=== PATIENT | male | born 1950 | race Caucasian/White ===

== ENCOUNTER 2017-10-01 13:41 | Inpatient (IN) | payer MEDICARE ==
[~2017-10-01] VITALS: Ht 182.9 cm; Wt 71.5 kg
[2017-10-01 14:41] VITALS: BP 104/75; PULSE 129; RESP 16; TEMP 99; O2SAT 95
[2017-10-01] MEDS ORDERED: PIPERACIL-TAZO 3.375 GM PREMIX 50 ML IV ONE (15:30)
[2017-10-01] MEDS ORDERED: SODIUM CHLOR 0.9% 1000 ML INJ 1,000 ML IV ONE ×4 (15:30→16:45)
[2017-10-01] MEDS ORDERED: VANCOMYCIN INJ 1,000 MG in SODIUM CHLOR 0.9% 250 ML INJ 250 ML IV ONE (15:30)
--- NOTE | 2017-10-01 15:36 | PD ---
HPI Chief Complaint: Altered Mental Status Time Seen by Provider: 14:42 Travel History International Travel<30 days: No Contact w/Intl Traveler<30days: No Traveled to known affect area: No History of Present Illness HPI [facility]. Duration one day. Severity is severe. He had fever and tachycardia and low blood pressure. He has known severe sacral decubitus and the doctor was concerned about sacral osteomyelitis. The patient is a quadriplegic. He has a trach and a feeding tube. Temperature at the [facility] was 99.4 today. He arrives with tachycardia and borderline hypotension. No alleviating factors. No exacerbating factors. PFSH Past Medical History Diabetes: Yes Social History Alcohol Use: No Tobacco Use: No Substance Use: No Allergies-Medications (Allergen,Severity, Reaction): Coded Allergies: No Known Allergies (Unverified , 10/01/17) Reported Meds & Prescriptions Reported Meds & Active Scripts Active Reported Zolpidem (Zolpidem Tartrate) 5 Mg Tab 5 Mg PEG HS PRN Zinc Sulfate 220 Mg (50 Mg Zinc) Cap 220 Mg PEG DAILY Xanax (Alprazolam) 0.5 Mg Tab 0.5 Mg PO Q6H PRN Vitamin C (Ascorbic Acid) 250 Mg Chew 250 Mg PEG BID Tamsulosin (Tamsulosin HCl) 0.4 Mg Cap 0.8 Mg PEG HS Spironolactone 25 Mg Tab 25 Mg PEG DAILY Quetiapine (Quetiapine Fumarate) 25 Mg Tab 25 Mg PEG BID Lyrica (Pregabalin) 50 Mg Cap 50 Mg PEG TID Methocarbamol 500 Mg Tab 500 Mg PEG Q8HR Metformin (Metformin HCl) 500 Mg Tab 500 Mg PO BIDPC Lisinopril 10 Mg Tab 10 Mg PEG DAILY Lidocaine Patch 12 HR (Lidocaine) 5 % Patch 1 Patch TOPICAL DAILY Remove patch after 12 hours Levemir Flextouch Pen Inj (Insulin Detemir) 300 unit/3 ML Pen 10 Units SQ BID Klonopin (Clonazepam) 0.5 Mg Tab 0.5 Mg PEG Q8HR Hydrocodone-Acetaminophen 10-325 mg Tab 1 Tab PEG Q6H PRN [Cream For Coccyx] Pepcid (Famotidine) 20 Mg Tab 20 Mg PEG BID Enoxaparin Inj (Enoxaparin Sodium) 40 Mg/0.4 Ml Syr 40 Mg SQ HS Celexa (Citalopram Hydrobromide) 20 Mg Tab 20 Mg PEG DAILY Aspirin 81 Mg Chew 81 Mg PEG DAILY Amitriptyline (Amitriptyline HCl) 50 Mg Tab 50 Mg PEG HS Albuterol Neb (Albuterol Sulfate) 0.63 Mg/3 Ml Neb 0.63 Mg NEB Q6HR NEB PRN Tylenol (Acetaminophen) 325 Mg Tab 650 Mg PEG Q4HR PRN Review of Systems General / Constitutional: Positive: Fever Eyes: No: Visual changes HENT: No: Headaches Cardiovascular: Positive: Tachycardia, No: Chest Pain or Discomfort Respiratory: No: Shortness of Breath Gastrointestinal: No: Abdominal Pain Genitourinary: No: Dysuria Musculoskeletal: Positive: Weakness, No: Pain Skin: No Rash Neurologic: Positive: Weakness Psychiatric: No: Depression Endocrine: No: Polydipsia Hematologic/Lymphatic: No: Easy Bruising Physical Exam Narrative GENERAL: Cachectic well-developed patient who is tachycardic . SKIN: Focused skin assessment reveals stage I decubitus on malleoli of the ankles and greater trochanter areas. Skin is Warm and dry. HEAD: Atraumatic. Normocephalic. EYES: Pupils equal and round. No scleral icterus. No injection or drainage. ENT: No nasal bleeding or discharge. Mucous membranes pink and extremely dry and cracked . NECK: Trachea midline. No JVD. CARDIOVASCULAR: Regular rate and rhythm. No murmur appreciated. Tachycardic 130 RESPIRATORY: No accessory muscle use. Diminished breath sounds but otherwise clear to auscultation. Breath sounds equal bilaterally. GASTROINTESTINAL: Abdomen soft, non-tender, nondistended. Hepatic and splenic margins not palpable. MUSCULOSKELETAL: Has lots of muscular atrophy. No clubbing. No cyanosis. No edema. Examination of the back reveals a deep sacral decubitus. Bone is visible. It was packed and dressed. There is no discharge from the wound. No cellulitis or fluctuance around it. There is a bit of blackish discoloration around the opening of the decub. NEUROLOGICAL: Awake and alert. No obvious cranial nerve deficits. Motor exam shows paresis of the legs and very little movement of the extremities. Has a trach but does have some understandable speech. PSYCHIATRIC: Appropriate mood and affect; insight and judgment reasonable. Data Data Last Documented VS Vital Signs Date Time Temp Pulse Resp B/P (MAP) Pulse Ox O2 Delivery O2 Flow Rate FiO2 10/01/17 16:39 124 22 109/76 (87) 98 Nasal Cannula 5.00 10/01/17 14:41 99.0 Orders Orders Sepsis Workup Initiated (10/01/17 ) Complete Blood Count With Diff (10/01/17 15:18) Comprehensive Metabolic Panel (10/01/17 15:18) Prothrombin Time / Inr (Pt) (10/01/17 15:18) Act Partial Throm Time (Ptt) (10/01/17 15:18) Lactic Acid Sepsis Protocol (10/01/17 15:18) Urinalysis - C+S If Indicated (10/01/17 15:18) Blood Culture (10/01/17 15:18) Chest, Single Ap (10/01/17 15:18) Ecg Monitoring (10/01/17 15:18) Iv Access Insert/Monitor (10/01/17 15:18) Oximetry (10/01/17 15:18) Oxygen Administration (10/01/17 15:18) Sodium Chlor 0.9% 1000 Ml Inj (Ns 1000 M (10/01/17 15:30) Sodium Chlor 0.9% 1000 Ml Inj (Ns 1000 M (10/01/17 15:30) Piperacil-Tazo 3.375 Gm Premix (Zosyn 3. (10/01/17 15:30) Vancomycin Inj (Vancomycin Inj) (10/01/17 15:30) Urine Culture (10/01/17 15:35) Sodium Chlor 0.9% 1000 Ml Inj (Ns 1000 M (10/01/17 16:45) Sodium Chlor 0.9% 1000 Ml Inj (Ns 1000 M (10/01/17 16:45) Labs Laboratory Tests Test 10/01/17 15:35 White Blood Count 34.9 TH/MM3 Red Blood Count 3.86 MIL/MM3 Hemoglobin 10.6 GM/DL Hematocrit 33.1 % Mean Corpuscular Volume 85.7 FL Mean Corpuscular Hemoglobin 27.6 PG Mean Corpuscular Hemoglobin Concent 32.1 % Red Cell Distribution Width 16.9 % Platelet Count 398 TH/MM3 Mean Platelet Volume 7.8 FL Neutrophils (%) (Auto) 76.7 % Lymphocytes (%) (Auto) 12.0 % Monocytes (%) (Auto) 10.9 % Eosinophils (%) (Auto) 0.1 % Basophils (%) (Auto) 0.3 % Neutrophils # (Auto) 26.8 TH/MM3 Lymphocytes # (Auto) 4.2 TH/MM3 Monocytes # (Auto) 3.8 TH/MM3 Eosinophils # (Auto) 0.0 TH/MM3 Basophils # (Auto) 0.1 TH/MM3 CBC Comment AUTO DIFF Differential Total Cells Counted 100 Neutrophils % (Manual) 62 % Band Neutrophils % 8 % Lymphocytes % 11 % Monocytes % 18 % Eosinophils % 1 % Neutrophils # (Manual) 24.4 TH/MM3 Differential Comment FINAL DIFF MANUAL Toxic Vacuolation PRESENT Platelet Estimate NORMAL Platelet Morphology Comment NORMAL Prothrombin Time 10.7 SEC Prothromb Time International Ratio 1.1 RATIO Activated Partial Thromboplast Time 27.1 SEC Urine Color YELLOW Urine Turbidity CLEAR Urine pH 5.5 Urine Specific [place] 1.019 Urine Protein 30 mg/dL Urine Glucose (UA) NEG mg/dL Urine Ketones NEG mg/dL Urine Occult Blood MOD Urine Nitrite POS Urine Bilirubin NEG Urine Urobilinogen LESS THAN 2.0 MG/DL Urine Leukocyte Esterase MOD Urine RBC 7 /hpf Urine WBC 53 /hpf Urine Squamous Epithelial Cells <1 /hpf Microscopic Urinalysis Comment CATH-CULTURE IND Blood Urea Nitrogen 83 MG/DL Creatinine 0.90 MG/DL Random Glucose 175 MG/DL Total Protein 7.7 GM/DL Albumin 2.0 GM/DL Calcium Level 8.7 MG/DL Alkaline Phosphatase 142 U/L Aspartate Amino Transf (AST/SGOT) 50 U/L Alanine Aminotransferase (ALT/SGPT) 52 U/L Total Bilirubin 0.3 MG/DL Sodium Level 140 MEQ/L Potassium Level 5.3 MEQ/L Chloride Level 104 MEQ/L Carbon Dioxide Level 27.9 MEQ/L Anion Gap 8 MEQ/L Estimat Glomerular Filtration Rate 85 ML/MIN Lactic Acid Level 2.3 mmol/L [facility] Medical Decision Making Medical Screen Exam Complete: Yes Emergency Medical Condition: Yes Medical Record Reviewed: Yes Differential Diagnosis Sepsis, dehydration, renal failure Narrative Course I have reviewed the patient's electronic medical record. I reviewed the [facility] paperwork including medication lists and physician evaluation from today This patient arrives critically ill. I placed bilateral external jugular IV sites I gave him 2 L normal saline IV bolus He looks very dehydrated Blood cultures obtained as well as lab studies I gave him IV vancomycin and IV Zosyn I reviewed his chest x-ray which is negative Urinalysis shows 53 white cells and will be cultured Labs are reviewed. White count is elevated at 34,000 Lactate is elevated at 2.3 Metabolic studies revealed severe dehydration with azotemia Have given him 2 more liters of saline for a total of 4 L IV bolus here Heart rate is come down from 130 to 110 Blood pressure is at 110 at this time. I placed a call to the hospitalist to admit. I do not think he requires intensive care at this point given the intense resuscitation he has had Critical Care Narrative Aggregate critical care time was 80 minutes. Time to perform other separately billable procedures was not included in the critical care time. My time did not include minutes spent treating any other patients simultaneously or on activities that did not directly contribute to the patient's treatment. The services I provided to this patient were to treat and/or prevent clinically significant deterioration that could result in: Cardiopulmonary arrest, septic shock, hypovolemic shock I provided critical care services requiring my management, as noted below: Chart data review, documentation time, medication orders and management, vital sign assessments/reviewing monitor data, ordering and reviewing lab tests, ordering and interpreting/reviewing x-rays and diagnostic studies, care of the patient and discussion of the patient with the admitting physicians. Sepsis Criteria SIRS Criteria (2 or more): Heart rate over 90, WBC > 46595, < 4000 or > 10% bands Sepsis Criteria (SIRS+source): Infect source susp/known Severe Sepsis (+one): Hypotension, Lactate >2, Acute Oliguria/Renal Failure Criteria Outcome: Meets severe sepsis criteria Diagnosis Primary Impression: Severe sepsis Additional Impressions: Sacral osteomyelitis Severe dehydration Admitting Information Admitting Physician Requests: Sebastián Gaona MD Oct 01, 2017 15:36
[2017-10-01] MEDS ORDERED: TYLE325T PEG (15:41)
[2017-10-01] MEDS ORDERED: ZOLP5TAB3 PEG (15:41)
[2017-10-01] MEDS ORDERED: ALBU0.63 NEB (15:41)
[2017-10-01] MEDS ORDERED: LISI10TA3 PEG (15:41)
[2017-10-01] MEDS ORDERED: TAMS0.4C4 PEG (15:41)
[2017-10-01] MEDS ORDERED: CELE20TA PEG (15:41)
[2017-10-01] MEDS ORDERED: AMIT50TA3 PEG (15:41)
[2017-10-01] MEDS ORDERED: LIDO1PAD52 TOPICAL (15:41)
[2017-10-01] MEDS ORDERED: ZINC220C3 PEG (15:41)
[2017-10-01] MEDS ORDERED: METF500T PO (15:41)
[2017-10-01] MEDS ORDERED: INSU1INJ5 SQ (15:41)
[2017-10-01] MEDS ORDERED: LYRI50CA PEG (15:41)
[2017-10-01] MEDS ORDERED: ENOX40IN SQ (15:41)
[2017-10-01] MEDS ORDERED: HYDR-3583 PEG (15:41)
[2017-10-01] MEDS ORDERED: SPIR25TA PEG (15:41)
[2017-10-01] MEDS ORDERED: CLON.5 PEG (15:41)
[2017-10-01] MEDS ORDERED: ASPI-516 PEG (15:41)
[2017-10-01] MEDS ORDERED: ALPR.5 PO (15:41)
[2017-10-01] MEDS ORDERED: QUET1TAB7 PEG (15:41)
[2017-10-01] MEDS ORDERED: VITA250C3 PEG (15:41)
[2017-10-01] MEDS ORDERED: [UNRECOGNIZED DRUG - REMARK] (15:41)
[2017-10-01] MEDS ORDERED: METH500T3 PEG (15:41)
[2017-10-01] MEDS ORDERED: FAMO1TAB37 PEG (15:41)
--- NOTE | 2017-10-01 15:45 | RADRPT ---
EXAM DATE/TIME: 10/01/2017 15:30 [facility] COMPARISON: No previous studies available for comparison. INDICATIONS : Fever. MEDICAL HISTORY : None. SURGICAL HISTORY : Fusion, cervical. Tracheal tube. ENCOUNTER: Initial ACUITY: 1 day PAIN SCORE: Non-responsive. LOCATION: Bilateral chest FINDINGS: Minimal elevation left hemidiaphragm. Lungs are clear.. Tracheostomy tube in good position. The ca rdiomediastinal contours are unremarkable. Osseous structures are intact. CONCLUSION: Elevation left hemidiaphragm. Lungs are clear Remberto Aguilera MD FACR on October 01, 2017 at 15:42 Board Certified Radiologist. This report was verified electronically.
[2017-10-01 16:09] LABS: AUTOMATED NEUTROPHIL # 26.8 TH/MM3 (1.8-7.7); BASOPHIL # 0.1 TH/MM3 (0-0.2); BASOPHIL % 0.3 % (0.0-2.0); EOSINOPHIL % 0.1 % (0.0-4.0); HEMATOCRIT 33.1 % (39.0-51.0); HEMOGLOBIN 10.6 GM/DL (13.0-17.0); LYMPHOCYTE # 4.2 TH/MM3 (1.0-4.8); MEAN CELL VOLUME 85.7 FL (80.0-100.0); MEAN CORPUSCULAR HEMOGLOBIN 27.6 PG (27.0-34.0); MEAN CORPUSCULAR HGB CONC 32.1 % (32.0-36.0); MEAN PLATELET VOLUME 7.8 FL (7.0-11.0); MONO % 10.9 % (0.0-8.0); MONOCYTE # 3.8 TH/MM3 (0-0.9); NEUT % 76.7 % (16.0-70.0); PLATELET COUNT 398 TH/MM3 (150-450); RED BLOOD COUNT 3.86 MIL/MM3 (4.50-5.90); RED CELL DISTRIBUTION WIDTH 16.9 % (11.6-17.2); WHITE BLOOD COUNT 34.9 TH/MM3 (4.0-11.0)
[2017-10-01 16:18] LABS: INTERNATIONAL NORMALIZED RATIO 1.1 RATIO; PROTHROMBIN TIME - PATIENT 10.7 SEC (9.8-11.6)
[2017-10-01 16:20] LABS: BILIRUBIN, URINE NEG (NEG); BLOOD, URINE MOD (NEG); GLUCOSE,URINE NEG (NEG); KETONE, URINE NEG (NEG); NITRITE,URINE POS (NEG); PH, URINE 5.5 (5.0-8.5); SQUAMOUS EPITHELIAL CELL URINE <1 /hpf (0-5); URINE COLOR YELLOW (YELLW/STRAW); URINE LEUKOCYTE ESTERASE MOD (NEG)
[2017-10-01 16:28] LABS: LACTIC ACID SEPSIS PROTOCOL 2.3 mmol/L (0.4-2.0)
[2017-10-01 16:39] VITALS: BP 109/76; PULSE 124; RESP 22; O2SAT 98
[2017-10-01 16:42] LABS: ALT (GPT) 52 U/L (12-78); AST (GOT) 50 U/L (15-37); BICARBONATE 27.9 MEQ/L (21.0-32.0); BLOOD UREA NITROGEN 83 MG/DL (7-18); CALCIUM 8.7 MG/DL (8.5-10.1); CHLORIDE 104 MEQ/L (98-107); GLOMERULAR FILTRATION RATE 85 ML/MIN (>89); GLUCOSE,RANDOM 175 MG/DL (74-106); SODIUM (NA) 140 MEQ/L (136-145)
[2017-10-01 16:44] LABS: ALKALINE PHOSPHATASE 142 U/L (45-117); TOTAL BILIRUBIN ADULT 0.3 MG/DL (0.2-1.0); TOTAL PROTEIN 7.7 GM/DL (6.4-8.2)
[2017-10-01 16:57] LABS: BANDS 8 % (0-6); LYMPHOCYTES 11 % (9-44); MONOCYTES 18 % (0-8); NEUTROPHIL # MANUAL DIFF 24.4 TH/MM3 (1.8-7.7); POLYS (SEG NEUTROPHILS) 62 % (16-70)
[2017-10-01 16:58] LABS: TOXIC VACUOLATION PRESENT (NONE SEEN)
[2017-10-01 17:39] VITALS: BP 110/70; PULSE 110; RESP 22; O2SAT 98
[2017-10-01] MEDS ORDERED: LACTULOSE SYRUP 20 GM/30 ML CUP PO PRN (18:30)
[2017-10-01] MEDS ORDERED: Vancomycin Consult Pharmacy 1 EA OTHER SCH (18:30)
[2017-10-01] MEDS ORDERED: NALOXONE HCL 0.4 MG/ML AMP IV PUSH PRN (18:30)
[2017-10-01] MEDS ORDERED: MAGNESIUM HYDROXIDE SUSP 30 ML CUP PO PRN (18:30)
[2017-10-01] MEDS ORDERED: SENNOSIDES 8.6 MG TAB PO PRN (18:30)
[2017-10-01] MEDS ORDERED: BISACODYL 10 MG SUPP RECTAL PRN (18:30)
[2017-10-01 20:00] VITALS: BP 132/78; PULSE 112; RESP 20; TEMP 99.9; O2SAT 99
[2017-10-01] MEDS ORDERED: HEPARIN SODIUM - SQ 10,000 UNITS/ML VIAL SQ SCH (20:00)
[2017-10-01] MEDS: SODIUM CHLOR 0.9% 1000 ML INJ 1,000 ML IV SCH (21:12)
[2017-10-01] MEDS: PIPERACIL-TAZO 4.5 GM PREMIX 100 ML IV SCH (21:13)
--- NOTE | 2017-10-01 21:22 | HHI.HP ---
[facility] Jeremias Rodriguez MD Admission Diagnosis severe sepsis,dehydration,sacral osteomyelitis Diagnoses: Travel History International Travel<30 Days: No Contact w/Intl Traveler <30 Da: No Traveled to Known Affected Are: No History of Present Illness History from patient, ER physician notes, patient's daughter and at the bedside, interview of medical records. Patient has been a resident of [facility] for the past 2 weeks. Prior to that, patient was at [facility] for about 6 weeks. He was hospitalized in [place] at [facility] prior to that for about 4 weeks. He was admitted on August 03, 2017. According to the family, patient had abscess drainage from his cervical spine at that time and staph aureus was found and cultures. He also had abscesses in his left lower abdomen and flank area and was growing MRSA. He was treated with antibiotics there and family believes that he completed by the time he was discharged to [facility]. Today at [facility], patient was having low blood pressure with high heart and low- grade fever for which she was sent to the hospital. Family reported that the were also suctioning him frequently in the past 2-3 days. Patient was coughing a lot as well. At one point, patient had a choking episode with ice chips. However family's complaint being that this never happened when he was at [facility]. He was eating regular type of food at that time in his trach was capped. As [facility], he was always on oxygen and triglyceride capped. Family believes that patient is getting more and more drowsy at [facility] because of medications. Patient also have indwelling Marquez catheter. They are not sure when it was last changed. He also complained of bed sores which developed a few days after arriving [facility] in July. They stated that he has had debridements done there. He also reported diarrhea but they were told that it was because of his feeding formula. Diarrhea has been going on for a while. Family is mostly concerned about his medications changes. They do not want him to get too much pain medications in the form of narcotics. Reports the patient was on lorcets at the [facility] At baseline, patient is only able to move his fingers and hands and arms slightly anteflexed and slightly. He is bedbound. He is not able to lift his legs against gravity. He is only able to move sideways a bit and pressed down lightly. All this is that his baseline after this cervical spine abscess surgery. Patient has history of IV drug abuse which he has quit for many years and restarted back within the past 1 year or so. Review of Systems Except as stated in HPI: all other systems reviewed are Neg Past Family Social History Past Medical History htn dm endocarditis in the hyperlipidemia heart murmur melanoma on back of his neck - that was removed- about 10-15yrs ago BPH chronic pain syndrome- with freq hospitalizations for overdose, over medications , pain syndrome - about every 6 months in past 3 yrs Past Surgical History cervical spine sx- DJD- fusion about 12 yrs ago lower lumbar spine- about 8 yrs ago cervical spine abscess drainage- 08/02 admission knee surgery - >30yrs ago - left knee- 1960s trach, peg - 08/02 admission Allergies: Coded Allergies: No Known Allergies (Unverified , 10/01/17) Family History father- of PA in his 40s Social History used to smoke cigarrttes, quit about 35 yrs ago no etoh abuser used to use iv drugs in the - from cocaine- quit since about 30yrs ago , but restarted in about 1 yr or so with pain pills and injection Physical Exam Vital Signs Vital Signs Date Time Temp Pulse Resp B/P (MAP) Pulse Ox O2 Delivery O2 Flow Rate FiO2 10/01/17 17:39 110 22 110/70 (83) 98 Nasal Cannula 5.00 10/01/17 16:39 124 22 109/76 (87) 98 Nasal Cannula 5.00 10/01/17 14:41 99.0 129 16 104/75 (85) 95 Physical Exam GENERAL: This is a well-nourished, well-developed patient, in no apparent distress. SKIN: sacral decubiti stage IV HEAD: Atraumatic. Normocephalic. No temporal or scalp tenderness. EYES: No scleral icterus. No injection or drainage. ENT: Nose without bleeding, purulent drainage or septal hematoma. . Airway patent. NECK: Trachea midline. No JVD CARDIOVASCULAR: Regular rate and rhythm without murmurs, gallops, or rubs. RESPIRATORY: Clear to auscultation. Breath sounds equal bilaterally. No wheezes , rales, or rhonchi. GASTROINTESTINAL: Abdomen soft, non-tender, nondistended.No guarding. MUSCULOSKELETAL: Extremities without clubbing, cyanosis, or edema. No calf tenderness. NEUROLOGICAL: Awake. At times is confused but for the most part is alert. Slurred speech. Bilateral upper extremities 1 out of 5. Bilateral lower extremities1/5 Laboratory Laboratory Tests Test 10/01/17 15:35 10/01/17 20:30 White Blood Count 34.9 Red Blood Count 3.86 Hemoglobin 10.6 Hematocrit 33.1 Mean Corpuscular Volume 85.7 Mean Corpuscular Hemoglobin 27.6 Mean Corpuscular Hemoglobin Concent 32.1 Red Cell Distribution Width 16.9 Platelet Count 398 Mean Platelet Volume 7.8 Neutrophils (%) (Auto) 76.7 Lymphocytes (%) (Auto) 12.0 Monocytes (%) (Auto) 10.9 Eosinophils (%) (Auto) 0.1 Basophils (%) (Auto) 0.3 Neutrophils # (Auto) 26.8 Lymphocytes # (Auto) 4.2 Monocytes # (Auto) 3.8 Eosinophils # (Auto) 0.0 Basophils # (Auto) 0.1 CBC Comment AUTO DIFF Differential Total Cells Counted 100 Neutrophils % (Manual) 62 Band Neutrophils % 8 Lymphocytes % 11 Monocytes % 18 Eosinophils % 1 Neutrophils # (Manual) 24.4 Differential Comment FINAL DIFF MANUAL Toxic Vacuolation PRESENT Platelet Estimate NORMAL Platelet Morphology Comment NORMAL Prothrombin Time 10.7 Prothromb Time International Ratio 1.1 Activated Partial Thromboplast Time 27.1 Urine Color YELLOW Urine Turbidity CLEAR Urine pH 5.5 Urine Specific [place] 1.019 Urine Protein 30 Urine Glucose (UA) NEG Urine Ketones NEG Urine Occult Blood MOD Urine Nitrite POS Urine Bilirubin NEG Urine Urobilinogen LESS THAN 2.0 Urine Leukocyte Esterase MOD Urine RBC 7 Urine WBC 53 Urine Squamous Epithelial Cells <1 Microscopic Urinalysis Comment CATH-CULTURE IND Blood Urea Nitrogen 83 Creatinine 0.90 Random Glucose 175 Total Protein 7.7 Albumin 2.0 Calcium Level 8.7 Alkaline Phosphatase 142 Aspartate Amino Transf (AST/SGOT) 50 Alanine Aminotransferase (ALT/SGPT) 52 Total Bilirubin 0.3 Sodium Level 140 Potassium Level 5.3 Chloride Level 104 Carbon Dioxide Level 27.9 Anion Gap 8 Estimat Glomerular Filtration Rate 85 Lactic Acid Level 2.3 1.1 B-Type Natriuretic Peptide 8 Date/Time Source Procedure Growth Status 10/01/17 15:40 Blood Peripheral Aerobic Blood Culture Pending Received 10/01/17 15:40 Blood Peripheral Anaerobic Blood Culture Pending Received 10/01/17 15:35 Urine Catheterized Urine Urine Culture Pending Received Result Diagram: 10/01/17 1535 10/01/17 1535 Imaging Last [address] 10/02/17 0039 Signed Impressions: Service Date/Time: Monday, October 02, 2017 01:45 - CONCLUSION: 1. No gross intracranial abnormality on this scan which is degraded by patient motion. Jose Sin MD Chest X-Ray 10/01/17 1518 Signed Impressions: Service Date/Time: Sunday, October 01, 2017 15:30 - CONCLUSION: Elevation left hemidiaphragm. Lungs are clear Remberto Aguilera MD FACR Caprini VTE Risk Assessment Caprini VTE Risk Assessment: Mod/High Risk (score >= 2) Caprini Risk Assessment Model Point Value = 1 Point Value = 2 Point Value = 3 Point Value = 5 Age 41-60 Minor surgery BMI > 25 kg/m2 Swollen legs Varicose veins or History of unexplained or recurrent spontaneous Oral contraceptives or hormone replacement Sepsis (< 1 month) Serious lung disease, including pneumonia (< 1 month) Abnormal pulmonary function Acute myocardial infarction Congestive heart failure (< 1 month) History of inflammatory bowel disease Medical patient at bed rest Age 61-74 Arthroscopic surgery Major open surgery (> 45 min) Laparoscopic surgery (> 45 min) Malignancy Confined to bed (> 72 hours) Immobilizing plaster cast Central venous access Age >= 75 History of VTE Family history of VTE Factor V Leiden Prothrombin [id number] Lupus anticoagulant Anticardiolipin antibodies Elevated serum homocysteine Heparin-induced thrombocytopenia Other congenital or acquired thrombophilia Stroke (< 1 month) Elective arthroplasty Hip, pelvis, or leg fracture Acute spinal cord injury (< 1 month) Prophylaxis Regimen Total Risk Factor Score Risk Level Prophylaxis Regimen 0-1 Low Early ambulation 2 Moderate Order ONE of the following: *Sequential Compression Device (SCD) *Heparin 5000 units SQ BID 3-4 Higher Order ONE of the following medications: *Heparin 5000 units SQ TID *Enoxaparin/Lovenox 40 mg SQ daily (WT < 150 kg, CrCl > 30 mL/min) *Enoxaparin/Lovenox 30 mg SQ daily (WT < 150 kg, CrCl > 10-29 mL/min) *Enoxaparin/Lovenox 30 mg SQ BID (WT < 150 kg, CrCl > 30 mL/min) AND/OR *Sequential Compression Device (SCD) 5 or more Highest Order ONE of the following medications: *Heparin 5000 units SQ TID (Preferred with Epidurals) *Enoxaparin/Lovenox 40 mg SQ daily (WT < 150 kg, CrCl > 30 mL/min) *Enoxaparin/Lovenox 30 mg SQ daily (WT < 150 kg, CrCl > 10-29 mL/min) *Enoxaparin/Lovenox 30 mg SQ BID (WT < 150 kg, CrCl > 30 mL/min) AND *Sequential Compression Device (SCD) Assessment and Plan Assessment and Plan Impression: sepsis leukocytosis with left shift recent MRSA infection of c spine abscess in 07/2017 possible c diff colitis UTI with indwelling marquez sacral decubiti questionable hypoxia- pt is on 5L here on trach; was not requiring oxygen 2 weeks ago at [facility] slurred speech/ AMS - likely from overmedication- will r/o intrarnial etiologies Plan: ct vanco zosyn for now contact isolation for mrsa check cdiff iv fluids bnp was back ordered- 8 will see pt's sats without oxygen supplementation if pt desats, would obtain ct pulmonary angiogram pt is on lovenox for prophylaxis at ID change marquez send urine from [place] marquez family is explained danger of abruptly stopping benzos will taper off lortab 5 q6hrs prn for pain ct lyrica ct lidocaine patch wound care consult id consut Discussed Condition With patient, nursing staff Physician Certification 2 Midnight Certification Type: Admission for Inpatient Services Order for Inpatient Services The services are ordered in accordance with Medicare regulations or non- Medicare payer requirements, as applicable. In the case of services not specified as inpatient-only, they are appropriately provided as inpatient services in accordance with the 2-midnight benchmark. Estimated LOS (days): 4 days is the estimated time the patient will need to remain in the hospital, assuming treatment plan goals are met and no additional complications. Post-Hospital Plan: Not yet determined Tamela Peralta MD Oct 01, 2017 21:22
[2017-10-01] MEDS: ACETAMINOPHEN/HYDROcodone 325 MG/5 MG TAB PO PRN (22:43)
[2017-10-01 23:07] LABS: BACTERIA, URINE RARE /hpf; BILIRUBIN, URINE NEG (NEG); BLOOD, URINE MOD (NEG); GLUCOSE,URINE NEG (NEG); KETONE, URINE NEG (NEG); NITRITE,URINE POS (NEG); URINE COLOR YELLOW (YELLW/STRAW); URINE LEUKOCYTE ESTERASE MOD (NEG)
[2017-10-02] VITALS (12 sets, daily range): BP systolic 112–138; BP diastolic 69–87; PULSE 117–126; RESP 12–27; TEMP 98–98.9; O2SAT 93–96
[2017-10-02] MEDS ORDERED: DEXTROSE 50% IN WATER 50 ML VIAL(D50) IV PUSH PRN (01:00)
[2017-10-02] MEDS ORDERED: GLUCAGON 1 MG/ML VIAL OTHER PRN (01:00)
[2017-10-02] MEDS ORDERED: SODIUM CHLORID 0.9% 500 ML INJ 500 ML IV ONE (01:15)
[2017-10-02] MEDS ORDERED: LORazepam 2 MG/ML VIAL IV PUSH ONE (01:45)
--- NOTE | 2017-10-02 01:55 | RADRPT ---
EXAM DATE/TIME: 10/02/2017 01:45 [facility] COMPARISON: No previous studies available for comparison. INDICATIONS : Altered mental status. RADIATION DOSE: 35.54 CTDIvol (mGy) MEDICAL HISTORY : Hypertension. Parapalegic; trach SURGICAL HISTORY : neck ENCOUNTER: Initial ACUITY: 1 day PAIN SCALE: 0/10 LOCATION: cranial TECHNIQUE: Multiple contiguous axial images were obtained of the head. Using automated exposure control and adj ustment of the mA and/or kV according to patient size, radiation dose was kept as low as reasonably a chievable to obtain optimal diagnostic quality images. DICOM format image data is available electro nically for review and comparison. FINDINGS: The patient was scanned twice because of significant motion degradation. There is motion degradation on both scans and there are portions of the low and mid convexity which are incompletely evaluated. CEREBRUM: The ventricles are normal for age. No evidence of midline shift, mass lesion, hemorrhage or acute in farction. No extra-axial fluid collections are seen. POSTERIOR FOSSA: The cerebellum and brainstem are intact. The 4th ventricle is midline. The cerebellopontine angle i s unremarkable. EXTRACRANIAL: The visualized portion of the orbits is intact. SKULL: The calvaria is intact. No evidence of skull fracture. CONCLUSION: 1. No gross intracranial abnormality on this scan which is degraded by patient motion. Jose Sin MD on October 02, 2017 at 1:52 Board Certified Radiologist. This report was verified electronically.
[2017-10-02] MEDS: PIPERACIL-TAZO 4.5 GM PREMIX 100 ML IV SCH ×4 (02:06→22:17)
[2017-10-02] MEDS: metroNIDAZOLE 500 MG INJ 100 ML IV SCH ×3 (02:06→14:05)
[2017-10-02] MEDS ORDERED: VANCOMYCIN 1,000 MG/NS 250 ML IV SCH ×2 (05:00)
[2017-10-02] MEDS: clonazePAM 0.5 MG TAB PEG SCH ×3 (05:02→22:16)
[2017-10-02] MEDS: SODIUM CHLOR 0.9% 1000 ML INJ 1,000 ML IV SCH (07:59)
[2017-10-02] MEDS: INSULIN ASPART SUPPLEMENTAL SCALE SQ SCH ×5 (08:00→21:00)
[2017-10-02] MEDS: ASPIRIN 81 MG CHEW TAB PEG SCH (08:07)
[2017-10-02] MEDS: PREGABALIN 25 MG CAP PEG SCH ×3 (08:07→22:54)
[2017-10-02] MEDS: FAMOTIDINE 20 MG TAB PEG SCH ×2 (08:07→22:16)
[2017-10-02] MEDS: ASCORBIC ACID 500 MG TAB PEG SCH ×2 (08:07→22:16)
[2017-10-02] MEDS: CITALOPRAM HYDROBROMIDE 20 MG TAB PEG SCH (08:07)
[2017-10-02] MEDS: LIDOCAINE HCL 5% PATCH T-DERMAL SCH (08:08)
[2017-10-02] MEDS: QUEtiapine FUMARATE 25 MG TAB PEG SCH ×2 (08:08→22:16)
[2017-10-02] MEDS ORDERED: INSULIN DETEMIR 100 UNITS/ML VIAL SQ SCH (09:00)
[2017-10-02] MEDS ORDERED: ZINC SULFATE 220 MG CAP PEG SCH (09:00)
[2017-10-02] MEDS: ACETAMINOPHEN/HYDROcodone 325 MG/5 MG TAB PO PRN (11:30)
[2017-10-02] MEDS: ZINC SULFATE 220 MG PEG SCH (11:30)
[2017-10-02 12:39] LABS: AUTOMATED NEUTROPHIL # 26.3 TH/MM3 (1.8-7.7); BASOPHIL # 0.1 TH/MM3 (0-0.2); BASOPHIL % 0.3 % (0.0-2.0); EOSINOPHIL % 0.1 % (0.0-4.0); HEMOGLOBIN 10.2 GM/DL (13.0-17.0); LYMPH % 10.9 % (9.0-44.0); LYMPHOCYTE # 3.6 TH/MM3 (1.0-4.8); MEAN CELL VOLUME 85.8 FL (80.0-100.0); MEAN CORPUSCULAR HEMOGLOBIN 27.4 PG (27.0-34.0); MEAN CORPUSCULAR HGB CONC 31.9 % (32.0-36.0); MEAN PLATELET VOLUME 7.6 FL (7.0-11.0); MONO % 9.5 % (0.0-8.0); MONOCYTE # 3.2 TH/MM3 (0-0.9); NEUT % 79.2 % (16.0-70.0); PLATELET COUNT 346 TH/MM3 (150-450); RED BLOOD COUNT 3.72 MIL/MM3 (4.50-5.90); RED CELL DISTRIBUTION WIDTH 16.5 % (11.6-17.2); WHITE BLOOD COUNT 33.2 TH/MM3 (4.0-11.0)
[2017-10-02 13:06] LABS: BICARBONATE 21.5 MEQ/L (21.0-32.0); CALCIUM 8.5 MG/DL (8.5-10.1); CREATININE 0.49 MG/DL (0.60-1.30)
[2017-10-02 13:17] LABS: BANDS 13 % (0-6); LYMPHOCYTES 7 % (9-44); METAMYELOCYTES 3 % (0-1); MONOCYTES 9 % (0-8); NEUTROPHIL # MANUAL DIFF 27.9 TH/MM3 (1.8-7.7); POLYS (SEG NEUTROPHILS) 68 % (16-70)
[2017-10-02 13:18] LABS: DOHLE BODIES PRESENT (NONE SEEN); TOXIC VACUOLATION PRESENT (NONE SEEN)
--- NOTE | 2017-10-02 15:22 | PD.CONS ---
History of Present Illness Service Infectious disease Consult Requested By Dr Peralta Reason for Consult Evaluate a with severe sepsis Primary Care Physician Jeremias Rodriguez MD Diagnoses: History of Present Illness Patient seen and examined. Records reviewed. Patient is not a good historian and history obtained from his current records. Patient is a 67-year-old male, brought into the hospital for evaluation for possible sepsis. Patient was hospitalized initially in [facility] and he was apparently there for about 4 weeks. He had drainage of a spur cervical spine abscess that had MRSA and there was also mention that he had other abscesses in his body. During his previous hospitalization he had tracheostomy placement as well as PEG tube placement. He went to [facility] after that and he was apparently there for at least 6 weeks and went to [facility]. [facility] there was mention of different problems including some diarrhea. Also he has had problem with some cough and some choking episodes which according to the family is new. His trach use and he usually can eat without any problem. Low-grade fevers. Patient also has an indwelling Marquez catheter and the family does not know how long ago it was change. In the rehabilitation facility he was noted to be tachycardic, and had low blood pressure and some low-grade fever. Sepsis is a concerns of the patient was brought into the hospital for further evaluation and treatment. On admission his white count was elevated. His chest x-rays normal. Stool for C. difficile is now back with C. difficile positive toxin. His Marquez catheter was changed in the emergency room. Urinalysis showed pyuria, urine culture has gram-negative zenobia. Blood cultures are negative so far. Infectious disease consultation has been requested to evaluate for severe sepsis. Review of Systems ROS Limitations: Clinical Condition, Poor Historian Past Family Social History Allergies: Coded Allergies: No Known Allergies (Unverified , 10/01/17) Past Medical History Hypertension Diabetes endocarditis in the 1980s Hyperlipidemia melanoma on back of his neck - that was removed- about 10-15yrs ago BPH chronic pain syndrome- with freq hospitalizations for overdose, over medications , pain syndrome - about every 6 months in past 3 yrs Previous MRSA pneumonia Cervical spine abscess that was treated Past Surgical History cervical spine sx- DJD- fusion about 12 yrs ago lower lumbar spine- about 8 yrs ago cervical spine abscess drainage- 08/02 admission knee surgery - >30yrs ago - left knee- 1960s trach, peg - 08/02 admission Active Ordered Medications Current Medications Medications (Trade) Dose Ordered Sig/Damian Route Start Time Stop Time Status Last Admin Sodium Chloride 1,000 ml @ 70 mls/hr [id number] IV 10/01/17 18:18 10/02/17 07:59 (Narcan Inj) 0.4 mg UNSCH PRN IV PUSH 10/01/17 18:30 (Milk Of Magnesia Liq) 30 ml Q12H PRN PO 10/01/17 18:30 (Senokot) 17.2 mg Q12H PRN PO 10/01/17 18:30 (Dulcolax Supp) 10 mg DAILY PRN RECTAL 10/01/17 18:30 (Lactulose Liq) 30 ml DAILY PRN PO 10/01/17 18:30 Pharmacy Profile Note 0 ml @ 0 mls/hr UNSCH OTHER 10/01/17 18:30 Piperacillin Sod/ Tazobactam Sod 100 ml @ 200 mls/hr Q6H IV 10/01/17 21:00 10/02/17 15:00 Vancomycin HCl 1000 mg/Sodium Chloride 250 ml @ 250 mls/hr Q12H IV 10/02/17 05:00 10/02/17 05:02 Miscellaneous Information SPECIFIC LAB TO BE DRAWN:VANCO TROUGH DATE TO... ONCE ONCE .XX 10/03/17 04:45 10/03/17 04:46 (Lidoderm 5% Patch.12 Hr) 1 patch DAILY T-DERMAL 10/02/17 09:00 10/02/17 08:08 (Lyrica) 50 mg TID PEG 10/02/17 09:00 10/02/17 14:05 (Clinton 5-325 Mg) 1 tab Q6H PRN PO 10/01/17 22:15 10/02/17 11:30 (Albuterol Neb) 0.63 mg Q6HR NEB PRN NEB 10/02/17 01:00 (Elavil) 50 mg HS PEG 10/02/17 21:00 (Aspirin Chew) 81 mg DAILY PEG 10/02/17 09:00 10/02/17 08:07 (CeleXA) 20 mg DAILY PEG 10/02/17 09:00 10/02/17 08:07 (KlonoPIN) 0.5 mg Q8HR PEG 10/02/17 06:00 10/02/17 14:05 (Lovenox Inj) 40 mg HS SQ 10/02/17 21:00 (Pepcid) 20 mg BID PEG 10/02/17 09:00 10/02/17 08:07 (SEROquel) 25 mg BID PEG 10/02/17 09:00 10/02/17 08:08 (Flomax) 0.8 mg HS PO 10/02/17 21:00 (Vitamin C) 250 mg BID PEG 10/02/17 09:00 10/02/17 08:07 (Levemir Inj) 10 units BID SQ 10/02/17 09:00 (D50w (Vial) Inj) 50 ml UNSCH PRN IV PUSH 10/02/17 01:00 (Glucagon Inj) 1 mg UNSCH PRN OTHER 10/02/17 01:00 (NovoLOG SUPPLEMENTAL SCALE) 1 ACHS SLIDING SCALE SQ 10/02/17 08:00 10/02/17 12:00 Metronidazole 100 ml @ 100 mls/hr Q6H IV 10/02/17 02:00 10/02/17 14:05 Non-Formulary Medication ZINC SULFATE 22... Q24H PEG 10/02/17 11:00 10/02/17 11:30 Family History Father of [place] Social History Has been [facility] the [facility] Ex-smoker, quit 35 years ago No alcohol abuse Used to use iv drugs in the 1980s - from cocaine- quit since about 30yrs ago , but restarted in about 1 yr or so with pain pills and injection Physical Exam Vital Signs Vital Signs Date Time Temp Pulse Resp B/P (MAP) Pulse Ox O2 Delivery O2 Flow Rate FiO2 10/02/17 12:00 120 23 118/79 (92) 95 10/02/17 11:34 98.5 119 27 112/79 (90) 93 Room Air 10/02/17 09:45 120 24 113/69 (84) 94 10/02/17 08:05 Room Air 10/02/17 08:04 98.9 123 12 129/76 (93) 95 Room Air 10/02/17 05:43 98.9 120 18 125/78 (94) 95 Room Air 10/02/17 04:00 123 20 129/72 (91) 94 Room Air 10/02/17 00:01 124 20 112/75 (87) 96 Room Air 10/01/17 20:00 99.9 112 20 132/78 (96) 99 Trach Collar 2.00 10/01/17 17:39 110 22 110/70 (83) 98 Nasal Cannula 5.00 10/01/17 16:39 124 22 109/76 (87) 98 Nasal Cannula 5.00 Physical Exam GENERAL: Patient is a thin, well-developed male, awake and alert, not in respiratory distress. He occasional answers my questions SKIN: Warm and dry. No generalized rash, no ecchymoses and no evidence of embolic lesions. HEAD: Atraumatic. Normocephalic. No temporal wasting, or tenderness. EYES: [place] conjunctiva. No petechia or hemorrhage. Pupils equal, round and reactive to light. Extraocular movements full and intact. No scleral icterus. No injection or drainage. EARS, NOSE AND THROAT: Nose without bleeding or purulent nasal discharge. No sinus tenderness. Dry oral mucosa NECK: Trachea midline. Trach site has small amount of purulence around site, currently capped CARDIOVASCULAR: Regular rate and rhythm. No murmurs, rubs or gallops heard RESPIRATORY: has scattered rhonchi ABDOMEN: Soft, non-tender, nondistended. Bowel sounds present and normoactive. No guarding. No rebound. No organomegaly. PEG site ok EXTREMITIES: No clubbing, cyanosis, or edema. No joint effusion, has good ROM. No calf tenderness. Well perfused and warm. : Marquez in place urine looks clear NEUROLOGICAL: Awake and alert. No facial asymmetry. Moves extremities PSYCHIATRIC: restless LINE: No evidence of infection Laboratory Laboratory Tests Test 10/01/17 15:35 10/01/17 20:30 10/01/17 22:30 10/01/17 22:40 White Blood Count 34.9 Red Blood Count 3.86 Hemoglobin 10.6 Hematocrit 33.1 Mean Corpuscular Volume 85.7 Mean Corpuscular Hemoglobin 27.6 Mean Corpuscular Hemoglobin Concent 32.1 Red Cell Distribution Width 16.9 Platelet Count 398 Mean Platelet Volume 7.8 Neutrophils (%) (Auto) 76.7 Lymphocytes (%) (Auto) 12.0 Monocytes (%) (Auto) 10.9 Eosinophils (%) (Auto) 0.1 Basophils (%) (Auto) 0.3 Neutrophils # (Auto) 26.8 Lymphocytes # (Auto) 4.2 Monocytes # (Auto) 3.8 Eosinophils # (Auto) 0.0 Basophils # (Auto) 0.1 CBC Comment AUTO DIFF Differential Total Cells Counted 100 Neutrophils % (Manual) 62 Band Neutrophils % 8 Lymphocytes % 11 Monocytes % 18 Eosinophils % 1 Neutrophils # (Manual) 24.4 Differential Comment FINAL DIFF MANUAL Toxic Vacuolation PRESENT Platelet Estimate NORMAL Platelet Morphology Comment NORMAL Prothrombin Time 10.7 Prothromb Time International Ratio 1.1 Activated Partial Thromboplast Time 27.1 Urine Color YELLOW YELLOW Urine Turbidity CLEAR CLEAR Urine pH 5.5 6.0 Urine Specific Gonzales 1.019 1.018 Urine Protein 30 30 Urine Glucose (UA) NEG NEG Urine Ketones NEG NEG Urine Occult Blood MOD MOD Urine Nitrite POS POS Urine Bilirubin NEG NEG Urine Urobilinogen LESS THAN 2.0 LESS THAN 2.0 Urine Leukocyte Esterase MOD MOD Urine RBC 7 13 Urine WBC 53 36 Urine Squamous Epithelial Cells <1 Microscopic Urinalysis Comment CATH-CULTURE IND CATH-CULTURE IND Blood Urea Nitrogen 83 Creatinine 0.90 Random Glucose 175 Total Protein 7.7 Albumin 2.0 Calcium Level 8.7 Alkaline Phosphatase 142 Aspartate Amino Transf (AST/SGOT) 50 Alanine Aminotransferase (ALT/SGPT) 52 Total Bilirubin 0.3 Sodium Level 140 Potassium Level 5.3 Chloride Level 104 Carbon Dioxide Level 27.9 Anion Gap 8 Estimat Glomerular Filtration Rate 85 Lactic Acid Level 2.3 1.1 B-Type Natriuretic Peptide 8 Urine Bacteria RARE Stool C. difficile Toxin (PCR) POSITIVE Stl C. difficile Toxin Epiderm 027 PRESUMPTIVE POSITIVE Test 10/02/17 11:43 White Blood Count 33.2 Red Blood Count 3.72 Hemoglobin 10.2 Hematocrit 32.0 Mean Corpuscular Volume 85.8 Mean Corpuscular Hemoglobin 27.4 Mean Corpuscular Hemoglobin Concent 31.9 Red Cell Distribution Width 16.5 Platelet Count 346 Mean Platelet Volume 7.6 Neutrophils (%) (Auto) 79.2 Lymphocytes (%) (Auto) 10.9 Monocytes (%) (Auto) 9.5 Eosinophils (%) (Auto) 0.1 Basophils (%) (Auto) 0.3 Neutrophils # (Auto) 26.3 Lymphocytes # (Auto) 3.6 Monocytes # (Auto) 3.2 Eosinophils # (Auto) 0.0 Basophils # (Auto) 0.1 CBC Comment AUTO DIFF Differential Total Cells Counted 100 Neutrophils % (Manual) 68 Band Neutrophils % 13 Lymphocytes % 7 Monocytes % 9 Neutrophils # (Manual) 27.9 Metamyelocytes 3 Differential Comment FINAL DIFF MANUAL Toxic Granulation Toxic Vacuolation PRESENT Dohle Bodies PRESENT Platelet Estimate NORMAL Platelet Morphology Comment NORMAL Blood Urea Nitrogen 45 Creatinine 0.49 Random Glucose 137 Calcium Level 8.5 Sodium Level 149 Potassium Level 3.5 Chloride Level 117 Carbon Dioxide Level 21.5 Anion Gap 11 Estimat Glomerular Filtration Rate 171 Date/Time Source Procedure Growth Status 10/01/17 15:40 Blood Peripheral Aerobic Blood Culture - Preliminary NO GROWTH IN 1 DAY Resulted 10/01/17 15:40 Blood Peripheral Anaerobic Blood Culture - Preliminary NO GROWTH IN 1 DAY Resulted 10/01/17 22:30 Urine Catheterized Urine Urine Culture - Preliminary RESULTS PENDING Resulted Result Diagram: 10/02/17 1143 10/02/17 1143 Imaging RADIOLOGY STUDIES/FILMS REVIEWED Last Impressions Head CT 10/02/17 0039 Signed Impressions: Service Date/Time: Monday, October 02, 2017 01:45 - CONCLUSION: 1. No gross intracranial abnormality on this scan which is degraded by patient motion. Jose Sin MD Chest X-Ray 10/01/17 1518 Signed Impressions: Service Date/Time: Sunday, October 01, 2017 15:30 - CONCLUSION: Elevation left hemidiaphragm. Lungs are clear Remberto Aguilera MD FACR Assessment and Plan Assessment and Plan IMPRESSION Sepsis on admission, likely due to C diff, also with marquez associated UTI C diff colitis CAUTI, C/S GNR Hx cervical spine absess, drained and treated with Abx Hx IVDU RECOMMENDATION Continue Zosyn Stop IV Vanco Will use oral Vanco for C. difficile colitis treatment Add Lactinex Stop Flagyl Follow cultures Follow CBC Monitor progress I will follow along with you Thank you for this consultation Discussed Condition With D/W RN Bonnie Borrego MD Oct 02, 2017 15:22
--- NOTE | 2017-10-02 15:58 | PD.WCN.NOT ---
Wound Consult Description: Wound consult ordered by for sacral wound Communicated with: Maria M BURROUGHS, Recommendation: 1. Reposition patient every 2 hours for comfort and offloading 2. Cleanse sacral wound with normal saline pat dry.Skin prep yadira wound 3. Santyl to moistened gauze and apply to wound base 4. Cover with dry boarder gauze change dressing daily or as needed for dislodgement/exudate 5. Apply 50/50 mix of floor stocked antifungal cream with Calazime cream to inner buttock and groin area BID or as needed for loose stools. 6. Consult plastics or general surgery for debridement.With possible Wound Vac placement. Additional Information: Patient was seen today in [facility] by business writer and Maria M BURROUGHS for assessment of Sacral wound.Patient alert and oriented x2 in bed .Patient requires full max assistance to reposition to left side.Dressing removed from sacral area to reveal a full thickness unstageable pressure injury over sacral area measuring 4.9cm x 4.4cm x~1.8cm with undermining noted from 4-6 O'clock with max depth @ 6 O'clock being ~0.7cm.Wound base is ~60% yellow slough ~20% black soft necrotic tissue ~10% [place]/white tissue ~10% bone.Erythema noted to periwound ~ 0.5cm circumferentially wound edges are uneven but well defined.Moderate serosanguineous drainage noted with faint odor noted.Patient has had multiple loose stools + for C-diff bilateral inner buttocks/groin has mixed etiology of fungal/moisture superficial erosion which is bright red non granular tissue noted.Sacral wound cleansed with normal saline pat dry Moist to dry dressing applied till Santyl available.Aloe vista cream applied to inner buttocks /groin area.Patient would benefit from sharps/surgical debridement with wound vac placement when stooling controlled.K-4 bed/surface ordered for assistance with comfort on mague prominences and offloading.Patient was repositioned to Left side with the assistance of Maria M BURROUGHS.Medication/Santyl order placed in chart.Nurse to apply when available. Meredith Polanco [facility] Oct 02, 2017 15:58
--- NOTE | 2017-10-02 17:14 | HHI.PR ---
Subjective Remarks awakened easily- stated his name "Mike", year "2017" thinks he is still in :"emergency room" states pain in his tailbone Objective Vitals Vital Signs Date Time Temp Pulse Resp B/P (MAP) Pulse Ox O2 Delivery O2 Flow Rate FiO2 10/02/17 16:15 98.0 117 20 138/85 (102) 94 10/02/17 15:57 10/02/17 15:00 122 25 123/75 (91) 95 10/02/17 14:00 98.9 124 25 130/87 (101) 95 Room Air 10/02/17 13:00 126 26 125/79 (94) 94 Room Air 10/02/17 12:00 120 23 118/79 (92) 95 10/02/17 11:34 98.5 119 27 112/79 (90) 93 Room Air 10/02/17 09:45 120 24 113/69 (84) 94 10/02/17 08:05 Room Air 10/02/17 08:04 98.9 123 12 129/76 (93) 95 Room Air 10/02/17 05:43 98.9 120 18 125/78 (94) 95 Room Air 10/02/17 04:00 123 20 129/72 (91) 94 Room Air 10/02/17 00:01 124 20 112/75 (87) 96 Room Air 10/01/17 20:00 99.9 112 20 132/78 (96) 99 Trach Collar 2.00 10/01/17 17:39 110 22 110/70 (83) 98 Nasal Cannula 5.00 I/O 10/01/17 10/01/17 10/01/17 10/02/17 10/02/17 10/02/17 07:00 15:00 23:00 07:00 15:00 23:00 Output Total 1400 ml Balance -1400 ml Output Urine Total 1400 ml # Voids 1 # Bowel Movements 1 1 Result Diagram: 10/02/17 1143 10/02/17 1143 Imaging Last Impressions Head CT 10/02/17 0039 Signed Impressions: Service Date/Time: Monday, October 02, 2017 01:45 - CONCLUSION: 1. No gross intracranial abnormality on this scan which is degraded by patient motion. Jose Sin MD Chest X-Ray 10/01/17 5658 Signed Impressions: Service Date/Time: Sunday, October 01, 2017 15:30 - CONCLUSION: Elevation left hemidiaphragm. Lungs are clear Remberto Aguilera MD FACR Objective Remarks awake anicteric trac- in place-capped decreased breath sounds, no rales regular rhythm abdomen- PEG in place + sacral decubitus ulcer stage 3-[address] extremities- atrophied Urinary Catheter: Yes Assessment to: Continue Marquez insert reason: Prolonged Immobilization Date of Insertion: Oct 02, 2017 A/P Assessment and Plan 67 years old male Sepsis on admission multifactorial C diff colitis Gram negative UTI- marquez associated Hx cervical spine abscess, drained and treated with Abx Hx IVDU Leukocytosis On Zosyn IV oral Vancomycin for c diff treatment Lactinex added ff cultures, ff CBC ID consulted, marquez changed 10/02 SADIA- pre renal in ratio HYpernatremia start TFeeding- dietitian consulted change IVF to 1/2 NS 75 cc/hr water flushes 50 cc q 4 ff lytes, BMP Sacral decubitus wound care team consulted- Questionable hypoxia- pt is on 5L here on trach; was not requiring oxygen 2 weeks ago at [facility] - now sats good at room air slurred speech/ AMS - - Brain exam- negative Chronic benzo- gradual taper Chronic pain lortab 5 q6hrs prn for pain ct lyrica ct lidocaine patch avoid sedation now good sats at room air Dietitian consult for TF recommendation start Glucerna till seen by Dietitian DM type 2 hold Levemer for now till TF started sliding scale for now Lovenox for DVTprophylaxis Shonna Esqueda MD Oct 02, 2017 17:14
[2017-10-02] MEDS ORDERED: LACTOBACILLUS ACIDOPHILUS TAB PO SCH (18:00)
[2017-10-02] MEDS ORDERED: VANCOMYCIN 25 MG/ML SOLN 100 ML BOTTLE PO SCH (18:00)
[2017-10-02] MEDS ORDERED: AMITRIPTYLINE HCL 50 MG TAB PEG SCH (21:00)
[2017-10-02] MEDS ORDERED: TAMSULOSIN HCL 0.4 MG CAP PO SCH (21:00)
[2017-10-02] MEDS: VANCOMYCIN 25 MG/ML SOLN 100 ML BOTTLE PEG SCH (22:15)
[2017-10-02] MEDS: ACETAMINOPHEN/HYDROcodone 325 MG/5 MG TAB PEG PRN (22:15)
[2017-10-02] MEDS: ENOXAPARIN SODIUM 40 MG/0.4 ML SYRINGE SQ SCH (22:15)
[2017-10-02] MEDS: TAMSULOSIN HCL 0.4 MG CAP PO SCH (22:16)
[2017-10-02] MEDS: LACTOBACILLUS ACIDOPHILUS TAB PEG SCH (22:29)
[2017-10-02] MEDS: SODIUM CHLOR 0.45% 1000 ML INJ 1,000 ML IV SCH (22:37)
[2017-10-03] VITALS (7 sets, daily range): BP systolic 117–138; BP diastolic 75–82; PULSE 116–130; RESP 18–24; TEMP 100–101.3; O2SAT 95–99
[2017-10-03] MEDS: PIPERACIL-TAZO 4.5 GM PREMIX 100 ML IV SCH ×2 (03:36→10:08)
[2017-10-03] MEDS ORDERED: PHARMACY ORDERED LAB ONE (04:45)
[2017-10-03 04:57] LABS: AUTOMATED NEUTROPHIL # 22.8 TH/MM3 (1.8-7.7); BASOPHIL % 0.1 % (0.0-2.0); EOSINOPHIL # 0.1 TH/MM3 (0-0.4); EOSINOPHIL % 0.3 % (0.0-4.0); HEMATOCRIT 33.5 % (39.0-51.0); HEMOGLOBIN 10.5 GM/DL (13.0-17.0); LYMPH % 14.2 % (9.0-44.0); LYMPHOCYTE # 4.4 TH/MM3 (1.0-4.8); MEAN CELL VOLUME 86.4 FL (80.0-100.0); MEAN CORPUSCULAR HEMOGLOBIN 27.1 PG (27.0-34.0); MEAN CORPUSCULAR HGB CONC 31.3 % (32.0-36.0); MEAN PLATELET VOLUME 7.5 FL (7.0-11.0); MONO % 10.8 % (0.0-8.0); MONOCYTE # 3.3 TH/MM3 (0-0.9); NEUT % 74.6 % (16.0-70.0); PLATELET COUNT 342 TH/MM3 (150-450); RED BLOOD COUNT 3.88 MIL/MM3 (4.50-5.90); RED CELL DISTRIBUTION WIDTH 16.8 % (11.6-17.2); WHITE BLOOD COUNT 30.6 TH/MM3 (4.0-11.0)
[2017-10-03 05:24] LABS: CALCIUM 8.5 MG/DL (8.5-10.1); CREATININE 0.43 MG/DL (0.60-1.30)
[2017-10-03] MEDS: ACETAMINOPHEN 325 MG TAB PO PRN ×2 (05:31→13:30)
[2017-10-03] MEDS: clonazePAM 0.5 MG TAB PEG SCH ×2 (05:32→13:22)
[2017-10-03] MEDS: INSULIN ASPART SUPPLEMENTAL SCALE SQ SCH ×4 (08:00→21:00)
[2017-10-03 08:12] LABS: BANDS 3 % (0-6); LYMPHOCYTES 12 % (9-44); METAMYELOCYTES 4 % (0-1); MONOCYTES 6 % (0-8); MYELOCYTES 1 % (0-0); NEUTROPHIL # MANUAL DIFF 25.1 TH/MM3 (1.8-7.7); POLYS (SEG NEUTROPHILS) 74 % (16-70)
[2017-10-03] MEDS: LIDOCAINE HCL 5% PATCH T-DERMAL SCH (09:52)
[2017-10-03] MEDS: ASPIRIN 81 MG CHEW TAB PEG SCH (09:53)
[2017-10-03] MEDS: FAMOTIDINE 20 MG TAB PEG SCH ×2 (09:53→23:56)
[2017-10-03] MEDS: PREGABALIN 25 MG CAP PEG SCH ×3 (09:54→18:33)
[2017-10-03] MEDS: ASCORBIC ACID 500 MG TAB PEG SCH ×2 (09:54→23:57)
[2017-10-03] MEDS: CITALOPRAM HYDROBROMIDE 20 MG TAB PEG SCH (09:55)
[2017-10-03] MEDS: LACTOBACILLUS ACIDOPHILUS TAB PEG SCH ×3 (09:55→18:32)
[2017-10-03] MEDS: QUEtiapine FUMARATE 25 MG TAB PEG SCH ×2 (09:55→23:56)
[2017-10-03] MEDS: SODIUM CHLOR 0.45% 1000 ML INJ 1,000 ML IV SCH (09:57)
[2017-10-03] MEDS: VANCOMYCIN 25 MG/ML SOLN 100 ML BOTTLE PEG SCH ×4 (10:00→21:00)
[2017-10-03] MEDS: ZINC SULFATE 220 MG PEG SCH (11:00)
--- NOTE | 2017-10-03 11:01 | HHI.PR ---
Subjective Remarks seen with family - and daugher at bedside patient is awake and alert - interactive, stated his name "your hands re cold" tmax 101.3 family feels that his speech is not at baseline-- they feel that he is overmedicated from the NH he came from Objective Vitals Vital Signs Date Time Temp Pulse Resp B/P (MAP) Pulse Ox O2 Delivery O2 Flow Rate FiO2 10/03/17 10:00 123 10/03/17 08:00 100.0 123 24 138/82 (100) 97 10/03/17 04:00 101.3 127 18 122/79 (93) 98 10/03/17 01:32 117 10/03/17 00:00 101.3 130 18 119/75 (90) 96 10/02/17 20:00 98.9 123 22 130/84 (99) 93 10/02/17 16:15 98.0 117 20 138/85 (102) 94 10/02/17 15:57 10/02/17 15:00 122 25 123/75 (91) 95 10/02/17 14:00 98.9 124 25 130/87 (101) 95 Room Air 10/02/17 13:00 126 26 125/79 (94) 94 Room Air 10/02/17 12:00 120 23 118/79 (92) 95 10/02/17 11:34 98.5 119 27 112/79 (90) 93 Room Air I/O 10/02/17 10/02/17 10/02/17 10/03/17 10/03/17 10/03/17 07:00 15:00 23:00 07:00 15:00 23:00 Intake Total 100 ml Output Total 1400 ml 500 ml Balance -1400 ml -400 ml Intake IV Total 100 ml Output Urine Total 1400 ml 500 ml # Voids 1 # Bowel Movements 1 Result Diagram: 10/03/170 10/03/17 0410 Imaging Last Impressions Head CT 10/02/17 0039 Signed Impressions: Service Date/Time: Monday, October 02, 2017 01:45 - CONCLUSION: 1. No gross intracranial abnormality on this scan which is degraded by patient motion. Jose Sin MD Chest X-Ray 10/01/17 1518 Signed Impressions: Service Date/Time: Sunday, October 01, 2017 15:30 - CONCLUSION: Elevation left hemidiaphragm. Lungs are clear Remberto Aguilera MD FACR Objective Remarks awake anicteric trac- in place-capped decreased breath sounds, no rales regular rhythm abdomen- PEG in place + sacral decubitus ulcer stage 3-[address] extremities- atrophied Date of Insertion: Oct 02, 2017 A/P Assessment and Plan 67 years old male Sepsis on admission multifactorial C diff colitis Pseudomonas UTI- marquez associated Hx cervical spine abscess, drained and treated with Abx Hx IVDU Leukocytosis now On Cefepime oral Vancomycin for c diff treatment Lactinex added. Started on Mesalamine by ID ff final urine cultures and sensitivity. Blood cultures so far negative ff CBC marquez changed 10/02 ID ff SADIA- pre renal in ratio- improving HYpernatremia- start TFeeding-- start Glucerna at 20 cc/hr - with goal rate of 60cc/hr. Add Favio change IVF to 07/19 NS 75 cc/hr water flushes 50 cc q 4 ff lytes, BMP get renal ultrasound Sacral decubitus Right hip ulcer wound care team recommendation appreciated- Santyl ointment to area - will consult Dr. Henderson tomorrow- regarding need for debridement Hypoxia- resolved slurred speech/ AMS - - Brain CT- negative Chronic benzo- gradual taper Chronic pain Family feels speech is not baseline- they state that he is not on Klonopin prior to [facility]- they feel that the [place] overmedicarted him lortab 5 q6hrs prn for pain ct lyrica. ct lidocaine patch avoid sedation now good sats at room air long discussiojn with family- states he has been on Elavil for long period the new ones started at [place] was Klonopin and Seroquel- d/w taper Klonopin to q 12 and decrease Seroquel to 12.5 mg bid - today . and gradually wean off if tolerates- Dietitian ff- on Glucerna DM type 2 sliding scale Lovenox for DVT prophylaxis on PPI PT consult Shonna Esqueda MD Oct 03, 2017 11:01
--- NOTE | 2017-10-03 12:26 | HHI.IDPN ---
Subjective Subjective Remarks Patient is a 67-year-old male, brought into the hospital for evaluation for possible sepsis. Patient was hospitalized initially in [facility] and he was apparently there for about 4 weeks. He had drainage of a spur cervical spine abscess that had MRSA and there was also mention that he had other abscesses in his body. During his previous hospitalization he had tracheostomy placement as well as PEG tube placement. He went to [facility] rehabilitation after that and he was apparently there for at least 6 weeks and went to [facility]. In the halfway there was mention of different problems including some diarrhea. Also he has had problem with some cough and some choking episodes which according to the family is new. His trach use and he usually can eat without any problem. Low-grade fevers. Patient also has an indwelling Marquez catheter and the family does not know how long ago it was change. In the rehabilitation facility he was noted to be tachycardic, and had low blood pressure and some low-grade fever. Sepsis is a concerns of the patient was brought into the hospital for further evaluation and treatment. On admission his white count was elevated. His chest x-rays normal. Stool for C. difficile is now back with C. difficile positive toxin. His Marquez catheter was changed in the emergency room. Urinalysis showed pyuria, urine culture has gram-negative zenobia. Blood cultures are negative so far. Infectious disease consultation has been requested to evaluate for severe sepsis. Notes reviewed Febrile this morning Less agitated Urine culture with Pseudomonas Blood cultures negative so far WBC slightly lower, 30,000 C. difficile positive Antibiotics Zosyn PO Vancomycin Current Medications Medications (Trade) Dose Ordered Sig/Damian Route Start Time Stop Time Status Last Admin (Narcan Inj) 0.4 mg UNSCH PRN IV PUSH 10/01/17 18:30 (Milk Of Magnesia Liq) 30 ml Q12H PRN PO 10/01/17 18:30 (Senokot) 17.2 mg Q12H PRN PO 10/01/17 18:30 (Dulcolax Supp) 10 mg DAILY PRN RECTAL 10/01/17 18:30 (Lactulose Liq) 30 ml DAILY PRN PO 10/01/17 18:30 Piperacillin Sod/ Tazobactam Sod 100 ml @ 200 mls/hr Q6H IV 10/01/17 21:00 10/03/17 10:08 (Lidoderm 5% Patch.12 Hr) 1 patch DAILY T-DERMAL 10/02/17 09:00 10/03/17 09:52 (Lyrica) 50 mg TID PEG 10/02/17 09:00 10/03/17 09:54 (Albuterol Neb) 0.63 mg Q6HR NEB PRN NEB 10/02/17 01:00 (Elavil) 50 mg HS PEG 10/02/17 21:00 10/02/17 22:16 (Aspirin Chew) 81 mg DAILY PEG 10/02/17 09:00 10/03/17 09:53 (CeleXA) 20 mg DAILY PEG 10/02/17 09:00 10/03/17 09:55 (KlonoPIN) 0.5 mg Q8HR PEG 10/02/17 06:00 10/03/17 05:32 (Lovenox Inj) 40 mg HS SQ 10/02/17 21:00 10/02/17 22:15 (Pepcid) 20 mg BID PEG 10/02/17 09:00 10/03/17 09:53 (SEROquel) 25 mg BID PEG 10/02/17 09:00 10/03/17 09:55 (Vitamin C) 250 mg BID PEG 10/02/17 09:00 10/03/17 09:54 (Levemir Inj) 10 units BID SQ 10/02/17 09:00 Future Hold (D50w (Vial) Inj) 50 ml UNSCH PRN IV PUSH 10/02/17 01:00 (Glucagon Inj) 1 mg UNSCH PRN OTHER 10/02/17 01:00 (NovoLOG SUPPLEMENTAL SCALE) 1 ACHS SLIDING SCALE SQ 10/02/17 08:00 10/02/17 12:00 Non-Formulary Medication ZINC SULFATE 22... Q24H PEG 10/02/17 11:00 10/02/17 11:30 (Meridian 5-325 Mg) 1 tab Q6H PRN PEG 10/02/17 22:15 10/02/17 22:15 (Lactinex) 1 tab TID PEG 10/02/17 18:00 10/03/17 09:55 (Flomax) 0.8 mg HS PO 10/02/17 21:00 10/02/17 22:16 (Vancomycin 25 Mg/ml Liq) 250 mg QID PEG 10/02/17 18:00 10/03/17 10:00 Sodium Chloride 1,000 ml @ 75 mls/hr [id number] IV 10/02/17 17:45 10/03/17 09:57 (Tylenol) 650 mg Q4H PRN PO 10/03/17 05:00 10/03/17 05:31 (Santyl Oint) 1 applic DAILY TOPICAL 10/03/17 11:30 Lines PIV with no evidence of infection Past Medical History Hypertension Diabetes 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 Vital Signs Date Time Temp Pulse Resp B/P (MAP) Pulse Ox O2 Delivery O2 Flow Rate FiO2 10/03/17 10:00 123 10/03/17 08:00 100.0 123 24 138/82 (100) 97 10/03/17 04:00 101.3 127 18 122/79 (93) 98 10/03/17 01:32 117 10/03/17 00:00 101.3 130 18 119/75 (90) 96 10/02/17 20:00 98.9 123 22 130/84 (99) 93 10/02/17 16:15 98.0 117 20 138/85 (102) 94 10/02/17 15:57 10/02/17 15:00 122 25 123/75 (91) 95 10/02/17 14:00 98.9 124 25 130/87 (101) 95 Room Air 10/02/17 13:00 126 26 125/79 (94) 94 Room Air . Laboratory Tests Test 10/01/17 15:35 10/02/17 11:43 10/03/17 04:10 White Blood Count 34.9 TH/MM3 33.2 TH/MM3 30.6 TH/MM3 Red Blood Count 3.86 MIL/MM3 3.72 MIL/MM3 3.88 MIL/MM3 Hemoglobin 10.6 GM/DL 10.2 GM/DL 10.5 GM/DL Hematocrit 33.1 % 32.0 % 33.5 % Mean Corpuscular Volume 85.7 FL 85.8 FL 86.4 FL Mean Corpuscular Hemoglobin 27.6 PG 27.4 PG 27.1 PG Mean Corpuscular Hemoglobin Concent 32.1 % 31.9 % 31.3 % Red Cell Distribution Width 16.9 % 16.5 % 16.8 % Platelet Count 398 TH/MM3 346 TH/MM3 342 TH/MM3 Mean Platelet Volume 7.8 FL 7.6 FL 7.5 FL Neutrophils (%) (Auto) 76.7 % 79.2 % 74.6 % Lymphocytes (%) (Auto) 12.0 % 10.9 % 14.2 % Monocytes (%) (Auto) 10.9 % 9.5 % 10.8 % Eosinophils (%) (Auto) 0.1 % 0.1 % 0.3 % Basophils (%) (Auto) 0.3 % 0.3 % 0.1 % Neutrophils # (Auto) 26.8 TH/MM3 26.3 TH/MM3 22.8 TH/MM3 Lymphocytes # (Auto) 4.2 TH/MM3 3.6 TH/MM3 4.4 TH/MM3 Monocytes # (Auto) 3.8 TH/MM3 3.2 TH/MM3 3.3 TH/MM3 Eosinophils # (Auto) 0.0 TH/MM3 0.0 TH/MM3 0.1 TH/MM3 Basophils # (Auto) 0.1 TH/MM3 0.1 TH/MM3 0.0 TH/MM3 CBC Comment AUTO DIFF AUTO DIFF AUTO DIFF Differential Total Cells Counted 100 100 100 Neutrophils % (Manual) 62 % 68 % 74 % Band Neutrophils % 8 % 13 % 3 % Lymphocytes % 11 % 7 % 12 % Monocytes % 18 % 9 % 6 % Eosinophils % 1 % Neutrophils # (Manual) 24.4 TH/MM3 27.9 TH/MM3 25.1 TH/MM3 Differential Comment FINAL DIFF MANUAL FINAL DIFF MANUAL FINAL DIFF MANUAL Toxic Vacuolation PRESENT PRESENT Platelet Estimate NORMAL NORMAL NORMAL Platelet Morphology Comment NORMAL NORMAL NORMAL Metamyelocytes 3 % 4 % Toxic Granulation Dohle Bodies PRESENT Myelocytes 1 % Laboratory Tests Test 10/01/17 15:35 10/01/17 20:30 10/02/17 11:43 10/03/17 04:10 Blood Urea Nitrogen 83 MG/DL 45 MG/DL 39 MG/DL Creatinine 0.90 MG/DL 0.49 MG/DL 0.43 MG/DL Random Glucose 175 MG/DL 137 MG/DL 132 MG/DL Total Protein 7.7 GM/DL Albumin 2.0 GM/DL Calcium Level 8.7 MG/DL 8.5 MG/DL 8.5 MG/DL Alkaline Phosphatase 142 U/L Aspartate Amino Transf (AST/SGOT) 50 U/L Alanine Aminotransferase (ALT/SGPT) 52 U/L Total Bilirubin 0.3 MG/DL Sodium Level 140 MEQ/L 149 MEQ/L 152 MEQ/L Potassium Level 5.3 MEQ/L 3.5 MEQ/L 3.2 MEQ/L Chloride Level 104 MEQ/L 117 MEQ/L 120 MEQ/L Carbon Dioxide Level 27.9 MEQ/L 21.5 MEQ/L 23.0 MEQ/L Anion Gap 8 MEQ/L 11 MEQ/L 9 MEQ/L Estimat Glomerular Filtration Rate 85 ML/MIN 171 ML/MIN 199 ML/MIN Lactic Acid Level 2.3 mmol/L 1.1 mmol/L B-Type Natriuretic Peptide 8 PG/ML Microbiology Date/Time Source Procedure Growth Status 10/03/17 04:25 Blood Peripheral Aerobic Blood Culture Pending Received 10/03/17 04:25 Blood Peripheral Anaerobic Blood Culture Pending Received 10/03/17 04:10 Blood Peripheral Aerobic Blood Culture Pending Received 10/03/17 04:10 Blood Peripheral Anaerobic Blood Culture Pending Received 10/01/17 15:40 Blood Peripheral Aerobic Blood Culture - Preliminary NO GROWTH IN 2 DAYS Resulted 10/01/17 15:40 Blood Peripheral Anaerobic Blood Culture - Preliminary NO GROWTH IN 2 DAYS Resulted 10/01/17 15:35 Blood Peripheral Aerobic Blood Culture - Preliminary NO GROWTH IN 2 DAYS Resulted 10/01/17 15:35 Blood Peripheral Anaerobic Blood Culture - Preliminary NO GROWTH IN 2 DAYS Resulted 10/01/17 22:30 Urine Catheterized Urine Urine Culture - Preliminary Pseudomonas Aeruginosa Resulted 10/01/17 15:35 Urine Catheterized Urine Urine Culture - Final Pseudomonas Aeruginosa Complete Imaging Last Impressions Head CT 10/02/17 0039 Signed Impressions: Service Date/Time: Monday, October 02, 2017 01:45 - CONCLUSION: 1. No gross intracranial abnormality on this scan which is degraded by patient motion. Jose Sin MD Chest X-Ray 10/01/17 1518 Signed Impressions: Service Date/Time: Sunday, October 01, 2017 15:30 - CONCLUSION: Elevation left hemidiaphragm. Lungs are clear Remberto Aguilera MD FACR Physical Exam GENERAL: awake and alert, not in respiratory distress. He occasional answers my questions SKIN: Warm and dry. No generalized rash, no ecchymoses and no evidence of embolic lesions. HEAD: Atraumatic. Normocephalic. No temporal wasting, or tenderness. EYES: [place] conjunctiva. No petechia or hemorrhage. Pupils equal, round and reactive to light. Extraocular movements full and intact. No scleral icterus. No injection or drainage. EARS, NOSE AND THROAT: Nose without bleeding or purulent nasal discharge. No sinus tenderness. Dry oral mucosa NECK: Trachea midline. Trach site has small amount of purulence around site, currently capped CARDIOVASCULAR: Regular rate and rhythm. No murmurs, rubs or gallops heard RESPIRATORY: has scattered rhonchi ABDOMEN: Soft, non-tender, nondistended. Bowel sounds present and normoactive. No guarding. No rebound. No organomegaly. PEG site ok EXTREMITIES: No clubbing, cyanosis, or edema. No joint effusion, has good ROM. No calf tenderness. Well perfused and warm. : Marquez in place urine with sediment NEUROLOGICAL: Awake and alert. No facial asymmetry. Moves extremities PSYCHIATRIC: restless LINE: No evidence of infection Assessment & Plan Remarks IMPRESSION Sepsis on admission, likely due to C diff, also with marquez associated UTI C diff colitis Fevers Leukocytosis, decreasing, but still high CAUTI, C/S GNR Hx cervical spine absess, drained and treated with Abx Hx IVDU RECOMMENDATION Change Zosyn to Cefepime Follow new C/S Continue oral Vanco for C. difficile colitis treatment Add Lactinex Renal US to check kidneys, may need CT Follow CBC Monitor progress I will be out of town October 04- Other ID M.D. covering in my absence Bonnie Borrego MD Oct 03, 2017 12:26
[2017-10-03] MEDS: COLLAGENASE OINT 30 GM TUBE TOPICAL SCH (12:59)
[2017-10-03] MEDS: CEFEPIME INJ 2,000 MG in SODIUM CHLORIDE 0.9% INJ 100 ML IV SCH ×2 (13:18→22:00)
[2017-10-03] MEDS: MESALAMINE HD 800 MG DELAYED RELEASE TAB PO SCH ×2 (14:00→23:57)
[2017-10-03] MEDS ORDERED: POTASSIUM CHLORIDE INJ 20 MEQ, SODIUM CHLORIDE 23.4% INJ 38.5 MEQ in WATER STERILE FOR ... IV SCH (17:00)
[2017-10-03] MEDS ORDERED: PILL SPLITTER OTHER PRN (18:00)
[2017-10-03] MEDS: TAMSULOSIN HCL 0.4 MG CAP PO SCH (23:56)
[2017-10-03] MEDS: clonazePAM 0.5 MG TAB PO SCH (23:56)
[2017-10-03] MEDS: AMITRIPTYLINE HCL 50 MG TAB PEG SCH (23:57)
[2017-10-03] MEDS: ACETAMINOPHEN/HYDROcodone 325 MG/5 MG TAB PEG PRN (23:57)
[2017-10-03] MEDS: ENOXAPARIN SODIUM 40 MG/0.4 ML SYRINGE SQ SCH (23:58)
[2017-10-04] VITALS (9 sets, daily range): BP systolic 116–139; BP diastolic 72–91; PULSE 103–115; RESP 14–24; TEMP 96.8–99.2; O2SAT 95–100
--- NOTE | 2017-10-04 00:05 | RADRPT ---
EXAM DATE/TIME: 10/03/2017 23:05 [place] COMPARISON: No previous studies available for comparison. INDICATIONS : Hydronephrosis. Urinary tract infection. MEDICAL HISTORY : Hypertension. Atrial fibrillation. Diabetes. Quadraplegia. C-Diff. SURGICAL HISTORY : Abdominal abscess drainage. Spinal surgery. PEG tube. ENCOUNTER: Initial ACUITY: 1 day PAIN SCORE: 0/10 LOCATION: Bilateral flank MEASUREMENTS: RIGHT KIDNEY: 10.6 x 6.6 x 4.6 cm LEFT KIDNEY: 11.5 x 5.3 x 5.8 cm FINDINGS: RIGHT KIDNEY: Renal cortex is normal in thickness and echotexture. No hydronephrosis, stone, or mass. LEFT KIDNEY: Renal cortex is normal in thickness and echotexture. No hydronephrosis, stone, or mass. BLADDER: Canas catheter in nondistended bladder. CONCLUSION: No evidence of mass or hydronephrosis. Jose Sin MD on October 04, 2017 at 0:02 Board Certified Radiologist. This report was verified electronically.
[2017-10-04] MEDS: ACETAMINOPHEN/HYDROcodone 325 MG/5 MG TAB PEG PRN ×3 (06:08→18:41)
[2017-10-04] MEDS: MESALAMINE HD 800 MG DELAYED RELEASE TAB PO SCH ×3 (06:08→22:51)
[2017-10-04] MEDS: CEFEPIME INJ 2,000 MG in SODIUM CHLORIDE 0.9% INJ 100 ML IV SCH ×3 (06:08→22:47)
[2017-10-04 07:57] LABS: AUTOMATED NEUTROPHIL # 20.5 TH/MM3 (1.8-7.7); BASOPHIL # 0.1 TH/MM3 (0-0.2); BASOPHIL % 0.3 % (0.0-2.0); EOSINOPHIL # 0.7 TH/MM3 (0-0.4); EOSINOPHIL % 2.8 % (0.0-4.0); HEMATOCRIT 32.3 % (39.0-51.0); HEMOGLOBIN 10.1 GM/DL (13.0-17.0); LYMPH % 10.7 % (9.0-44.0); LYMPHOCYTE # 2.9 TH/MM3 (1.0-4.8); MEAN CELL VOLUME 86.8 FL (80.0-100.0); MEAN CORPUSCULAR HEMOGLOBIN 27.3 PG (27.0-34.0); MEAN CORPUSCULAR HGB CONC 31.4 % (32.0-36.0); MEAN PLATELET VOLUME 8.1 FL (7.0-11.0); MONO % 9.6 % (0.0-8.0); MONOCYTE # 2.6 TH/MM3 (0-0.9); NEUT % 76.6 % (16.0-70.0); PLATELET COUNT 319 TH/MM3 (150-450); RED BLOOD COUNT 3.72 MIL/MM3 (4.50-5.90); RED CELL DISTRIBUTION WIDTH 16.7 % (11.6-17.2); WHITE BLOOD COUNT 26.8 TH/MM3 (4.0-11.0)
[2017-10-04] MEDS: INSULIN ASPART SUPPLEMENTAL SCALE SQ SCH ×4 (08:00→21:00)
[2017-10-04 08:40] LABS: CALCIUM 8.5 MG/DL (8.5-10.1); CREATININE 0.35 MG/DL (0.60-1.30)
[2017-10-04] MEDS: VANCOMYCIN 25 MG/ML SOLN 100 ML BOTTLE PEG SCH ×3 (09:00→22:55)
[2017-10-04] MEDS: LIDOCAINE HCL 5% PATCH T-DERMAL SCH (09:00)
[2017-10-04] MEDS: COLLAGENASE OINT 30 GM TUBE TOPICAL SCH (09:00)
[2017-10-04] MEDS: PREGABALIN 25 MG CAP PEG SCH ×3 (09:36→17:41)
[2017-10-04] MEDS: ASPIRIN 81 MG CHEW TAB PEG SCH (09:36)
[2017-10-04] MEDS: FAMOTIDINE 20 MG TAB PEG SCH ×2 (09:36→22:50)
[2017-10-04] MEDS: ASCORBIC ACID 500 MG TAB PEG SCH ×2 (09:36→22:51)
[2017-10-04] MEDS: clonazePAM 0.5 MG TAB PO SCH ×2 (09:36→22:51)
[2017-10-04] MEDS: LACTOBACILLUS ACIDOPHILUS TAB PEG SCH ×3 (09:36→17:41)
[2017-10-04] MEDS: QUEtiapine FUMARATE 25 MG TAB PEG SCH ×2 (09:37→22:50)
[2017-10-04 10:00] LABS: BANDS 11 % (0-6); BASOPHILS 1 % (0-2); LYMPHOCYTES 7 % (9-44); MONOCYTES 6 % (0-8); NEUTROPHIL # MANUAL DIFF 22.2 TH/MM3 (1.8-7.7); POLYS (SEG NEUTROPHILS) 72 % (16-70)
[2017-10-04 10:01] LABS: TOXIC GRANULATION 1+ (NORMAL)
[2017-10-04 10:02] LABS: SPHEROCYTES OCC (NORMAL)
--- NOTE | 2017-10-04 13:24 | HHI.PR ---
Subjective Remarks patient awake and alert, interactive stated name and year when asked where he is "hospital room" tolerating tube feedings Objective Vitals Vital Signs Date Time Temp Pulse Resp B/P (MAP) Pulse Ox O2 Delivery O2 Flow Rate FiO2 10/04/17 12:00 98.6 109 20 116/72 (87) 100 10/04/17 08:00 97.4 109 24 127/78 (94) 98 10/04/17 04:00 97.0 111 19 122/86 (98) 97 10/04/17 00:57 18 10/04/17 00:00 96.8 115 17 139/91 (107) 97 10/03/17 16:00 100.5 116 20 135/82 (99) 95 I/O 10/03/17 10/03/17 10/03/17 10/04/17 10/04/17 10/04/17 07:00 15:00 23:00 07:00 15:00 23:00 Intake Total 100 ml 100 ml 1483 ml Output Total 500 ml 1150 ml 550 ml Balance -400 ml 100 ml 333 ml -550 ml Intake Oral 0 ml IV Total 100 ml 100 ml 692 ml Tube Feeding 791 ml Output Urine Total 500 ml 1150 ml 550 ml Result Diagram: 10/04/17 0631 10/04/17 0631 Imaging Last Impressions Renal Ultrasound 10/03/17 0000 Signed Impressions: Service Date/Time: Tuesday, October 03, 2017 23:05 - CONCLUSION: No evidence of mass or hydronephrosis. Jose Sin MD Head CT 10/02/17 0039 Signed Impressions: Service Date/Time: Monday, October 02, 2017 01:45 - CONCLUSION: 1. No gross intracranial abnormality on this scan which is degraded by patient motion. Jose Sin MD Chest X-Ray 10/01/17 1518 Signed Impressions: Service Date/Time: Sunday, October 01, 2017 15:30 - CONCLUSION: Elevation left hemidiaphragm. Lungs are clear Remberto Aguilera MD FACR Objective Remarks awake anicteric trac- in place-capped decreased breath sounds, no rales regular rhythm abdomen- PEG in place + sacral decubitus ulcer stage 3-[address] extremities- atrophied Urinary Catheter: Yes Assessment to: Continue Date of Insertion: Oct 02, 2017 A/P Assessment and Plan 67 years old male Sepsis on admission multifactorial C diff colitis Pseudomonas UTI- marquez associated Hx cervical spine abscess, drained and treated with Abx Hx IVDU Leukocytosis On Cefepime oral Vancomycin for c diff treatment On Lactinex and Mesalamine by ID ff final urine cultures and sensitivity. Blood cultures so far negative ff CBC marquez changed 10/02 ID ff SADIA- pre renal in ratio- improving renal ultrasound - unremarkable HYpernatremia- still up toelrating TF at goal rate of 60cc/hr. Add Favio change IVF to D5W water flushes 50 cc q 4 ff lytes, BMP Sacral decubitus Right hip ulcer wound care team nurse recommendation appreciated- Santyl ointment to area consult Dr. Henderson tomorrow- regarding need for debridement Acute respiratory failure with transient hypoxemia- likely from sepsis Underlying chronic respiratory failure- on trac- capped RT consult- for pulmonary toilette/trac care Encephalopathy- improved - likely from medications slurred speech/ AMS- improved - - Brain CT- negative family feels he is getting overmedicated in the NH will continue to adjust meds Chronic benzo- gradual taper Chronic pain Family feels speech is not baseline- they state that he is not on Klonopin prior to SNF- they feel that the NH overmedicated him lortab 5 q6hrs prn for pain ct lyrica. ct lidocaine patch avoid sedation now good sats at room air long discussion with family- states he has been on Elavil for long period the new ones started at [place] was Klonopin and Seroquel- d/w taper Klonopin to q 12 and decrease Seroquel to 12.5 mg bid - today . and gradually wean off if tolerates- Dietitian ff- on Glucerna DM type 2- good readings sliding scale Lovenox for DVT prophylaxis on PPI PT consult Shonna Esqueda MD Oct 04, 2017 13:24
[2017-10-04] MEDS ORDERED: POTASSIUM BICARBONATE 25 MEQ EFFERVESCENT TAB PEG ONE (15:00)
[2017-10-04] MEDS: TAMSULOSIN HCL 0.4 MG CAP PO SCH (22:50)
[2017-10-04] MEDS: ENOXAPARIN SODIUM 40 MG/0.4 ML SYRINGE SQ SCH (22:50)
[2017-10-04] MEDS: AMITRIPTYLINE HCL 50 MG TAB PEG SCH (22:52)
[2017-10-05] VITALS (12 sets, daily range): BP systolic 119–143; BP diastolic 78–90; PULSE 88–108; RESP 17–20; TEMP 96.1–98.4; O2SAT 94–98
[2017-10-05] MEDS: POTASSIUM CHLORIDE INJ 40 MEQ in DEXTROSE 5% IN WATE 1000ML INJ 1,000 ML IV SCH ×2 (03:42)
[2017-10-05] MEDS: CEFEPIME INJ 2,000 MG in SODIUM CHLORIDE 0.9% INJ 100 ML IV SCH ×3 (05:12→21:44)
[2017-10-05] MEDS: MESALAMINE HD 800 MG DELAYED RELEASE TAB PO SCH ×3 (05:13→21:43)
[2017-10-05] MEDS: ACETAMINOPHEN/HYDROcodone 325 MG/5 MG TAB PEG PRN ×2 (05:13→22:55)
[2017-10-05 05:31] LABS: BICARBONATE 22.6 MEQ/L (21.0-32.0); CALCIUM 8.1 MG/DL (8.5-10.1); CREATININE 0.35 MG/DL (0.60-1.30)
--- NOTE | 2017-10-05 08:09 | HHI.PR ---
Subjective Remarks awake and alert interactive, no complains of abdominal pain stools loose x 2 overnight- some semiformed stools Objective Vitals Vital Signs Date Time Temp Pulse Resp B/P (MAP) Pulse Ox O2 Delivery O2 Flow Rate FiO2 10/05/17 04:15 102 10/05/17 04:00 98.4 94 18 119/80 (93) 97 10/05/17 00:05 106 10/04/17 22:43 98.9 104 14 130/85 (100) 97 10/04/17 20:24 96 21 10/04/17 20:01 103 10/04/17 17:19 95 10/04/17 16:00 99.2 108 20 122/79 (93) 99 10/04/17 12:00 98.6 109 20 116/72 (87) 100 I/O 10/04/17 10/04/17 10/04/17 10/05/17 10/05/17 10/05/17 07:00 15:00 23:00 07:00 15:00 23:00 Intake Total 0 ml 0 ml Output Total 550 ml 500 ml 700 ml Balance -550 ml 0 ml -500 ml -700 ml Intake Oral 0 ml 0 ml Output Urine Total 550 ml 500 ml 700 ml # Bowel Movements 1 Result Diagram: 10/04/17 0631 10/05/17 0435 Imaging Last Impressions Renal Ultrasound 10/03/17 0000 Signed Impressions: Service Date/Time: Tuesday, October 03, 2017 23:05 - CONCLUSION: No evidence of mass or hydronephrosis. Jose Sin MD Head CT 10/02/17 0039 Signed Impressions: Service Date/Time: Monday, October 02, 2017 01:45 - CONCLUSION: 1. No gross intracranial abnormality on this scan which is degraded by patient motion. Jose Sin MD Chest X-Ray 10/01/17 1518 Signed Impressions: Service Date/Time: Sunday, October 01, 2017 15:30 - CONCLUSION: Elevation left hemidiaphragm. Lungs are clear Remberto Aguilera MD FACR Objective Remarks awake, alert and interactive anicteric trac- in place-capped decreased breath sounds, no rales regular rhythm abdomen- PEG in place + sacral decubitus ulcer stage 3-[address] extremities- atrophied Urinary Catheter: Yes Assessment to: Continue Marquez insert reason: Prolonged Immobilization Date of Insertion: Oct 02, 2017 A/P Assessment and Plan 67 years old male Sepsis on admission multifactorial C diff colitis Pseudomonas UTI- marquez associated Hx cervical spine abscess, drained and treated with Abx Hx IVDU Leukocytosis On Cefepime oral Vancomycin for c diff treatment On Lactinex and Mesalamine by ID ff final urine cultures and sensitivity. Blood cultures so far negative ff CBC marquez changed 10/02 ID ff SADIA- pre renal in ratio- improving renal ultrasound - unremarkable HYpernatremia- still up but trending down gradually toelrating TF at goal rate of 60cc/hr. Add Favio IVF changed to to D5W- increase rate to 70 cc/hr Increaae water flushes 50 cc q 4 ff lytes, BMP Hypokalemia 40 meq KCL in IVF give KCL 40 meq/PEG x 2 today recheck in am. monitor closely- on admission with elevated K Sacral decubitus Right hip ulcer wound care team nurse recommendation appreciated- Santyl ointment to area consult place for wound care MD - Dr. Henderson- regarding need for debridement wound care team nurse ff Acute respiratory failure with transient hypoxemia- likely from sepsis Underlying chronic respiratory failure- on trac- capped RT consult- for pulmonary toilette/trac care Encephalopathy- improved - likely from medications slurred speech/ AMS- improved - - Brain CT- negative family feels he is getting overmedicated in the NH will continue to adjust meds Chronic benzo- gradual taper Chronic pain Family feels speech is not baseline- they state that he is not on Klonopin prior to SNF- they feel that the NH overmedicated him lortab 5 q6hrs prn for pain ct lyrica. ct lidocaine patch avoid sedation now good sats at room air long discussion with family- states he has been on Elavil for long period the new ones started at [place] was Klonopin and Seroquel- d/w taper Klonopin to q 12 and decrease Seroquel to 12.5 mg bid - today . and gradually wean off it as tolerates- Dietitian ff- on Glucerna DM type 2- good readings sliding scale Lovenox for DVT prophylaxis on PPI PT consult Shonna Esqueda MD Oct 05, 2017 08:09
[2017-10-05] MEDS: INSULIN ASPART SUPPLEMENTAL SCALE SQ SCH ×4 (09:24→21:00)
[2017-10-05] MEDS: LACTOBACILLUS ACIDOPHILUS TAB PEG SCH ×3 (09:25→18:32)
[2017-10-05] MEDS: LIDOCAINE HCL 5% PATCH T-DERMAL SCH (09:25)
[2017-10-05] MEDS: ASCORBIC ACID 500 MG TAB PEG SCH ×2 (09:27→21:43)
[2017-10-05] MEDS: ASPIRIN 81 MG CHEW TAB PEG SCH (09:27)
[2017-10-05] MEDS: PREGABALIN 25 MG CAP PEG SCH ×3 (09:27→18:00)
[2017-10-05] MEDS: clonazePAM 0.5 MG TAB PO SCH ×2 (09:27→21:43)
[2017-10-05] MEDS: FAMOTIDINE 20 MG TAB PEG SCH ×2 (09:27→21:43)
[2017-10-05] MEDS: QUEtiapine FUMARATE 25 MG TAB PEG SCH ×2 (09:27→21:44)
[2017-10-05] MEDS: VANCOMYCIN 25 MG/ML SOLN 100 ML BOTTLE PEG SCH ×4 (10:38→21:00)
[2017-10-05] MEDS: COLLAGENASE OINT 30 GM TUBE TOPICAL SCH (10:39)
[2017-10-05] MEDS: ZINC SULFATE 220 MG PEG SCH ×2 (12:07→12:14)
--- NOTE | 2017-10-05 12:56 | PD.WOU.CON ---
Patient Intake Chief Complaint Sacral Ulcer Consult Requested by Dr. Esqueda Reason for Consult Patient with sacral ulcer Primary Care Physician Jeremias Rodriguez MD History of Present Illness Received referral for wound care from Dr. Esqueda for patient admitted on 10/01 with sepsis and pre-existing sacral ulcer. There is also concern about sacral osteomyelitis. Patient is already on antibiotics and has also a trach and feeding tube. He is nonverbal in bed and unable to answer questions. Information gleaned from EMR. Coded Allergies: No Known Allergies (Unverified , 10/01/17) Preferred Language to Discuss: [place] Vital Signs Date Time Temp Pulse Resp B/P (MAP) Pulse Ox O2 Delivery O2 Flow Rate FiO2 10/05/17 10:20 95 21 10/05/17 08:00 98.4 98 20 126/78 (94) 98 10/05/17 04:15 102 10/05/17 04:00 98.4 94 18 119/80 (93) 97 10/05/17 00:05 106 10/04/17 22:43 98.9 104 14 130/85 (100) 97 10/04/17 20:24 96 21 10/04/17 20:01 103 10/04/17 17:19 95 10/04/17 16:00 99.2 108 20 122/79 (93) 99 Review of Systems Integumentary: COMPLAINS OF: Slow to heal after cuts Neurological: COMPLAINS OF: Spinal Cord Injury Wound Assessment In hospital bed Vascular Assessment R Dorsails Pedis: Palpable L Dorsails Pedis: Palpable R Posterior Tibial: Palpable L Posterior Tibial: Palpable Temperature of Left Extremity: Warm Color of Left Extremity: WNL Temperature of Right Extremity: Warm Color of Right Extremity: WNL Wound Information - Wound One 10/05/2017: Wound dimensions this week are 5.2 cm x 4.2 cm by approximately 1.1 cm with undermining from 2 to 10:00 deepest depth at 9:00 measuring 1.6 cm. Wound was sharply debrided to deep subcutaneous tissue until a good bleeding base was obtained. Necrotic tissue and slough removed. Cleaned with normal saline and dressed with Santyl applied to Maxorb and covered with border gauze. Calycine was applied to the moist related partial thickness skin loss of the periwound and skin barrier was applied to the intact skin before covering the wound with border gauze. Patient seemed to tolerate this fairly. Wound Type: Pressure Ulcer Pressure Stagin Wound Length: 5.2cm Wound Width: 4.2cm Wound Depth: 1.1cm Undermining @ O'clock: 2-10 oclock with deepest depthat 9 oclock 1.6cm Photo Taken: No Exudate: Low Exudate Type: Serosanguineous Debridement: Yes Fibrin Amount: Mild Granulation Tissue Color: Red Exposed: Bone Periwound Appearance: FINDINGS: Maceration Dressings: Dressing Maxorb II Physical Exam Remarks GENERAL: Ill appearing in bed. . SKIN: Warm and dry.See wound assessment notes HEAD: Normocephalic. EYES: No scleral icterus. No injection or drainage. NECK: Supple, trachea midline. No JVD or lymphadenopathy. Trach present CARDIOVASCULAR: Regular rate and rhythm without murmurs, gallops, or rubs. RESPIRATORY: Breath sounds equal bilaterally. No accessory muscle use. GASTROINTESTINAL: Abdomen soft, non-tender, nondistended. EXTREMITIES: No cyanosis, or edema. NEUROLOGICAL: Unable to assess at this time Lab and Radiology Results Radiology Last Impressions Renal Ultrasound 10/03/17 0000 Signed Impressions: Service Date/Time: Tuesday, October 03, 2017 23:05 - CONCLUSION: No evidence of mass or hydronephrosis. Jose Sin MD Head CT 10/02/17 0039 Signed Impressions: Service Date/Time: Monday, October 02, 2017 01:45 - CONCLUSION: 1. No gross intracranial abnormality on this scan which is degraded by patient motion. Jose Sin MD Chest X-Ray 10/01/17 1518 Signed Impressions: Service Date/Time: Sunday, October 01, 2017 15:30 - CONCLUSION: Elevation left hemidiaphragm. Lungs are clear Remberto Aguilera MD FACR Assessment/Plan Problem List: (1) Stage 4 skin ulcer of sacral region Status: Chronic Plan: Wound was sharply debrided to deep subcutaneous tissue until a good bleeding base was obtained. Necrotic tissue and slough removed. Cleaned with normal saline and dressed with Santyl applied to Maxorb and covered with border gauze. Calycine was applied to the moist related partial thickness skin loss of the periwound and skin barrier was applied to the intact skin before covering the wound with border gauze. Patient seemed to tolerate this fairly. (2) Sacral osteomyelitis Status: Acute Plan: Patient currently on antibiotics. (3) Paraplegia Status: Chronic Plan: Patient currently bedbound. Will need PT once he improves. (4) Sepsis Status: Acute Plan: Patient currently on antibiotics.. Ella Hernandez MD Oct 05, 2017 12:56
--- NOTE | 2017-10-05 13:45 | PD.WCN.NOT ---
Wound Consult Description: [facility] Doctor Hernandez [facility] physician [facility]. Communicated with: MANJEET Padilla RN ELECTRONIC PUBLISHING SPECIALIST, Meredith Lepe YUNIOR Recommendation: 1. Reposition patient every 2 hours for comfort and offloading 2. Cleanse sacral wound with normal saline pat dry. 3. Apply Santyl to 0.125% dakin's solution moistened gauze and pack wound loosely to wound base. 4. Apply Calazime barrier cream to periwound. 5. Apply skin barrier film to intact skin before applying bordered gauze 6. Cover with dry boarder gauze change dressing daily or as needed for dislodgement/exudate 7. Apply Calazime barrier cream to perianal area. Additional Information: Patient seen on for wound care physician consult of sacral wound. Patient seen with Meredith Lepe, Peri Padilla RN and board writer. Patient was turned to L side with maximum assistance. Removed dressing to reveal open wound to sacral area. Wound bed presents with ~20% facia, ~10% bone, ~20% pink tissue, ~30% slough that is adherent, and ~20% purple tissue.Periwound presents with circumferential partial thickness skin loss that is moisture related. Wound drainage is minimal and sero-sanguinous without odor. Doctor Hernandez debrided wound with curette and forceps at bedside. Wound still noted with necrotic facia and slough. Wound measures 5.2cm x 4.2cmx ~ 1.1cm. Undermining is present from 2 to 10o'clock deepest at 9o'clock measuring 1.6 cm. Cleansed wound with normal saline and applied Santyl to Maxorb II and loosely packed wound. Applied Calazime barrier cream to moisture related partial thickness skin loss to periwound. Skin barrier film (skin prep) was applied to intact skin before covering wound with bordered gauze. Patient tolerated procedure fairly. Jocelyn Ledbetter [facility] Oct 05, 2017 13:45
--- NOTE | 2017-10-05 18:27 | HHI.PR ---
Addendum to Inpatient Note Additional Information Pt seen earliuer today around 1400 Full note to follow Karey Rossi MD Oct 05, 2017 18:27
[2017-10-05] MEDS: AMITRIPTYLINE HCL 50 MG TAB PEG SCH (21:43)
[2017-10-05] MEDS: ENOXAPARIN SODIUM 40 MG/0.4 ML SYRINGE SQ SCH (21:43)
[2017-10-05] MEDS: TAMSULOSIN HCL 0.4 MG CAP PO SCH (21:43)
--- NOTE | 2017-10-05 23:48 | HHI.IDPN ---
Subjective Subjective Remarks ID X cover for Dr Borrego deleayed entry - pt was seen earlier today chart was reviewed Patient is a 67-year-old male, brought into the hospital for evaluation for possible sepsis. Patient was hospitalized initially in [facility] and he was apparently there for about 4 weeks. He had drainage of a spur cervical spine abscess that had MRSA and there was also mention that he had other abscesses in his body. During his previous hospitalization he had tracheostomy placement as well as PEG tube placement. He went to [facility] after that and he was apparently there for at least 6 weeks and went to [facility]. [facility] the [facility] there was mention of different problems including some diarrhea. Also he has had problem with some cough and some choking episodes which according to the family is new. His trach use and he usually can eat without any problem. Low-grade fevers. Patient also has an indwelling Marquez catheter and the family does not know how long ago it was change. In the rehabilitation facility he was noted to be tachycardic, and had low blood pressure and some low-grade fever. Sepsis is a concerns of the patient was brought into the hospital for further evaluation and treatment. On admission his white count was elevated. His chest x-rays normal. Stool for C. difficile is now back with C. difficile positive toxin. His Marquez catheter was changed in the emergency room. Urinalysis showed pyuria, urine culture has gram-negative zenobia. Blood cultures are negative so far. Infectious disease consultation has been requested to evaluate for severe sepsis. Notes reviewed Febrile this morning Less agitated Urine culture with Pseudomonas Blood cultures negative so far WBC inmproving in mid 20K C. difficile positive BMs x4 growing PSAE in repeat urine Antibiotics Zosyn PO Vancomycin Current Medications Medications (Trade) Dose Ordered Sig/Damian Route Start Time Stop Time Status Last Admin (Narcan Inj) 0.4 mg UNSCH PRN IV PUSH 10/01/17 18:30 (Milk Of Magnesia Liq) 30 ml Q12H PRN PO 10/01/17 18:30 (Senokot) 17.2 mg Q12H PRN PO 10/01/17 18:30 (Dulcolax Supp) 10 mg DAILY PRN RECTAL 10/01/17 18:30 (Lactulose Liq) 30 ml DAILY PRN PO 10/01/17 18:30 Piperacillin Sod/ Tazobactam Sod 100 ml @ 200 mls/hr Q6H IV 10/01/17 21:00 10/03/17 10:08 (Lidoderm 5% Patch.12 Hr) 1 patch DAILY T-DERMAL 10/02/17 09:00 10/03/17 09:52 (Lyrica) 50 mg TID PEG 10/02/17 09:00 10/03/17 09:54 (Albuterol Neb) 0.63 mg Q6HR NEB PRN NEB 10/02/17 01:00 (Elavil) 50 mg HS PEG 10/02/17 21:00 10/02/17 22:16 (Aspirin Chew) 81 mg DAILY PEG 10/02/17 09:00 10/03/17 09:53 (CeleXA) 20 mg DAILY PEG 10/02/17 09:00 10/03/17 09:55 (KlonoPIN) 0.5 mg Q8HR PEG 10/02/17 06:00 10/03/17 05:32 (Lovenox Inj) 40 mg HS SQ 10/02/17 21:00 10/02/17 22:15 (Pepcid) 20 mg BID PEG 10/02/17 09:00 10/03/17 09:53 (SEROquel) 25 mg BID PEG 10/02/17 09:00 10/03/17 09:55 (Vitamin C) 250 mg BID PEG 10/02/17 09:00 10/03/17 09:54 (Levemir Inj) 10 units BID SQ 10/02/17 09:00 Future Hold (D50w (Vial) Inj) 50 ml UNSCH PRN IV PUSH 10/02/17 01:00 (Glucagon Inj) 1 mg UNSCH PRN OTHER 10/02/17 01:00 (NovoLOG SUPPLEMENTAL SCALE) 1 ACHS SLIDING SCALE SQ 10/02/17 08:00 10/02/17 12:00 Non-Formulary Medication ZINC SULFATE 22... 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 Vital Signs Date Time Temp Pulse Resp B/P (MAP) Pulse Ox O2 Delivery O2 Flow Rate FiO2 10/05/17 23:35 96.1 91 17 143/90 (107) 96 10/05/17 22:20 97 10/05/17 20:00 97.1 93 19 128/85 (99) 94 10/05/17 16:02 88 10/05/17 16:00 98.1 102 18 135/78 (97) 98 10/05/17 13:00 98.0 99 19 119/78 (92) 98 10/05/17 12:10 95 10/05/17 10:20 95 21 10/05/17 08:00 108 10/05/17 08:00 98.4 98 20 126/78 (94) 98 10/05/17 04:15 102 10/05/17 04:00 98.4 94 18 119/80 (93) 97 10/05/17 00:05 106 10/05/17 10/05/17 10/06/17 15:00 23:00 07:00 Output Total 300 ml Balance -300 ml Output Urine Total 300 ml # Bowel Movements 4 . Laboratory Tests Test 10/04/17 06:31 White Blood Count 26.8 TH/MM3 Red Blood Count 3.72 MIL/MM3 Hemoglobin 10.1 GM/DL Hematocrit 32.3 % Mean Corpuscular Volume 86.8 FL Mean Corpuscular Hemoglobin 27.3 PG Mean Corpuscular Hemoglobin Concent 31.4 % Red Cell Distribution Width 16.7 % Platelet Count 319 TH/MM3 Mean Platelet Volume 8.1 FL Neutrophils (%) (Auto) 76.6 % Lymphocytes (%) (Auto) 10.7 % Monocytes (%) (Auto) 9.6 % Eosinophils (%) (Auto) 2.8 % Basophils (%) (Auto) 0.3 % Neutrophils # (Auto) 20.5 TH/MM3 Lymphocytes # (Auto) 2.9 TH/MM3 Monocytes # (Auto) 2.6 TH/MM3 Eosinophils # (Auto) 0.7 TH/MM3 Basophils # (Auto) 0.1 TH/MM3 CBC Comment AUTO DIFF Differential Total Cells Counted 100 Neutrophils % (Manual) 72 % Band Neutrophils % 11 % Lymphocytes % 7 % Monocytes % 6 % Eosinophils % 3 % Basophils % 1 % Neutrophils # (Manual) 22.2 TH/MM3 Differential Comment FINAL DIFF MANUAL Toxic Granulation 1+ Platelet Estimate NORMAL Platelet Morphology Comment NORMAL Spherocytes OCC Red Cell Morphology Comment Laboratory Tests Test 10/04/17 06:31 10/05/17 04:35 Blood Urea Nitrogen 26 MG/DL 24 MG/DL Creatinine 0.35 MG/DL 0.35 MG/DL Random Glucose 119 MG/DL 133 MG/DL Calcium Level 8.5 MG/DL 8.1 MG/DL Sodium Level 150 MEQ/L 149 MEQ/L Potassium Level 3.1 MEQ/L 3.1 MEQ/L Chloride Level 119 MEQ/L 118 MEQ/L Carbon Dioxide Level 23.0 MEQ/L 22.6 MEQ/L Anion Gap 8 MEQ/L 8 MEQ/L Estimat Glomerular Filtration Rate 252 ML/MIN 252 ML/MIN Microbiology Date/Time Source Procedure Growth Status 10/03/17 04:25 Blood Peripheral Aerobic Blood Culture - Preliminary NO GROWTH IN 2 DAYS Resulted 10/03/17 04:25 Blood Peripheral Anaerobic Blood Culture - Preliminary NO GROWTH IN 2 DAYS Resulted 10/03/17 04:10 Blood Peripheral Aerobic Blood Culture - Preliminary NO GROWTH IN 2 DAYS Resulted 10/03/17 04:10 Blood Peripheral Anaerobic Blood Culture - Preliminary NO GROWTH IN 2 DAYS Resulted Imaging Last Impressions Renal Ultrasound 10/03/17 0000 Signed Impressions: Service Date/Time: Tuesday, October 03, 2017 23:05 - CONCLUSION: No evidence of mass or hydronephrosis. Jose Sin MD Head CT 10/02/17 0039 Signed Impressions: Service Date/Time: Monday, October 02, 2017 01:45 - CONCLUSION: 1. No gross intracranial abnormality on this scan which is degraded by patient motion. Jose Sin MD Chest X-Ray 10/01/17 1518 Signed Impressions: Service Date/Time: Sunday, October 01, 2017 15:30 - CONCLUSION: Elevation left hemidiaphragm. Lungs are clear Remberto Aguilera MD FACR Physical Exam GENERAL: awake and alert, not in respiratory distress. He occasional answers my questions SKIN: Warm and dry. No generalized rash, no ecchymoses and no evidence of embolic lesions. HEAD: Atraumatic. Normocephalic. No temporal wasting, or tenderness. EYES: [place] conjunctiva. No petechia or hemorrhage. Pupils equal, round and reactive to light. Extraocular movements full and intact. No scleral icterus. No injection or drainage. EARS, NOSE AND THROAT: Nose without bleeding or purulent nasal discharge. No sinus tenderness. Dry oral mucosa CARDIOVASCULAR: Regular rate breathing unlaboured has scattered ABDOMEN: Soft, non-tender, nondistended. Bowel sounds present and normoactive. No guarding. No rebound. No organomegaly. PEG in place, site ok EXTREMITIES: No clubbing, cyanosis, or edema. No joint effusion, has good ROM. No calf tenderness. Well perfused and warm. : Marquez in place urine with sediment NEUROLOGICAL: Awake and alert. No facial asymmetry. Moves extremities PSYCHIATRIC: calm LINE: No evidence of infection Assessment & Plan Remarks IMPRESSION Sepsis on admission, likely due to C diff, also with marquez associated UTI C diff colitis hypervirulent strain Fevers Leukocytosis, decreasing, but still high CAUTI, C/S PSAE Hx cervical spine absess, drained and treated with Abx Hx IVDU RECOMMENDATION Cont Cefepime Follow new C/S Continue oral Vanco for C. difficile colitis treatment cont Lactinex Renal US to check kidneys, may need CT Follow CBC Monitor progress Karey Rossi MD Oct 05, 2017 23:48
[2017-10-06] VITALS (7 sets, daily range): BP systolic 112–145; BP diastolic 71–86; PULSE 95–102; RESP 17–18; TEMP 96.2–98.2; O2SAT 94–98
[2017-10-06] MEDS: MESALAMINE HD 800 MG DELAYED RELEASE TAB PO SCH ×3 (05:34→21:24)
[2017-10-06] MEDS: ACETAMINOPHEN/HYDROcodone 325 MG/5 MG TAB PEG PRN ×2 (05:34→21:24)
[2017-10-06] MEDS: CEFEPIME INJ 2,000 MG in SODIUM CHLORIDE 0.9% INJ 100 ML IV SCH ×3 (05:35→21:23)
[2017-10-06] MEDS: POTASSIUM CHLORIDE INJ 40 MEQ in DEXTROSE 5% IN WATE 1000ML INJ 1,000 ML IV SCH ×2 (05:35)
[2017-10-06] MEDS: INSULIN ASPART SUPPLEMENTAL SCALE SQ SCH ×4 (08:00→21:00)
[2017-10-06] MEDS: LIDOCAINE HCL 5% PATCH T-DERMAL SCH (10:03)
[2017-10-06] MEDS: ASCORBIC ACID 500 MG TAB PEG SCH ×2 (10:04→21:24)
[2017-10-06] MEDS: PREGABALIN 25 MG CAP PEG SCH ×3 (10:04→18:48)
[2017-10-06] MEDS: clonazePAM 0.5 MG TAB PO SCH ×3 (10:04→23:59)
[2017-10-06] MEDS: ASPIRIN 81 MG CHEW TAB PEG SCH (10:04)
[2017-10-06] MEDS: LACTOBACILLUS ACIDOPHILUS TAB PEG SCH ×3 (10:04→18:47)
[2017-10-06] MEDS: FAMOTIDINE 20 MG TAB PEG SCH ×2 (10:05→21:24)
[2017-10-06] MEDS: SODIUM HYPOCHLORITE 0.125% 500 ML BTL TOPICAL SCH (10:05)
[2017-10-06] MEDS: QUEtiapine FUMARATE 25 MG TAB PEG SCH ×3 (10:05→23:59)
[2017-10-06] MEDS: VANCOMYCIN 25 MG/ML SOLN 100 ML BOTTLE PEG SCH ×4 (10:05→21:00)
[2017-10-06] MEDS: COLLAGENASE OINT 30 GM TUBE TOPICAL SCH (10:06)
[2017-10-06] MEDS: ZINC SULFATE 220 MG PEG SCH (11:00)
[2017-10-06 14:39] LABS: AUTOMATED NEUTROPHIL # 13.9 TH/MM3 (1.8-7.7); BASOPHIL # 0.1 TH/MM3 (0-0.2); BASOPHIL % 0.5 % (0.0-2.0); EOSINOPHIL # 0.6 TH/MM3 (0-0.4); EOSINOPHIL % 3.5 % (0.0-4.0); HEMOGLOBIN 10.2 GM/DL (13.0-17.0); LYMPH % 9.4 % (9.0-44.0); LYMPHOCYTE # 1.6 TH/MM3 (1.0-4.8); MEAN CELL VOLUME 86.5 FL (80.0-100.0); MEAN CORPUSCULAR HEMOGLOBIN 28.4 PG (27.0-34.0); MEAN CORPUSCULAR HGB CONC 32.9 % (32.0-36.0); MEAN PLATELET VOLUME 8.3 FL (7.0-11.0); MONO % 6.8 % (0.0-8.0); MONOCYTE # 1.2 TH/MM3 (0-0.9); NEUT % 79.8 % (16.0-70.0); PLATELET COUNT 244 TH/MM3 (150-450); RED BLOOD COUNT 3.59 MIL/MM3 (4.50-5.90); RED CELL DISTRIBUTION WIDTH 16.7 % (11.6-17.2); WHITE BLOOD COUNT 17.4 TH/MM3 (4.0-11.0)
[2017-10-06 15:02] LABS: BICARBONATE 23.7 MEQ/L (21.0-32.0); CALCIUM 7.9 MG/DL (8.5-10.1); CREATININE 0.25 MG/DL (0.60-1.30)
[2017-10-06 15:14] LABS: BANDS 3 % (0-6); CORRECTED NUCLEATED RBC 2 /100 WBC (0-0); LYMPHOCYTES 13 % (9-44); MONOCYTES 4 % (0-8); NEUTROPHIL # MANUAL DIFF 14.3 TH/MM3 (1.8-7.7); NUCLEATED RED BLOOD CELL 2 (0-0); POLYS (SEG NEUTROPHILS) 79 % (16-70)
--- NOTE | 2017-10-06 15:44 | HHI.PR ---
Subjective Remarks Patient feels weak, no chest pain or short of breath Trach is capped, right IJ line, Marquez catheter in Discussed with the nurse no fever Objective Vitals Vital Signs Date Time Temp Pulse Resp B/P (MAP) Pulse Ox O2 Delivery O2 Flow Rate FiO2 10/06/17 12:00 96.2 101 18 130/82 (98) 95 10/06/17 11:04 18 10/06/17 08:00 97.4 101 18 112/71 (85) 94 10/06/17 03:23 97.9 95 17 132/84 (100) 94 10/05/17 23:35 96.1 91 17 143/90 (107) 96 10/05/17 22:20 97 10/05/17 20:00 97.1 93 19 128/85 (99) 94 10/05/17 16:02 88 10/05/17 16:00 98.1 102 18 135/78 (97) 98 I/O 10/05/17 10/05/17 10/05/17 10/06/17 10/06/17 10/06/17 07:00 15:00 23:00 07:00 15:00 23:00 Intake Total 300 ml Output Total 700 ml 300 ml 1450 ml Balance -700 ml -300 ml -1150 ml Intake Oral 300 ml Output Urine Total 700 ml 300 ml 1450 ml # Bowel Movements 1 4 2 Result Diagram: 10/06/17 1322 10/06/17 1322 Objective Remarks GENERAL: Frail 67 years old patient resting in bed in no acute distress SKIN: No rashes, warm and dry HEAD: Atraumatic. Normocephalic. EYES: PERRLA . No scleral icterus. ENT: No bleeding, or drainage, Airway patent. NECK: Trach capped CARDIOVASCULAR: RRR, no gallops, or rubs. RESPIRATORY: Diminished breath sounds bilaterally GASTROINTESTINAL: Abdomen soft, non-tender, nondistended. Positive bowel sounds MUSCULOSKELETAL: Atrophy muscle extremities NEUROLOGICAL: Awake and alert. Minimal right upper extremity movement, Date of Insertion: Oct 02, 2017 A/P Assessment and Plan 67 years old male 10/06: Continue current care as below, WBC dropped to 26.8, repeat CBC in a.m., sodium improved to 149, repeat BMP in a.m. A/P: Sepsis on admission multifactorial C diff colitis Pseudomonas UTI- marquez associated Hx cervical spine abscess, drained and treated with Abx Hx IVDU Leukocytosis On Cefepime oral Vancomycin for c diff treatment On Lactinex and Mesalamine by ID ff culture and CBC marquez changed 10/02 ID ff SADIA- pre renal in ratio- improving renal ultrasound - unremarkable HYpernatremia- still up toelrating TF at goal rate of 60cc/hr. Add Favio IVF changed to to D5W- increase rate to 70 cc/hr Increaae water flushes 50 cc q 4 ff lytes, BMP Hypokalemia 40 meq KCL in IVF give KCL 40 meq/PEG x 2 today recheck in am. monitor closely- came in with elevated K Sacral decubitus Right hip ulcer wound care team nurse recommendation appreciated- Santyl ointment to area consult place for wound care MD - Dr. Henderson- regarding need for debridement wound care team nurse ff Acute respiratory failure with transient hypoxemia- likely from sepsis Underlying chronic respiratory failure- on trac- capped RT consult- for pulmonary toilette/trac care Encephalopathy- improved - likely from medications slurred speech/ AMS- improved - - Brain CT- negative family feels he is getting overmedicated in the NH will continue to adjust meds Chronic benzo- gradual taper Chronic pain Family feels speech is not baseline- they state that he is not on Klonopin prior to SNF- they feel that the NH overmedicated him lortab 5 q6hrs prn for pain ct lyrica. ct lidocaine patch avoid sedation For family-patient has been on Elavil for long period the new ones started at [facility] was Klonopin and Seroquel- d/w taper Klonopin to q 12 and decrease Seroquel to 12.5 mg bid - today . and gradually wean off if tolerates- Dietitian ff- on Glucerna DM type 2- good readings sliding scale Lovenox for DVT prophylaxis on PPI PT consult Barrett Rushing MD Oct 06, 2017 15:44
[2017-10-06] MEDS: ENOXAPARIN SODIUM 40 MG/0.4 ML SYRINGE SQ SCH (21:22)
[2017-10-06] MEDS: AMITRIPTYLINE HCL 50 MG TAB PEG SCH (21:23)
[2017-10-06] MEDS: TAMSULOSIN HCL 0.4 MG CAP PO SCH (21:24)
[2017-10-07] VITALS (7 sets, daily range): BP systolic 133–142; BP diastolic 84–99; PULSE 97–106; RESP 17–22; TEMP 96.2–97.3; O2SAT 96–100
[2017-10-07] MEDS: POTASSIUM CHLORIDE INJ 40 MEQ in DEXTROSE 5% IN WATE 1000ML INJ 1,000 ML IV SCH ×2
[2017-10-07] MEDS: MESALAMINE HD 800 MG DELAYED RELEASE TAB PO SCH ×3 (05:39→22:10)
[2017-10-07] MEDS: CEFEPIME INJ 2,000 MG in SODIUM CHLORIDE 0.9% INJ 100 ML IV SCH ×3 (05:39→21:44)
[2017-10-07] MEDS: ACETAMINOPHEN/HYDROcodone 325 MG/5 MG TAB PEG PRN ×2 (05:39→22:11)
[2017-10-07] MEDS: INSULIN ASPART SUPPLEMENTAL SCALE SQ SCH ×5 (08:00→21:42)
[2017-10-07 08:13] LABS: AUTOMATED NEUTROPHIL # 16.2 TH/MM3 (1.8-7.7); BASOPHIL # 0.1 TH/MM3 (0-0.2); BASOPHIL % 0.7 % (0.0-2.0); EOSINOPHIL # 0.4 TH/MM3 (0-0.4); EOSINOPHIL % 2.1 % (0.0-4.0); HEMATOCRIT 28.4 % (39.0-51.0); HEMOGLOBIN 9.4 GM/DL (13.0-17.0); LYMPH % 9.7 % (9.0-44.0); LYMPHOCYTE # 1.9 TH/MM3 (1.0-4.8); MEAN CELL VOLUME 84.7 FL (80.0-100.0); MEAN CORPUSCULAR HEMOGLOBIN 27.9 PG (27.0-34.0); MEAN CORPUSCULAR HGB CONC 32.9 % (32.0-36.0); MEAN PLATELET VOLUME 8.2 FL (7.0-11.0); MONO % 6.7 % (0.0-8.0); MONOCYTE # 1.3 TH/MM3 (0-0.9); NEUT % 80.8 % (16.0-70.0); PLATELET COUNT 269 TH/MM3 (150-450); RED BLOOD COUNT 3.36 MIL/MM3 (4.50-5.90)
[2017-10-07 08:31] LABS: BICARBONATE 23.2 MEQ/L (21.0-32.0); CALCIUM 8.2 MG/DL (8.5-10.1); CREATININE 0.27 MG/DL (0.60-1.30)
[2017-10-07] MEDS: COLLAGENASE OINT 30 GM TUBE TOPICAL SCH (09:00)
[2017-10-07] MEDS: LIDOCAINE HCL 5% PATCH T-DERMAL SCH (10:08)
[2017-10-07] MEDS: LACTOBACILLUS ACIDOPHILUS TAB PEG SCH ×3 (10:08→17:41)
[2017-10-07] MEDS: FAMOTIDINE 20 MG TAB PEG SCH ×2 (10:09→21:45)
[2017-10-07] MEDS: ASPIRIN 81 MG CHEW TAB PEG SCH (10:09)
[2017-10-07] MEDS: ASCORBIC ACID 500 MG TAB PEG SCH ×2 (10:09→21:45)
[2017-10-07] MEDS: QUEtiapine FUMARATE 25 MG TAB PEG SCH ×2 (10:09→21:45)
[2017-10-07] MEDS: VANCOMYCIN 25 MG/ML SOLN 100 ML BOTTLE PEG SCH ×4 (10:10→21:45)
[2017-10-07] MEDS: PREGABALIN 25 MG CAP PEG SCH ×3 (10:10→17:41)
[2017-10-07] MEDS: SODIUM HYPOCHLORITE 0.125% 500 ML BTL TOPICAL SCH (10:10)
[2017-10-07] MEDS: clonazePAM 0.5 MG TAB PO SCH ×2 (10:10→21:45)
[2017-10-07] MEDS: ZINC SULFATE 220 MG PEG SCH (10:12)
--- NOTE | 2017-10-07 13:01 | HHI.PR ---
Subjective Remarks Resting in bed Somnolent, woke up to voice, looks comfortable, denied complaint Objective Vitals Vital Signs Date Time Temp Pulse Resp B/P (MAP) Pulse Ox O2 Delivery O2 Flow Rate FiO2 10/07/17 09:38 98 21 10/07/17 08:00 96.2 97 22 141/99 (113) 98 10/07/17 04:00 97.3 104 18 136/89 (105) 96 10/07/17 00:00 96.4 105 17 133/91 (105) 97 10/06/17 21:55 97 21 10/06/17 20:00 96.2 100 18 136/86 (103) 96 10/06/17 16:00 98.2 102 18 145/86 (105) 97 10/06/17 14:46 18 10/06/17 14:00 98 21 10/06/17 14:00 21 I/O 10/06/17 10/06/17 10/06/17 10/07/17 10/07/17 10/07/17 07:00 15:00 23:00 07:00 15:00 23:00 Intake Total 300 ml 420 ml 480 ml Output Total 1450 ml 1300 ml 2025 ml Balance -1150 ml -880 ml -1545 ml Intake Oral 300 ml 420 ml 480 ml Output Urine Total 1450 ml 1300 ml 2025 ml # Bowel Movements 2 3 3 Result Diagram: 10/07/17 0749 10/07/17 0749 Objective Remarks GENERAL: Frail 67 years old patient resting in bed in no acute distress SKIN: No rashes, warm and dry HEAD: Atraumatic. Normocephalic. EYES: PERRLA . No scleral icterus. ENT: No bleeding, or drainage, Airway patent. NECK: Trach capped CARDIOVASCULAR: RRR, no gallops, or rubs. RESPIRATORY: Diminished breath sounds bilaterally GASTROINTESTINAL: Abdomen soft, non-tender, nondistended. Positive bowel sounds MUSCULOSKELETAL: Atrophy muscle extremities NEUROLOGICAL: Somnolent. Minimal right upper extremity movement, Date of Insertion: Oct 02, 2017 A/P Assessment and Plan 67 years old male 10/06: Continue current care as below, WBC dropped to 26.8, repeat CBC in a.m., sodium improved to 149, repeat BMP in a.m. 10/07: Sodium improved 141 today, WBC back to 20 K, renal ultrasound negative, continue monitoring CBC in a.m. A/P: Sepsis on admission multifactorial C diff colitis Pseudomonas UTI- marquez associated Hx cervical spine abscess, drained and treated with Abx Hx IVDU Leukocytosis On Cefepime oral Vancomycin for c diff treatment On Lactinex and Mesalamine by ID ff culture and CBC marquez changed 10/02 ID ff SADIA- pre renal in ratio- improving renal ultrasound - unremarkable HYpernatremia- still up toelrating TF at goal rate of 60cc/hr. Add Favio IVF changed to to D5W- increase rate to 70 cc/hr Increaae water flushes 50 cc q 4 ff lytes, BMP Hypokalemia 40 meq KCL in IVF give KCL 40 meq/PEG x 2 today recheck in am. monitor closely- came in with elevated K Sacral decubitus Right hip ulcer wound care team nurse recommendation appreciated- Santyl ointment to area consult place for wound care MD - Dr. Henderson- regarding need for debridement wound care team nurse ff Acute respiratory failure with transient hypoxemia- likely from sepsis Underlying chronic respiratory failure- on trac- capped RT consult- for pulmonary toilette/trac care Encephalopathy- improved - likely from medications slurred speech/ AMS- improved - - Brain CT- negative family feels he is getting overmedicated in the NH will continue to adjust meds Chronic benzo- gradual taper Chronic pain Family feels speech is not baseline- they state that he is not on Klonopin prior to SNF- they feel that the NH overmedicated him lortab 5 q6hrs prn for pain ct lyrica. ct lidocaine patch avoid sedation For family-patient has been on Elavil for long period the new ones started at [facility] was Klonopin and Seroquel- d/w taper Klonopin to q 12 and decrease Seroquel to 12.5 mg bid - today . and gradually wean off if tolerates- Dietitian ff- on Glucerna DM type 2- good readings sliding scale Lovenox for DVT prophylaxis on PPI PT consult Barrett Rushing MD Oct 07, 2017 13:01
[2017-10-07] MEDS: AMITRIPTYLINE HCL 50 MG TAB PEG SCH (21:45)
[2017-10-07] MEDS: ENOXAPARIN SODIUM 40 MG/0.4 ML SYRINGE SQ SCH (21:45)
[2017-10-07] MEDS: TAMSULOSIN HCL 0.4 MG CAP PO SCH (21:45)
[2017-10-07] MEDS: DEXTROSE 5% IV SCH ×2 (23:35)
[2017-10-07] MEDS: POTASSIUM CHLORIDE IV SCH ×2 (23:35)
[2017-10-07] MEDS: WATE IV SCH ×2 (23:35)
[2017-10-08] VITALS: BP 121/89; PULSE 102; RESP 17; TEMP 96.9; O2SAT 95
[2017-10-08 04:00] VITALS: BP 113/79; PULSE 106; RESP 17; TEMP 96.8; O2SAT 96
[2017-10-08] MEDS: MESALAMINE HD 800 MG DELAYED RELEASE TAB PO SCH ×3 (04:55→21:56)
[2017-10-08] MEDS: ACETAMINOPHEN/HYDROcodone 325 MG/5 MG TAB PEG PRN ×3 (04:56→17:34)
[2017-10-08] MEDS: CEFEPIME INJ 2,000 MG in SODIUM CHLORIDE 0.9% INJ 100 ML IV SCH ×3 (04:56→21:56)
[2017-10-08 08:00] VITALS: BP 143/88; PULSE 103; RESP 19; TEMP 97.3; O2SAT 97
[2017-10-08] MEDS: INSULIN ASPART SUPPLEMENTAL SCALE SQ SCH ×4 (08:00→22:13)
[2017-10-08] MEDS: LIDOCAINE HCL 5% PATCH T-DERMAL SCH (10:10)
[2017-10-08] MEDS: clonazePAM 0.5 MG TAB PO SCH ×2 (10:11→21:55)
[2017-10-08] MEDS: ASPIRIN 81 MG CHEW TAB PEG SCH (10:11)
[2017-10-08] MEDS: ASCORBIC ACID 500 MG TAB PEG SCH ×2 (10:11→21:55)
[2017-10-08] MEDS: LACTOBACILLUS ACIDOPHILUS TAB PEG SCH ×3 (10:11→17:34)
[2017-10-08] MEDS: FAMOTIDINE 20 MG TAB PEG SCH ×2 (10:11→21:56)
[2017-10-08] MEDS: COLLAGENASE OINT 30 GM TUBE TOPICAL SCH (10:12)
[2017-10-08] MEDS: QUEtiapine FUMARATE 25 MG TAB PEG SCH ×2 (10:12→22:14)
[2017-10-08] MEDS: VANCOMYCIN 25 MG/ML SOLN 100 ML BOTTLE PEG SCH ×4 (10:12→22:14)
[2017-10-08] MEDS: PREGABALIN 25 MG CAP PEG SCH ×3 (10:12→17:34)
[2017-10-08] MEDS: SODIUM HYPOCHLORITE 0.125% 500 ML BTL TOPICAL SCH (10:13)
[2017-10-08] MEDS: ZINC SULFATE 220 MG PEG SCH (11:00)
[2017-10-08 12:00] VITALS: BP 117/80; PULSE 107; RESP 19; TEMP 97.2; O2SAT 97
[2017-10-08] MEDS: POTASSIUM CHLORIDE IV SCH ×4 (13:04→19:24)
[2017-10-08] MEDS: DEXTROSE 5% IV SCH ×4 (13:04→19:24)
[2017-10-08] MEDS: WATE IV SCH ×4 (13:04→19:24)
[2017-10-08 16:00] VITALS: BP 123/82; PULSE 115; RESP 19; TEMP 96.1; O2SAT 96
[2017-10-08 21:18] VITALS: BP 160/111; PULSE 118; RESP 18; TEMP 97.4; O2SAT 96
[2017-10-08] MEDS: AMITRIPTYLINE HCL 50 MG TAB PEG SCH (21:55)
[2017-10-08] MEDS: ENOXAPARIN SODIUM 40 MG/0.4 ML SYRINGE SQ SCH (21:56)
[2017-10-08] MEDS: TAMSULOSIN HCL 0.4 MG CAP PO SCH (22:14)
--- NOTE | 2017-10-08 22:27 | HHI.PR ---
Subjective Remarks Patient resting in bed comfortably He complained of dysuria Objective Vitals Vital Signs Date Time Temp Pulse Resp B/P (MAP) Pulse Ox O2 Delivery O2 Flow Rate FiO2 10/08/17 21:18 97.4 118 18 160/111 (127) 96 10/08/17 16:00 96.1 115 19 123/82 (96) 96 10/08/17 12:00 97.2 107 19 117/80 (92) 97 10/08/17 11:37 19 10/08/17 11:37 19 10/08/17 08:00 97.3 103 19 143/88 (106) 97 10/08/17 04:00 96.8 106 17 113/79 (90) 96 10/08/17 00:00 96.9 102 17 121/89 (100) 95 I/O 10/07/17 10/07/17 10/07/17 10/08/17 10/08/17 10/08/17 07:00 15:00 23:00 07:00 15:00 23:00 Intake Total 480 ml 800 ml 2085 ml 682 ml Output Total 2025 ml 1350 ml 1400 ml 1500 ml Balance -1545 ml -1350 ml 800 ml 685 ml -818 ml Intake Oral 480 ml 720 ml 240 ml IV Total 100 ml 1365 ml 442 ml Tube Feeding 700 ml Output Urine Total 2025 ml 1350 ml 1400 ml 1500 ml # Bowel Movements 3 1 2 4 Result Diagram: 10/07/17 0749 10/07/17 0749 Objective Remarks GENERAL: Frail 67 years old patient resting in bed in no acute distress SKIN: No rashes, warm and dry HEAD: Atraumatic. Normocephalic. EYES: PERRLA . No scleral icterus. ENT: No bleeding, or drainage, Airway patent. NECK: Trach capped CARDIOVASCULAR: RRR, no gallops, or rubs. RESPIRATORY: Diminished breath sounds bilaterally GASTROINTESTINAL: Abdomen soft, non-tender, nondistended. Positive bowel sounds MUSCULOSKELETAL: Atrophy muscle extremities NEUROLOGICAL: Somnolent. Minimal right upper extremity movement, Date of Insertion: Oct 02, 2017 A/P Assessment and Plan 67 years old male 10/06: Continue current care as below, WBC dropped to 26.8, repeat CBC in a.m., sodium improved to 149, repeat BMP in a.m. 10/07: Sodium improved 141 today, WBC back to 20 K, renal ultrasound negative, continue monitoring CBC in a.m. 10/08: Complaint of dysuria, Marquez has been changed at admission, follow CBC, follow ID recommended A/P: Sepsis on admission multifactorial C diff colitis Pseudomonas UTI- marquez associated Hx cervical spine abscess, drained and treated with Abx Hx IVDU Leukocytosis On Cefepime oral Vancomycin for c diff treatment On Lactinex and Mesalamine by ID ff culture and CBC marquez changed 10/02 ID ff SADIA- pre renal in ratio- improving renal ultrasound - unremarkable HYpernatremia- still up toelrating TF at goal rate of 60cc/hr. Add Favio IVF changed to to D5W- increase rate to 70 cc/hr Increaae water flushes 50 cc q 4 ff lytes, BMP Hypokalemia 40 meq KCL in IVF give KCL 40 meq/PEG x 2 today recheck in am. monitor closely- came in with elevated K Sacral decubitus Right hip ulcer wound care team nurse recommendation appreciated- Santyl ointment to area consult place for wound care MD - Dr. Henderson- regarding need for debridement wound care team nurse ff Acute respiratory failure with transient hypoxemia- likely from sepsis Underlying chronic respiratory failure- on trac- capped RT consult- for pulmonary toilette/trac care Encephalopathy- improved - likely from medications slurred speech/ AMS- improved - - Brain CT- negative family feels he is getting overmedicated in the NH will continue to adjust meds Chronic benzo- gradual taper Chronic pain Family feels speech is not baseline- they state that he is not on Klonopin prior to SNF- they feel that the NH overmedicated him lortab 5 q6hrs prn for pain ct lyrica. ct lidocaine patch avoid sedation For family-patient has been on Elavil for long period the new ones started at [facility] was Klonopin and Seroquel- d/w taper Klonopin to q 12 and decrease Seroquel to 12.5 mg bid - today . and gradually wean off if tolerates- Dietitian ff- on Glucerna DM type 2- good readings sliding scale Lovenox for DVT prophylaxis on PPI PT consult Barrett Rushing MD Oct 08, 2017 22:27
[2017-10-09] VITALS (9 sets, daily range): BP systolic 116–153; BP diastolic 78–103; PULSE 101–116; RESP 18–24; TEMP 96.5–97.8; O2SAT 97–100
[2017-10-09] MEDS: ACETAMINOPHEN/HYDROcodone 325 MG/5 MG TAB PEG PRN ×3 (00:25→12:53)
[2017-10-09] MEDS: MESALAMINE HD 800 MG DELAYED RELEASE TAB PO SCH ×3 (06:33→22:25)
[2017-10-09] MEDS: CEFEPIME INJ 2,000 MG in SODIUM CHLORIDE 0.9% INJ 100 ML IV SCH ×3 (06:33→22:27)
[2017-10-09] MEDS: COLLAGENASE OINT 30 GM TUBE TOPICAL SCH (09:00)
[2017-10-09] MEDS: QUEtiapine FUMARATE 25 MG TAB PEG SCH ×2 (10:07→22:26)
[2017-10-09] MEDS: LACTOBACILLUS ACIDOPHILUS TAB PEG SCH ×3 (10:07→18:12)
[2017-10-09] MEDS: ASCORBIC ACID 500 MG TAB PEG SCH ×2 (10:07→22:26)
[2017-10-09] MEDS: FAMOTIDINE 20 MG TAB PEG SCH ×2 (10:07→22:26)
[2017-10-09] MEDS: INSULIN ASPART SUPPLEMENTAL SCALE SQ SCH ×4 (10:07→21:00)
[2017-10-09] MEDS: clonazePAM 0.5 MG TAB PO SCH ×2 (10:08→22:26)
[2017-10-09] MEDS: ASPIRIN 81 MG CHEW TAB PEG SCH (10:08)
[2017-10-09] MEDS: LIDOCAINE HCL 5% PATCH T-DERMAL SCH (10:08)
[2017-10-09] MEDS: PREGABALIN 25 MG CAP PEG SCH ×3 (10:08→18:12)
[2017-10-09] MEDS: SODIUM HYPOCHLORITE 0.125% 500 ML BTL TOPICAL SCH (10:09)
[2017-10-09] MEDS: VANCOMYCIN 25 MG/ML SOLN 100 ML BOTTLE PEG SCH ×4 (10:09→22:28)
[2017-10-09] MEDS: ZINC SULFATE 220 MG PEG SCH (10:14)
[2017-10-09] MEDS: POTASSIUM CHLORIDE IV SCH ×4 (10:15→15:48)
[2017-10-09] MEDS: WATE IV SCH ×4 (10:15→15:48)
[2017-10-09] MEDS: DEXTROSE 5% IV SCH ×4 (10:15→15:48)
[2017-10-09 10:30] LABS: AUTOMATED NEUTROPHIL # 21.1 TH/MM3 (1.8-7.7); BASOPHIL # 0.2 TH/MM3 (0-0.2); BASOPHIL % 0.7 % (0.0-2.0); EOSINOPHIL # 0.2 TH/MM3 (0-0.4); EOSINOPHIL % 0.7 % (0.0-4.0); HEMATOCRIT 38.2 % (39.0-51.0); HEMOGLOBIN 12.4 GM/DL (13.0-17.0); LYMPH % 14.8 % (9.0-44.0); LYMPHOCYTE # 4.1 TH/MM3 (1.0-4.8); MEAN CELL VOLUME 85.3 FL (80.0-100.0); MEAN CORPUSCULAR HEMOGLOBIN 27.6 PG (27.0-34.0); MEAN CORPUSCULAR HGB CONC 32.3 % (32.0-36.0); MEAN PLATELET VOLUME 7.7 FL (7.0-11.0); MONO % 7.6 % (0.0-8.0); MONOCYTE # 2.1 TH/MM3 (0-0.9); NEUT % 76.2 % (16.0-70.0); PLATELET COUNT 451 TH/MM3 (150-450); RED BLOOD COUNT 4.48 MIL/MM3 (4.50-5.90); RED CELL DISTRIBUTION WIDTH 16.7 % (11.6-17.2); WHITE BLOOD COUNT 27.7 TH/MM3 (4.0-11.0)
[2017-10-09 12:18] LABS: BACTERIA, URINE OCC /hpf; BILIRUBIN, URINE NEG (NEG); BLOOD, URINE SMALL (NEG); GLUCOSE,URINE NEG (NEG); KETONE, URINE NEG (NEG); NITRITE,URINE NEG (NEG); PH, URINE 6.5 (5.0-8.5); URINE COLOR YELLOW (YELLW/STRAW); URINE LEUKOCYTE ESTERASE MOD (NEG)
--- NOTE | 2017-10-09 13:44 | HHI.IDPN ---
Subjective Subjective Remarks Patient is a 67-year-old male, brought into the hospital for evaluation for possible sepsis. Patient was hospitalized initially in [facility] and he was apparently there for about 4 weeks. He had drainage of a spur cervical spine abscess that had MRSA and there was also mention that he had other abscesses in his body. During his previous hospitalization he had tracheostomy placement as well as PEG tube placement. He went to [facility] after that and he was apparently there for at least 6 weeks and went to [facility]. In the care home there was mention of different problems including some diarrhea. Also he has had problem with some cough and some choking episodes which according to the family is new. His trach use and he usually can eat without any problem. Low-grade fevers. Patient also has an indwelling Marquez catheter and the family does not know how long ago it was change. In the rehabilitation facility he was noted to be tachycardic, and had low blood pressure and some low-grade fever. Sepsis is a concerns of the patient was brought into the hospital for further evaluation and treatment. On admission his white count was elevated. His chest x-rays normal. Stool for C. difficile is now back with C. difficile positive toxin. His Marquez catheter was changed in the emergency room. Urinalysis showed pyuria, urine culture has gram-negative zenobia. Blood cultures are negative so far. Infectious disease consultation has been requested to evaluate for severe sepsis. Notes reviewed Temps ok Less agitated C/O dysuria, has maqruez Frequent BM WBC higher today Urine culture with Pseudomonas Blood cultures negative so far C. difficile positive Antibiotics cefepime PO Vancomycin Asacol Current Medications Medications (Trade) Dose Ordered Sig/Damian Route Start Time Stop Time Status Last Admin (Narcan Inj) 0.4 mg UNSCH PRN IV PUSH 10/01/17 18:30 (Milk Of Magnesia Liq) 30 ml Q12H PRN PO 10/01/17 18:30 (Senokot) 17.2 mg Q12H PRN PO 10/01/17 18:30 (Dulcolax Supp) 10 mg DAILY PRN RECTAL 10/01/17 18:30 (Lactulose Liq) 30 ml DAILY PRN PO 10/01/17 18:30 (Lidoderm 5% Patch.12 Hr) 1 patch DAILY T-DERMAL 10/02/17 09:00 10/09/17 10:08 (Lyrica) 50 mg TID PEG 10/02/17 09:00 10/09/17 12:52 (Albuterol Neb) 0.63 mg Q6HR NEB PRN NEB 10/02/17 01:00 (Aspirin Chew) 81 mg DAILY PEG 10/02/17 09:00 10/09/17 10:08 (Lovenox Inj) 40 mg HS SQ 10/02/17 21:00 10/08/17 21:56 (Pepcid) 20 mg BID PEG 10/02/17 09:00 10/09/17 10:07 (Vitamin C) 250 mg BID PEG 10/02/17 09:00 10/09/17 10:07 (Levemir Inj) 10 units BID SQ 10/02/17 09:00 Future Hold (D50w (Vial) Inj) 50 ml UNSCH PRN IV PUSH 10/02/17 01:00 (Glucagon Inj) 1 mg UNSCH PRN OTHER 10/02/17 01:00 (NovoLOG SUPPLEMENTAL SCALE) 1 ACHS SLIDING SCALE SQ 10/02/17 08:00 10/09/17 12:51 Non-Formulary Medication ZINC SULFATE 22... Q24H PEG 10/02/17 11:00 10/09/17 10:14 ([place] 5-325 Mg) 1 tab Q6H PRN PEG 10/02/17 22:15 10/09/17 12:53 (Lactinex) 1 tab TID PEG 10/02/17 18:00 10/09/17 12:52 (Flomax) 0.8 mg HS PO 10/02/17 21:00 10/08/17 22:14 (Vancomycin 25 Mg/ml Liq) 250 mg QID PEG 10/02/17 18:00 10/09/17 12:52 (Tylenol) 650 mg Q4H PRN PO 10/03/17 05:00 10/03/17 13:30 (Santyl Oint) 1 applic DAILY TOPICAL 10/03/17 11:30 10/08/17 10:12 Cefepime HCl 2000 mg/Sodium Chloride 100 ml @ 200 mls/hr Q8H IV 10/03/17 14:00 10/09/17 13:07 (Asacol [place]) 1,600 mg Q8HR PO 10/03/17 14:00 3/27/18 06:33 (KlonoPIN) 0.5 mg Q12HR PO 10/03/17 21:00 10/09/17 10:08 (SEROquel) 12.5 mg BID PEG 10/03/17 21:00 10/09/17 10:07 (Elavil) 50 mg HS PEG 10/03/17 21:00 10/08/17 21:55 (Pill Splitter) 1 ea UNSCH PRN OTHER 10/03/17 18:00 (Dakin'S 0.125% Soln) 500 ml DAILY TOPICAL 10/06/17 09:00 10/09/17 10:09 Potassium Chloride 20 meq/ Dextrose 510 ml @ 50 mls/hr [id number] IV 10/07/17 23:00 10/09/17 10:15 Lines PIV with no evidence of infection Past Medical History Hypertension Diabetes 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 Vital Signs Date Time Temp Pulse Resp B/P (MAP) Pulse Ox O2 Delivery O2 Flow Rate FiO2 10/09/17 12:00 96.5 116 24 150/101 (117) 99 10/09/17 11:10 18 10/09/17 08:15 113 10/09/17 08:00 96.8 112 24 153/103 (120) 98 10/09/17 07:41 97 21 10/09/17 07:40 21 10/09/17 07:32 20 10/09/17 05:26 97.6 101 18 153/100 (117) 98 10/09/17 00:19 97.8 111 18 153/98 (116) 97 10/08/17 21:53 21 10/08/17 21:18 97.4 118 18 160/111 (127) 96 3/26/18 16:00 96.1 115 19 123/82 (96) 96 10/09/17 10/09/17 10/10/17 15:00 23:00 07:00 Intake Total 994 ml Balance 994 ml Tube Feeding 994 ml . Laboratory Tests Test 10/09/17 10:16 White Blood Count 27.7 TH/MM3 Red Blood Count 4.48 MIL/MM3 Hemoglobin 12.4 GM/DL Hematocrit 38.2 % Mean Corpuscular Volume 85.3 FL Mean Corpuscular Hemoglobin 27.6 PG Mean Corpuscular Hemoglobin Concent 32.3 % Red Cell Distribution Width 16.7 % Platelet Count 451 TH/MM3 Mean Platelet Volume 7.7 FL Neutrophils (%) (Auto) 76.2 % Lymphocytes (%) (Auto) 14.8 % Monocytes (%) (Auto) 7.6 % Eosinophils (%) (Auto) 0.7 % Basophils (%) (Auto) 0.7 % Neutrophils # (Auto) 21.1 TH/MM3 Lymphocytes # (Auto) 4.1 TH/MM3 Monocytes # (Auto) 2.1 TH/MM3 Eosinophils # (Auto) 0.2 TH/MM3 Basophils # (Auto) 0.2 TH/MM3 CBC Comment DIFF FINAL Differential Comment Microbiology Date/Time Source Procedure Growth Status 10/09/17 11:42 Urine Catheterized Urine Urine Culture Pending Received Imaging Last Impressions Renal Ultrasound 10/03/17 0000 Signed Impressions: Service Date/Time: Tuesday, October 03, 2017 23:05 - CONCLUSION: No evidence of mass or hydronephrosis. Jose Sin MD Head CT 10/02/17 0039 Signed Impressions: Service Date/Time: Monday, October 02, 2017 01:45 - CONCLUSION: 1. No gross intracranial abnormality on this scan which is degraded by patient motion. Jose Sin MD Chest X-Ray 10/01/17 1518 Signed Impressions: Service Date/Time: Sunday, October 01, 2017 15:30 - CONCLUSION: Elevation left hemidiaphragm. Lungs are clear Remberto Aguilera MD FACR Physical Exam GENERAL: awake and alert, not in respiratory distress. He occasional answers my questions SKIN: Warm and dry. No generalized rash, no ecchymoses and no evidence of embolic lesions. HEAD: Atraumatic. Normocephalic. No temporal wasting, or tenderness. EYES: [place] conjunctiva. No petechia or hemorrhage. No scleral icterus. No injection or drainage. EARS, NOSE AND THROAT: Nose without bleeding or purulent nasal discharge. No sinus tenderness. Dry oral mucosa CARDIOVASCULAR: Regular rate CHEST: breathing unlaboured has scattered rhonchi ABDOMEN: Soft, non-tender, nondistended. Bowel sounds present and normoactive. No guarding. No rebound. No organomegaly. PEG in place, site ok EXTREMITIES: No clubbing, cyanosis, or edema. No joint effusion, has good ROM. No calf tenderness. Well perfused and warm. : Marquez in place urine with sediment NEUROLOGICAL: Awake and alert. No facial asymmetry. Moves extremities PSYCHIATRIC: calm LINE: No evidence of infection Assessment & Plan Remarks IMPRESSION Sepsis on admission, likely due to C diff, also with marquez associated UTI C diff colitis hypervirulent strain Fevers Leukocytosis, up again CAUTI, C/S PSAE Hx cervical spine absess, drained and treated with Abx Hx IVDU RECOMMENDATION Cont Cefepime Continue oral Vanco for C. difficile colitis treatment cont Lactinex Repeat UA and C/S Follow CBC Monitor progress Bonnie Borrego MD Oct 09, 2017 13:44
--- NOTE | 2017-10-09 18:13 | HHI.PR ---
Subjective Remarks Patient getting cleaned he had a bowel movement Still having dysuria will change Marquez catheter Afebrile overnight Objective Vitals Vital Signs Date Time Temp Pulse Resp B/P (MAP) Pulse Ox O2 Delivery O2 Flow Rate FiO2 10/09/17 16:00 97.5 110 24 116/81 (93) 98 10/09/17 14:03 20 10/09/17 14:03 20 10/09/17 12:00 96.5 116 24 150/101 (117) 99 10/09/17 12:00 111 10/09/17 08:15 113 10/09/17 08:00 96.8 112 24 153/103 (120) 98 10/09/17 07:41 97 21 10/09/17 07:40 21 10/09/17 05:26 97.6 101 18 153/100 (117) 98 10/09/17 00:19 97.8 111 18 153/98 (116) 97 10/08/17 21:53 21 10/08/17 21:18 97.4 118 18 160/111 (127) 96 I/O 10/08/17 10/08/17 10/08/17 10/09/17 10/09/17 10/09/17 07:00 15:00 23:00 07:00 15:00 23:00 Intake Total 2085 ml 682 ml 120 ml 994 ml Output Total 1400 ml 1500 ml 550 ml Balance 685 ml -818 ml -430 ml 994 ml Intake Oral 720 ml 240 ml 120 ml IV Total 1365 ml 442 ml Tube Feeding 994 ml Output Urine Total 1400 ml 1500 ml 550 ml # Bowel Movements 2 4 3 Result Diagram: 10/09/17 1016 10/07/17 0749 Objective Remarks GENERAL: Frail 67 years old patient resting in bed in no acute distress SKIN: No rashes, warm and dry HEAD: Atraumatic. Normocephalic. EYES: PERRLA . No scleral icterus. ENT: No bleeding, or drainage, Airway patent. NECK: Trach capped CARDIOVASCULAR: RRR, no gallops, or rubs. RESPIRATORY: Diminished breath sounds bilaterally GASTROINTESTINAL: Abdomen soft, non-tender, nondistended. Positive bowel sounds MUSCULOSKELETAL: Atrophy muscle extremities NEUROLOGICAL: Somnolent. Minimal right upper extremity movement, Date of Insertion: Oct 02, 2017 A/P Assessment and Plan 67 years old male 10/06: Continue current care as below, WBC dropped to 26.8, repeat CBC in a.m., sodium improved to 149, repeat BMP in a.m. 10/07: Sodium improved 141 today, WBC back to 20 K, renal ultrasound negative, continue monitoring CBC in a.m. 10/08: Complaint of dysuria, Marquez has been changed at admission, follow CBC, follow ID recommended 10/09: Change Marquez catheter, appreciate ID recommendation, continue IV antibiotic A/P: Sepsis on admission multifactorial C diff colitis Pseudomonas UTI- marquez associated Hx cervical spine abscess, drained and treated with Abx Hx IVDU Leukocytosis On Cefepime oral Vancomycin for c diff treatment On Lactinex and Mesalamine by ID ff culture and CBC marquez changed 10/02 ID ff SADIA- pre renal in ratio- improving renal ultrasound - unremarkable HYpernatremia- still up toelrating TF at goal rate of 60cc/hr. Add Favio IVF changed to to D5W- increase rate to 70 cc/hr Increaae water flushes 50 cc q 4 ff lytes, BMP Hypokalemia 40 meq KCL in IVF give KCL 40 meq/PEG x 2 today recheck in am. monitor closely- came in with elevated K Sacral decubitus Right hip ulcer wound care team nurse recommendation appreciated- Santyl ointment to area consult place for wound care MD - Dr. Henderson- regarding need for debridement wound care team nurse ff Acute respiratory failure with transient hypoxemia- likely from sepsis Underlying chronic respiratory failure- on trac- capped RT consult- for pulmonary toilette/trac care Encephalopathy- improved - likely from medications slurred speech/ AMS- improved - - Brain CT- negative family feels he is getting overmedicated in the [facility] will continue to adjust meds Chronic benzo- gradual taper Chronic pain Family feels speech is not baseline- they state that he is not on Klonopin prior to SN[facility]- they feel that the [facility] overmedicated him lortab 5 q6hrs prn for pain ct lyrica. ct lidocaine patch avoid sedation For family-patient has been on Elavil for long period the new ones started at [facility] was Klonopin and Seroquel- d/w taper Klonopin to q 12 and decrease Seroquel to 12.5 mg bid - today 3/ 21. and gradually wean off if tolerates- Dietitian ff- on Glucerna DM type 2- good readings sliding scale Lovenox for DVT prophylaxis on PPI PT consult Barrett Rushing MD Oct 09, 2017 18:13
[2017-10-09] MEDS: TAMSULOSIN HCL 0.4 MG CAP PO SCH ×2 (21:00→22:25)
[2017-10-09] MEDS: AMITRIPTYLINE HCL 50 MG TAB PEG SCH (22:26)
[2017-10-09] MEDS: ENOXAPARIN SODIUM 40 MG/0.4 ML SYRINGE SQ SCH (22:27)
[2017-10-10] VITALS (7 sets, daily range): BP systolic 121–134; BP diastolic 85–97; PULSE 94–112; RESP 17–20; TEMP 96.2–98.2; O2SAT 95–97
[2017-10-10] MEDS: ACETAMINOPHEN/HYDROcodone 325 MG/5 MG TAB PEG PRN ×4 (00:39→18:45)
[2017-10-10] MEDS: DEXTROSE 5% IV SCH ×6 (01:02→22:24)
[2017-10-10] MEDS: POTASSIUM CHLORIDE IV SCH ×6 (01:02→22:24)
[2017-10-10] MEDS: WATE IV SCH ×6 (01:02→22:24)
[2017-10-10] MEDS: CEFEPIME INJ 2,000 MG in SODIUM CHLORIDE 0.9% INJ 100 ML IV SCH ×3 (05:33→22:53)
[2017-10-10] MEDS: MESALAMINE HD 800 MG DELAYED RELEASE TAB PO SCH ×3 (05:45→22:53)
[2017-10-10] MEDS: INSULIN ASPART SUPPLEMENTAL SCALE SQ SCH ×4 (08:00→21:00)
[2017-10-10] MEDS: PREGABALIN 25 MG CAP PEG SCH ×3 (09:30→18:45)
[2017-10-10] MEDS: ASPIRIN 81 MG CHEW TAB PEG SCH (09:30)
[2017-10-10] MEDS: LACTOBACILLUS ACIDOPHILUS TAB PEG SCH ×3 (09:30→18:45)
[2017-10-10] MEDS: LIDOCAINE HCL 5% PATCH T-DERMAL SCH (09:30)
[2017-10-10] MEDS: FAMOTIDINE 20 MG TAB PEG SCH ×2 (09:31→22:52)
[2017-10-10] MEDS: ASCORBIC ACID 500 MG TAB PEG SCH ×2 (09:31→22:52)
[2017-10-10] MEDS: clonazePAM 0.5 MG TAB PO SCH ×2 (09:31→22:52)
[2017-10-10] MEDS: QUEtiapine FUMARATE 25 MG TAB PEG SCH ×2 (09:31→22:52)
[2017-10-10] MEDS: COLLAGENASE OINT 30 GM TUBE TOPICAL SCH (09:32)
[2017-10-10] MEDS: SODIUM HYPOCHLORITE 0.125% 500 ML BTL TOPICAL SCH (09:32)
[2017-10-10] MEDS: VANCOMYCIN 25 MG/ML SOLN 100 ML BOTTLE PEG SCH ×4 (09:33→22:53)
[2017-10-10 10:25] LABS: AUTOMATED NEUTROPHIL # 12.2 TH/MM3 (1.8-7.7); BASOPHIL # 0.1 TH/MM3 (0-0.2); BASOPHIL % 0.7 % (0.0-2.0); EOSINOPHIL # 0.7 TH/MM3 (0-0.4); EOSINOPHIL % 3.8 % (0.0-4.0); HEMATOCRIT 32.8 % (39.0-51.0); HEMOGLOBIN 10.6 GM/DL (13.0-17.0); LYMPH % 19.2 % (9.0-44.0); LYMPHOCYTE # 3.5 TH/MM3 (1.0-4.8); MEAN CELL VOLUME 85.8 FL (80.0-100.0); MEAN CORPUSCULAR HEMOGLOBIN 27.7 PG (27.0-34.0); MEAN CORPUSCULAR HGB CONC 32.4 % (32.0-36.0); MEAN PLATELET VOLUME 7.9 FL (7.0-11.0); MONO % 8.6 % (0.0-8.0); MONOCYTE # 1.5 TH/MM3 (0-0.9); NEUT % 67.7 % (16.0-70.0); PLATELET COUNT 384 TH/MM3 (150-450); RED BLOOD COUNT 3.83 MIL/MM3 (4.50-5.90); RED CELL DISTRIBUTION WIDTH 16.9 % (11.6-17.2)
[2017-10-10] MEDS: ZINC SULFATE 220 MG PEG SCH (13:16)
--- NOTE | 2017-10-10 15:10 | HHI.IDPN ---
Subjective Subjective Remarks Patient is a 67-year-old male, brought into the hospital for evaluation for possible sepsis. Patient was hospitalized initially in [facility] and he was apparently there for about 4 weeks. He had drainage of a spur cervical spine abscess that had MRSA and there was also mention that he had other abscesses in his body. During his previous hospitalization he had tracheostomy placement as well as PEG tube placement. He went to [facility] rehabilitation after that and he was apparently there for at least 6 weeks and went to [facility]. In the care home there was mention of different problems including some diarrhea. Also he has had problem with some cough and some choking episodes which according to the family is new. His trach use and he usually can eat without any problem. Low-grade fevers. Patient also has an indwelling Marquez catheter and the family does not know how long ago it was change. In the rehabilitation facility he was noted to be tachycardic, and had low blood pressure and some low-grade fever. Sepsis is a concerns of the patient was brought into the hospital for further evaluation and treatment. On admission his white count was elevated. His chest x-rays normal. Stool for C. difficile is now back with C. difficile positive toxin. His Marquez catheter was changed in the emergency room. Urinalysis showed pyuria, urine culture has gram-negative zenobia. Blood cultures are negative so far. Infectious disease consultation has been requested to evaluate for severe sepsis. Notes reviewed Temps ok Dysuria resolved, since marquez changed yesterday - got >1L on insertion, likely blocked with sediment and not draining No BM today so far No abdominal pain WBC lower today Repeat UA with many yeast Urine culture with Pseudomonas Blood cultures negative so far C. difficile positive Antibiotics cefepime PO Vancomycin Asacol Current Medications Medications (Trade) Dose Ordered Sig/Damian Route Start Time Stop Time Status Last Admin (Narcan Inj) 0.4 mg UNSCH PRN IV PUSH 10/01/17 18:30 (Milk Of Magnesia Liq) 30 ml Q12H PRN PO 10/01/17 18:30 (Senokot) 17.2 mg Q12H PRN PO 10/01/17 18:30 (Dulcolax Supp) 10 mg DAILY PRN RECTAL 10/01/17 18:30 (Lactulose Liq) 30 ml DAILY PRN PO 10/01/17 18:30 (Lidoderm 5% Patch.12 Hr) 1 patch DAILY T-DERMAL 10/02/17 09:00 10/10/17 09:30 (Lyrica) 50 mg TID PEG 10/02/17 09:00 10/10/17 13:17 (Albuterol Neb) 0.63 mg Q6HR NEB PRN NEB 10/02/17 01:00 (Aspirin Chew) 81 mg DAILY PEG 10/02/17 09:00 10/10/17 09:30 (Lovenox Inj) 40 mg HS SQ 10/02/17 21:00 10/09/17 22:27 (Pepcid) 20 mg BID PEG 10/02/17 09:00 10/10/17 09:31 (Vitamin C) 250 mg BID PEG 10/02/17 09:00 10/10/17 09:31 (Levemir Inj) 10 units BID SQ 10/02/17 09:00 Future Hold (D50w (Vial) Inj) 50 ml UNSCH PRN IV PUSH 10/02/17 01:00 (Glucagon Inj) 1 mg UNSCH PRN OTHER 10/02/17 01:00 (NovoLOG SUPPLEMENTAL SCALE) 1 ACHS SLIDING SCALE SQ 10/02/17 08:00 10/09/17 18:12 Non-Formulary Medication ZINC SULFATE 22... Q24H PEG 10/02/17 11:00 10/10/17 13:16 ([place] 5-325 Mg) 1 tab Q6H PRN PEG 10/02/17 22:15 10/10/17 06:46 (Lactinex) 1 tab TID PEG 10/02/17 18:00 10/10/17 13:17 (Flomax) 0.8 mg HS PO 10/02/17 21:00 10/08/17 22:14 (Vancomycin 25 Mg/ml Liq) 250 mg QID PEG 10/02/17 18:00 10/10/17 13:17 (Tylenol) 650 mg Q4H PRN PO 10/03/17 05:00 10/03/17 13:30 (Santyl Oint) 1 applic DAILY TOPICAL 10/03/17 11:30 10/10/17 09:32 Cefepime HCl 2000 mg/Sodium Chloride 100 ml @ 200 mls/hr Q8H IV 10/03/17 14:00 10/10/17 14:01 (Asacol Hd ) 1,600 mg Q8HR PO 10/03/17 14:00 10/10/17 14:02 (KlonoPIN) 0.5 mg Q12HR PO 10/03/17 21:00 10/10/17 09:31 (SEROquel) 12.5 mg BID PEG 10/03/17 21:00 10/10/17 09:31 (Elavil) 50 mg HS PEG 10/03/17 21:00 10/09/17 22:26 (Pill Splitter) 1 ea UNSCH PRN OTHER 10/03/17 18:00 (Dakin'S 0.125% Soln) 500 ml DAILY TOPICAL 10/06/17 09:00 10/10/17 09:32 Potassium Chloride 20 meq/ Dextrose 510 ml @ 50 mls/hr [id number] IV 10/07/17 23:00 10/10/17 14:01 Lines PIV with no evidence of infection Past Medical History Hypertension Diabetes 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 Vital Signs Date Time Temp Pulse Resp B/P (MAP) Pulse Ox O2 Delivery O2 Flow Rate FiO2 10/10/17 14:17 18 10/10/17 12:00 96.2 94 17 123/86 (98) 97 10/10/17 08:59 21 10/10/17 08:58 21 10/10/17 08:00 96.9 98 18 129/97 (108) 97 10/10/17 07:46 18 10/10/17 04:00 98.2 112 20 95 10/10/17 04:00 121/86 (98) 10/10/17 00:00 97.6 109 20 126/85 (99) 97 10/09/17 20:00 97.4 106 20 124/78 (93) 100 10/09/17 19:32 98 10/09/17 16:00 97.5 110 24 116/81 (93) 98 . Laboratory Tests Test 10/09/17 10:16 10/10/17 08:40 White Blood Count 27.7 TH/MM3 18.0 TH/MM3 Red Blood Count 4.48 MIL/MM3 3.83 MIL/MM3 Hemoglobin 12.4 GM/DL 10.6 GM/DL Hematocrit 38.2 % 32.8 % Mean Corpuscular Volume 85.3 FL 85.8 FL Mean Corpuscular Hemoglobin 27.6 PG 27.7 PG Mean Corpuscular Hemoglobin Concent 32.3 % 32.4 % Red Cell Distribution Width 16.7 % 16.9 % Platelet Count 451 TH/MM3 384 TH/MM3 Mean Platelet Volume 7.7 FL 7.9 FL Neutrophils (%) (Auto) 76.2 % 67.7 % Lymphocytes (%) (Auto) 14.8 % 19.2 % Monocytes (%) (Auto) 7.6 % 8.6 % Eosinophils (%) (Auto) 0.7 % 3.8 % Basophils (%) (Auto) 0.7 % 0.7 % Neutrophils # (Auto) 21.1 TH/MM3 12.2 TH/MM3 Lymphocytes # (Auto) 4.1 TH/MM3 3.5 TH/MM3 Monocytes # (Auto) 2.1 TH/MM3 1.5 TH/MM3 Eosinophils # (Auto) 0.2 TH/MM3 0.7 TH/MM3 Basophils # (Auto) 0.2 TH/MM3 0.1 TH/MM3 CBC Comment DIFF FINAL DIFF FINAL Differential Comment Microbiology Date/Time Source Procedure Growth Status 10/09/17 11:42 Urine Catheterized Urine Urine Culture - Preliminary Awa Albicans Resulted Imaging Last Impressions Renal Ultrasound 10/03/17 0000 Signed Impressions: Service Date/Time: Tuesday, October 03, 2017 23:05 - CONCLUSION: No evidence of mass or hydronephrosis. Jose Sin MD Head CT 10/02/17 0039 Signed Impressions: Service Date/Time: Monday, October 02, 2017 01:45 - CONCLUSION: 1. No gross intracranial abnormality on this scan which is degraded by patient motion. Jose Sin MD Chest X-Ray 10/01/17 1518 Signed Impressions: Service Date/Time: Sunday, October 01, 2017 15:30 - CONCLUSION: Elevation left hemidiaphragm. Lungs are clear Remberto Aguilera MD FACR Physical Exam GENERAL: awake and alert, not in respiratory distress. Calm and answering my questions SKIN: Warm and dry. No generalized rash, no ecchymoses and no evidence of embolic lesions. HEAD: Atraumatic. Normocephalic. No temporal wasting, or tenderness. EYES: [place] conjunctiva. No petechia or hemorrhage. No scleral icterus. No injection or drainage. EARS, NOSE AND THROAT: Nose without bleeding or purulent nasal discharge. No sinus tenderness. Moist oral mucosa CARDIOVASCULAR: Regular rate CHEST: breathing unlaboured has scattered rhonchi ABDOMEN: Soft, non-tender, nondistended. Bowel sounds present and normoactive. No guarding. No rebound. No organomegaly. PEG in place, site ok EXTREMITIES: No clubbing, cyanosis, or edema. No joint effusion, has good ROM. No calf tenderness. Well perfused and warm. : Marquez in place urine with sediment NEUROLOGICAL: Awake and alert. No facial asymmetry. Moves extremities PSYCHIATRIC: calm LINE: No evidence of infection Assessment & Plan Remarks IMPRESSION Sepsis on admission, likely due to C diff, also with marquez associated UTI C diff colitis hypervirulent strain Fevers, better Leukocytosis, up again likely due to marquez being blocked - better since marquez replaced CAUTI, C/S PSAE Hx cervical spine absess, drained and treated with Abx Hx IVDU RECOMMENDATION Cont Cefepime Continue oral Vanco for C. difficile colitis treatment cont Lactinex Add Diflucan Follow new C/S Follow CBC Monitor progress Bonnie Borrego MD Oct 10, 2017 15:10
[2017-10-10] MEDS: FLUCONAZOLE 100 MG TAB PO SCH (15:26)
--- NOTE | 2017-10-10 17:47 | HHI.PR ---
Subjective Remarks Resting in bed, his and the respiratory therapist at the bedside educating patient about trach care He is telling me doing well, respiratory stated no excessive secretions He is afebrile, stated to feed working well Discussed with the post discharge planning Objective Vitals Vital Signs Date Time Temp Pulse Resp B/P (MAP) Pulse Ox O2 Delivery O2 Flow Rate FiO2 10/10/17 16:00 96.6 109 18 134/89 (104) 95 10/10/17 14:17 18 10/10/17 12:00 96.2 94 17 123/86 (98) 97 10/10/17 08:59 21 10/10/17 08:58 21 10/10/17 08:00 96.9 98 18 129/97 (108) 97 10/10/17 07:46 18 10/10/17 04:00 98.2 112 20 95 10/10/17 04:00 121/86 (98) 10/10/17 00:00 97.6 109 20 126/85 (99) 97 10/09/17 20:00 97.4 106 20 124/78 (93) 100 10/09/17 19:32 98 I/O 10/09/17 10/09/17 10/09/17 10/10/17 10/10/17 10/10/17 07:00 15:00 23:00 07:00 15:00 23:00 Intake Total 120 ml 994 ml 440 ml 950 ml Output Total 550 ml 1900 ml 450 ml Balance -430 ml 994 ml -1460 ml 500 ml Intake Oral 120 ml 440 ml 250 ml IV Total 700 ml Tube Feeding 994 ml Output Urine Total 550 ml 1900 ml 450 ml # Bowel Movements 3 1 0 Result Diagram: 10/10/17 0840 10/07/17 0749 Objective Remarks GENERAL: Frail 67 years old patient resting in bed in no acute distress SKIN: No rashes, warm and dry HEAD: Atraumatic. Normocephalic. EYES: PERRLA . No scleral icterus. ENT: No bleeding, or drainage, Airway patent. NECK: Trach capped CARDIOVASCULAR: RRR, no gallops, or rubs. RESPIRATORY: Diminished breath sounds bilaterally GASTROINTESTINAL: Abdomen soft, non-tender, nondistended. Positive bowel sounds MUSCULOSKELETAL: Atrophy muscle extremities NEUROLOGICAL: Somnolent. Minimal right upper extremity movement, Date of Insertion: Oct 02, 2017 A/P Assessment and Plan 67 years old male A/P: Sepsis on admission multifactorial C diff colitis Pseudomonas UTI- marquez associated Hx cervical spine abscess, drained and treated with Abx Hx IVDU Leukocytosis On Cefepime oral Vancomycin for c diff treatment On Lactinex and Mesalamine by ID ff culture and CBC marquez changed 10/09 ID ff 10/10: ID notes reviewed no change in antibiotic vancomycin p.o. and cefepime IV , monitor CBC SADIA- pre renal in ratio- improving renal ultrasound - unremarkable HYpernatremia- still up toelrating TF at goal rate of 60cc/hr. Add Favio IVF changed to to D5W- increase rate to 70 cc/hr Increaae water flushes 50 cc q 4 ff lytes, BMP Hypokalemia 40 meq KCL in IVF give KCL 40 meq/PEG x 2 today recheck in am. monitor closely- came in with elevated K Sacral decubitus Right hip ulcer wound care team nurse recommendation appreciated- Santyl ointment to area consult place for wound care MD - Dr. Henderson- regarding need for debridement wound care team nurse ff Acute respiratory failure with transient hypoxemia- likely from sepsis Underlying chronic respiratory failure- on trac- capped RT consult- for pulmonary toilette/trac care Encephalopathy- improved - likely from medications slurred speech/ AMS- improved - - Brain CT- negative family feels he is getting overmedicated in the NH will continue to adjust meds Chronic benzo- gradual taper Chronic pain Family feels speech is not baseline- they state that he is not on Klonopin prior to SNF- they feel that the NH overmedicated him lortab 5 q6hrs prn for pain ct lyrica. ct lidocaine patch avoid sedation For family-patient has been on Elavil for long period the new ones started at [place] was Klonopin and Seroquel- d/w taper Klonopin to q 12 and decrease Seroquel to 12.5 mg bid - 10/03. and gradually wean off if tolerates- Dietitian ff- on Glucerna DM type 2- good readings sliding scale Lovenox for DVT prophylaxis on PPI PT consult Discharge Planning When cleared by ID, case finisher working on discharge planning Per discussion with the patient has not been in home in 2 months she is telling me she does not have the ability to care for him at home, might be difficulty placing him in rehab Barrett Rushing MD Oct 10, 2017 17:47
[2017-10-10] MEDS: ENOXAPARIN SODIUM 40 MG/0.4 ML SYRINGE SQ SCH (22:53)
[2017-10-10] MEDS: TAMSULOSIN HCL 0.4 MG CAP PO SCH (22:53)
[2017-10-10] MEDS: AMITRIPTYLINE HCL 50 MG TAB PEG SCH (22:54)
[2017-10-11] VITALS (8 sets, daily range): BP systolic 112–128; BP diastolic 73–87; PULSE 101–117; RESP 19–20; TEMP 97.2–98.8; O2SAT 95–97
[2017-10-11] MEDS: MESALAMINE HD 800 MG DELAYED RELEASE TAB PO SCH ×2 (04:52→13:14)
[2017-10-11] MEDS: CEFEPIME INJ 2,000 MG in SODIUM CHLORIDE 0.9% INJ 100 ML IV SCH ×2 (04:52→13:14)
[2017-10-11] MEDS: ACETAMINOPHEN/HYDROcodone 325 MG/5 MG TAB PEG PRN ×3 (04:53→17:45)
[2017-10-11] MEDS: WATE IV SCH ×2 (09:26)
[2017-10-11] MEDS: DEXTROSE 5% IV SCH ×2 (09:26)
[2017-10-11] MEDS: POTASSIUM CHLORIDE IV SCH ×2 (09:26)
[2017-10-11] MEDS: INSULIN ASPART SUPPLEMENTAL SCALE SQ SCH ×3 (09:26→17:43)
[2017-10-11] MEDS: ASCORBIC ACID 500 MG TAB PEG SCH (09:27)
[2017-10-11] MEDS: LACTOBACILLUS ACIDOPHILUS TAB PEG SCH ×3 (09:27→17:44)
[2017-10-11] MEDS: ASPIRIN 81 MG CHEW TAB PEG SCH (09:27)
[2017-10-11] MEDS: PREGABALIN 25 MG CAP PEG SCH ×3 (09:27→17:44)
[2017-10-11] MEDS: QUEtiapine FUMARATE 25 MG TAB PEG SCH (09:27)
[2017-10-11] MEDS: FAMOTIDINE 20 MG TAB PEG SCH (09:27)
[2017-10-11] MEDS: clonazePAM 0.5 MG TAB PO SCH (09:27)
[2017-10-11] MEDS: LIDOCAINE HCL 5% PATCH T-DERMAL SCH (09:28)
[2017-10-11] MEDS: COLLAGENASE OINT 30 GM TUBE TOPICAL SCH (09:28)
[2017-10-11] MEDS: SODIUM HYPOCHLORITE 0.125% 500 ML BTL TOPICAL SCH (09:28)
[2017-10-11] MEDS: VANCOMYCIN 25 MG/ML SOLN 100 ML BOTTLE PEG SCH ×3 (09:29→17:44)
--- NOTE | 2017-10-11 10:34 | HHI.PR ---
Subjective Remarks Nursing denies any gildardo medical deteriorations overnight. Patient denies having any abdominal pain nausea or vomiting. Objective Vital Signs Date Time Temp Pulse Resp B/P (MAP) Pulse Ox O2 Delivery O2 Flow Rate FiO2 10/11/17 08:00 97.9 109 19 125/82 (96) 97 10/11/17 04:00 97.4 116 20 118/79 (92) 96 10/10/17 21:22 96 10/10/17 20:00 96.4 106 18 129/86 (100) 96 10/10/17 17:07 18 10/10/17 16:00 96.6 109 18 134/89 (104) 95 10/10/17 14:17 18 10/10/17 12:00 96.2 94 17 123/86 (98) 97 I/O 10/10/17 10/10/17 10/10/17 10/11/17 10/11/17 10/11/17 07:00 15:00 23:00 07:00 15:00 23:00 Intake Total 950 ml 960 ml Output Total 450 ml 900 ml 900 ml Balance 500 ml 60 ml -900 ml Intake Oral 250 ml 960 ml IV Total 700 ml Output Urine Total 450 ml 900 ml 900 ml # Bowel Movements 0 1 Result Diagram: 10/10/17 0840 10/07/17 0749 Objective Remarks Slightly hyperactive bowel sounds, otherwise abdomen soft, nontender, nondistended Lungs are coarse breath sounds bilaterally, tracheostomy in place and is capped A/P Assessment and Plan 67 years old male sepsis on admission multifactorial C diff colitis - oral vanc per ID Pseudomonas UTI- marquez associated - cefepime per ID - marquez changed 10/09 Hx cervical spine abscess, drained and treated with Abx Hx IVDU HYpernatremia- resolved tolerating TF at goal rate of 60cc/hr.Favio D5W, wean off as tolerated. water flushes 50 cc q 4 ff lytes, BMP Hypokalemia - resolved, continue per peg replenishment Discontinued potassium IV, will now strictly receive potassium per PEG tube Sacral decubitus Right hip ulcer wound care team nurse recommendation appreciated- Santyl ointment to area consult place for wound care MD Savanah Henderson- regarding need for debridement wound care team nurse ff Acute respiratory failure with transient hypoxemia- likely from sepsis Underlying chronic respiratory failure- on trac- capped RT consult- for pulmonary toilette/trac care Encephalopathy-resolved, minimize [employer] depressing meds Chronic benzo- gradual taper Chronic pain Family feels speech is not baseline- they state that he is not on Klonopin prior to SNF- they feel that the [place] overmedicated him lortab 5 q6hrs prn for pain ct lyrica. ct lidocaine patch avoid sedation For family-patient has been on Elavil for long period the new ones started at [facility] was Klonopin and Seroquel- Klonopin q 12 and Seroquel 12.5 mg bid - 10/03. and gradually wean off if tolerates- Dietitian ff- on Glucerna DM type 2- good readings sliding scale Lovenox for DVT prophylaxis on PPI PT consult Duke Nelson MD Oct 11, 2017 10:34
[2017-10-11] MEDS: ZINC SULFATE 220 MG PEG SCH (12:04)
[2017-10-11] MEDS: POTASSIUM CHLORIDE 25 MEQ EFFERVESCENT TAB PEG SCH (12:04)
--- NOTE | 2017-10-11 14:43 | HHI.IDPN ---
Subjective Subjective Remarks Patient is a 67-year-old male, brought into the hospital for evaluation for possible sepsis. Patient was hospitalized initially in [facility] and he was apparently there for about 4 weeks. He had drainage of a spur cervical spine abscess that had MRSA and there was also mention that he had other abscesses in his body. During his previous hospitalization he had tracheostomy placement as well as PEG tube placement. He went to [facility] rehabilitation after that and he was apparently there for at least 6 weeks and went to [facility]. In the group home there was mention of different problems including some diarrhea. Also he has had problem with some cough and some choking episodes which according to the family is new. His trach use and he usually can eat without any problem. Low-grade fevers. Patient also has an indwelling Marquez catheter and the family does not know how long ago it was change. In the rehabilitation facility he was noted to be tachycardic, and had low blood pressure and some low-grade fever. Sepsis is a concerns of the patient was brought into the hospital for further evaluation and treatment. On admission his white count was elevated. His chest x-rays normal. Stool for C. difficile is now back with C. difficile positive toxin. His Marquez catheter was changed in the emergency room. Urinalysis showed pyuria, urine culture has gram-negative zenobia. Blood cultures are negative so far. Infectious disease consultation has been requested to evaluate for severe sepsis. Notes reviewed Temps ok One BM yesterday No abdominal pain WBC lower today Repeat UA with many yeast Initial Urine culture with Pseudomonas Blood cultures negative so far C. difficile positive Antibiotics cefepime PO Vancomycin Asacol Current Medications Medications (Trade) Dose Ordered Sig/Damian Route Start Time Stop Time Status Last Admin (Narcan Inj) 0.4 mg UNSCH PRN IV PUSH 10/01/17 18:30 (Milk Of Magnesia Liq) 30 ml Q12H PRN PO 10/01/17 18:30 (Senokot) 17.2 mg Q12H PRN PO 10/01/17 18:30 (Dulcolax Supp) 10 mg DAILY PRN RECTAL 10/01/17 18:30 (Lactulose Liq) 30 ml DAILY PRN PO 10/01/17 18:30 (Lidoderm 5% Patch.12 Hr) 1 patch DAILY T-DERMAL 10/02/17 09:00 10/10/17 09:30 (Lyrica) 50 mg TID PEG 10/02/17 09:00 10/10/17 13:17 (Albuterol Neb) 0.63 mg Q6HR NEB PRN NEB 10/02/17 01:00 (Aspirin Chew) 81 mg DAILY PEG 10/02/17 09:00 10/10/17 09:30 (Lovenox Inj) 40 mg HS SQ 10/02/17 21:00 10/09/17 22:27 (Pepcid) 20 mg BID PEG 10/02/17 09:00 10/10/17 09:31 (Vitamin C) 250 mg BID PEG 10/02/17 09:00 10/10/17 09:31 (Levemir Inj) 10 units BID SQ 10/02/17 09:00 Future Hold (D50w (Vial) Inj) 50 ml UNSCH PRN IV PUSH 10/02/17 01:00 (Glucagon Inj) 1 mg UNSCH PRN OTHER 10/02/17 01:00 (NovoLOG SUPPLEMENTAL SCALE) 1 ACHS SLIDING SCALE SQ 10/02/17 08:00 10/09/17 18:12 Non-Formulary Medication ZINC SULFATE 22... Q24H PEG 10/02/17 11:00 10/10/17 13:16 ([place] 5-325 Mg) 1 tab Q6H PRN PEG 10/02/17 22:15 10/10/17 06:46 (Lactinex) 1 tab TID PEG 10/02/17 18:00 10/10/17 13:17 (Flomax) 0.8 mg HS PO 10/02/17 21:00 10/08/17 22:14 (Vancomycin 25 Mg/ml Liq) 250 mg QID PEG 10/02/17 18:00 10/10/17 13:17 (Tylenol) 650 mg Q4H PRN PO 10/03/17 05:00 10/03/17 13:30 (Santyl Oint) 1 applic DAILY TOPICAL 10/03/17 11:30 10/10/17 09:32 Cefepime HCl 2000 mg/Sodium Chloride 100 ml @ 200 mls/hr Q8H IV 10/03/17 14:00 10/10/17 14:01 (Asacol Hua Carrion) 1,600 mg Q8HR PO 10/03/17 14:00 10/10/17 14:02 (KlonoPIN) 0.5 mg Q12HR PO 10/03/17 21:00 10/10/17 09:31 (SEROquel) 12.5 mg BID PEG 10/03/17 21:00 10/10/17 09:31 (Elavil) 50 mg HS PEG 10/03/17 21:00 10/09/17 22:26 (Pill Splitter) 1 ea UNSCH PRN OTHER 10/03/17 18:00 (Dakin'S 0.125% Soln) 500 ml DAILY TOPICAL 10/06/17 09:00 10/10/17 09:32 Potassium Chloride 20 meq/ Dextrose 510 ml @ 50 mls/hr [id number] IV 10/07/17 23:00 10/10/17 14:01 Lines PIV with no evidence of infection Past Medical History Hypertension Diabetes 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 Vital Signs Date Time Temp Pulse Resp B/P (MAP) Pulse Ox O2 Delivery O2 Flow Rate FiO2 10/11/17 12:00 95 21 10/11/17 12:00 112 10/11/17 08:00 97.9 109 19 125/82 (96) 97 10/11/17 08:00 101 10/11/17 04:00 97.4 116 20 118/79 (92) 96 10/10/17 21:22 96 10/10/17 20:00 96.4 106 18 129/86 (100) 96 10/10/17 17:07 18 10/10/17 16:00 96.6 109 18 134/89 (104) 95 10/11/17 10/11/17 10/12/17 15:00 23:00 07:00 Intake Total 600 ml Output Total 1175 ml Balance -575 ml IV Total 600 ml Output Urine Total 1175 ml . Laboratory Tests Test 10/10/17 08:40 White Blood Count 18.0 TH/MM3 Red Blood Count 3.83 MIL/MM3 Hemoglobin 10.6 GM/DL Hematocrit 32.8 % Mean Corpuscular Volume 85.8 FL Mean Corpuscular Hemoglobin 27.7 PG Mean Corpuscular Hemoglobin Concent 32.4 % Red Cell Distribution Width 16.9 % Platelet Count 384 TH/MM3 Mean Platelet Volume 7.9 FL Neutrophils (%) (Auto) 67.7 % Lymphocytes (%) (Auto) 19.2 % Monocytes (%) (Auto) 8.6 % Eosinophils (%) (Auto) 3.8 % Basophils (%) (Auto) 0.7 % Neutrophils # (Auto) 12.2 TH/MM3 Lymphocytes # (Auto) 3.5 TH/MM3 Monocytes # (Auto) 1.5 TH/MM3 Eosinophils # (Auto) 0.7 TH/MM3 Basophils # (Auto) 0.1 TH/MM3 CBC Comment DIFF FINAL Differential Comment Microbiology Date/Time Source Procedure Growth Status 10/09/17 11:42 Urine Catheterized Urine Urine Culture - Final Awa Albicans Complete Imaging Last Impressions Renal Ultrasound 10/03/17 0000 Signed Impressions: Service Date/Time: Tuesday, October 03, 2017 23:05 - CONCLUSION: No evidence of mass or hydronephrosis. Jose Sin MD Head CT 10/02/17 0039 Signed Impressions: Service Date/Time: Monday, October 02, 2017 01:45 - CONCLUSION: 1. No gross intracranial abnormality on this scan which is degraded by patient motion. Jose Sin MD Chest X-Ray 10/01/17 1518 Signed Impressions: Service Date/Time: Sunday, October 01, 2017 15:30 - CONCLUSION: Elevation left hemidiaphragm. Lungs are clear Remberto Aguilera MD FACR Physical Exam GENERAL: awake and alert, not in respiratory distress. Calm and answering my questions SKIN: Warm and dry. No generalized rash, no ecchymoses and no evidence of embolic lesions. HEAD: Atraumatic. Normocephalic. No temporal wasting, or tenderness. EYES: [place] conjunctiva. No petechia or hemorrhage. No scleral icterus. No injection or drainage. EARS, NOSE AND THROAT: Nose without bleeding or purulent nasal discharge. No sinus tenderness. Moist oral mucosa CARDIOVASCULAR: Regular rate CHEST: breathing unlaboured has scattered rhonchi ABDOMEN: Soft, non-tender, nondistended. Bowel sounds present and normoactive. No guarding. No rebound. No organomegaly. PEG in place, site ok EXTREMITIES: No clubbing, cyanosis, or edema. No joint effusion, has good ROM. No calf tenderness. Well perfused and warm. : Marquez in place urine with sediment NEUROLOGICAL: Awake and alert. No facial asymmetry. Moves extremities PSYCHIATRIC: calm LINE: No evidence of infection Assessment & Plan Remarks IMPRESSION Sepsis on admission, likely due to C diff, also with marquez associated UTI C diff colitis - hypervirulent strain Fevers, better Leukocytosis, up again likely due to marquez being blocked - better since marquez replaced CAUTI, C/S PSAE Hx cervical spine absess, drained and treated with Abx Hx IVDU RECOMMENDATION Stop Cefepime Use Cipro to complete Rx Continue oral Vanco for C. difficile colitis treatment cont Lactinex Continue Diflucan Stop Asacol since diarrhea better Follow new C/S Follow CBC Monitor progress Bonnie Borrego MD Oct 11, 2017 14:43
[2017-10-11] MEDS: CIPROFLOXACIN 500 MG TAB PO SCH (16:04)
[2017-10-11] MEDS: FLUCONAZOLE 100 MG TAB PO SCH (16:04)
[2017-10-11] MEDS: DEXTROSE 5% IN WATE 500 ML INJ 500 ML IV SCH (16:04)
[2017-10-12] VITALS (7 sets, daily range): BP systolic 113–123; BP diastolic 62–83; PULSE 104–118; RESP 18–20; TEMP 96–97.3; O2SAT 95–99
[2017-10-12] MEDS: QUEtiapine FUMARATE 25 MG TAB PEG SCH ×3 (00:01→21:00)
[2017-10-12] MEDS: CIPROFLOXACIN 500 MG TAB PO SCH ×3 (00:01→21:00)
[2017-10-12] MEDS: AMITRIPTYLINE HCL 50 MG TAB PEG SCH ×2 (00:01→21:00)
[2017-10-12] MEDS: TAMSULOSIN HCL 0.4 MG CAP PO SCH ×2 (00:01→21:00)
[2017-10-12] MEDS: ASCORBIC ACID 500 MG TAB PEG SCH ×3 (00:01→21:00)
[2017-10-12] MEDS: VANCOMYCIN 25 MG/ML SOLN 100 ML BOTTLE PEG SCH ×5 (00:02→21:00)
[2017-10-12] MEDS: clonazePAM 0.5 MG TAB PO SCH ×3 (00:03→21:00)
[2017-10-12] MEDS: INSULIN ASPART SUPPLEMENTAL SCALE SQ SCH ×5 (00:03→21:00)
[2017-10-12] MEDS: ACETAMINOPHEN/HYDROcodone 325 MG/5 MG TAB PEG PRN ×2 (00:05→07:34)
[2017-10-12] MEDS: ENOXAPARIN SODIUM 40 MG/0.4 ML SYRINGE SQ SCH ×2 (00:05→21:00)
[2017-10-12] MEDS: POTASSIUM CHLORIDE 25 MEQ EFFERVESCENT TAB PEG SCH ×3 (00:15→21:00)
[2017-10-12] MEDS: DEXTROSE 5% IN WATE 500 ML INJ 500 ML IV SCH ×2 (07:00→07:34)
--- NOTE | 2017-10-12 09:51 | HHI.IDPN ---
Subjective Subjective Remarks Patient is a 67-year-old male, brought into the hospital for evaluation for possible sepsis. Patient was hospitalized initially in [facility] and he was apparently there for about 4 weeks. He had drainage of a spur cervical spine abscess that had MRSA and there was also mention that he had other abscesses in his body. During his previous hospitalization he had tracheostomy placement as well as PEG tube placement. He went to [facility] rehabilitation after that and he was apparently there for at least 6 weeks and went to [facility]. In the care home there was mention of different problems including some diarrhea. Also he has had problem with some cough and some choking episodes which according to the family is new. His trach use and he usually can eat without any problem. Low-grade fevers. Patient also has an indwelling Marquez catheter and the family does not know how long ago it was change. In the rehabilitation facility he was noted to be tachycardic, and had low blood pressure and some low-grade fever. Sepsis is a concerns of the patient was brought into the hospital for further evaluation and treatment. On admission his white count was elevated. His chest x-rays normal. Stool for C. difficile is now back with C. difficile positive toxin. His Marquez catheter was changed in the emergency room. Urinalysis showed pyuria, urine culture has gram-negative zenobia. Blood cultures are negative so far. Infectious disease consultation has been requested to evaluate for severe sepsis. Notes reviewed Temps ok Stool better No abdominal pain WBC improving Repeat UA with many yeast Initial Urine culture with Pseudomonas Blood cultures negative so far C. difficile positive Antibiotics Cipro PO Vancomycin Diflucan Current Medications Medications (Trade) Dose Ordered Sig/Damian Route Start Time Stop Time Status Last Admin (Narcan Inj) 0.4 mg UNSCH PRN IV PUSH 10/01/17 18:30 (Milk Of Magnesia Liq) 30 ml Q12H PRN PO 10/01/17 18:30 (Senokot) 17.2 mg Q12H PRN PO 10/01/17 18:30 (Dulcolax Supp) 10 mg DAILY PRN RECTAL 10/01/17 18:30 (Lactulose Liq) 30 ml DAILY PRN PO 10/01/17 18:30 (Lidoderm 5% Patch.12 Hr) 1 patch DAILY T-DERMAL 10/02/17 09:00 3/29/18 09:28 (Lyrica) 50 mg TID PEG 10/02/17 09:00 10/11/17 17:44 (Albuterol Neb) 0.63 mg Q6HR NEB PRN NEB 10/02/17 01:00 (Aspirin Chew) 81 mg DAILY PEG 10/02/17 09:00 10/11/17 09:27 (Lovenox Inj) 40 mg HS SQ 10/02/17 21:00 10/12/17 00:05 (Pepcid) 20 mg BID PEG 10/02/17 09:00 10/12/17 00:00 (Vitamin C) 250 mg BID PEG 10/02/17 09:00 10/12/17 00:01 (Levemir Inj) 10 units BID SQ 10/02/17 09:00 Future Hold (D50w (Vial) Inj) 50 ml UNSCH PRN IV PUSH 10/02/17 01:00 (Glucagon Inj) 1 mg UNSCH PRN OTHER 10/02/17 01:00 (NovoLOG SUPPLEMENTAL SCALE) 1 ACHS SLIDING SCALE SQ 10/02/17 08:00 10/12/17 00:03 Non-Formulary Medication ZINC SULFATE 22... Q24H PEG 10/02/17 11:00 10/11/17 12:04 (Merrill 5-325 Mg) 1 tab Q6H PRN PEG 10/02/17 22:15 10/12/17 07:34 (Lactinex) 1 tab TID PEG 10/02/17 18:00 10/11/17 17:44 (Flomax) 0.8 mg HS PO 10/02/17 21:00 10/12/17 00:01 (Vancomycin 25 Mg/ml Liq) 250 mg QID PEG 10/02/17 18:00 10/24/17 12:00 10/12/17 00:02 (Tylenol) 650 mg Q4H PRN PO 10/03/17 05:00 10/03/17 13:30 (Santyl Oint) 1 applic DAILY TOPICAL 10/03/17 11:30 10/11/17 09:28 (KlonoPIN) 0.5 mg Q12HR PO 10/03/17 21:00 10/12/17 00:03 (SEROquel) 12.5 mg BID PEG 10/03/17 21:00 10/12/17 00:01 (Elavil) 50 mg HS PEG 10/03/17 21:00 10/12/17 00:01 (Pill Splitter) 1 ea UNSCH PRN OTHER 10/03/17 18:00 (Dakin'S 0.125% Soln) 500 ml DAILY TOPICAL 10/06/17 09:00 10/11/17 09:28 (Diflucan) 100 mg Q24H PO 10/10/17 16:00 10/11/17 16:04 (K-Lyte Cl Eff) 25 meq Q12HR PEG 10/11/17 11:00 10/12/17 00:15 Dextrose 500 ml @ 50 mls/hr Q10H IV 10/11/17 11:00 10/12/17 07:34 (Cipro) 500 mg Q12HR PO 10/11/17 15:00 10/18/17 14:59 10/12/17 00:01 Lines PIV with no evidence of infection Past Medical History Hypertension Diabetes 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 Vital Signs Date Time Temp Pulse Resp B/P (MAP) Pulse Ox O2 Delivery O2 Flow Rate FiO2 10/12/17 00:12 96.0 108 20 113/62 (79) 95 10/11/17 23:59 110 10/11/17 20:42 117 10/11/17 20:26 95 21 10/11/17 20:03 98.8 116 20 125/87 (100) 97 10/11/17 16:00 97.2 106 19 128/79 (95) 96 10/11/17 12:00 95 21 10/11/17 12:00 97.4 104 19 112/73 (86) 95 10/11/17 12:00 112 . Microbiology Date/Time Source Procedure Growth Status 10/09/17 11:42 Urine Catheterized Urine Urine Culture - Final Awa Albicans Complete Imaging Last Impressions Renal Ultrasound 10/03/17 0000 Signed Impressions: Service Date/Time: Tuesday, October 03, 2017 23:05 - CONCLUSION: No evidence of mass or hydronephrosis. Jose Sin MD Head CT 10/02/17 0039 Signed Impressions: Service Date/Time: Monday, October 02, 2017 01:45 - CONCLUSION: 1. No gross intracranial abnormality on this scan which is degraded by patient motion. Jose Sin MD Chest X-Ray 10/01/17 1518 Signed Impressions: Service Date/Time: Sunday, October 01, 2017 15:30 - CONCLUSION: Elevation left hemidiaphragm. Lungs are clear Remberto Aguilera MD FACR Physical Exam GENERAL: awake and alert, not in respiratory distress. SKIN: Warm and dry. No generalized rash, no ecchymoses and no evidence of embolic lesions. HEAD: Atraumatic. Normocephalic. No temporal wasting, or tenderness. EYES: [place] conjunctiva. No petechia or hemorrhage. No scleral icterus. No injection or drainage. EARS, NOSE AND THROAT: Nose without bleeding or purulent nasal discharge. No sinus tenderness. Moist oral mucosa CARDIOVASCULAR: Regular rate CHEST: Coarse BS bilaterally ABDOMEN: Soft, non-tender, nondistended. Bowel sounds present and normoactive. No guarding. No rebound. No organomegaly. PEG in place, site ok EXTREMITIES: No clubbing, cyanosis, or edema. No joint effusion, has good ROM. No calf tenderness. Well perfused and warm. : Marquez in place urine with sediment NEUROLOGICAL: Awake and alert. No facial asymmetry. Moves extremities PSYCHIATRIC: calm LINE: No evidence of infection Assessment & Plan Remarks IMPRESSION Sepsis on admission, likely due to C diff, also with marquez associated UTI C diff colitis - hypervirulent strain Fevers, better Leukocytosis, up again likely due to marquez being blocked - better since marquez replaced CAUTI, C/S PSAE Hx cervical spine absess, drained and treated with Abx Hx IVDU RECOMMENDATION Use Cipro to complete Rx - end date ordered Continue oral Vanco for C. difficile colitis treatment - will extend Rx one week from end date of Cipro - end date ordered Continue Lactinex Continue Diflucan, pl;an 7 days, end date ordered Clinically doing well from ID standpoint I will be available prn Please reconsult if with any new ID issue or question Bonnie Borrego MD Oct 12, 2017 09:51
--- NOTE | 2017-10-12 10:44 | HHI.PR ---
Subjective Remarks Nursing denies any gildardo medical deteriorations overnight. Patient denies having any abdominal pain nausea or vomiting. He is reporting some persistent back pain and neck pain and wants his medications modified. Objective Vital Signs Date Time Temp Pulse Resp B/P (MAP) Pulse Ox O2 Delivery O2 Flow Rate FiO2 10/12/17 00:12 96.0 108 20 113/62 (79) 95 10/11/17 23:59 110 10/11/17 20:42 117 10/11/17 20:26 95 21 10/11/17 20:03 98.8 116 20 125/87 (100) 97 10/11/17 16:00 97.2 106 19 128/79 (95) 96 10/11/17 12:00 95 21 10/11/17 12:00 97.4 104 19 112/73 (86) 95 10/11/17 12:00 112 I/O 10/11/17 10/11/17 10/11/17 10/12/17 10/12/17 10/12/17 06:59 14:59 22:59 06:59 14:59 22:59 Intake Total 600 ml 560 ml Output Total 900 ml 1175 ml 1550 ml Balance -900 ml -575 ml -990 ml Intake Oral 560 ml IV Total 600 ml Output Urine Total 900 ml 1175 ml 1550 ml Result Diagram: 10/10/17 0840 Objective Remarks otherwise abdomen soft, nontender, nondistended Lungs are coarse breath sounds bilaterally, tracheostomy in place and is capped , lying in bed, no acute distress A/P Assessment and Plan 67 years old male sepsis on admission multifactorial C diff colitis - oral vanc per ID Pseudomonas UTI- marquez associated - cefepime per ID - marquez changed 10/09 Hx cervical spine abscess, drained and treated with Abx Hx IVDU HYpernatremia- resolved tolerating TF at goal rate of 60cc/hr.Favio D5W, wean off as tolerated. water flushes 50 cc q 4 ff lytes, BMP Hypokalemia - resolved, continue per peg replenishment Discontinued potassium IV, will now strictly receive potassium per PEG tube Sacral decubitus Right hip ulcer wound care team nurse recommendation appreciated- Santyl ointment to area consult place for wound care MD - Dr. 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 ct lidocaine patch avoid sedation For family-patient has been on Elavil for long period the new ones started at [facility] was Klonopin and Seroquel- Klonopin q 12 and Seroquel 12.5 mg bid - 10/03. and gradually wean off if tolerates- Dietitian ff- on Glucerna DM type 2- good readings sliding scale Lovenox for DVT prophylaxis on PPI PT consult Discharge Planning I will not increase his pain medication at this time because there is a strong suspicion he was overmedicated and became somnolent at the skilled nursing. Duke Nelson MD Oct 12, 2017 10:44
[2017-10-12] MEDS: LACTOBACILLUS ACIDOPHILUS TAB PEG SCH ×3 (13:00→18:00)
[2017-10-12] MEDS: PREGABALIN 25 MG CAP PEG SCH ×3 (13:00→18:00)
[2017-10-12] MEDS: FAMOTIDINE 20 MG TAB PEG SCH ×3 (17:54→21:00)
[2017-10-12] MEDS: ASPIRIN 81 MG CHEW TAB PEG SCH (17:56)
[2017-10-12] MEDS: LIDOCAINE HCL 5% PATCH T-DERMAL SCH (18:00)
[2017-10-12] MEDS: SODIUM HYPOCHLORITE 0.125% 500 ML BTL TOPICAL SCH (18:01)
[2017-10-12] MEDS: COLLAGENASE OINT 30 GM TUBE TOPICAL SCH (18:01)
[2017-10-12] MEDS: ZINC SULFATE 220 MG PEG SCH (18:01)
[2017-10-12] MEDS: FLUCONAZOLE 100 MG TAB PO SCH (18:02)
[2017-10-13] VITALS (7 sets, daily range): BP systolic 118–132; BP diastolic 75–90; PULSE 87–112; RESP 17–22; TEMP 96.7–98.1; O2SAT 90–100
[2017-10-13] MEDS: ACETAMINOPHEN/HYDROcodone 325 MG/5 MG TAB PEG PRN ×3 (04:45→18:00)
--- NOTE | 2017-10-13 08:39 | HHI.PR ---
Subjective Remarks Follow-up for C. difficile colitis No overnight events, had episodes of diarrhea yesterday, stools are good today. No fever overnight. No complaints other than uncontrolled pain and inability to sleep last night. Objective Vitals Vital Signs Date Time Temp Pulse Resp B/P (MAP) Pulse Ox O2 Delivery O2 Flow Rate FiO2 10/13/17 04:00 97.2 112 18 132/81 (98) 97 10/13/17 00:00 97.0 109 17 126/82 (97) 98 10/12/17 20:03 99 21 10/12/17 20:00 97.1 116 18 123/83 (96) 99 10/12/17 16:00 96.7 118 20 115/75 (88) 99 10/12/17 12:00 97.3 111 20 117/80 (92) 97 10/12/17 10:30 96 21 I/O 10/12/17 10/12/17 10/12/17 10/13/17 10/13/17 10/13/17 07:00 15:00 23:00 07:00 15:00 23:00 Intake Total 120 ml 650 ml Output Total 900 ml 575 ml Balance -780 ml 75 ml Intake Oral 120 ml 650 ml Output Urine Total 900 ml 575 ml # Bowel Movements 2 1 Result Diagram: 10/10/17 0840 Objective Remarks Not in distress Pale conjunctivae, anicteric Tracheostomy in place Mildly tachycardic, regular rhythm Clear breath sounds Abdomen soft, nontender No edema Awake, alert, oriented 3. Date of Insertion: Oct 02, 2017 A/P Assessment and Plan 67 years old male C diff colitis -Continue oral vanc per ID, extend 1 week after ciprofloxacin, recheck CBC tomorrow. Discharge once diarrhea is better. Still having episodes of watery stools. Pseudomonas/Awa UTI- marquez associated, Marquez catheter changed, continue antibiotics, cefepime and switched to ciprofloxacin. Also with Awa in the urine, continue Diflucan. Hx cervical spine abscess, history of IV drug use-drained and treated with Abx HYpernatremia- resolved tolerating TF at goal rate of 60cc/hr.Favio water flushes 50 cc q 4 Hypokalemia - resolved, continue per peg replenishment Sacral decubitus Right hip ulcer wound care team nurse recommendation appreciated- Santyl ointment to area, wound care following. Acute respiratory failure with transient hypoxemia- likely from sepsis, on tracheostomy. Continue pulmonary toilet. 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 ct lidocaine patch avoid sedation For family-patient has been on Elavil for long period the new ones started at [facility] was Klonopin and Seroquel- Klonopin q 12 and Seroquel 12.5 mg bid - 10/03. Gradually wean, patient complaining of pain but appears comfortable. Patient came in with altered mental status, no further changes planned with medications. Dietitian ff- on Glucerna DM type 2-sliding scale insulin Insomnia-start Ambninoska Lovenox for DVT prophylaxis on PPI PT consult Discharge Planning Discharge back to the correction when medically ready. Viktor Hernandez MD Oct 13, 2017 08:39
[2017-10-13] MEDS: QUEtiapine FUMARATE 25 MG TAB PEG SCH ×2 (09:00→20:59)
[2017-10-13] MEDS: PREGABALIN 25 MG CAP PEG SCH ×3 (09:00→18:00)
[2017-10-13] MEDS: clonazePAM 0.5 MG TAB PO SCH ×2 (09:00→20:59)
[2017-10-13] MEDS: FAMOTIDINE 20 MG TAB PEG SCH ×2 (09:00→20:59)
[2017-10-13] MEDS: ASPIRIN 81 MG CHEW TAB PEG SCH (09:00)
[2017-10-13] MEDS: ASCORBIC ACID 500 MG TAB PEG SCH ×2 (09:00→20:59)
[2017-10-13] MEDS: POTASSIUM CHLORIDE 25 MEQ EFFERVESCENT TAB PEG SCH ×2 (09:00→21:00)
[2017-10-13] MEDS: LACTOBACILLUS ACIDOPHILUS TAB PEG SCH ×3 (09:00→18:00)
[2017-10-13] MEDS: LIDOCAINE HCL 5% PATCH T-DERMAL SCH (09:00)
[2017-10-13] MEDS: VANCOMYCIN 25 MG/ML SOLN 100 ML BOTTLE PEG SCH ×4 (09:00→21:00)
[2017-10-13] MEDS: SODIUM HYPOCHLORITE 0.125% 500 ML BTL TOPICAL SCH (09:00)
[2017-10-13] MEDS: CIPROFLOXACIN 500 MG TAB PO SCH ×2 (09:00→20:59)
[2017-10-13] MEDS: COLLAGENASE OINT 30 GM TUBE TOPICAL SCH (09:00)
[2017-10-13] MEDS: INSULIN ASPART SUPPLEMENTAL SCALE SQ SCH ×4 (09:25→21:00)
[2017-10-13] MEDS: ZINC SULFATE 220 MG PEG SCH (11:00)
[2017-10-13] MEDS: FLUCONAZOLE 100 MG TAB PO SCH (16:00)
[2017-10-13] MEDS: TAMSULOSIN HCL 0.4 MG CAP PO SCH (20:59)
[2017-10-13] MEDS: AMITRIPTYLINE HCL 50 MG TAB PEG SCH (20:59)
[2017-10-13] MEDS: ENOXAPARIN SODIUM 40 MG/0.4 ML SYRINGE SQ SCH (21:00)
[2017-10-14] VITALS (9 sets, daily range): BP systolic 107–124; BP diastolic 61–83; PULSE 100–123; RESP 18–22; TEMP 97.3–99.1; O2SAT 95–98
[2017-10-14] MEDS: ACETAMINOPHEN/HYDROcodone 325 MG/5 MG TAB PEG PRN ×5 (00:21→18:48)
[2017-10-14] MEDS: DEXTROSE 5% IN WATE 1000ML INJ 1,000 ML IV SCH ×2 (00:25→18:48)
[2017-10-14 05:13] LABS: AUTOMATED NEUTROPHIL # 10.3 TH/MM3 (1.8-7.7); BASOPHIL # 0.1 TH/MM3 (0-0.2); BASOPHIL % 0.5 % (0.0-2.0); EOSINOPHIL # 0.3 TH/MM3 (0-0.4); EOSINOPHIL % 2.2 % (0.0-4.0); HEMATOCRIT 32.9 % (39.0-51.0); HEMOGLOBIN 10.9 GM/DL (13.0-17.0); LYMPH % 23.1 % (9.0-44.0); LYMPHOCYTE # 3.6 TH/MM3 (1.0-4.8); MEAN CELL VOLUME 87.1 FL (80.0-100.0); MEAN CORPUSCULAR HEMOGLOBIN 28.7 PG (27.0-34.0); MEAN PLATELET VOLUME 7.6 FL (7.0-11.0); MONOCYTE # 1.4 TH/MM3 (0-0.9); NEUT % 65.2 % (16.0-70.0); PLATELET COUNT 409 TH/MM3 (150-450); RED BLOOD COUNT 3.78 MIL/MM3 (4.50-5.90); RED CELL DISTRIBUTION WIDTH 18.9 % (11.6-17.2); WHITE BLOOD COUNT 15.7 TH/MM3 (4.0-11.0)
[2017-10-14 05:39] LABS: BICARBONATE 26.7 MEQ/L (21.0-32.0); CALCIUM 8.8 MG/DL (8.5-10.1); CREATININE 0.27 MG/DL (0.60-1.30)
[2017-10-14] MEDS: PREGABALIN 25 MG CAP PEG SCH ×3 (09:00→18:48)
[2017-10-14] MEDS: VANCOMYCIN 25 MG/ML SOLN 100 ML BOTTLE PEG SCH ×4 (09:00→21:02)
[2017-10-14] MEDS: SODIUM HYPOCHLORITE 0.125% 500 ML BTL TOPICAL SCH (09:00)
--- NOTE | 2017-10-14 09:10 | HHI.PR ---
Subjective Remarks in no acute distress. afebrile. complaining of pain to the neck and back. diarrhea has improved. Objective Vitals Vital Signs Date Time Temp Pulse Resp B/P (MAP) Pulse Ox O2 Delivery O2 Flow Rate FiO2 10/14/17 04:15 99.1 100 18 121/61 (81) 96 10/14/17 01:00 98 T-piece 5.00 28 10/14/17 00:19 97.4 111 18 107/73 (84) 96 10/13/17 20:40 98.1 109 18 120/84 (96) 94 10/13/17 17:13 98 Trach Collar 6.00 28 10/13/17 12:00 98.0 87 22 118/75 (89) 90 10/13/17 09:26 98 I/O 10/13/17 10/13/17 10/13/17 10/14/17 10/14/17 10/14/17 07:00 15:00 23:00 07:00 15:00 23:00 Intake Total 650 ml 580 ml Output Total 575 ml 1400 ml Balance 75 ml -820 ml Intake Oral 650 ml 580 ml Output Urine Total 575 ml 1400 ml # Bowel Movements 1 0 Result Diagram: 10/14/17 0445 10/14/17 0445 Imaging Last Impressions Renal Ultrasound 10/03/17 0000 Signed Impressions: Service Date/Time: Tuesday, October 03, 2017 23:05 - CONCLUSION: No evidence of mass or hydronephrosis. Jose Sin MD Head CT 10/02/17 0039 Signed Impressions: Service Date/Time: Monday, October 02, 2017 01:45 - CONCLUSION: 1. No gross intracranial abnormality on this scan which is degraded by patient motion. Jose Sin MD Chest X-Ray 10/01/17 1518 Signed Impressions: Service Date/Time: Sunday, October 01, 2017 15:30 - CONCLUSION: Elevation left hemidiaphragm. Lungs are clear Remberto Aguilera MD FACR Objective Remarks GENERAL: This is a well-nourished, well-developed patient, in no apparent distress. Neck; trach in place CARDIOVASCULAR: Regular rate and regular rhythm without murmurs, gallops, or rubs. RESPIRATORY: Clear to auscultation. Breath sounds equal bilaterally. No wheezes , rales, or rhonchi. GASTROINTESTINAL: Abdomen soft, non-tender, nondistended. Normal, active bowel sounds- PEG in place. MUSCULOSKELETAL: Extremities without clubbing, cyanosis, or edema. NEURO: Alert & Oriented x4 to person, place, time, situation. Moves all ext x4 Medications and IVs Inpatient Medications Acetaminophen (Tylenol) 650 mg Q4H PRN PO fever >101 Last administered on at 13:30; Start 10/03/17 at 05:00 Acetaminophen/ Hydrocodone Bitart (Inola 5-325 Mg) 1 tab Q6H PRN PEG pain>5 Last administered on 10/14/17 06:43; Start 10/02/17 at 22:15 Albuterol Sulfate (Albuterol Neb) 0.63 mg Q6HR NEB PRN NEB SHORTNESS OF BREATH ; Start 10/02/17 at 01:00 Amitriptyline HCl (Elavil) 50 mg HS PEG Last administered on 10/13/17at 20:59; Start 10/03/17 at 21:00 Ascorbic Acid (Vitamin C) 250 mg BID PEG Last administered on 10/13/17 20:59; Start 10/02/17 at 09:00 Aspirin (Aspirin Chew) 81 mg DAILY PEG Last administered on 10/13/17at 09:00; Start 10/02/17 at 09:00 Bisacodyl (Dulcolax Supp) 10 mg DAILY PRN RECTAL SEVERE CONSITIPATION; Start at 18:30 Cefepime HCl 2000 mg/Sodium Chloride 100 ml @ 200 mls/hr Q8H IV Last administered on 10/11/17at 13:14; Start 10/03/17 at 14:00; Stop 10/11/17 at 13:17 ; Status DC Ciprofloxacin (Cipro) 500 mg Q12HR PO Last administered on 10/13/17 20:59; Start 10/11/17 at 15:00; Stop 10/18/17 at 14:59 Citalopram Hydrobromide (CeleXA) 20 mg DAILY PEG Last administered on at 09:55; Start 10/02/17 at 09:00; Stop 10/03/17 at 17:16; Status DC Clonazepam (KlonoPIN) 0.5 mg Q12HR PO Last administered on 10/13/17 20:59; Start 10/03/17 at 21:00 Collagenase (Santyl Oint) 1 applic DAILY TOPICAL Last administered on 09:00; Start 10/03/17 at 11:30 Dextrose 1,000 ml @ 50 mls/hr Q20H IV Last administered on 10/14/17 00:25; Start 10/13/17 at 21:30 Dextrose (D50w (Vial) Inj) 50 ml UNSCH PRN IV PUSH HYPOGLYCEMIA-SEE COMMENTS; Start 10/02/17 at 01:00 Enoxaparin Sodium (Lovenox Inj) 40 mg HS SQ Last administered on 10/13/17 21: 00; Start 10/02/17 at 21:00 Famotidine (Pepcid) 20 mg BID PEG Last administered on 10/13/17 20:59; Start 10/02/17 at 09:00 Fluconazole (Diflucan) 100 mg Q24H PO Last administered on 10/13/17at 16:00; Start 10/10/17 at 16:00; Stop 10/16/17 at 23:00 Glucagon (Glucagon Inj) 1 mg UNSCH PRN OTHER HYPOGLYCEMIA-SEE COMMENTS; Start 10/02/17 at 01:00 Heparin Sodium (Porcine) (Heparin Inj) 5,000 units Q8H SQ Last administered on 10/01/17at 21:13; Start 10/01/17 at 20:00; Stop 10/02/17 at 01:12; Status DC Insulin Aspart (NovoLOG SUPPLEMENTAL SCALE) 1 ACHS SLIDING SCALE SQ Last administered on 10/13/17at 17:00; Start 10/02/17 at 08:00 Insulin Detemir (Levemir Inj) 10 units BID SQ ; Start 10/02/17 at 09:00; Status Future Hold Lactobacillus Acidophilus (Lactinex) 1 tab TID PEG Last administered on 18:00; Start 10/02/17 at 18:00 Lactulose (Lactulose Liq) 30 ml DAILY PRN PO SEVERE CONSITIPATION; Start at 18:30 Lidocaine HCl (Lidoderm 5% Patch.12 Hr) 1 patch DAILY T-DERMAL Last administered on 10/13/17at 09:00; Start 10/02/17 at 09:00 Lorazepam (Ativan Inj) 1 mg ONCE ONCE IV PUSH Last administered on 10/02/17at 01:56; Start 10/02/17 at 01:45; Stop 10/02/17 at 01:46; Status DC Magnesium Hydroxide (Milk Of Magnesia Liq) 30 ml Q12H PRN PO Mild constipation ; Start 10/01/17 at 18:30 Mesalamine (Asacol Hd Dr) 1,600 mg Q8HR PO Last administered on 10/11/17at 13:14 ; Start 10/03/17 at 14:00; Stop 10/11/17 at 13:17; Status DC Metronidazole 100 ml @ 100 mls/hr Q6H IV Last administered on 10/02/17at 14:05 ; Start 10/02/17 at 02:00; Stop 10/02/17 at 15:11; Status DC Miscellaneous (Pill Splitter) 1 ea UNSCH PRN OTHER SEE LABEL COMMENTS; Start at 18:00 Naloxone HCl (Narcan Inj) 0.4 mg UNSCH PRN IV PUSH SEE LABEL COMMENTS; Start at 18:30 Non-Formulary Medication ZINC SULFATE 22... Q24H PEG Last administered on at 11:00; Start 10/02/17 at 11:00 Pharmacy Profile Note 0 ml @ 0 mls/hr UNSCH OTHER ; Start 10/01/17 at 18:30; Stop 10/02/17 at 15:11; Status DC Piperacillin Sod/ Tazobactam Sod 100 ml @ 200 mls/hr Q6H IV Last administered on 10/03/17at 10:08; Start 10/01/17 at 21:00; Stop 10/03/17 at 12:16; Status DC Potassium Bicarbonate (Effer-K Eff) 50 meq ONCE ONCE PEG ; Start 10/04/17 at 15 :00; Stop 10/04/17 at 15:01; Status DC Potassium Chloride 20 meq/ Dextrose 510 ml @ 50 mls/hr [id number] IV Last administered on 10/10/17at 22:24; Start 10/07/17 at 23:00; Stop 10/11/17 at 10:33 ; Status DC Potassium Chloride 20 meq/ Sodium Chloride 38.5 meq/Sterile Water 1,019.625 ml @ 70 mls/hr [id number] IV Last administered on 10/03/17at 18:34; Start 10/03/17 at 17:00; Stop 10/04/17 at 13:00; Status DC Potassium Chloride 40 meq/ Dextrose 1,020 ml @ 50 mls/hr [id number] IV Last administered on 10/07/17at 00:00; Start 10/04/17 at 15:00; Stop 10/07/17 at 22:35 ; Status DC Potassium Bicarb/ Potassium Chloride (K-Lyte Cl Eff) 25 meq Q12HR PEG Last administered on 10/13/17 21:00; Start 10/11/17 at 11:00 Pregabalin (Lyrica) 50 mg TID PEG Last administered on 10/13/17 18:00; Start 10/02/17 at 09:00 Quetiapine Fumarate (SEROquel) 12.5 mg BID PEG Last administered on 10/13/17 20:59; Start 10/03/17 at 21:00 Sennosides (Senokot) 17.2 mg Q12H PRN PO Moderate constipation; Start 10/01/17 at 18:30 Sodium Hypochlorite (Dakin'S 0.125% Soln) 500 ml DAILY TOPICAL Last administered on 10/13/17 09:00; Start 10/06/17 at 09:00 Sodium Chloride 1,000 ml @ 75 mls/hr [id number] IV Last administered on at 09:57; Start 10/02/17 at 17:45; Stop 10/03/17 at 17:26; Status DC Tamsulosin HCl (Flomax) 0.8 mg HS PO Last administered on 10/13/17 20:59; Start 10/02/17 at 21:00 Vancomycin HCl (Vancomycin 25 Mg/ml Liq) 250 mg QID PEG Last administered on 21:00; Start 10/02/17 at 18:00; Stop 10/24/17 at 12:00 Vancomycin HCl 1000 mg/Sodium Chloride 250 ml @ 250 mls/hr Q12H IV Last administered on 10/02/17at 05:02; Start 10/02/17 at 05:00; Stop 10/02/17 at 15:11 ; Status DC Date of Insertion: Oct 02, 2017 A/P Assessment and Plan A/P C diff colitis - improving. -Continue oral vanc per ID, extend 1 week after ciprofloxacin, recheck CBC tomorrow. Pseudomonas/Awa UTI- marquez associated, Marquez catheter changed, continue antibiotics, switched to ciprofloxacin. Also with Awa in the urine, continue Diflucan. Hx cervical spine abscess, history of IV drug use-drained and treated with Abx Hypernatremia- resolved tolerating TF at goal rate of 60cc/hr.Favio water flushes 50 cc q 4 mild hyperkalemia; stop potassium replacement and repeat the potassium level tomorrow. Sacral decubitus Right hip ulcer wound care team nurse recommendation appreciated- Santyl ointment to area, wound care following. Acute respiratory failure with transient hypoxemia- likely from sepsis, on tracheostomy. Continue pulmonary toilet. 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 ct lidocaine patch avoid sedation For family-patient has been on Elavil for long period the new ones started at [facility] was Klonopin and Seroquel- Klonopin q 12 and Seroquel 12.5 mg bid - 10/03. Gradually wean, patient complaining of pain but appears comfortable. Patient came in with altered mental status, no further changes planned with medications. Dietitian ff- on Glucerna DM type 2-sliding scale insulin Insomnia-start Ambien Lovenox for DVT prophylaxis on PPI PT consulted Discharge Planning dc to SNF within the next 24-48 hrs if stable. Neftaly Escobar MD Oct 14, 2017 09:10
[2017-10-14] MEDS: INSULIN ASPART SUPPLEMENTAL SCALE SQ SCH ×4 (09:15→21:00)
[2017-10-14] MEDS: LIDOCAINE HCL 5% PATCH T-DERMAL SCH (09:18)
[2017-10-14] MEDS: ASCORBIC ACID 500 MG TAB PEG SCH ×2 (09:19→21:03)
[2017-10-14] MEDS: FAMOTIDINE 20 MG TAB PEG SCH ×2 (09:19→21:00)
[2017-10-14] MEDS: clonazePAM 0.5 MG TAB PO SCH ×2 (09:19→21:04)
[2017-10-14] MEDS: CIPROFLOXACIN 500 MG TAB PO SCH ×2 (09:20→21:04)
[2017-10-14] MEDS: ASPIRIN 81 MG CHEW TAB PEG SCH (09:20)
[2017-10-14] MEDS: QUEtiapine FUMARATE 25 MG TAB PEG SCH ×2 (09:20→21:04)
[2017-10-14] MEDS: LACTOBACILLUS ACIDOPHILUS TAB PEG SCH ×3 (09:21→18:48)
[2017-10-14] MEDS: COLLAGENASE OINT 30 GM TUBE TOPICAL SCH (09:43)
[2017-10-14] MEDS: ZINC SULFATE 220 MG PEG SCH (11:00)
[2017-10-14] MEDS: ALPRAZolam 0.25 MG TAB PO PRN ×2 (12:37→21:04)
[2017-10-14] MEDS: FLUCONAZOLE 100 MG TAB PO SCH (14:51)
[2017-10-14] MEDS: ENOXAPARIN SODIUM 40 MG/0.4 ML SYRINGE SQ SCH (21:03)
[2017-10-14] MEDS: TAMSULOSIN HCL 0.4 MG CAP PO SCH (21:03)
[2017-10-14] MEDS: AMITRIPTYLINE HCL 50 MG TAB PEG SCH (21:03)
[2017-10-15] VITALS (10 sets, daily range): BP systolic 116–129; BP diastolic 72–87; PULSE 108–117; RESP 18–21; TEMP 97.1–98.7; O2SAT 93–98
[2017-10-15] MEDS: ACETAMINOPHEN/HYDROcodone 325 MG/5 MG TAB PEG PRN ×4 (04:25→22:56)
[2017-10-15] MEDS: clonazePAM 0.5 MG TAB PO SCH ×2 (08:57→21:53)
[2017-10-15] MEDS: LACTOBACILLUS ACIDOPHILUS TAB PEG SCH ×3 (08:57→17:34)
[2017-10-15] MEDS: PREGABALIN 25 MG CAP PEG SCH ×3 (08:58→17:34)
[2017-10-15] MEDS: ASCORBIC ACID 500 MG TAB PEG SCH ×2 (08:59→21:53)
[2017-10-15] MEDS: QUEtiapine FUMARATE 25 MG TAB PEG SCH ×2 (08:59→21:54)
[2017-10-15] MEDS: FAMOTIDINE 20 MG TAB PEG SCH ×2 (09:00→21:53)
[2017-10-15] MEDS: ASPIRIN 81 MG CHEW TAB PEG SCH (09:00)
[2017-10-15] MEDS: INSULIN ASPART SUPPLEMENTAL SCALE SQ SCH ×4 (09:01→21:56)
[2017-10-15] MEDS: CIPROFLOXACIN 500 MG TAB PO SCH ×2 (09:02→21:53)
[2017-10-15] MEDS: SODIUM HYPOCHLORITE 0.125% 500 ML BTL TOPICAL SCH (09:02)
[2017-10-15] MEDS: COLLAGENASE OINT 30 GM TUBE TOPICAL SCH (09:04)
[2017-10-15] MEDS: VANCOMYCIN 25 MG/ML SOLN 100 ML BOTTLE PEG SCH ×4 (09:04→22:02)
[2017-10-15] MEDS: LIDOCAINE HCL 5% PATCH T-DERMAL SCH (09:07)
[2017-10-15] MEDS ORDERED: SODIUM POLYSTYRENE SULFONATE SUSP 15 GM/60 ML CUP PO ONE (10:45)
[2017-10-15] MEDS: ZINC SULFATE 220 MG PEG SCH (11:00)
--- NOTE | 2017-10-15 12:48 | HHI.PR ---
Subjective Remarks in no acute distress. looks more comfortable today. no fever. Objective Vitals Vital Signs Date Time Temp Pulse Resp B/P (MAP) Pulse Ox O2 Delivery O2 Flow Rate FiO2 10/15/17 12:00 97.1 109 19 129/78 (95) 97 10/15/17 10:57 28 10/15/17 09:05 93 Trach Collar 28 10/15/17 08:00 98.4 108 20 116/81 (93) 96 10/15/17 06:05 98 Trach Collar 6.00 28 10/15/17 04:09 97.4 113 18 126/80 (95) 97 10/15/17 00:36 97.3 112 21 118/72 (87) 97 10/15/17 00:00 110 10/14/17 20:38 97.3 110 20 124/80 (95) 97 10/14/17 20:00 108 10/14/17 18:04 96 Trach Collar 6.00 28 10/14/17 16:00 98.0 114 18 115/79 (91) 97 I/O 10/14/17 10/14/17 10/14/17 10/15/17 10/15/17 10/15/17 07:00 15:00 23:00 07:00 15:00 23:00 Intake Total 580 ml 3533 ml 480 ml 120 ml Output Total 1400 ml 550 ml 1800 ml 202.0 ml Balance -820 ml 2983 ml -1320 ml -82.0 ml Intake Oral 580 ml 960 ml 480 ml 120 ml IV Total 1851 ml Tube Feeding 582 ml Tube Irrigant 140 ml Output Urine Total 1400 ml 550 ml 1800 ml 200 ml Tube Feeding Residual Discard 2.0 ml # Voids 3 # Bowel Movements 0 2 0 1 Result Diagram: 10/14/17 0445 10/15/17 0739 Imaging Last Impressions Renal Ultrasound 10/03/17 0000 Signed Impressions: Service Date/Time: Tuesday, October 03, 2017 23:05 - CONCLUSION: No evidence of mass or hydronephrosis. Jose Sin MD Head CT 10/02/17 0039 Signed Impressions: Service Date/Time: Monday, October 02, 2017 01:45 - CONCLUSION: 1. No gross intracranial abnormality on this scan which is degraded by patient motion. Jose Sin MD Chest X-Ray 10/01/17 1518 Signed Impressions: Service Date/Time: Sunday, October 01, 2017 15:30 - CONCLUSION: Elevation left hemidiaphragm. Lungs are clear Remberto Aguilera MD FACR Objective Remarks GENERAL: This is a well-nourished, well-developed patient, in no apparent distress. Neck; trach in place CARDIOVASCULAR: Regular rate and regular rhythm without murmurs, gallops, or rubs. RESPIRATORY: Clear to auscultation. Breath sounds equal bilaterally. No wheezes , rales, or rhonchi. GASTROINTESTINAL: Abdomen soft, non-tender, nondistended. Normal, active bowel sounds- PEG in place. MUSCULOSKELETAL: Extremities without clubbing, cyanosis, or edema. NEURO: Alert & Oriented x4 to person, place, time, situation. Moves all ext x4 Medications and IVs Inpatient Medications Acetaminophen (Tylenol) 650 mg Q4H PRN PO fever >101 Last administered on at 13:30; Start 10/03/17 at 05:00 Acetaminophen/ Hydrocodone Bitart ([place] 5-325 Mg) 1 tab Q4HR PRN PEG pain>5 Last administered on 10/15/17at 10:05; Start 10/14/17 at 09:15 Albuterol Sulfate (Albuterol Neb) 0.63 mg Q6HR NEB PRN NEB SHORTNESS OF BREATH ; Start 10/02/17 at 01:00 Alprazolam (Xanax) 0.125 mg Q8HR PRN PO ANXIETY Last administered on 10/14/17at 21:04; Start 10/14/17 at 11:30 Amitriptyline HCl (Elavil) 50 mg HS PEG Last administered on 10/14/17at 21:03; Start 10/03/17 at 21:00 Ascorbic Acid (Vitamin C) 250 mg BID PEG Last administered on 10/15/17at 08:59; Start 10/02/17 at 09:00 Aspirin (Aspirin Chew) 81 mg DAILY PEG Last administered on 10/15/17at 09:00; Start 10/02/17 at 09:00 Bisacodyl (Dulcolax Supp) 10 mg DAILY PRN RECTAL SEVERE CONSITIPATION; Start at 18:30 Cefepime HCl 2000 mg/Sodium Chloride 100 ml @ 200 mls/hr Q8H IV Last administered on 10/11/17 13:14; Start 10/03/17 at 14:00; Stop 10/11/17 at 13:17 ; Status DC Ciprofloxacin (Cipro) 500 mg Q12HR PO Last administered on 10/15/17 09:02; Start 10/11/17 at 15:00; Stop 10/18/17 at 14:59 Citalopram Hydrobromide (CeleXA) 20 mg DAILY PEG Last administered on at 09:55; Start 10/02/17 at 09:00; Stop 10/03/17 at 17:16; Status DC Clonazepam (KlonoPIN) 0.5 mg Q12HR PO Last administered on 10/15/17 08:57; Start 10/03/17 at 21:00 Collagenase (Santyl Oint) 1 applic DAILY TOPICAL Last administered on 10/15/17 09:04; Start 10/03/17 at 11:30 Dextrose 1,000 ml @ 50 mls/hr Q20H IV Last administered on 10/14/17at 18:48; Start 10/13/17 at 21:30; Stop 10/15/17 at 10:46; Status DC Dextrose (D50w (Vial) Inj) 50 ml UNSCH PRN IV PUSH HYPOGLYCEMIA-SEE COMMENTS; Start 10/02/17 at 01:00 Enoxaparin Sodium (Lovenox Inj) 40 mg HS SQ Last administered on 10/14/17at 21:03 ; Start 10/02/17 at 21:00 Famotidine (Pepcid) 20 mg BID PEG Last administered on 10/15/17at 09:00; Start at 09:00 Fluconazole (Diflucan) 100 mg Q24H PO Last administered on 10/14/17at 14:51; Start 10/10/17 at 16:00; Stop 10/16/17 at 23:00 Glucagon (Glucagon Inj) 1 mg UNSCH PRN OTHER HYPOGLYCEMIA-SEE COMMENTS; Start 10/02/17 at 01:00 Heparin Sodium (Porcine) (Heparin Inj) 5,000 units Q8H SQ Last administered on 10/01/17at 21:13; Start 10/01/17 at 20:00; Stop 10/02/17 at 01:12; Status DC Insulin Aspart (NovoLOG SUPPLEMENTAL SCALE) 1 ACHS SLIDING SCALE SQ Last administered on 10/15/17at 09:01; Start 10/02/17 at 08:00 Insulin Detemir (Levemir Inj) 10 units BID SQ ; Start 10/02/17 at 09:00; Status Future Hold Lactobacillus Acidophilus (Lactinex) 1 tab TID PEG Last administered on at 08:57; Start 10/02/17 at 18:00 Lactulose (Lactulose Liq) 30 ml DAILY PRN PO SEVERE CONSITIPATION; Start at 18:30 Lidocaine HCl (Lidoderm 5% Patch.12 Hr) 1 patch DAILY T-DERMAL Last administered on 10/15/17at 09:07; Start 10/02/17 at 09:00 Lorazepam (Ativan Inj) 1 mg ONCE ONCE IV PUSH Last administered on 10/02/17at 01:56; Start 10/02/17 at 01:45; Stop 10/02/17 at 01:46; Status DC Magnesium Hydroxide (Milk Of Magnesia Liq) 30 ml Q12H PRN PO Mild constipation ; Start 10/01/17 at 18:30 Mesalamine (Asacol Hd Dr) 1,600 mg Q8HR PO Last administered on 10/11/17at 13:14 ; Start 10/03/17 at 14:00; Stop 10/11/17 at 13:17; Status DC Metronidazole 100 ml @ 100 mls/hr Q6H IV Last administered on 10/02/17at 14:05 ; Start 10/02/17 at 02:00; Stop 10/02/17 at 15:11; Status DC Miscellaneous (Pill Splitter) 1 ea UNSCH PRN OTHER SEE LABEL COMMENTS; Start at 18:00 Naloxone HCl (Narcan Inj) 0.4 mg UNSCH PRN IV PUSH SEE LABEL COMMENTS; Start at 18:30 Non-Formulary Medication ZINC SULFATE 22... Q24H PEG Last administered on at 11:00; Start 10/02/17 at 11:00 Pharmacy Profile Note 0 ml @ 0 mls/hr UNSCH OTHER ; Start 10/01/17 at 18:30; Stop 10/02/17 at 15:11; Status DC Piperacillin Sod/ Tazobactam Sod 100 ml @ 200 mls/hr Q6H IV Last administered on 10/03/17at 10:08; Start 10/01/17 at 21:00; Stop 10/03/17 at 12:16; Status DC Potassium Bicarbonate (Effer-K Eff) 50 meq ONCE ONCE PEG ; Start 10/04/17 at 15 :00; Stop 10/04/17 at 15:01; Status DC Potassium Chloride 20 meq/ Dextrose 510 ml @ 50 mls/hr [id number] IV Last administered on 10/10/17at 22:24; Start 10/07/17 at 23:00; Stop 10/11/17 at 10:33 ; Status DC Potassium Chloride 20 meq/ Sodium Chloride 38.5 meq/Sterile Water 1,019.625 ml @ 70 mls/hr [id number] IV Last administered on 10/03/17at 18:34; Start 10/03/17 at 17:00; Stop 10/04/17 at 13:00; Status DC Potassium Chloride 40 meq/ Dextrose 1,020 ml @ 50 mls/hr [id number] IV Last administered on 10/07/17at 00:00; Start 10/04/17 at 15:00; Stop 10/07/17 at 22:35 ; Status DC Potassium Bicarb/ Potassium Chloride (K-Lyte Cl Eff) 25 meq Q12HR PEG Last administered on 10/13/17at 21:00; Start 10/11/17 at 11:00; Stop 10/14/17 at 09:11 ; Status DC Pregabalin (Lyrica) 50 mg TID PEG Last administered on 10/15/17at 08:58; Start at 09:00 Quetiapine Fumarate (SEROquel) 12.5 mg BID PEG Last administered on 10/15/17at 08 :59; Start 10/03/17 at 21:00 Sennosides (Senokot) 17.2 mg Q12H PRN PO Moderate constipation; Start 10/01/17 at 18:30 Sodium Hypochlorite (Dakin'S 0.125% Soln) 500 ml DAILY TOPICAL Last administered on 10/15/17at 09:02; Start 10/06/17 at 09:00 Sodium Polystyrene Sulfonate (Kayexalate Liq) 15 gm ONCE ONCE PO ; Start at 10:45; Stop 10/15/17 at 10:52; Status DC Sodium Chloride 1,000 ml @ 75 mls/hr [id number] IV Last administered on at 09:57; Start 10/02/17 at 17:45; Stop 10/03/17 at 17:26; Status DC Tamsulosin HCl (Flomax) 0.8 mg HS PO Last administered on 10/14/17at 21:03; Start 10/02/17 at 21:00 Vancomycin HCl (Vancomycin 25 Mg/ml Liq) 250 mg QID PEG Last administered on 10/15/17at 09:04; Start 10/02/17 at 18:00; Stop 10/24/17 at 12:00 Vancomycin HCl 1000 mg/Sodium Chloride 250 ml @ 250 mls/hr Q12H IV Last administered on 10/02/17at 05:02; Start 10/02/17 at 05:00; Stop 10/02/17 at 15:11 ; Status DC Date of Insertion: Oct 02, 2017 A/P Assessment and Plan A/P C diff colitis - improving. -Continue oral vanc per ID, extend 1 week after ciprofloxacin. Pseudomonas/Awa UTI- marquez associated, Marquez catheter changed, continue antibiotics, switched to ciprofloxacin. Also with Awa in the urine, continue Diflucan. Hx cervical spine abscess, history of IV drug use-drained and treated with Abx Hypernatremia- resolved tolerating TF at goal rate of 60cc/hr.Favio water flushes 50 cc q 4 hyperkalemia; stopped potassium replacement - one dose of Kayaxalate and repeat potassium level this afternoon. Sacral decubitus Right hip ulcer wound care team nurse recommendation appreciated- Santyl ointment to area, wound care following. Acute respiratory failure with transient hypoxemia- likely from sepsis, on tracheostomy. Continue pulmonary toilet. 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 ct lidocaine patch avoid sedation For family-patient has been on Elavil for long period the new ones started at [facility] was Klonopin and Seroquel- Klonopin q 12 and Seroquel 12.5 mg bid - 10/03. Gradually wean, patient complaining of pain but appears comfortable. Patient came in with altered mental status, no further changes planned with medications. 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 Neftaly Escobar MD Oct 15, 2017 12:48
[2017-10-15] MEDS: FLUCONAZOLE 100 MG TAB PO SCH (15:40)
[2017-10-15] MEDS: AMITRIPTYLINE HCL 50 MG TAB PEG SCH (21:53)
[2017-10-15] MEDS: TAMSULOSIN HCL 0.4 MG CAP PO SCH (21:54)
[2017-10-15] MEDS: ENOXAPARIN SODIUM 40 MG/0.4 ML SYRINGE SQ SCH (21:55)
[2017-10-15] MEDS: ALPRAZolam 0.25 MG TAB PO PRN (22:56)
[2017-10-16] VITALS (8 sets, daily range): BP systolic 104–122; BP diastolic 70–84; PULSE 110–124; RESP 16–20; TEMP 97.2–98; O2SAT 93–99
[2017-10-16] MEDS: ACETAMINOPHEN/HYDROcodone 325 MG/5 MG TAB PEG PRN ×3 (03:42→17:16)
[2017-10-16] MEDS: FAMOTIDINE 20 MG TAB PEG SCH ×2 (09:18→20:31)
[2017-10-16] MEDS: LACTOBACILLUS ACIDOPHILUS TAB PEG SCH ×3 (09:18→17:15)
[2017-10-16] MEDS: PREGABALIN 25 MG CAP PEG SCH ×3 (09:19→17:16)
[2017-10-16] MEDS: clonazePAM 0.5 MG TAB PO SCH ×2 (09:19→20:31)
[2017-10-16] MEDS: ASPIRIN 81 MG CHEW TAB PEG SCH (09:20)
[2017-10-16] MEDS: CIPROFLOXACIN 500 MG TAB PO SCH ×2 (09:20→20:31)
[2017-10-16] MEDS: ASCORBIC ACID 500 MG TAB PEG SCH ×2 (09:20→20:31)
[2017-10-16] MEDS: QUEtiapine FUMARATE 25 MG TAB PEG SCH ×2 (09:20→20:32)
[2017-10-16] MEDS: SODIUM HYPOCHLORITE 0.125% 500 ML BTL TOPICAL SCH (09:22)
[2017-10-16] MEDS: VANCOMYCIN 25 MG/ML SOLN 100 ML BOTTLE PEG SCH ×4 (09:22→20:32)
[2017-10-16] MEDS: INSULIN ASPART SUPPLEMENTAL SCALE SQ SCH ×3 (09:22→17:17)
[2017-10-16] MEDS: LIDOCAINE HCL 5% PATCH T-DERMAL SCH (09:23)
[2017-10-16] MEDS: COLLAGENASE OINT 30 GM TUBE TOPICAL SCH (09:24)
--- NOTE | 2017-10-16 10:39 | HHI.PR ---
Subjective Remarks in no acute distress. afebrile. has some back pain. d/w the RN. Objective Vitals Vital Signs Date Time Temp Pulse Resp B/P (MAP) Pulse Ox O2 Delivery O2 Flow Rate FiO2 10/16/17 01:41 97 Trach Collar 6.00 28 10/16/17 00:00 97.4 115 20 104/70 (81) 96 10/15/17 22:03 97 Trach Collar 28 10/15/17 20:00 98.7 117 20 121/86 (98) 97 10/15/17 18:00 97.6 111 20 122/87 (99) 98 10/15/17 12:00 97.1 109 19 129/78 (95) 97 10/15/17 10:57 28 I/O 10/15/17 10/15/17 10/15/17 10/16/17 10/16/17 10/16/17 07:00 15:00 23:00 07:00 15:00 23:00 Intake Total 480 ml 120 ml 240 ml Output Total 1800 ml 202.0 ml 1200 ml 1650 ml Balance -1320 ml -82.0 ml -960 ml -1650 ml Intake Oral 480 ml 120 ml 240 ml Output Urine Total 1800 ml 200 ml 1200 ml 1650 ml Tube Feeding Residual Discard 2.0 ml # Bowel Movements 0 1 8 Result Diagram: 10/14/17 0445 10/15/17 1605 Imaging Last Impressions Renal Ultrasound 10/03/17 0000 Signed Impressions: Service Date/Time: Tuesday, October 03, 2017 23:05 - CONCLUSION: No evidence of mass or hydronephrosis. Jose Sin MD Head CT 10/02/17 0039 Signed Impressions: Service Date/Time: Monday, October 02, 2017 01:45 - CONCLUSION: 1. No gross intracranial abnormality on this scan which is degraded by patient motion. Jose Sin MD Chest X-Ray 10/01/17 1518 Signed Impressions: Service Date/Time: Sunday, October 01, 2017 15:30 - CONCLUSION: Elevation left hemidiaphragm. Lungs are clear Remberto Aguilera MD FACR Objective Remarks GENERAL: This is a well-nourished, well-developed patient, in no apparent distress. Neck; trach in place CARDIOVASCULAR: Regular rate and regular rhythm without murmurs, gallops, or rubs. RESPIRATORY: Clear to auscultation. Breath sounds equal bilaterally. No wheezes , rales, or rhonchi. GASTROINTESTINAL: Abdomen soft, non-tender, nondistended. Normal, active bowel sounds- PEG in place. MUSCULOSKELETAL: Extremities without clubbing, cyanosis, or edema. NEURO: Alert & Oriented x4 to person, place, time, situation. Moves all ext x4 Medications and IVs Inpatient Medications Acetaminophen (Tylenol) 650 mg Q4H PRN PO fever >101 Last administered on 13:30; Start 10/03/17 at 05:00 Acetaminophen/ Hydrocodone Bitart ([place] 5-325 Mg) 1 tab Q4HR PRN PEG pain>5 Last administered on 10/16/17 03:42; Start 10/14/17 at 09:15 Albuterol Sulfate (Albuterol Neb) 0.63 mg Q6HR NEB PRN NEB SHORTNESS OF BREATH ; Start 10/02/17 at 01:00 Alprazolam (Xanax) 0.125 mg Q8HR PRN PO ANXIETY Last administered on 10/15/17 22:56; Start 10/14/17 at 11:30 Amitriptyline HCl (Elavil) 50 mg HS PEG Last administered on 10/15/17 21:53; Start 10/03/17 at 21:00 Ascorbic Acid (Vitamin C) 250 mg BID PEG Last administered on 10/16/17 09:20; Start 10/02/17 at 09:00 Aspirin (Aspirin Chew) 81 mg DAILY PEG Last administered on 10/16/17 09:20; Start 10/02/17 at 09:00 Bisacodyl (Dulcolax Supp) 10 mg DAILY PRN RECTAL SEVERE CONSITIPATION; Start at 18:30 Cefepime HCl 2000 mg/Sodium Chloride 100 ml @ 200 mls/hr Q8H IV Last administered on 10/11/17 13:14; Start 10/03/17 at 14:00; Stop 10/11/17 at 13:17 ; Status DC Ciprofloxacin (Cipro) 500 mg Q12HR PO Last administered on 10/16/17 09:20; Start 10/11/17 at 15:00; Stop 10/18/17 at 14:59 Citalopram Hydrobromide (CeleXA) 20 mg DAILY PEG Last administered on at 09:55; Start 10/02/17 at 09:00; Stop 10/03/17 at 17:16; Status DC Clonazepam (KlonoPIN) 0.5 mg Q12HR PO Last administered on 10/16/17 09:19; Start 10/03/17 at 21:00 Collagenase (Santyl Oint) 1 applic DAILY TOPICAL Last administered on 10/16/17 09:24; Start 10/03/17 at 11:30 Dextrose 1,000 ml @ 50 mls/hr Q20H IV Last administered on 10/14/17 18:48; Start 10/13/17 at 21:30; Stop 10/15/17 at 10:46; Status DC Dextrose (D50w (Vial) Inj) 50 ml UNSCH PRN IV PUSH HYPOGLYCEMIA-SEE COMMENTS; Start 10/02/17 at 01:00 Enoxaparin Sodium (Lovenox Inj) 40 mg HS SQ Last administered on 10/15/17at 21:55 ; Start 10/02/17 at 21:00 Famotidine (Pepcid) 20 mg BID PEG Last administered on 10/16/17 09:18; Start at 09:00 Fluconazole (Diflucan) 100 mg Q24H PO Last administered on 10/15/17at 15:40; Start 10/10/17 at 16:00; Stop 10/16/17 at 23:00 Glucagon (Glucagon Inj) 1 mg UNSCH PRN OTHER HYPOGLYCEMIA-SEE COMMENTS; Start 10/02/17 at 01:00 Heparin Sodium (Porcine) (Heparin Inj) 5,000 units Q8H SQ Last administered on 10/01/17at 21:13; Start 10/01/17 at 20:00; Stop 10/02/17 at 01:12; Status DC Insulin Aspart (NovoLOG SUPPLEMENTAL SCALE) 1 ACHS SLIDING SCALE SQ Last administered on 10/16/17 09:22; Start 10/02/17 at 08:00 Insulin Detemir (Levemir Inj) 10 units BID SQ ; Start 10/02/17 at 09:00; Status Future Hold Lactobacillus Acidophilus (Lactinex) 1 tab TID PEG Last administered on 09:18; Start 10/02/17 at 18:00 Lactulose (Lactulose Liq) 30 ml DAILY PRN PO SEVERE CONSITIPATION; Start at 18:30 Lidocaine HCl (Lidoderm 5% Patch.12 Hr) 1 patch DAILY T-DERMAL Last administered on 10/16/17 09:23; Start 10/02/17 at 09:00 Lorazepam (Ativan Inj) 1 mg ONCE ONCE IV PUSH Last administered on 10/02/17at 01:56; Start 10/02/17 at 01:45; Stop 10/02/17 at 01:46; Status DC Magnesium Hydroxide (Milk Of Magnesia Liq) 30 ml Q12H PRN PO Mild constipation ; Start 10/01/17 at 18:30 Mesalamine (Asacol Hd Dr) 1,600 mg Q8HR PO Last administered on 10/11/17at 13:14 ; Start 10/03/17 at 14:00; Stop 10/11/17 at 13:17; Status DC Metronidazole 100 ml @ 100 mls/hr Q6H IV Last administered on 10/02/17at 14:05 ; Start 10/02/17 at 02:00; Stop 10/02/17 at 15:11; Status DC Miscellaneous (Pill Splitter) 1 ea UNSCH PRN OTHER SEE LABEL COMMENTS; Start at 18:00 Naloxone HCl (Narcan Inj) 0.4 mg UNSCH PRN IV PUSH SEE LABEL COMMENTS; Start at 18:30 Non-Formulary Medication ZINC SULFATE 22... Q24H PEG Last administered on at 11:00; Start 10/02/17 at 11:00 Pharmacy Profile Note 0 ml @ 0 mls/hr UNSCH OTHER ; Start 10/01/17 at 18:30; Stop 10/02/17 at 15:11; Status DC Piperacillin Sod/ Tazobactam Sod 100 ml @ 200 mls/hr Q6H IV Last administered on 10/03/17at 10:08; Start 10/01/17 at 21:00; Stop 10/03/17 at 12:16; Status DC Potassium Bicarbonate (Effer-K Eff) 50 meq ONCE ONCE PEG ; Start 10/04/17 at 15 :00; Stop 10/04/17 at 15:01; Status DC Potassium Chloride 20 meq/ Dextrose 510 ml @ 50 mls/hr [id number] IV Last administered on 10/10/17at 22:24; Start 10/07/17 at 23:00; Stop 10/11/17 at 10:33 ; Status DC Potassium Chloride 20 meq/ Sodium Chloride 38.5 meq/Sterile Water 1,019.625 ml @ 70 mls/hr [id number] IV Last administered on 10/03/17at 18:34; Start 10/03/17 at 17:00; Stop 10/04/17 at 13:00; Status DC Potassium Chloride 40 meq/ Dextrose 1,020 ml @ 50 mls/hr [id number] IV Last administered on 10/07/17at 00:00; Start 10/04/17 at 15:00; Stop 10/07/17 at 22:35 ; Status DC Potassium Bicarb/ Potassium Chloride (K-Lyte Cl Eff) 25 meq Q12HR PEG Last administered on 10/13/17at 21:00; Start 10/11/17 at 11:00; Stop 10/14/17 at 09:11 ; Status DC Pregabalin (Lyrica) 50 mg TID PEG Last administered on 10/16/17 09:19; Start at 09:00 Quetiapine Fumarate (SEROquel) 12.5 mg BID PEG Last administered on 10/16/17 09 :20; Start 10/03/17 at 21:00 Sennosides (Senokot) 17.2 mg Q12H PRN PO Moderate constipation; Start 10/01/17 at 18:30 Sodium Hypochlorite (Dakin'S 0.125% Soln) 500 ml DAILY TOPICAL Last administered on 10/16/17 09:22; Start 10/06/17 at 09:00 Sodium Polystyrene Sulfonate (Kayexalate Liq) 15 gm ONCE ONCE PO Last administered on 10/15/17at 14:02; Start 10/15/17 at 10:45; Stop 10/15/17 at 10:52; Status DC Sodium Chloride 1,000 ml @ 75 mls/hr [id number] IV Last administered on at 09:57; Start 10/02/17 at 17:45; Stop 10/03/17 at 17:26; Status DC Tamsulosin HCl (Flomax) 0.8 mg HS PO Last administered on 10/15/17at 21:54; Start 10/02/17 at 21:00 Vancomycin HCl (Vancomycin 25 Mg/ml Liq) 250 mg QID PEG Last administered on 10/16/17at 09:22; Start 10/02/17 at 18:00; Stop 10/24/17 at 12:00 Vancomycin HCl 1000 mg/Sodium Chloride 250 ml @ 250 mls/hr Q12H IV Last administered on 10/02/17at 05:02; Start 10/02/17 at 05:00; Stop 10/02/17 at 15:11 ; Status DC Date of Insertion: Oct 02, 2017 A/P Assessment and Plan A/P C diff colitis - improving. -Continue oral vanc per ID, extend 1 week after ciprofloxacin. Pseudomonas/Awa UTI- marquez associated, Marquez catheter changed, continue antibiotics, switched to ciprofloxacin. Also with Awa in the urine,will finish Diflucan today. Hx cervical spine abscess, history of IV drug use-drained and treated with Abx Hypernatremia- resolved continue with tube ffeding. hyperkalemia; resolved- stopped potassium replacement - Sacral decubitus Right hip ulcer wound care team nurse recommendation appreciated- Santyl ointment to area, wound care following. Acute respiratory failure with transient hypoxemia- likely from sepsis, on tracheostomy. Continue pulmonary toilet. 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 ct lidocaine patch avoid sedation For family-patient has been on Elavil for long period the new ones started at [facility] was Klonopin and Seroquel- Klonopin q 12 and Seroquel 12.5 mg bid - 10/03. Gradually wean, patient complaining of pain but appears comfortable. Patient came in with altered mental status, no further changes planned with medications. Dietitian ff- on Glucerna DM type 2-sliding scale insulin Insomnia-start Ally Morenox for DVT prophylaxis on PPI PT consulted Discharge Planning dc planning to SNF; patient does not want to go back to [facility]. d/w the case management. Neftaly Escobar MD Oct 16, 2017 10:39
[2017-10-16] MEDS: ZINC SULFATE 220 MG PEG SCH (12:32)
[2017-10-16] MEDS: RESP: ALBUTEROL 0.63 MG/3 ML NEB (PRN) NEB ×2 (12:42→18:14)
[2017-10-16] MEDS: FLUCONAZOLE 100 MG TAB PO SCH (17:16)
[2017-10-16] MEDS: ENOXAPARIN SODIUM 40 MG/0.4 ML SYRINGE SQ SCH (20:30)
[2017-10-16] MEDS: AMITRIPTYLINE HCL 50 MG TAB PEG SCH (20:30)
[2017-10-16] MEDS: TAMSULOSIN HCL 0.4 MG CAP PO SCH (20:31)
[2017-10-17] VITALS (8 sets, daily range): BP systolic 105–135; BP diastolic 71–89; PULSE 103–121; RESP 17–20; TEMP 97.2–98.9; O2SAT 94–98
[2017-10-17] MEDS: ALPRAZolam 0.25 MG TAB PO PRN ×2 (00:49→16:10)
[2017-10-17] MEDS: ACETAMINOPHEN/HYDROcodone 325 MG/5 MG TAB PEG PRN ×5 (00:50→21:41)
[2017-10-17] MEDS: INSULIN ASPART SUPPLEMENTAL SCALE SQ SCH ×5 (00:51→22:48)
[2017-10-17] MEDS: FAMOTIDINE 20 MG TAB PEG SCH ×2 (08:39→21:42)
[2017-10-17] MEDS: QUEtiapine FUMARATE 25 MG TAB PEG SCH ×2 (08:40→21:42)
[2017-10-17] MEDS: LACTOBACILLUS ACIDOPHILUS TAB PEG SCH ×3 (08:41→17:39)
[2017-10-17] MEDS: PREGABALIN 25 MG CAP PEG SCH ×3 (08:41→17:39)
[2017-10-17] MEDS: ASCORBIC ACID 500 MG TAB PEG SCH ×2 (08:42→21:41)
[2017-10-17] MEDS: ASPIRIN 81 MG CHEW TAB PEG SCH (08:42)
[2017-10-17] MEDS: CIPROFLOXACIN 500 MG TAB PO SCH ×2 (08:42→21:41)
[2017-10-17] MEDS: VANCOMYCIN 25 MG/ML SOLN 100 ML BOTTLE PEG SCH ×4 (08:43→21:42)
[2017-10-17] MEDS: clonazePAM 0.5 MG TAB PO SCH ×2 (08:44→21:41)
[2017-10-17] MEDS: LIDOCAINE HCL 5% PATCH T-DERMAL SCH (08:45)
[2017-10-17] MEDS: SODIUM HYPOCHLORITE 0.125% 500 ML BTL TOPICAL SCH (08:46)
[2017-10-17] MEDS: COLLAGENASE OINT 30 GM TUBE TOPICAL SCH (08:46)
[2017-10-17] MEDS: ZINC SULFATE 220 MG PEG SCH (11:44)
--- NOTE | 2017-10-17 11:50 | HHI.PR ---
Subjective Remarks in no acute distress. complaining of occasional cough. no fever. d/w the RN and no acute issues over night. Objective Vitals Vital Signs Date Time Temp Pulse Resp B/P (MAP) Pulse Ox O2 Delivery O2 Flow Rate FiO2 10/17/17 08:00 98.9 105 18 133/86 (102) 98 10/17/17 05:40 Trach Collar 28 10/17/17 04:00 97.5 103 18 132/84 (100) 97 10/17/17 00:00 97.9 121 18 135/89 (104) 95 10/16/17 20:00 98.0 124 18 120/75 (90) 93 10/16/17 18:14 99 Trach Collar 6.00 28 10/16/17 16:00 97.2 113 17 119/84 (96) 97 10/16/17 12:45 99 Trach Collar 28 10/16/17 12:00 97.8 112 17 107/76 (86) 96 I/O 10/16/17 10/16/17 10/16/17 10/17/17 10/17/17 10/17/17 07:00 15:00 23:00 07:00 15:00 23:00 Intake Total 1318 ml Output Total 1650 ml 1350 ml 10.0 ml Balance -1650 ml -32 ml -10.0 ml Intake Oral 600 ml Tube Feeding 718 ml Output Urine Total 1650 ml 1350 ml Tube Feeding Residual Discard 10.0 ml # Voids 5 Result Diagram: 10/14/17 0445 10/15/17 1605 Imaging Last Impressions Renal Ultrasound 10/03/17 0000 Signed Impressions: Service Date/Time: Tuesday, October 03, 2017 23:05 - CONCLUSION: No evidence of mass or hydronephrosis. Jose Sin MD Head CT 10/02/17 0039 Signed Impressions: Service Date/Time: Monday, October 02, 2017 01:45 - CONCLUSION: 1. No gross intracranial abnormality on this scan which is degraded by patient motion. Jose Sin MD Chest X-Ray 10/01/17 1518 Signed Impressions: Service Date/Time: Sunday, October 01, 2017 15:30 - CONCLUSION: Elevation left hemidiaphragm. Lungs are clear Remberto Aguilera MD FACR Objective Remarks GENERAL: This is a well-nourished, well-developed patient, in no apparent distress. Neck; trach in place CARDIOVASCULAR: Regular rate and regular rhythm without murmurs, gallops, or rubs. RESPIRATORY: Clear to auscultation. Breath sounds equal bilaterally. No wheezes , rales, or rhonchi. GASTROINTESTINAL: Abdomen soft, non-tender, nondistended. Normal, active bowel sounds- PEG in place. MUSCULOSKELETAL: Extremities without clubbing, cyanosis, or edema. NEURO: Alert & Oriented x4 to person, place, time, situation. Moves all ext x4 Medications and IVs Inpatient Medications Acetaminophen (Tylenol) 650 mg Q4H PRN PO fever >101 Last administered on 13:30; Start 10/03/17 at 05:00 Acetaminophen/ Hydrocodone Bitart ([place] 5-325 Mg) 1 tab Q4HR PRN PEG pain>5 Last administered on 10/17/17 08:44; Start 10/14/17 at 09:15 Albuterol Sulfate (Albuterol Neb) 0.63 mg Q6HR NEB PRN NEB SHORTNESS OF BREATH Last administered on 10/16/17 18:14; Start 10/02/17 at 01:00 Alprazolam (Xanax) 0.125 mg Q8HR PRN PO ANXIETY Last administered on 10/17/17 00:49; Start 10/14/17 at 11:30 Amitriptyline HCl (Elavil) 50 mg HS PEG Last administered on 10/16/17 20:30; Start 10/03/17 at 21:00 Ascorbic Acid (Vitamin C) 250 mg BID PEG Last administered on 10/17/17 08:42; Start 10/02/17 at 09:00 Aspirin (Aspirin Chew) 81 mg DAILY PEG Last administered on 10/17/17 08:42; Start 10/02/17 at 09:00 Bisacodyl (Dulcolax Supp) 10 mg DAILY PRN RECTAL SEVERE CONSITIPATION; Start at 18:30 Cefepime HCl 2000 mg/Sodium Chloride 100 ml @ 200 mls/hr Q8H IV Last administered on 10/11/17 13:14; Start 10/03/17 at 14:00; Stop 10/11/17 at 13:17 ; Status DC Ciprofloxacin (Cipro) 500 mg Q12HR PO Last administered on 10/17/17 08:42; Start 10/11/17 at 15:00; Stop 10/18/17 at 14:59 Citalopram Hydrobromide (CeleXA) 20 mg DAILY PEG Last administered on 09:55; Start 10/02/17 at 09:00; Stop 10/03/17 at 17:16; Status DC Clonazepam (KlonoPIN) 0.5 mg Q12HR PO Last administered on 10/17/17 08:44; Start 10/03/17 at 21:00 Collagenase (Santyl Oint) 1 applic DAILY TOPICAL Last administered on 10/17/17 08:46; Start 10/03/17 at 11:30 Dextrose 1,000 ml @ 50 mls/hr Q20H IV Last administered on 10/14/17 18:48; Start 10/13/17 at 21:30; Stop 10/15/17 at 10:46; Status DC Dextrose (D50w (Vial) Inj) 50 ml UNSCH PRN IV PUSH HYPOGLYCEMIA-SEE COMMENTS; Start 10/02/17 at 01:00 Enoxaparin Sodium (Lovenox Inj) 40 mg HS SQ Last administered on 10/16/17 20:30 ; Start 10/02/17 at 21:00 Famotidine (Pepcid) 20 mg BID PEG Last administered on 10/17/17 08:39; Start at 09:00 Fluconazole (Diflucan) 100 mg Q24H PO Last administered on 10/16/17 17:16; Start 10/10/17 at 16:00; Stop 10/16/17 at 23:00; Status DC Glucagon (Glucagon Inj) 1 mg UNSCH PRN OTHER HYPOGLYCEMIA-SEE COMMENTS; Start 10/02/17 at 01:00 Heparin Sodium (Porcine) (Heparin Inj) 5,000 units Q8H SQ Last administered on 10/01/17at 21:13; Start 10/01/17 at 20:00; Stop 10/02/17 at 01:12; Status DC Insulin Aspart (NovoLOG SUPPLEMENTAL SCALE) 1 ACHS SLIDING SCALE SQ Last administered on 10/17/17at 00:51; Start 10/02/17 at 08:00 Insulin Detemir (Levemir Inj) 10 units BID SQ ; Start 10/02/17 at 09:00; Status Future Hold Lactobacillus Acidophilus (Lactinex) 1 tab TID PEG Last administered on 08:41; Start 10/02/17 at 18:00 Lactulose (Lactulose Liq) 30 ml DAILY PRN PO SEVERE CONSITIPATION; Start at 18:30 Lidocaine HCl (Lidoderm 5% Patch.12 Hr) 1 patch DAILY T-DERMAL Last administered on 10/17/17at 08:45; Start 10/02/17 at 09:00 Lorazepam (Ativan Inj) 1 mg ONCE ONCE IV PUSH Last administered on 10/02/17 01:56; Start 10/02/17 at 01:45; Stop 10/02/17 at 01:46; Status DC Magnesium Hydroxide (Milk Of Magnesia Liq) 30 ml Q12H PRN PO Mild constipation ; Start 10/01/17 at 18:30 Mesalamine (Asacol Hd Dr) 1,600 mg Q8HR PO Last administered on 10/11/17at 13:14 ; Start 10/03/17 at 14:00; Stop 10/11/17 at 13:17; Status DC Metronidazole 100 ml @ 100 mls/hr Q6H IV Last administered on 10/02/17at 14:05 ; Start 10/02/17 at 02:00; Stop 10/02/17 at 15:11; Status DC Miscellaneous (Pill Splitter) 1 ea UNSCH PRN OTHER SEE LABEL COMMENTS; Start at 18:00 Naloxone HCl (Narcan Inj) 0.4 mg UNSCH PRN IV PUSH SEE LABEL COMMENTS; Start at 18:30 Non-Formulary Medication ZINC SULFATE 22... Q24H PEG Last administered on 12:32; Start 10/02/17 at 11:00 Pharmacy Profile Note 0 ml @ 0 mls/hr UNSCH OTHER ; Start 10/01/17 at 18:30; Stop 10/02/17 at 15:11; Status DC Piperacillin Sod/ Tazobactam Sod 100 ml @ 200 mls/hr Q6H IV Last administered on 10/03/17at 10:08; Start 10/01/17 at 21:00; Stop 10/03/17 at 12:16; Status DC Potassium Bicarbonate (Effer-K Eff) 50 meq ONCE ONCE PEG ; Start 10/04/17 at 15 :00; Stop 10/04/17 at 15:01; Status DC Potassium Chloride 20 meq/ Dextrose 510 ml @ 50 mls/hr [id number] IV Last administered on 10/10/17at 22:24; Start 10/07/17 at 23:00; Stop 10/11/17 at 10:33 ; Status DC Potassium Chloride 20 meq/ Sodium Chloride 38.5 meq/Sterile Water 1,019.625 ml @ 70 mls/hr [id number] IV Last administered on 10/03/17at 18:34; Start 10/03/17 at 17:00; Stop 10/04/17 at 13:00; Status DC Potassium Chloride 40 meq/ Dextrose 1,020 ml @ 50 mls/hr [id number] IV Last administered on 10/07/17at 00:00; Start 10/04/17 at 15:00; Stop 10/07/17 at 22:35 ; Status DC Potassium Bicarb/ Potassium Chloride (K-Lyte Cl Eff) 25 meq Q12HR PEG Last administered on 10/13/17at 21:00; Start 10/11/17 at 11:00; Stop 10/14/17 at 09:11 ; Status DC Pregabalin (Lyrica) 50 mg TID PEG Last administered on 10/17/17at 08:41; Start at 09:00 Quetiapine Fumarate (SEROquel) 12.5 mg BID PEG Last administered on 10/17/17at 08 :40; Start 10/03/17 at 21:00 Sennosides (Senokot) 17.2 mg Q12H PRN PO Moderate constipation; Start 10/01/17 at 18:30 Sodium Hypochlorite (Dakin'S 0.125% Soln) 500 ml DAILY TOPICAL Last administered on 10/17/17at 08:46; Start 10/06/17 at 09:00 Sodium Polystyrene Sulfonate (Kayexalate Liq) 15 gm ONCE ONCE PO Last administered on 10/15/17at 14:02; Start 10/15/17 at 10:45; Stop 10/15/17 at 10:52; Status DC Sodium Chloride 1,000 ml @ 75 mls/hr [id number] IV Last administered on at 09:57; Start 10/02/17 at 17:45; Stop 10/03/17 at 17:26; Status DC Tamsulosin HCl (Flomax) 0.8 mg HS PO Last administered on 10/16/17at 20:31; Start 10/02/17 at 21:00 Vancomycin HCl (Vancomycin 25 Mg/ml Liq) 250 mg QID PEG Last administered on 10/17/17at 08:43; Start 10/02/17 at 18:00; Stop 10/24/17 at 12:00 Vancomycin HCl 1000 mg/Sodium Chloride 250 ml @ 250 mls/hr Q12H IV Last administered on 10/02/17at 05:02; Start 10/02/17 at 05:00; Stop 10/02/17 at 15:11 ; Status DC Date of Insertion: Oct 02, 2017 A/P Assessment and Plan A/P C diff colitis - improving. -Continue oral vanc per ID, extend 1 week after ciprofloxacin. Pseudomonas/Awa UTI- marquez associated, Marquez catheter changed, continue antibiotics, switched to ciprofloxacin. finished the course of diflucan. Hx cervical spine abscess, history of IV drug use-drained and treated with Abx Hypernatremia- resolved continue with tube ffeding. hyperkalemia; resolved- stopped potassium replacement - Sacral decubitus Right hip ulcer wound care team nurse recommendation appreciated- Santyl ointment to area, wound care following. Acute respiratory failure with transient hypoxemia- likely from sepsis, on tracheostomy. Continue pulmonary toilet. Encephalopathy-resolved, minimize WELLNESS AMBASS[employer]OR depressing meds Chronic benzo- gradual taper Chronic pain Family feels speech is not baseline- they state that he is not on Klonopin prior to SNF- they feel that the [facility] overmedicated him lortab 5 ; increase to q 4hrs prn for pain ct lyrica. ct lidocaine patch avoid sedation For family-patient has been on Elavil for long period the new ones started at [place] was Klonopin and Seroquel- Klonopin q 12 and Seroquel 12.5 mg bid - 10/03. Gradually wean, patient complaining of pain but appears comfortable. Patient came in with altered mental status, no further changes planned with medications. Dietitian ff- on Glucerna DM type 2-sliding scale insulin Insomnia-start Ambien Lovenox for DVT prophylaxis on PPI PT consulted Discharge Planning dc planning to SNF; patient does not want to go back to [facility]. d/w the case management. Neftaly Escobar MD Oct 17, 2017 11:50
[2017-10-17] MEDS ORDERED: ALPR.5 PO (11:51)
[2017-10-17] MEDS ORDERED: CLON.5 PEG (11:51)
[2017-10-17] MEDS ORDERED: HYDR-3583 PEG (11:51)
[2017-10-17] MEDS: guaiFENesin SOLUTION 200 MG/10 ML CUP PO PRN (21:40)
[2017-10-17] MEDS: TAMSULOSIN HCL 0.4 MG CAP PO SCH (21:40)
[2017-10-17] MEDS: AMITRIPTYLINE HCL 50 MG TAB PEG SCH (21:41)
[2017-10-17] MEDS: ENOXAPARIN SODIUM 40 MG/0.4 ML SYRINGE SQ SCH (21:42)
[2017-10-18] VITALS (7 sets, daily range): BP systolic 96–115; BP diastolic 56–80; PULSE 108–119; RESP 17–20; TEMP 97–98.6; O2SAT 90–100
[2017-10-18] MEDS: ALPRAZolam 0.25 MG TAB PO PRN ×3 (03:39→18:24)
[2017-10-18] MEDS: guaiFENesin SOLUTION 200 MG/10 ML CUP PO PRN ×4 (03:39→21:26)
[2017-10-18] MEDS: ACETAMINOPHEN/HYDROcodone 325 MG/5 MG TAB PEG PRN ×5 (03:39→21:26)
[2017-10-18] MEDS: INSULIN ASPART SUPPLEMENTAL SCALE SQ SCH ×4 (08:24→21:00)
[2017-10-18] MEDS: VANCOMYCIN 25 MG/ML SOLN 100 ML BOTTLE PEG SCH ×4 (08:24→21:25)
[2017-10-18] MEDS: SODIUM HYPOCHLORITE 0.125% 500 ML BTL TOPICAL SCH (08:25)
[2017-10-18] MEDS: COLLAGENASE OINT 30 GM TUBE TOPICAL SCH (08:26)
[2017-10-18] MEDS: LIDOCAINE HCL 5% PATCH T-DERMAL SCH (08:27)
[2017-10-18] MEDS: PREGABALIN 25 MG CAP PEG SCH ×3 (08:27→18:22)
[2017-10-18] MEDS: clonazePAM 0.5 MG TAB PO SCH ×2 (08:28→21:26)
[2017-10-18] MEDS: FAMOTIDINE 20 MG TAB PEG SCH ×2 (08:28→21:27)
[2017-10-18] MEDS: LACTOBACILLUS ACIDOPHILUS TAB PEG SCH ×3 (08:29→18:22)
[2017-10-18] MEDS: ASPIRIN 81 MG CHEW TAB PEG SCH (08:29)
[2017-10-18] MEDS: CIPROFLOXACIN 500 MG TAB PO SCH (08:31)
[2017-10-18] MEDS: QUEtiapine FUMARATE 25 MG TAB PEG SCH ×2 (08:31→21:26)
[2017-10-18] MEDS: ASCORBIC ACID 500 MG TAB PEG SCH ×2 (08:32→21:26)
--- NOTE | 2017-10-18 08:46 | PD.WOU.PN ---
Patient Intake Chief Complaint Stage 4 sacral ulcer Consult Requested by Wound care nurse Reason for Consult Sacral ulcer managent Primary Care Physician Jeremias Rodriguez MD History of Present Illness Patient seen during wound care rounds today. Alert and oriented x3 at this time and requests sheet be taken off his body as he is claustrophobic. Present in the room is myself and Jocelyn Ledbetter RN [facility] and his assigned room nurse. He voices that he feels well otherwise. Coded Allergies: No Known Allergies (Unverified , 10/01/17) Preferred Language to Discuss: French Barriers to Learning: None Teaching Method: Discussion Vital Signs Date Time Temp Pulse Resp B/P (MAP) Pulse Ox O2 Delivery O2 Flow Rate FiO2 10/18/17 04:00 97.0 115 20 115/79 (91) 93 10/18/17 00:00 97.7 119 20 106/65 (79) 93 10/17/17 20:00 97.7 110 20 125/85 (98) 98 10/17/17 18:22 94 Trach Collar 6.00 28 10/17/17 16:00 97.2 107 17 115/75 (88) 94 10/17/17 13:12 97 Trach Collar 10/17/17 12:00 98.0 110 17 105/71 (82) 94 Past, Family & Social History Past Medical History Psychiatric: REPORTS HX OF: Other psychiatric history (claustrophobia) Disabilities: REPORTS HX OF: Paraplegia Review of Systems Integumentary: COMPLAINS OF: Slow to heal after cuts Neurological: COMPLAINS OF: Spinal Cord Injury Wound Assessment Bed bound Wound Information - Wound One 10/18/2017: This wound has metamorphosized now to a stage IV wound from unstageable. Wound dimensions this week are 4.6cmx4.4cm x2.5cm with undermining at 2and 3 oclock with deepest depth at 3 oclock of 0.5cm. There was slough as well as necrotic tissue fascia. This was debrided to subcutaneous tissue with removal with sterile scissor and forceps until a good clean bleeding base was achieved. Wound was then cleaned with dakins solution and normal saline and dakin moistened gauze left in wound bed for 5 minutes. Wound was then dressed with nickel sized santyl placed on the gauze with dakins moistened gauze and covered with bordered gauze. Calazime applied to the periwound and skin prep Wound Location: Sacrum Wound Type: Pressure Ulcer Pressure Stagin Wound Length: 4.6cm Wound Width: 4.4cm Wound Depth: 2.5cm Undermining @ O'clock: 2 and 3 oclock-depest depth at 3 oclock of 0.5cm Physical Exam Remarks GENERAL: Well-nourished, well-developed patient. SKIN: Warm and dry.See wound assessment notes HEAD: Normocephalic. EYES: No scleral icterus. No injection or drainage. NECK: Supple, trachea midline. No JVD or lymphadenopathy. trach CARDIOVASCULAR: Regular rate and rhythm without murmurs, gallops, or rubs. RESPIRATORY: Breath sounds equal bilaterally. No accessory muscle use. GASTROINTESTINAL: Abdomen soft, non-tender, nondistended. Feeding tube present EXTREMITIES: No cyanosis, or edema. NEUROLOGICAL: Awake, alert, and oriented x 3. Non-focal. General appearance: comfortable Nutritional status: normal Orientation: alert and oriented x3 Skin: FINDINGS: normal color, lesions (See wound asessment notes) Hair: general thinning Mental status: grossly normal Affect: normal Judgment: normal Lab and Radiology Results Radiology Last Impressions Renal Ultrasound 10/03/17 0000 Signed Impressions: Service Date/Time: Tuesday, October 03, 2017 23:05 - CONCLUSION: No evidence of mass or hydronephrosis. Jose Sin MD Head CT 10/02/17 0039 Signed Impressions: Service Date/Time: Monday, October 02, 2017 01:45 - CONCLUSION: 1. No gross intracranial abnormality on this scan which is degraded by patient motion. Jose Sin MD Chest X-Ray 10/01/17 1518 Signed Impressions: Service Date/Time: Sunday, October 01, 2017 15:30 - CONCLUSION: Elevation left hemidiaphragm. Lungs are clear Remberto Aguilera MD FACR Assessment/Plan Problem List: (1) Sacral decubitus ulcer, stage IV Status: Chronic Plan: There was slough as well as necrotic tissue fascia. This was debrided to subcutaneous tissue with removal with sterile scissor and forceps until a good clean bleeding base was achieved. Wound was then cleaned with dakins solution and normal saline and dakin moistened gauze left in wound bed for 5 minutes. Wound was then dressed with nickel sized santyl placed on the gauze with dakins moistened gauze and covered with bordered gauze. Calazime applied to the periwound and skin prep (2) Sepsis Status: Acute Plan: Currently on antibiotics. (3) Osteomyelitis Status: Chronic Plan: Currently on antibiotics (4) Paraplegia Status: Chronic Plan: Chronic and wheelchair bound. (5) Claustrophobia Status: Chronic Plan: Chronic state. Patient to avoid triggers. Ella Hernandez MD Oct 18, 2017 08:46
[2017-10-18] MEDS: ZINC SULFATE 220 MG PEG SCH (10:03)
--- NOTE | 2017-10-18 10:45 | HHI.PR ---
Subjective Remarks in no acute distress. looks somewhat anxious. otherwise no new complaints. d/w the RN. Objective Vitals Vital Signs Date Time Temp Pulse Resp B/P (MAP) Pulse Ox O2 Delivery O2 Flow Rate FiO2 10/18/17 08:00 98.6 109 17 96/56 (69) 92 10/18/17 04:00 97.0 115 20 115/79 (91) 93 10/18/17 00:00 97.7 119 20 106/65 (79) 93 10/17/17 20:00 97.7 110 20 125/85 (98) 98 10/17/17 18:22 94 Trach Collar 6.00 28 10/17/17 16:00 97.2 107 17 115/75 (88) 94 10/17/17 13:12 97 Trach Collar 10/17/17 12:00 98.0 110 17 105/71 (82) 94 I/O 10/17/17 10/17/17 10/17/17 10/18/17 10/18/17 10/18/17 07:00 15:00 23:00 07:00 15:00 23:00 Intake Total 875 ml 240 ml Output Total 15.0 ml 700 ml 5.0 ml Balance -15.0 ml 175 ml 240 ml -5.0 ml Intake Oral 875 ml 240 ml Output Urine Total 700 ml Tube Feeding Residual Discard 15.0 ml 5.0 ml # Voids 5 3 4 Result Diagram: 10/14/17 0445 10/15/17 1605 Imaging Last Impressions Renal Ultrasound 10/03/17 0000 Signed Impressions: Service Date/Time: Tuesday, October 03, 2017 23:05 - CONCLUSION: No evidence of mass or hydronephrosis. Jose Sin MD Head CT 10/02/17 0039 Signed Impressions: Service Date/Time: Monday, October 02, 2017 01:45 - CONCLUSION: 1. No gross intracranial abnormality on this scan which is degraded by patient motion. Jose Sin MD Chest X-Ray 10/01/17 1518 Signed Impressions: Service Date/Time: Sunday, October 01, 2017 15:30 - CONCLUSION: Elevation left hemidiaphragm. Lungs are clear Remberto Aguilera MD FACR Objective Remarks GENERAL: This is a well-nourished, well-developed patient, in no apparent distress. Neck; trach in place CARDIOVASCULAR: Regular rate and regular rhythm without murmurs, gallops, or rubs. RESPIRATORY: Clear to auscultation. Breath sounds equal bilaterally. No wheezes , rales, or rhonchi. GASTROINTESTINAL: Abdomen soft, non-tender, nondistended. Normal, active bowel sounds- PEG in place. MUSCULOSKELETAL: Extremities without clubbing, cyanosis, or edema. NEURO: Alert & Oriented x4 to person, place, time, situation. Moves all ext x4 Medications and IVs Inpatient Medications Acetaminophen (Tylenol) 650 mg Q4H PRN PO fever >101 Last administered on 13:30; Start 10/03/17 at 05:00 Acetaminophen/ Hydrocodone Bitart ([place] 5-325 Mg) 1 tab Q4HR PRN PEG pain>5 Last administered on 10/18/17 08:32; Start 10/14/17 at 09:15 Albuterol Sulfate (Albuterol Neb) 0.63 mg Q6HR NEB PRN NEB SHORTNESS OF BREATH Last administered on 10/16/17 18:14; Start 10/02/17 at 01:00 Alprazolam (Xanax) 0.125 mg Q8HR PRN PO ANXIETY Last administered on 10/18/17 03:39; Start 10/14/17 at 11:30 Amitriptyline HCl (Elavil) 50 mg HS PEG Last administered on 10/17/17 21:41; Start 10/03/17 at 21:00 Ascorbic Acid (Vitamin C) 250 mg BID PEG Last administered on 10/18/17 08:32; Start 10/02/17 at 09:00 Aspirin (Aspirin Chew) 81 mg DAILY PEG Last administered on 10/18/17 08:29; Start 10/02/17 at 09:00 Bisacodyl (Dulcolax Supp) 10 mg DAILY PRN RECTAL SEVERE CONSITIPATION; Start at 18:30 Cefepime HCl 2000 mg/Sodium Chloride 100 ml @ 200 mls/hr Q8H IV Last administered on 10/11/17 13:14; Start 10/03/17 at 14:00; Stop 10/11/17 at 13:17 ; Status DC Ciprofloxacin (Cipro) 500 mg Q12HR PO Last administered on 10/18/17 08:31; Start 10/11/17 at 15:00; Stop 10/18/17 at 14:59 Citalopram Hydrobromide (CeleXA) 20 mg DAILY PEG Last administered on at 09:55; Start 10/02/17 at 09:00; Stop 10/03/17 at 17:16; Status DC Clonazepam (KlonoPIN) 0.5 mg Q12HR PO Last administered on 10/18/17 08:28; Start 10/03/17 at 21:00 Collagenase (Santyl Oint) 1 applic DAILY TOPICAL Last administered on 10/18/17 08:26; Start 10/03/17 at 11:30 Dextrose 1,000 ml @ 50 mls/hr Q20H IV Last administered on 10/14/17 18:48; Start 10/13/17 at 21:30; Stop 10/15/17 at 10:46; Status DC Dextrose (D50w (Vial) Inj) 50 ml UNSCH PRN IV PUSH HYPOGLYCEMIA-SEE COMMENTS; Start 10/02/17 at 01:00 Enoxaparin Sodium (Lovenox Inj) 40 mg HS SQ Last administered on 10/17/17 21:42 ; Start 10/02/17 at 21:00 Famotidine (Pepcid) 20 mg BID PEG Last administered on 10/18/17 08:28; Start at 09:00 Fluconazole (Diflucan) 100 mg Q24H PO Last administered on 10/16/17 17:16; Start 10/10/17 at 16:00; Stop 10/16/17 at 23:00; Status DC Glucagon (Glucagon Inj) 1 mg UNSCH PRN OTHER HYPOGLYCEMIA-SEE COMMENTS; Start 10/02/17 at 01:00 Guaifenesin (Robitussin Liq) 200 mg Q4H PRN PO COUGH Last administered on 08:27; Start 10/17/17 at 12:00 Heparin Sodium (Porcine) (Heparin Inj) 5,000 units Q8H SQ Last administered on 10/01/17at 21:13; Start 10/01/17 at 20:00; Stop 10/02/17 at 01:12; Status DC Insulin Aspart (NovoLOG SUPPLEMENTAL SCALE) 1 ACHS SLIDING SCALE SQ Last administered on 10/18/17 08:24; Start 10/02/17 at 08:00 Insulin Detemir (Levemir Inj) 10 units BID SQ ; Start 10/02/17 at 09:00; Status Future Hold Lactobacillus Acidophilus (Lactinex) 1 tab TID PEG Last administered on 08:29; Start 10/02/17 at 18:00 Lactulose (Lactulose Liq) 30 ml DAILY PRN PO SEVERE CONSITIPATION; Start at 18:30 Lidocaine HCl (Lidoderm 5% Patch.12 Hr) 1 patch DAILY T-DERMAL Last administered on 10/18/17 08:27; Start 10/02/17 at 09:00 Lorazepam (Ativan Inj) 1 mg ONCE ONCE IV PUSH Last administered on 10/02/17at 01:56; Start 10/02/17 at 01:45; Stop 10/02/17 at 01:46; Status DC Magnesium Hydroxide (Milk Of Magnesia Liq) 30 ml Q12H PRN PO Mild constipation ; Start 10/01/17 at 18:30 Mesalamine (Asacol Hd Dr) 1,600 mg Q8HR PO Last administered on 10/11/17at 13:14 ; Start 10/03/17 at 14:00; Stop 10/11/17 at 13:17; Status DC Metronidazole 100 ml @ 100 mls/hr Q6H IV Last administered on 10/02/17at 14:05 ; Start 10/02/17 at 02:00; Stop 10/02/17 at 15:11; Status DC Miscellaneous (Pill Splitter) 1 ea UNSCH PRN OTHER SEE LABEL COMMENTS; Start at 18:00 Naloxone HCl (Narcan Inj) 0.4 mg UNSCH PRN IV PUSH SEE LABEL COMMENTS; Start at 18:30 Non-Formulary Medication ZINC SULFATE 22... Q24H PEG Last administered on at 10:03; Start 10/02/17 at 11:00 Pharmacy Profile Note 0 ml @ 0 mls/hr UNSCH OTHER ; Start 10/01/17 at 18:30; Stop 10/02/17 at 15:11; Status DC Piperacillin Sod/ Tazobactam Sod 100 ml @ 200 mls/hr Q6H IV Last administered on 10/03/17at 10:08; Start 10/01/17 at 21:00; Stop 10/03/17 at 12:16; Status DC Potassium Bicarbonate (Effer-K Eff) 50 meq ONCE ONCE PEG ; Start 10/04/17 at 15 :00; Stop 10/04/17 at 15:01; Status DC Potassium Chloride 20 meq/ Dextrose 510 ml @ 50 mls/hr [id number] IV Last administered on 10/10/17at 22:24; Start 10/07/17 at 23:00; Stop 10/11/17 at 10:33 ; Status DC Potassium Chloride 20 meq/ Sodium Chloride 38.5 meq/Sterile Water 1,019.625 ml @ 70 mls/hr [id number] IV Last administered on 10/03/17at 18:34; Start 10/03/17 at 17:00; Stop 10/04/17 at 13:00; Status DC Potassium Chloride 40 meq/ Dextrose 1,020 ml @ 50 mls/hr [id number] IV Last administered on 10/07/17at 00:00; Start 10/04/17 at 15:00; Stop 10/07/17 at 22:35 ; Status DC Potassium Bicarb/ Potassium Chloride (K-Lyte Cl Eff) 25 meq Q12HR PEG Last administered on 10/13/17at 21:00; Start 10/11/17 at 11:00; Stop 10/14/17 at 09:11 ; Status DC Pregabalin (Lyrica) 50 mg TID PEG Last administered on 10/18/17 08:27; Start at 09:00 Quetiapine Fumarate (SEROquel) 12.5 mg BID PEG Last administered on 10/18/17 08 :31; Start 10/03/17 at 21:00 Sennosides (Senokot) 17.2 mg Q12H PRN PO Moderate constipation; Start 10/01/17 at 18:30 Sodium Hypochlorite (Dakin'S 0.125% Soln) 500 ml DAILY TOPICAL Last administered on 10/18/17 08:25; Start 10/06/17 at 09:00 Sodium Polystyrene Sulfonate (Kayexalate Liq) 15 gm ONCE ONCE PO Last administered on 4/2/18at 14:02; Start 10/15/17 at 10:45; Stop 10/15/17 at 10:52; Status DC Sodium Chloride 1,000 ml @ 75 mls/hr [id number] IV Last administered on at 09:57; Start 10/02/17 at 17:45; Stop 10/03/17 at 17:26; Status DC Tamsulosin HCl (Flomax) 0.8 mg HS PO Last administered on 10/17/17at 21:40; Start 10/02/17 at 21:00 Vancomycin HCl (Vancomycin 25 Mg/ml Liq) 250 mg QID PEG Last administered on 10/18/17at 08:24; Start 10/02/17 at 18:00; Stop 10/24/17 at 12:00 Vancomycin HCl 1000 mg/Sodium Chloride 250 ml @ 250 mls/hr Q12H IV Last administered on 10/02/17at 05:02; Start 10/02/17 at 05:00; Stop 10/02/17 at 15:11 ; Status DC Date of Insertion: Oct 02, 2017 A/P Assessment and Plan A/P C diff colitis - improving. -Continue oral vanc per ID, extend 1 week after ciprofloxacin. Pseudomonas/Awa UTI- marquez associated, Marquez catheter changed, continue antibiotics, switched to ciprofloxacin. finished the course of diflucan. Hx cervical spine abscess, history of IV drug use-drained and treated with Abx Hypernatremia- resolved continue with tube ffeding. hyperkalemia; resolved- stopped potassium replacement - Sacral decubitus Right hip ulcer wound care team nurse recommendation appreciated- Santyl ointment to area, wound care following. Acute respiratory failure with transient hypoxemia- likely from sepsis, on tracheostomy. Continue pulmonary toilet. 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 d/w the case management. Neftaly Escobar MD Oct 18, 2017 10:44
--- NOTE | 2017-10-18 10:56 | PD.WCN.NOT ---
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 Reposition patient every 2 hours for comfort and offloading 2. Cleanse sacral wound with normal saline pat dry. 3. Apply Santyl to 0.125% dakin's solution moistened gauze and pack wound loosely to wound base. 4. Apply Calazime barrier cream to periwound. 5. Apply skin barrier film to intact skin before applying bordered gauze 6. Cover with dry boarder gauze change dressing daily or as needed for dislodgement/exudate 7. Apply Calazime barrier cream to perianal area. Additional Information: Patient seen on for follow up of wound care physician consult of sacral wound. Patient seen with Charisse Lepe RN and sports writer. Patient was turned to L side with maximum assistance. Removed dressing to reveal open wound to sacral area. Wound bed presents with ~20% facia, ~10% bone , ~40% red granulation tissue,and ~30% slough that is adherent.Periwound presents with circumferential partial thickness skin loss that is moisture related. Wound drainage is minimal and sero-sanguinous without odor. Doctor Hernandez debrided wound with scissors and forceps at bedside. Wound still noted with necrotic facia and slough. Wound measures 4.6cm x 4.4cmx 2.5cm. Undermining is present from 2 to 3o'clock deepest at 3 o'clock measuring 0.5cm.Wound was cleansed with 0.125% Dakin's solution and gauze pad after debridement.Applied Santyl to 0.125% Dakin's solution moistened gauze pad loosely packed to wound bed Applied Calazime barrier cream to moisture related partial thickness skin loss to periwound. Skin barrier film (skin prep) was applied to intact skin before covering wound with bordered gauze. Patient tolerated procedure well. Jocelyn Ledbetter [facility] Oct 18, 2017 10:56
[2017-10-18] MEDS: TAMSULOSIN HCL 0.4 MG CAP PO SCH (21:26)
[2017-10-18] MEDS: AMITRIPTYLINE HCL 50 MG TAB PEG SCH (21:27)
[2017-10-18] MEDS: ENOXAPARIN SODIUM 40 MG/0.4 ML SYRINGE SQ SCH (21:27)
[2017-10-19] VITALS (7 sets, daily range): BP systolic 102–129; BP diastolic 61–85; PULSE 104–121; RESP 17–22; TEMP 97.3–98.3; O2SAT 87–97
[2017-10-19] MEDS: ACETAMINOPHEN/HYDROcodone 325 MG/5 MG TAB PEG PRN ×3 (05:42→21:47)
[2017-10-19] MEDS: guaiFENesin SOLUTION 200 MG/10 ML CUP PO PRN ×2 (05:42→16:49)
[2017-10-19] MEDS: SODIUM HYPOCHLORITE 0.125% 500 ML BTL TOPICAL SCH (09:00)
[2017-10-19] MEDS: COLLAGENASE OINT 30 GM TUBE TOPICAL SCH (09:00)
[2017-10-19] MEDS: LIDOCAINE HCL 5% PATCH T-DERMAL SCH (09:28)
[2017-10-19] MEDS: PREGABALIN 25 MG CAP PEG SCH ×3 (09:31→17:48)
[2017-10-19] MEDS: ASPIRIN 81 MG CHEW TAB PEG SCH (09:31)
[2017-10-19] MEDS: QUEtiapine FUMARATE 25 MG TAB PEG SCH ×2 (09:31→21:47)
[2017-10-19] MEDS: LACTOBACILLUS ACIDOPHILUS TAB PEG SCH ×3 (09:31→17:48)
[2017-10-19] MEDS: clonazePAM 0.5 MG TAB PO SCH ×2 (09:32→21:48)
[2017-10-19] MEDS: FAMOTIDINE 20 MG TAB PEG SCH ×2 (09:32→21:47)
[2017-10-19] MEDS: VANCOMYCIN 25 MG/ML SOLN 100 ML BOTTLE PEG SCH ×4 (09:33→21:00)
[2017-10-19] MEDS: ASCORBIC ACID 500 MG TAB PEG SCH ×2 (09:33→21:47)
[2017-10-19] MEDS: INSULIN ASPART SUPPLEMENTAL SCALE SQ SCH ×4 (09:44→21:00)
--- NOTE | 2017-10-19 09:58 | HHI.PR ---
Subjective Remarks in no acute distress. doesn't report any new complaints. d/w the RN and no acute issues over night. Objective Vitals Vital Signs Date Time Temp Pulse Resp B/P (MAP) Pulse Ox O2 Delivery O2 Flow Rate FiO2 10/19/17 08:00 97.4 109 18 120/75 (90) 97 10/19/17 07:40 20 10/19/17 04:00 118 18 102/72 (82) 87 10/19/17 00:00 98.1 121 18 104/61 (75) 94 10/18/17 23:42 93 Trach Collar 28 10/18/17 20:00 97.3 118 18 114/80 (91) 90 10/18/17 19:34 20 10/18/17 16:00 98.5 108 18 112/69 (83) 100 10/18/17 12:00 97.3 109 17 111/66 (81) 92 I/O 10/18/17 10/18/17 10/18/17 10/19/17 10/19/17 10/19/17 07:00 15:00 23:00 07:00 15:00 23:00 Intake Total 240 ml 720 ml Output Total 5.0 ml 7 ml 600 ml Balance 240 ml -5.0 ml 713 ml -600 ml Intake Oral 240 ml 720 ml Output Urine Total 7 ml Stool Total 600 ml Tube Feeding Residual Discard 5.0 ml # Voids 4 3 Result Diagram: 10/15/17 1605 Imaging Last Impressions Renal Ultrasound 10/03/17 0000 Signed Impressions: Service Date/Time: Tuesday, October 03, 2017 23:05 - CONCLUSION: No evidence of mass or hydronephrosis. Jose Sin MD Head CT 10/02/17 0039 Signed Impressions: Service Date/Time: Monday, October 02, 2017 01:45 - CONCLUSION: 1. No gross intracranial abnormality on this scan which is degraded by patient motion. Jose Sin MD Chest X-Ray 10/01/17 1518 Signed Impressions: Service Date/Time: Sunday, October 01, 2017 15:30 - CONCLUSION: Elevation left hemidiaphragm. Lungs are clear Remberto Aguilera MD FACR Objective Remarks GENERAL: This is a well-nourished, well-developed patient, in no apparent distress. Neck; trach in place CARDIOVASCULAR: Regular rate and regular rhythm without murmurs, gallops, or rubs. RESPIRATORY: Clear to auscultation. Breath sounds equal bilaterally. No wheezes , rales, or rhonchi. GASTROINTESTINAL: Abdomen soft, non-tender, nondistended. Normal, active bowel sounds- PEG in place. MUSCULOSKELETAL: Extremities without clubbing, cyanosis, or edema. NEURO: Alert & Oriented x4 to person, place, time, situation. Moves all ext x4 Medications and IVs Inpatient Medications Acetaminophen (Tylenol) 650 mg Q4H PRN PO fever >101 Last administered on 13:30; Start 10/03/17 at 05:00 Acetaminophen/ Hydrocodone Bitart ([place] 5-325 Mg) 1 tab Q4HR PRN PEG pain>5 Last administered on 10/19/17 05:42; Start 10/14/17 at 09:15 Albuterol Sulfate (Albuterol Neb) 0.63 mg Q6HR NEB PRN NEB SHORTNESS OF BREATH Last administered on 10/16/17 18:14; Start 10/02/17 at 01:00 Alprazolam (Xanax) 0.25 mg Q6HR PRN PO ANXIETY Last administered on 10/18/17 18 :24; Start 10/18/17 at 11:45 Amitriptyline HCl (Elavil) 50 mg HS PEG Last administered on 10/18/17 21:27; Start 10/03/17 at 21:00 Ascorbic Acid (Vitamin C) 250 mg BID PEG Last administered on 10/19/17 09:33; Start 10/02/17 at 09:00 Aspirin (Aspirin Chew) 81 mg DAILY PEG Last administered on 10/19/17 09:31; Start 10/02/17 at 09:00 Bisacodyl (Dulcolax Supp) 10 mg DAILY PRN RECTAL SEVERE CONSITIPATION; Start at 18:30 Cefepime HCl 2000 mg/Sodium Chloride 100 ml @ 200 mls/hr Q8H IV Last administered on 10/11/17 13:14; Start 10/03/17 at 14:00; Stop 10/11/17 at 13:17 ; Status DC Ciprofloxacin (Cipro) 500 mg Q12HR PO Last administered on 10/18/17 08:31; Start 10/11/17 at 15:00; Stop 10/18/17 at 14:59; Status DC Citalopram Hydrobromide (CeleXA) 20 mg DAILY PEG Last administered on at 09:55; Start 10/02/17 at 09:00; Stop 10/03/17 at 17:16; Status DC Clonazepam (KlonoPIN) 0.5 mg Q12HR PO Last administered on 10/19/17 09:32; Start 10/03/17 at 21:00 Collagenase (Santyl Oint) 1 applic DAILY TOPICAL Last administered on 10/19/17 09:00; Start 10/03/17 at 11:30 Dextrose 1,000 ml @ 50 mls/hr Q20H IV Last administered on 10/14/17at 18:48; Start 10/13/17 at 21:30; Stop 10/15/17 at 10:46; Status DC Dextrose (D50w (Vial) Inj) 50 ml UNSCH PRN IV PUSH HYPOGLYCEMIA-SEE COMMENTS; Start 10/02/17 at 01:00 Enoxaparin Sodium (Lovenox Inj) 40 mg HS SQ Last administered on 10/18/17at 21:27 ; Start 10/02/17 at 21:00 Famotidine (Pepcid) 20 mg BID PEG Last administered on 10/19/17 09:32; Start at 09:00 Fluconazole (Diflucan) 100 mg Q24H PO Last administered on 10/16/17 17:16; Start 10/10/17 at 16:00; Stop 10/16/17 at 23:00; Status DC Glucagon (Glucagon Inj) 1 mg UNSCH PRN OTHER HYPOGLYCEMIA-SEE COMMENTS; Start 10/02/17 at 01:00 Guaifenesin (Robitussin Liq) 200 mg Q4H PRN PO COUGH Last administered on at 05:42; Start 10/17/17 at 12:00 Heparin Sodium (Porcine) (Heparin Inj) 5,000 units Q8H SQ Last administered on 10/01/17at 21:13; Start 10/01/17 at 20:00; Stop 10/02/17 at 01:12; Status DC Insulin Aspart (NovoLOG SUPPLEMENTAL SCALE) 1 ACHS SLIDING SCALE SQ Last administered on 10/19/17at 09:44; Start 10/02/17 at 08:00 Insulin Detemir (Levemir Inj) 10 units BID SQ ; Start 10/02/17 at 09:00; Status Future Hold Lactobacillus Acidophilus (Lactinex) 1 tab TID PEG Last administered on at 09:31; Start 10/02/17 at 18:00 Lactulose (Lactulose Liq) 30 ml DAILY PRN PO SEVERE CONSITIPATION; Start at 18:30 Lidocaine HCl (Lidoderm 5% Patch.12 Hr) 1 patch DAILY T-DERMAL Last administered on 10/19/17at 09:28; Start 10/02/17 at 09:00 Lorazepam (Ativan Inj) 1 mg ONCE ONCE IV PUSH Last administered on 10/02/17at 01:56; Start 10/02/17 at 01:45; Stop 10/02/17 at 01:46; Status DC Magnesium Hydroxide (Milk Of Magnesia Liq) 30 ml Q12H PRN PO Mild constipation ; Start 10/01/17 at 18:30 Mesalamine (Asacol Hd Dr) 1,600 mg Q8HR PO Last administered on 10/11/17at 13:14 ; Start 10/03/17 at 14:00; Stop 10/11/17 at 13:17; Status DC Metronidazole 100 ml @ 100 mls/hr Q6H IV Last administered on 10/02/17at 14:05 ; Start 10/02/17 at 02:00; Stop 10/02/17 at 15:11; Status DC Miscellaneous (Pill Splitter) 1 ea UNSCH PRN OTHER SEE LABEL COMMENTS; Start at 18:00 Naloxone HCl (Narcan Inj) 0.4 mg UNSCH PRN IV PUSH SEE LABEL COMMENTS; Start at 18:30 Non-Formulary Medication ZINC SULFATE 22... Q24H PEG Last administered on at 10:03; Start 10/02/17 at 11:00 Pharmacy Profile Note 0 ml @ 0 mls/hr UNSCH OTHER ; Start 10/01/17 at 18:30; Stop 10/02/17 at 15:11; Status DC Piperacillin Sod/ Tazobactam Sod 100 ml @ 200 mls/hr Q6H IV Last administered on 10/03/17at 10:08; Start 10/01/17 at 21:00; Stop 10/03/17 at 12:16; Status DC Potassium Bicarbonate (Effer-K Eff) 50 meq ONCE ONCE PEG ; Start 10/04/17 at 15 :00; Stop 10/04/17 at 15:01; Status DC Potassium Chloride 20 meq/ Dextrose 510 ml @ 50 mls/hr [id number] IV Last administered on 10/10/17at 22:24; Start 10/07/17 at 23:00; Stop 10/11/17 at 10:33 ; Status DC Potassium Chloride 20 meq/ Sodium Chloride 38.5 meq/Sterile Water 1,019.625 ml @ 70 mls/hr [id number] IV Last administered on 10/03/17at 18:34; Start 10/03/17 at 17:00; Stop 10/04/17 at 13:00; Status DC Potassium Chloride 40 meq/ Dextrose 1,020 ml @ 50 mls/hr [id number] IV Last administered on 10/07/17at 00:00; Start 10/04/17 at 15:00; Stop 10/07/17 at 22:35 ; Status DC Potassium Bicarb/ Potassium Chloride (K-Lyte Cl Eff) 25 meq Q12HR PEG Last administered on 10/13/17 21:00; Start 10/11/17 at 11:00; Stop 10/14/17 at 09:11 ; Status DC Pregabalin (Lyrica) 50 mg TID PEG Last administered on 10/19/17 09:31; Start at 09:00 Quetiapine Fumarate (SEROquel) 12.5 mg BID PEG Last administered on 10/19/17 09 :31; Start 10/03/17 at 21:00 Sennosides (Senokot) 17.2 mg Q12H PRN PO Moderate constipation; Start 10/01/17 at 18:30 Sodium Hypochlorite (Dakin'S 0.125% Soln) 500 ml DAILY TOPICAL Last administered on 10/19/17 09:00; Start 10/06/17 at 09:00 Sodium Polystyrene Sulfonate (Kayexalate Liq) 15 gm ONCE ONCE PO Last administered on 10/15/17at 14:02; Start 10/15/17 at 10:45; Stop 10/15/17 at 10:52; Status DC Sodium Chloride 1,000 ml @ 75 mls/hr [id number] IV Last administered on at 09:57; Start 10/02/17 at 17:45; Stop 10/03/17 at 17:26; Status DC Tamsulosin HCl (Flomax) 0.8 mg HS PO Last administered on 10/18/17at 21:26; Start 10/02/17 at 21:00 Vancomycin HCl (Vancomycin 25 Mg/ml Liq) 250 mg QID PEG Last administered on 10/19/17at 09:33; Start 10/02/17 at 18:00; Stop 10/24/17 at 12:00 Vancomycin HCl 1000 mg/Sodium Chloride 250 ml @ 250 mls/hr Q12H IV Last administered on 10/02/17at 05:02; Start 10/02/17 at 05:00; Stop 10/02/17 at 15:11 ; Status DC Date of Insertion: Oct 02, 2017 A/P Assessment and Plan A/P C diff colitis - improving. -Continue oral vanc per ID, extend 1 week after ciprofloxacin. Pseudomonas/Awa UTI- marquez associated, Marquez catheter changed- finished the course of antibiotics. Hx cervical spine abscess, history of IV drug use-drained and treated with Abx Hypernatremia- resolved continue with tube ffeding. hyperkalemia; resolved- stopped potassium replacement - Sacral decubitus Right hip ulcer wound care team nurse recommendation appreciated- Santyl ointment to area, wound care following. Acute respiratory failure with transient hypoxemia- likely from sepsis, on tracheostomy. Continue pulmonary toilet. 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 dc planning to SNF in progress. Neftaly Escobar MD Oct 19, 2017 09:58
[2017-10-19] MEDS: ZINC SULFATE 220 MG PEG SCH (12:08)
[2017-10-19] MEDS: ENOXAPARIN SODIUM 40 MG/0.4 ML SYRINGE SQ SCH (21:47)
[2017-10-19] MEDS: TAMSULOSIN HCL 0.4 MG CAP PO SCH (21:47)
[2017-10-19] MEDS: AMITRIPTYLINE HCL 50 MG TAB PEG SCH (21:47)
[2017-10-20] VITALS (7 sets, daily range): BP systolic 107–117; BP diastolic 72–110; PULSE 100–112; RESP 15–22; TEMP 97.3–98.2; O2SAT 90–98
[2017-10-20] MEDS: ACETAMINOPHEN/HYDROcodone 325 MG/5 MG TAB PEG PRN ×3 (04:00→17:10)
[2017-10-20] MEDS: COLLAGENASE OINT 30 GM TUBE TOPICAL SCH (09:00)
[2017-10-20] MEDS: ASPIRIN 81 MG CHEW TAB PEG SCH (09:33)
[2017-10-20] MEDS: FAMOTIDINE 20 MG TAB PEG SCH ×2 (09:33→22:07)
[2017-10-20] MEDS: LACTOBACILLUS ACIDOPHILUS TAB PEG SCH ×3 (09:33→17:10)
[2017-10-20] MEDS: ALPRAZolam 0.25 MG TAB PO PRN ×2 (09:33→22:07)
[2017-10-20] MEDS: clonazePAM 0.5 MG TAB PO SCH ×2 (09:33→22:07)
[2017-10-20] MEDS: PREGABALIN 25 MG CAP PEG SCH ×3 (09:33→17:10)
[2017-10-20] MEDS: QUEtiapine FUMARATE 25 MG TAB PEG SCH ×2 (09:34→22:07)
[2017-10-20] MEDS: ASCORBIC ACID 500 MG TAB PEG SCH ×2 (09:34→22:08)
[2017-10-20] MEDS: INSULIN ASPART SUPPLEMENTAL SCALE SQ SCH ×4 (09:35→21:00)
[2017-10-20] MEDS: LIDOCAINE HCL 5% PATCH T-DERMAL SCH (09:36)
[2017-10-20] MEDS: SODIUM HYPOCHLORITE 0.125% 500 ML BTL TOPICAL SCH (09:38)
[2017-10-20] MEDS: VANCOMYCIN 25 MG/ML SOLN 100 ML BOTTLE PEG SCH ×4 (09:39→22:08)
--- NOTE | 2017-10-20 09:47 | HHI.PR ---
Subjective Remarks in no acute distress. afebrile. Objective Vitals Vital Signs Date Time Temp Pulse Resp B/P (MAP) Pulse Ox O2 Delivery O2 Flow Rate FiO2 10/20/17 08:00 97.4 100 15 /110 96 10/20/17 04:00 97.6 106 22 117/74 (88) 98 10/20/17 02:24 20 10/20/17 00:00 98.0 110 19 112/74 (87) 95 10/19/17 20:00 118 10/19/17 20:00 97.7 117 22 125/77 (93) 97 10/19/17 18:48 18 10/19/17 17:44 96 Trach Collar 6.00 28 10/19/17 16:00 97.3 106 17 129/78 (95) 96 10/19/17 12:00 98.3 109 17 129/85 (100) 97 10/19/17 12:00 104 I/O 10/19/17 10/19/17 10/19/17 10/20/17 10/20/17 10/20/17 07:00 15:00 23:00 07:00 15:00 23:00 Intake Total 720 ml 0 ml Output Total 600 ml 0 ml 600 ml Balance -600 ml 0 ml 720 ml -600 ml Intake Oral 720 ml 0 ml Output Urine Total 600 ml Stool Total 600 ml Tube Feeding Residual Discard 0 ml # Voids 3 3 1 Imaging Last Impressions Renal Ultrasound 10/03/17 0000 Signed Impressions: Service Date/Time: Tuesday, October 03, 2017 23:05 - CONCLUSION: No evidence of mass or hydronephrosis. Jose Sin MD Head CT 10/02/17 0039 Signed Impressions: Service Date/Time: Monday, October 02, 2017 01:45 - CONCLUSION: 1. No gross intracranial abnormality on this scan which is degraded by patient motion. Jose Sin MD Chest X-Ray 10/01/17 1518 Signed Impressions: Service Date/Time: Sunday, October 01, 2017 15:30 - CONCLUSION: Elevation left hemidiaphragm. Lungs are clear Remberto Aguilera MD FACR Objective Remarks GENERAL: This is a well-nourished, well-developed patient, in no apparent distress. Neck; trach in place CARDIOVASCULAR: Regular rate and regular rhythm without murmurs, gallops, or rubs. RESPIRATORY: Clear to auscultation. Breath sounds equal bilaterally. No wheezes , rales, or rhonchi. GASTROINTESTINAL: Abdomen soft, non-tender, nondistended. Normal, active bowel sounds- PEG in place. MUSCULOSKELETAL: Extremities without clubbing, cyanosis, or edema. NEURO: Alert & Oriented x4 to person, place, time, situation. Moves all ext x4 Medications and IVs Inpatient Medications Acetaminophen (Tylenol) 650 mg Q4H PRN PO fever >101 Last administered on 13:30; Start 10/03/17 at 05:00 Acetaminophen/ Hydrocodone Bitart ([place] 5-325 Mg) 1 tab Q4HR PRN PEG pain>5 Last administered on 10/20/17 04:00; Start 10/14/17 at 09:15 Albuterol Sulfate (Albuterol Neb) 0.63 mg Q6HR NEB PRN NEB SHORTNESS OF BREATH Last administered on 10/16/17 18:14; Start 10/02/17 at 01:00 Alprazolam (Xanax) 0.25 mg Q6HR PRN PO ANXIETY Last administered on 10/20/17 09 :33; Start 10/18/17 at 11:45 Amitriptyline HCl (Elavil) 50 mg HS PEG Last administered on 10/19/17 21:47; Start 10/03/17 at 21:00 Ascorbic Acid (Vitamin C) 250 mg BID PEG Last administered on 10/20/17 09:34; Start 10/02/17 at 09:00 Aspirin (Aspirin Chew) 81 mg DAILY PEG Last administered on 10/20/17 09:33; Start 10/02/17 at 09:00 Bisacodyl (Dulcolax Supp) 10 mg DAILY PRN RECTAL SEVERE CONSITIPATION; Start at 18:30 Cefepime HCl 2000 mg/Sodium Chloride 100 ml @ 200 mls/hr Q8H IV Last administered on 10/11/17 13:14; Start 10/03/17 at 14:00; Stop 10/11/17 at 13:17 ; Status DC Ciprofloxacin (Cipro) 500 mg Q12HR PO Last administered on 10/18/17 08:31; Start 10/11/17 at 15:00; Stop 10/18/17 at 14:59; Status DC Citalopram Hydrobromide (CeleXA) 20 mg DAILY PEG Last administered on at 09:55; Start 10/02/17 at 09:00; Stop 10/03/17 at 17:16; Status DC Clonazepam (KlonoPIN) 0.5 mg Q12HR PO Last administered on 10/20/17 09:33; Start 10/03/17 at 21:00 Collagenase (Santyl Oint) 1 applic DAILY TOPICAL Last administered on 10/20/17 09:00; Start 10/03/17 at 11:30 Dextrose 1,000 ml @ 50 mls/hr Q20H IV Last administered on 10/14/17 18:48; Start 10/13/17 at 21:30; Stop 10/15/17 at 10:46; Status DC Dextrose (D50w (Vial) Inj) 50 ml UNSCH PRN IV PUSH HYPOGLYCEMIA-SEE COMMENTS; Start 10/02/17 at 01:00 Enoxaparin Sodium (Lovenox Inj) 40 mg HS SQ Last administered on 10/19/17at 21:47 ; Start 10/02/17 at 21:00 Famotidine (Pepcid) 20 mg BID PEG Last administered on 10/20/17 09:33; Start at 09:00 Fluconazole (Diflucan) 100 mg Q24H PO Last administered on 10/16/17 17:16; Start 10/10/17 at 16:00; Stop 10/16/17 at 23:00; Status DC Glucagon (Glucagon Inj) 1 mg UNSCH PRN OTHER HYPOGLYCEMIA-SEE COMMENTS; Start 10/02/17 at 01:00 Guaifenesin (Robitussin Liq) 200 mg Q4H PRN PO COUGH Last administered on 16:49; Start 10/17/17 at 12:00 Heparin Sodium (Porcine) (Heparin Inj) 5,000 units Q8H SQ Last administered on 10/01/17 21:13; Start 10/01/17 at 20:00; Stop 10/02/17 at 01:12; Status DC Insulin Aspart (NovoLOG SUPPLEMENTAL SCALE) 1 ACHS SLIDING SCALE SQ Last administered on 10/20/17 09:35; Start 10/02/17 at 08:00 Insulin Detemir (Levemir Inj) 10 units BID SQ ; Start 10/02/17 at 09:00; Status Future Hold Lactobacillus Acidophilus (Lactinex) 1 tab TID PEG Last administered on at 09:33; Start 10/02/17 at 18:00 Lactulose (Lactulose Liq) 30 ml DAILY PRN PO SEVERE CONSITIPATION; Start at 18:30 Lidocaine HCl (Lidoderm 5% Patch.12 Hr) 1 patch DAILY T-DERMAL Last administered on 10/20/17 09:36; Start 10/02/17 at 09:00 Lorazepam (Ativan Inj) 1 mg ONCE ONCE IV PUSH Last administered on 10/02/17 01:56; Start 10/02/17 at 01:45; Stop 10/02/17 at 01:46; Status DC Magnesium Hydroxide (Milk Of Magnesia Liq) 30 ml Q12H PRN PO Mild constipation ; Start 10/01/17 at 18:30 Mesalamine (Asacol Hd Dr) 1,600 mg Q8HR PO Last administered on 10/11/17at 13:14 ; Start 10/03/17 at 14:00; Stop 10/11/17 at 13:17; Status DC Metronidazole 100 ml @ 100 mls/hr Q6H IV Last administered on 10/02/17at 14:05 ; Start 10/02/17 at 02:00; Stop 10/02/17 at 15:11; Status DC Miscellaneous (Pill Splitter) 1 ea UNSCH PRN OTHER SEE LABEL COMMENTS; Start at 18:00 Naloxone HCl (Narcan Inj) 0.4 mg UNSCH PRN IV PUSH SEE LABEL COMMENTS; Start at 18:30 Non-Formulary Medication ZINC SULFATE 22... Q24H PEG Last administered on at 12:08; Start 10/02/17 at 11:00 Pharmacy Profile Note 0 ml @ 0 mls/hr UNSCH OTHER ; Start 10/01/17 at 18:30; Stop 10/02/17 at 15:11; Status DC Piperacillin Sod/ Tazobactam Sod 100 ml @ 200 mls/hr Q6H IV Last administered on 10/03/17at 10:08; Start 10/01/17 at 21:00; Stop 10/03/17 at 12:16; Status DC Potassium Bicarbonate (Effer-K Eff) 50 meq ONCE ONCE PEG ; Start 10/04/17 at 15 :00; Stop 10/04/17 at 15:01; Status DC Potassium Chloride 20 meq/ Dextrose 510 ml @ 50 mls/hr [id number] IV Last administered on 10/10/17at 22:24; Start 10/07/17 at 23:00; Stop 10/11/17 at 10:33 ; Status DC Potassium Chloride 20 meq/ Sodium Chloride 38.5 meq/Sterile Water 1,019.625 ml @ 70 mls/hr [id number] IV Last administered on 10/03/17at 18:34; Start 10/03/17 at 17:00; Stop 10/04/17 at 13:00; Status DC Potassium Chloride 40 meq/ Dextrose 1,020 ml @ 50 mls/hr [id number] IV Last administered on 10/07/17at 00:00; Start 10/04/17 at 15:00; Stop 10/07/17 at 22:35 ; Status DC Potassium Bicarb/ Potassium Chloride (K-Lyte Cl Eff) 25 meq Q12HR PEG Last administered on 10/13/17at 21:00; Start 10/11/17 at 11:00; Stop 10/14/17 at 09:11 ; Status DC Pregabalin (Lyrica) 50 mg TID PEG Last administered on 10/20/17at 09:33; Start at 09:00 Quetiapine Fumarate (SEROquel) 12.5 mg BID PEG Last administered on 10/20/17at 09 :34; Start 10/03/17 at 21:00 Sennosides (Senokot) 17.2 mg Q12H PRN PO Moderate constipation; Start 10/01/17 at 18:30 Sodium Hypochlorite (Dakin'S 0.125% Soln) 500 ml DAILY TOPICAL Last administered on 10/20/17at 09:38; Start 10/06/17 at 09:00 Sodium Polystyrene Sulfonate (Kayexalate Liq) 15 gm ONCE ONCE PO Last administered on 10/15/17at 14:02; Start 10/15/17 at 10:45; Stop 10/15/17 at 10:52; Status DC Sodium Chloride 1,000 ml @ 75 mls/hr [id number] IV Last administered on at 09:57; Start 10/02/17 at 17:45; Stop 10/03/17 at 17:26; Status DC Tamsulosin HCl (Flomax) 0.8 mg HS PO Last administered on 10/19/17at 21:47; Start 10/02/17 at 21:00 Vancomycin HCl (Vancomycin 25 Mg/ml Liq) 250 mg QID PEG Last administered on 10/20/17at 09:39; Start 10/02/17 at 18:00; Stop 10/24/17 at 12:00 Vancomycin HCl 1000 mg/Sodium Chloride 250 ml @ 250 mls/hr Q12H IV Last administered on 10/02/17at 05:02; Start 10/02/17 at 05:00; Stop 10/02/17 at 15:11 ; Status DC Date of Insertion: Oct 02, 2017 A/P Assessment and Plan A/P C diff colitis - improving. -Continue oral vanc per ID, extend 1 week after ciprofloxacin. Pseudomonas/Awa UTI- marquez associated, Marquez catheter changed- finished the course of antibiotics. Hx cervical spine abscess, history of IV drug use-drained and treated with Abx Hypernatremia- resolved continue with tube feeding. hyperkalemia; resolved- stopped potassium replacement - Sacral decubitus Right hip ulcer wound care team nurse recommendation appreciated- Santyl ointment to area, wound care following. Acute respiratory failure with transient hypoxemia- likely from sepsis, on tracheostomy. Continue pulmonary toilet. Encephalopathy-resolved, minimize [employer] depressing meds Chronic benzo- Chronic pain avoid sedation continue Seroquel,Klonopin and Xanax continue with pain control Dietitian ff- on Glucerna DM type 2-sliding scale insulin Insomnia-start Ambien Lovenox for DVT prophylaxis on PPI PT consulted Discharge Planning dc planning to SNF in progress. Neftaly Escobar MD Oct 20, 2017 09:47
[2017-10-20] MEDS: ZINC SULFATE 220 MG PEG SCH (11:00)
[2017-10-20] MEDS: RESP: ALBUTEROL 0.63 MG/3 ML NEB (PRN) NEB (21:07)
[2017-10-20] MEDS: TAMSULOSIN HCL 0.4 MG CAP PO SCH (22:07)
[2017-10-20] MEDS: AMITRIPTYLINE HCL 50 MG TAB PEG SCH (22:08)
[2017-10-20] MEDS: ENOXAPARIN SODIUM 40 MG/0.4 ML SYRINGE SQ SCH (22:08)
[2017-10-21] VITALS (9 sets, daily range): BP systolic 104–122; BP diastolic 71–85; PULSE 98–124; RESP 16–18; TEMP 97.3–97.9; O2SAT 92–100
[2017-10-21] MEDS: INSULIN ASPART SUPPLEMENTAL SCALE SQ SCH ×4 (08:00→22:30)
[2017-10-21] MEDS: ACETAMINOPHEN/HYDROcodone 325 MG/5 MG TAB PEG PRN ×3 (08:51→22:02)
[2017-10-21] MEDS: ALPRAZolam 0.25 MG TAB PO PRN ×3 (08:51→22:02)
[2017-10-21] MEDS: FAMOTIDINE 20 MG TAB PEG SCH ×2 (08:51→21:49)
[2017-10-21] MEDS: LACTOBACILLUS ACIDOPHILUS TAB PEG SCH ×3 (08:51→16:56)
[2017-10-21] MEDS: PREGABALIN 25 MG CAP PEG SCH ×3 (08:51→16:57)
[2017-10-21] MEDS: LIDOCAINE HCL 5% PATCH T-DERMAL SCH ×2 (09:00→09:09)
[2017-10-21] MEDS: COLLAGENASE OINT 30 GM TUBE TOPICAL SCH (09:00)
[2017-10-21] MEDS: ASPIRIN 81 MG CHEW TAB PEG SCH (09:00)
[2017-10-21] MEDS: clonazePAM 0.5 MG TAB PO SCH ×2 (09:00→21:49)
[2017-10-21] MEDS: ASCORBIC ACID 500 MG TAB PEG SCH ×2 (09:01→21:50)
[2017-10-21] MEDS: QUEtiapine FUMARATE 25 MG TAB PEG SCH ×2 (09:01→21:50)
[2017-10-21] MEDS: VANCOMYCIN 25 MG/ML SOLN 100 ML BOTTLE PEG SCH ×4 (09:07→22:31)
[2017-10-21] MEDS: SODIUM HYPOCHLORITE 0.125% 500 ML BTL TOPICAL SCH (09:08)
--- NOTE | 2017-10-21 11:41 | HHI.PR ---
Subjective Remarks in no acute distress. no new complaints. no fever. d/w the RN. Objective Vitals Vital Signs Date Time Temp Pulse Resp B/P (MAP) Pulse Ox O2 Delivery O2 Flow Rate FiO2 10/21/17 08:00 97.6 114 17 104/75 (85) 96 10/21/17 04:00 97.9 118 18 122/83 (96) 96 10/21/17 00:00 97.8 124 18 112/72 (85) 93 10/20/17 21:15 98 T-piece 5.00 28 10/20/17 20:00 98.2 112 18 113/74 (87) 90 10/20/17 16:00 97.8 112 16 117/79 (92) 97 10/20/17 12:35 T-piece 28.00 10/20/17 12:00 97.3 106 16 107/72 (84) 96 I/O 10/20/17 10/20/17 10/20/17 10/21/17 10/21/17 10/21/17 07:00 15:00 23:00 07:00 15:00 23:00 Intake Total 0 ml 640 ml 240 ml Output Total 600 ml 1000 ml 750 ml Balance -600 ml -360 ml -510 ml Intake Oral 0 ml 240 ml 240 ml Tube Feeding 400 ml Output Urine Total 600 ml 1000 ml 750 ml # Voids 1 Imaging Last Impressions Renal Ultrasound 10/03/17 0000 Signed Impressions: Service Date/Time: Tuesday, October 03, 2017 23:05 - CONCLUSION: No evidence of mass or hydronephrosis. Jose Sin MD Head CT 10/02/17 0039 Signed Impressions: Service Date/Time: Monday, October 02, 2017 01:45 - CONCLUSION: 1. No gross intracranial abnormality on this scan which is degraded by patient motion. Jose Sin MD Chest X-Ray 10/01/17 1518 Signed Impressions: Service Date/Time: Sunday, October 01, 2017 15:30 - CONCLUSION: Elevation left hemidiaphragm. Lungs are clear Remberto Aguilera MD FACR Objective Remarks GENERAL: This is a well-nourished, well-developed patient, in no apparent distress. Neck; trach in place CARDIOVASCULAR: Regular rate and regular rhythm without murmurs, gallops, or rubs. RESPIRATORY: Clear to auscultation. Breath sounds equal bilaterally. No wheezes , rales, or rhonchi. GASTROINTESTINAL: Abdomen soft, non-tender, nondistended. Normal, active bowel sounds- PEG in place. MUSCULOSKELETAL: Extremities without clubbing, cyanosis, or edema. NEURO: Alert & Oriented x4 to person, place, time, situation. Moves all ext x4 Medications and IVs Inpatient Medications Acetaminophen (Tylenol) 650 mg Q4H PRN PO fever >101 Last administered on 13:30; Start 10/03/17 at 05:00 Acetaminophen/ Hydrocodone Bitart ([place] 5-325 Mg) 1 tab Q4HR PRN PEG pain>5 Last administered on 10/21/17 08:51; Start 10/14/17 at 09:15 Albuterol Sulfate (Albuterol Neb) 0.63 mg Q6HR NEB PRN NEB SHORTNESS OF BREATH Last administered on 10/20/17 21:07; Start 10/02/17 at 01:00 Alprazolam (Xanax) 0.25 mg Q6HR PRN PO ANXIETY Last administered on 10/21/17 08 :51; Start 10/18/17 at 11:45 Amitriptyline HCl (Elavil) 50 mg HS PEG Last administered on 10/20/17 22:08; Start 10/03/17 at 21:00 Ascorbic Acid (Vitamin C) 250 mg BID PEG Last administered on 10/21/17 09:01; Start 10/02/17 at 09:00 Aspirin (Aspirin Chew) 81 mg DAILY PEG Last administered on 10/21/17 09:00; Start 10/02/17 at 09:00 Bisacodyl (Dulcolax Supp) 10 mg DAILY PRN RECTAL SEVERE CONSITIPATION; Start at 18:30 Cefepime HCl 2000 mg/Sodium Chloride 100 ml @ 200 mls/hr Q8H IV Last administered on 10/11/17 13:14; Start 10/03/17 at 14:00; Stop 10/11/17 at 13:17 ; Status DC Ciprofloxacin (Cipro) 500 mg Q12HR PO Last administered on 10/18/17 08:31; Start 10/11/17 at 15:00; Stop 10/18/17 at 14:59; Status DC Citalopram Hydrobromide (CeleXA) 20 mg DAILY PEG Last administered on at 09:55; Start 10/02/17 at 09:00; Stop 10/03/17 at 17:16; Status DC Clonazepam (KlonoPIN) 0.5 mg Q12HR PO Last administered on 10/21/17 09:00; Start 10/03/17 at 21:00 Collagenase (Santyl Oint) 1 applic DAILY TOPICAL Last administered on 10/21/17 09:00; Start 10/03/17 at 11:30 Dextrose 1,000 ml @ 50 mls/hr Q20H IV Last administered on 10/14/17 18:48; Start 10/13/17 at 21:30; Stop 10/15/17 at 10:46; Status DC Dextrose (D50w (Vial) Inj) 50 ml UNSCH PRN IV PUSH HYPOGLYCEMIA-SEE COMMENTS; Start 10/02/17 at 01:00 Enoxaparin Sodium (Lovenox Inj) 40 mg HS SQ Last administered on 10/20/17at 22:08 ; Start 10/02/17 at 21:00 Famotidine (Pepcid) 20 mg BID PEG Last administered on 10/21/17at 08:51; Start at 09:00 Fluconazole (Diflucan) 100 mg Q24H PO Last administered on 10/16/17 17:16; Start 10/10/17 at 16:00; Stop 10/16/17 at 23:00; Status DC Glucagon (Glucagon Inj) 1 mg UNSCH PRN OTHER HYPOGLYCEMIA-SEE COMMENTS; Start 10/02/17 at 01:00 Guaifenesin (Robitussin Liq) 200 mg Q4H PRN PO COUGH Last administered on at 16:49; Start 10/17/17 at 12:00 Heparin Sodium (Porcine) (Heparin Inj) 5,000 units Q8H SQ Last administered on 10/01/17at 21:13; Start 10/01/17 at 20:00; Stop 10/02/17 at 01:12; Status DC Insulin Aspart (NovoLOG SUPPLEMENTAL SCALE) 1 ACHS SLIDING SCALE SQ Last administered on 10/21/17at 08:00; Start 10/02/17 at 08:00 Insulin Detemir (Levemir Inj) 10 units BID SQ ; Start 10/02/17 at 09:00; Status Future Hold Lactobacillus Acidophilus (Lactinex) 1 tab TID PEG Last administered on at 08:51; Start 10/02/17 at 18:00 Lactulose (Lactulose Liq) 30 ml DAILY PRN PO SEVERE CONSITIPATION; Start at 18:30 Lidocaine HCl (Lidoderm 5% Patch.12 Hr) 1 patch DAILY T-DERMAL Last administered on 10/21/17at 09:00; Start 10/02/17 at 09:00 Lorazepam (Ativan Inj) 1 mg ONCE ONCE IV PUSH Last administered on 10/02/17at 01:56; Start 10/02/17 at 01:45; Stop 10/02/17 at 01:46; Status DC Magnesium Hydroxide (Milk Of Magnesia Liq) 30 ml Q12H PRN PO Mild constipation ; Start 10/01/17 at 18:30 Mesalamine (Asacol Hd Dr) 1,600 mg Q8HR PO Last administered on 10/11/17at 13:14 ; Start 10/03/17 at 14:00; Stop 10/11/17 at 13:17; Status DC Metronidazole 100 ml @ 100 mls/hr Q6H IV Last administered on 10/02/17at 14:05 ; Start 10/02/17 at 02:00; Stop 10/02/17 at 15:11; Status DC Miscellaneous (Pill Splitter) 1 ea UNSCH PRN OTHER SEE LABEL COMMENTS; Start at 18:00 Naloxone HCl (Narcan Inj) 0.4 mg UNSCH PRN IV PUSH SEE LABEL COMMENTS; Start at 18:30 Non-Formulary Medication ZINC SULFATE 22... Q24H PEG Last administered on at 11:00; Start 10/02/17 at 11:00 Pharmacy Profile Note 0 ml @ 0 mls/hr UNSCH OTHER ; Start 10/01/17 at 18:30; Stop 10/02/17 at 15:11; Status DC Piperacillin Sod/ Tazobactam Sod 100 ml @ 200 mls/hr Q6H IV Last administered on 10/03/17at 10:08; Start 10/01/17 at 21:00; Stop 10/03/17 at 12:16; Status DC Potassium Bicarbonate (Effer-K Eff) 50 meq ONCE ONCE PEG ; Start 10/04/17 at 15 :00; Stop 10/04/17 at 15:01; Status DC Potassium Chloride 20 meq/ Dextrose 510 ml @ 50 mls/hr [id number] IV Last administered on 10/10/17at 22:24; Start 10/07/17 at 23:00; Stop 10/11/17 at 10:33 ; Status DC Potassium Chloride 20 meq/ Sodium Chloride 38.5 meq/Sterile Water 1,019.625 ml @ 70 mls/hr [id number] IV Last administered on 10/03/17at 18:34; Start 10/03/17 at 17:00; Stop 10/04/17 at 13:00; Status DC Potassium Chloride 40 meq/ Dextrose 1,020 ml @ 50 mls/hr [id number] IV Last administered on 10/07/17at 00:00; Start 10/04/17 at 15:00; Stop 10/07/17 at 22:35 ; Status DC Potassium Bicarb/ Potassium Chloride (K-Lyte Cl Eff) 25 meq Q12HR PEG Last administered on 10/13/17at 21:00; Start 10/11/17 at 11:00; Stop 10/14/17 at 09:11 ; Status DC Pregabalin (Lyrica) 50 mg TID PEG Last administered on 10/21/17at 08:51; Start at 09:00 Quetiapine Fumarate (SEROquel) 12.5 mg BID PEG Last administered on 10/21/17at 09 :01; Start 10/03/17 at 21:00 Sennosides (Senokot) 17.2 mg Q12H PRN PO Moderate constipation; Start 10/01/17 at 18:30 Sodium Hypochlorite (Dakin'S 0.125% Soln) 500 ml DAILY TOPICAL Last administered on 10/21/17at 09:08; Start 10/06/17 at 09:00 Sodium Polystyrene Sulfonate (Kayexalate Liq) 15 gm ONCE ONCE PO Last administered on 10/15/17at 14:02; Start 10/15/17 at 10:45; Stop 10/15/17 at 10:52; Status DC Sodium Chloride 1,000 ml @ 75 mls/hr [id number] IV Last administered on at 09:57; Start 10/02/17 at 17:45; Stop 10/03/17 at 17:26; Status DC Tamsulosin HCl (Flomax) 0.8 mg HS PO Last administered on 10/20/17at 22:07; Start 10/02/17 at 21:00 Vancomycin HCl (Vancomycin 25 Mg/ml Liq) 250 mg QID PEG Last administered on 10/21/17at 09:07; Start 10/02/17 at 18:00; Stop 10/24/17 at 12:00 Vancomycin HCl 1000 mg/Sodium Chloride 250 ml @ 250 mls/hr Q12H IV Last administered on 10/02/17at 05:02; Start 10/02/17 at 05:00; Stop 10/02/17 at 15:11 ; Status DC Date of Insertion: Oct 02, 2017 A/P Assessment and Plan A/P C diff colitis - improving. -Continue oral vanc per ID, extend 1 week after ciprofloxacin. Pseudomonas/Awa UTI- marquez associated, Marquez catheter changed- finished the course of antibiotics. Hx cervical spine abscess, history of IV drug use-drained and treated with Abx Hypernatremia- resolved continue with tube feeding. hyperkalemia; resolved- stopped potassium replacement - Sacral decubitus Right hip ulcer wound care team nurse recommendation appreciated- Santyl ointment to area, wound care following. Acute respiratory failure with transient hypoxemia- likely from sepsis, on tracheostomy. Continue pulmonary toilet. 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 Neftaly Escobar MD Oct 21, 2017 11:41
[2017-10-21] MEDS: ZINC SULFATE 220 MG PEG SCH (12:15)
[2017-10-21] MEDS: HYOSCYAMINE 0.125 MG TAB PO PRN ×2 (16:56→22:02)
[2017-10-21] MEDS: AMITRIPTYLINE HCL 50 MG TAB PEG SCH (21:49)
[2017-10-21] MEDS: TAMSULOSIN HCL 0.4 MG CAP PO SCH (21:50)
[2017-10-21] MEDS: ENOXAPARIN SODIUM 40 MG/0.4 ML SYRINGE SQ SCH (21:55)
[2017-10-22] VITALS (7 sets, daily range): BP systolic 98–119; BP diastolic 67–81; PULSE 94–114; RESP 17–24; TEMP 97.1–98.1; O2SAT 95–97
[2017-10-22] MEDS: ALPRAZolam 0.25 MG TAB PO PRN ×3 (03:17→17:43)
[2017-10-22] MEDS: ACETAMINOPHEN/HYDROcodone 325 MG/5 MG TAB PEG PRN ×5 (03:17→21:55)
[2017-10-22] MEDS: HYOSCYAMINE 0.125 MG TAB PO PRN ×3 (03:53→17:44)
[2017-10-22] MEDS: COLLAGENASE OINT 30 GM TUBE TOPICAL SCH (09:00)
[2017-10-22] MEDS: SODIUM HYPOCHLORITE 0.125% 500 ML BTL TOPICAL SCH (09:00)
[2017-10-22] MEDS: FAMOTIDINE 20 MG TAB PEG SCH ×2 (09:03→21:50)
[2017-10-22] MEDS: LACTOBACILLUS ACIDOPHILUS TAB PEG SCH ×3 (09:03→17:43)
[2017-10-22] MEDS: PREGABALIN 25 MG CAP PEG SCH ×3 (09:04→17:44)
[2017-10-22] MEDS: clonazePAM 0.5 MG TAB PO SCH (09:04)
[2017-10-22] MEDS: ASPIRIN 81 MG CHEW TAB PEG SCH (09:04)
[2017-10-22] MEDS: ASCORBIC ACID 500 MG TAB PEG SCH ×2 (09:04→21:49)
[2017-10-22] MEDS: QUEtiapine FUMARATE 25 MG TAB PEG SCH ×2 (09:04→21:51)
[2017-10-22] MEDS: VANCOMYCIN 500 MG VIAL (FOR ORAL USE ONLY) PEG SCH ×4 (09:05→21:51)
[2017-10-22] MEDS: ZINC SULFATE 220 MG PEG SCH (09:06)
[2017-10-22] MEDS: LIDOCAINE HCL 5% PATCH T-DERMAL SCH (09:06)
[2017-10-22] MEDS: INSULIN ASPART SUPPLEMENTAL SCALE SQ SCH ×4 (09:10→21:00)
--- NOTE | 2017-10-22 12:19 | HHI.PR ---
Subjective Remarks in no acute distress. doesn't report any new complaints. d/w the RN and no acute issues over night. Objective Vitals Vital Signs Date Time Temp Pulse Resp B/P (MAP) Pulse Ox O2 Delivery O2 Flow Rate FiO2 10/22/17 10:42 96 Trach Collar 35 10/22/17 09:22 Trach Collar 9.00 35 10/22/17 04:00 109 22 98/73 (81) 96 10/22/17 00:00 98.1 110 18 117/77 (90) 96 10/21/17 23:59 112 10/21/17 21:47 96 T-Piece 6.00 28 Humidified 10/21/17 20:04 106 10/21/17 20:00 97.3 105 18 119/85 (96) 96 10/21/17 16:00 97.9 98 16 112/71 (85) 99 I/O 10/21/17 10/21/17 10/21/17 10/22/17 10/22/17 10/22/17 06:59 14:59 22:59 06:59 14:59 22:59 Intake Total 240 ml 360 ml 240 ml 335 ml Output Total 750 ml 1400 ml 1400 ml Balance -510 ml -1040 ml -1160 ml 335 ml Intake Oral 240 ml 360 ml 240 ml Tube Feeding 335 ml Output Urine Total 750 ml 1400 ml 1400 ml Imaging Last Impressions Renal Ultrasound 10/03/17 0000 Signed Impressions: Service Date/Time: Tuesday, October 03, 2017 23:05 - CONCLUSION: No evidence of mass or hydronephrosis. Jose Sin MD Head CT 10/02/17 0039 Signed Impressions: Service Date/Time: Monday, October 02, 2017 01:45 - CONCLUSION: 1. No gross intracranial abnormality on this scan which is degraded by patient motion. Jose Sin MD Chest X-Ray 10/01/17 1518 Signed Impressions: Service Date/Time: Sunday, October 01, 2017 15:30 - CONCLUSION: Elevation left hemidiaphragm. Lungs are clear Remberto Aguilera MD FACR Objective Remarks GENERAL: This is a well-nourished, well-developed patient, in no apparent distress. Neck; trach in place CARDIOVASCULAR: Regular rate and regular rhythm without murmurs, gallops, or rubs. RESPIRATORY: Clear to auscultation. Breath sounds equal bilaterally. No wheezes , rales, or rhonchi. GASTROINTESTINAL: Abdomen soft, non-tender, nondistended. Normal, active bowel sounds- PEG in place. MUSCULOSKELETAL: Extremities without clubbing, cyanosis, or edema. NEURO: Alert & Oriented x4 to person, place, time, situation. Moves all ext x4 Medications and IVs Inpatient Medications Acetaminophen (Tylenol) 650 mg Q4H PRN PO fever >101 Last administered on 13:30; Start 10/03/17 at 05:00 Acetaminophen/ Hydrocodone Bitart ([place] 5-325 Mg) 1 tab Q4HR PRN PEG pain>5 Last administered on 10/22/17 07:45; Start 10/14/17 at 09:15 Albuterol Sulfate (Albuterol Neb) 0.63 mg Q6HR NEB PRN NEB SHORTNESS OF BREATH Last administered on 10/20/17 21:07; Start 10/02/17 at 01:00 Alprazolam (Xanax) 0.25 mg Q6HR PRN PO ANXIETY Last administered on 10/22/17 09 :04; Start 10/18/17 at 11:45 Amitriptyline HCl (Elavil) 50 mg HS PEG Last administered on 10/21/17 21:49; Start 10/03/17 at 21:00 Ascorbic Acid (Vitamin C) 250 mg BID PEG Last administered on 10/22/17 09:04; Start 10/02/17 at 09:00 Aspirin (Aspirin Chew) 81 mg DAILY PEG Last administered on 10/22/17 09:04; Start 10/02/17 at 09:00 Bisacodyl (Dulcolax Supp) 10 mg DAILY PRN RECTAL SEVERE CONSITIPATION; Start at 18:30 Cefepime HCl 2000 mg/Sodium Chloride 100 ml @ 200 mls/hr Q8H IV Last administered on 10/11/17 13:14; Start 10/03/17 at 14:00; Stop 10/11/17 at 13:17 ; Status DC Ciprofloxacin (Cipro) 500 mg Q12HR PO Last administered on 10/18/17 08:31; Start 10/11/17 at 15:00; Stop 10/18/17 at 14:59; Status DC Citalopram Hydrobromide (CeleXA) 20 mg DAILY PEG Last administered on at 09:55; Start 10/02/17 at 09:00; Stop 10/03/17 at 17:16; Status DC Clonazepam (KlonoPIN) 0.5 mg Q12HR PO Last administered on 10/22/17at 09:04; Start 10/03/17 at 21:00 Collagenase (Santyl Oint) 1 applic DAILY TOPICAL Last administered on 10/22/17at 09:00; Start 10/03/17 at 11:30 Dextrose 1,000 ml @ 50 mls/hr Q20H IV Last administered on 10/14/17 18:48; Start 10/13/17 at 21:30; Stop 10/15/17 at 10:46; Status DC Dextrose (D50w (Vial) Inj) 50 ml UNSCH PRN IV PUSH HYPOGLYCEMIA-SEE COMMENTS; Start 10/02/17 at 01:00 Enoxaparin Sodium (Lovenox Inj) 40 mg HS SQ Last administered on 10/21/17at 21:55 ; Start 10/02/17 at 21:00 Famotidine (Pepcid) 20 mg BID PEG Last administered on 10/22/17at 09:03; Start at 09:00 Fluconazole (Diflucan) 100 mg Q24H PO Last administered on 10/16/17at 17:16; Start 10/10/17 at 16:00; Stop 10/16/17 at 23:00; Status DC Glucagon (Glucagon Inj) 1 mg UNSCH PRN OTHER HYPOGLYCEMIA-SEE COMMENTS; Start 10/02/17 at 01:00 Guaifenesin (Robitussin Liq) 200 mg Q4H PRN PO COUGH Last administered on at 16:49; Start 10/17/17 at 12:00 Heparin Sodium (Porcine) (Heparin Inj) 5,000 units Q8H SQ Last administered on 10/01/17at 21:13; Start 10/01/17 at 20:00; Stop 10/02/17 at 01:12; Status DC Hyoscyamine Sulfate (Levsin) 0.125 mg Q4H PRN PO INCREASED SECRETIONS Last administered on 10/22/17at 09:04; Start 10/21/17 at 12:00 Insulin Aspart (NovoLOG SUPPLEMENTAL SCALE) 1 ACHS SLIDING SCALE SQ Last administered on 10/22/17at 09:10; Start 10/02/17 at 08:00 Insulin Detemir (Levemir Inj) 10 units BID SQ ; Start 10/02/17 at 09:00; Status Future Hold Lactobacillus Acidophilus (Lactinex) 1 tab TID PEG Last administered on 09:03; Start 10/02/17 at 18:00 Lactulose (Lactulose Liq) 30 ml DAILY PRN PO SEVERE CONSITIPATION; Start at 18:30 Lidocaine HCl (Lidoderm 5% Patch.12 Hr) 1 patch DAILY T-DERMAL Last administered on 10/22/17 09:06; Start 10/02/17 at 09:00 Lorazepam (Ativan Inj) 1 mg ONCE ONCE IV PUSH Last administered on 10/02/17at 01:56; Start 10/02/17 at 01:45; Stop 10/02/17 at 01:46; Status DC Magnesium Hydroxide (Milk Of Magnesia Liq) 30 ml Q12H PRN PO Mild constipation ; Start 10/01/17 at 18:30 Mesalamine (Asacol Hd Dr) 1,600 mg Q8HR PO Last administered on 10/11/17at 13:14 ; Start 10/03/17 at 14:00; Stop 10/11/17 at 13:17; Status DC Metronidazole 100 ml @ 100 mls/hr Q6H IV Last administered on 10/02/17at 14:05 ; Start 10/02/17 at 02:00; Stop 10/02/17 at 15:11; Status DC Miscellaneous (Pill Splitter) 1 ea UNSCH PRN OTHER SEE LABEL COMMENTS; Start at 18:00 Naloxone HCl (Narcan Inj) 0.4 mg UNSCH PRN IV PUSH SEE LABEL COMMENTS; Start at 18:30 Non-Formulary Medication ZINC SULFATE 22... Q24H PEG Last administered on at 09:06; Start 10/02/17 at 11:00 Pharmacy Profile Note 0 ml @ 0 mls/hr UNSCH OTHER ; Start 10/01/17 at 18:30; Stop 10/02/17 at 15:11; Status DC Piperacillin Sod/ Tazobactam Sod 100 ml @ 200 mls/hr Q6H IV Last administered on 10/03/17at 10:08; Start 10/01/17 at 21:00; Stop 10/03/17 at 12:16; Status DC Potassium Bicarbonate (Effer-K Eff) 50 meq ONCE ONCE PEG ; Start 10/04/17 at 15 :00; Stop 10/04/17 at 15:01; Status DC Potassium Chloride 20 meq/ Dextrose 510 ml @ 50 mls/hr [id number] IV Last administered on 10/10/17at 22:24; Start 10/07/17 at 23:00; Stop 10/11/17 at 10:33 ; Status DC Potassium Chloride 20 meq/ Sodium Chloride 38.5 meq/Sterile Water 1,019.625 ml @ 70 mls/hr [id number] IV Last administered on 10/03/17at 18:34; Start 10/03/17 at 17:00; Stop 10/04/17 at 13:00; Status DC Potassium Chloride 40 meq/ Dextrose 1,020 ml @ 50 mls/hr [id number] IV Last administered on 10/07/17at 00:00; Start 10/04/17 at 15:00; Stop 10/07/17 at 22:35 ; Status DC Potassium Bicarb/ Potassium Chloride (K-Lyte Cl Eff) 25 meq Q12HR PEG Last administered on 10/13/17at 21:00; Start 10/11/17 at 11:00; Stop 10/14/17 at 09:11 ; Status DC Pregabalin (Lyrica) 50 mg TID PEG Last administered on 10/22/17at 09:04; Start at 09:00 Quetiapine Fumarate (SEROquel) 12.5 mg BID PEG Last administered on 10/22/17at 09 :04; Start 10/03/17 at 21:00 Sennosides (Senokot) 17.2 mg Q12H PRN PO Moderate constipation; Start 10/01/17 at 18:30 Sodium Hypochlorite (Dakin'S 0.125% Soln) 500 ml DAILY TOPICAL Last administered on 10/22/17at 09:00; Start 10/06/17 at 09:00 Sodium Polystyrene Sulfonate (Kayexalate Liq) 15 gm ONCE ONCE PO Last administered on 10/15/17at 14:02; Start 10/15/17 at 10:45; Stop 10/15/17 at 10:52; Status DC Sodium Chloride 1,000 ml @ 75 mls/hr [id number] IV Last administered on at 09:57; Start 10/02/17 at 17:45; Stop 10/03/17 at 17:26; Status DC Tamsulosin HCl (Flomax) 0.8 mg HS PO Last administered on 10/21/17at 21:50; Start 10/02/17 at 21:00 Vancomycin HCl (VANCOMYCIN for oral use only) 250 mg QID PEG Last administered on 10/22/17at 09:05; Start 10/22/17 at 09:00 Vancomycin HCl (Vancomycin 25 Mg/ml Liq) 250 mg QID PEG Last administered on 10/21/17at 22:31; Start 10/02/17 at 18:00; Stop 10/22/17 at 08:53; Status DC Vancomycin HCl 1000 mg/Sodium Chloride 250 ml @ 250 mls/hr Q12H IV Last administered on 10/02/17at 05:02; Start 10/02/17 at 05:00; Stop 10/02/17 at 15:11 ; Status DC Date of Insertion: Oct 02, 2017 A/P Assessment and Plan A/P C diff colitis - improving. -treated with po Vanco; will continue for one week after the course of cipro has been completed-per ID. Pseudomonas/Awa UTI- marquez associated, Marquez catheter changed- finished the course of antibiotics. Hx cervical spine abscess, history of IV drug use-drained and treated with Abx Hypernatremia- resolved continue with tube feeding. hyperkalemia; resolved- stopped potassium replacement - Sacral decubitus Right hip ulcer wound care team nurse recommendation appreciated- Santyl ointment to area, wound care following. Acute respiratory failure with transient hypoxemia- likely from sepsis, on tracheostomy. Continue pulmonary toilet. 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 Neftaly Escobar MD Oct 22, 2017 12:19
[2017-10-22] MEDS: AMITRIPTYLINE HCL 50 MG TAB PEG SCH (21:50)
[2017-10-22] MEDS: TAMSULOSIN HCL 0.4 MG CAP PO SCH (21:50)
[2017-10-22] MEDS: ENOXAPARIN SODIUM 40 MG/0.4 ML SYRINGE SQ SCH (21:51)
[2017-10-23] VITALS (9 sets, daily range): BP systolic 110–136; BP diastolic 72–89; PULSE 102–121; RESP 18–22; TEMP 97.2–99.1; O2SAT 92–99
[2017-10-23] MEDS: ALPRAZolam 0.25 MG TAB PO PRN ×2 (02:46→22:17)
[2017-10-23] MEDS: HYOSCYAMINE 0.125 MG TAB PO PRN (02:46)
[2017-10-23] MEDS: ACETAMINOPHEN/HYDROcodone 325 MG/5 MG TAB PEG PRN ×2 (02:47→08:08)
[2017-10-23] MEDS: INSULIN ASPART SUPPLEMENTAL SCALE SQ SCH ×4 (07:42→22:19)
[2017-10-23] MEDS: clonazePAM 0.5 MG TAB PO SCH (08:08)
[2017-10-23] MEDS: QUEtiapine FUMARATE 25 MG TAB PEG SCH (08:08)
[2017-10-23] MEDS: VANCOMYCIN 500 MG VIAL (FOR ORAL USE ONLY) PEG SCH ×4 (08:09→22:19)
[2017-10-23] MEDS: FAMOTIDINE 20 MG TAB PEG SCH ×2 (08:09→22:17)
[2017-10-23] MEDS: ASCORBIC ACID 500 MG TAB PEG SCH ×2 (08:09→22:17)
[2017-10-23] MEDS: ASPIRIN 81 MG CHEW TAB PEG SCH (08:09)
[2017-10-23] MEDS: LACTOBACILLUS ACIDOPHILUS TAB PEG SCH ×3 (08:09→17:57)
[2017-10-23] MEDS: PREGABALIN 25 MG CAP PEG SCH ×3 (08:09→17:57)
[2017-10-23] MEDS: LIDOCAINE HCL 5% PATCH T-DERMAL SCH (08:10)
[2017-10-23] MEDS: SODIUM HYPOCHLORITE 0.125% 500 ML BTL TOPICAL SCH (08:10)
[2017-10-23] MEDS: COLLAGENASE OINT 30 GM TUBE TOPICAL SCH (08:11)
[2017-10-23] MEDS: ZINC SULFATE 220 MG PEG SCH (10:56)
--- NOTE | 2017-10-23 15:52 | HHI.PR ---
Subjective Remarks The patient was resting comfortably in bed. His family was at the bedside and her questions were answered. The patient wanted some pain medications, anxiety medications and a few other medications changed. Discussed with nursing. Objective Vitals Vital Signs Date Time Temp Pulse Resp B/P (MAP) Pulse Ox O2 Delivery O2 Flow Rate FiO2 10/23/17 06:15 92 T-piece 6.00 35 10/23/17 04:00 97.9 107 22 121/78 (92) 96 10/23/17 00:54 95 T-Piece 5.00 28 Humidified 10/23/17 00:00 99.1 121 22 116/72 (87) 95 10/22/17 20:00 97.3 114 24 119/81 (94) 95 10/22/17 16:00 97.3 101 17 114/80 (91) 96 I/O 10/22/17 10/22/17 10/22/17 10/23/17 10/23/17 10/23/17 07:00 15:00 23:00 07:00 15:00 23:00 Intake Total 240 ml 335 ml 1624 ml 1147 ml Output Total 1400 ml 350 ml Balance -1160 ml 335 ml 1624 ml 797 ml Intake Oral 240 ml 120 ml Tube Feeding 335 ml 1624 ml 1027 ml Output Urine Total 1400 ml 350 ml Tube Feeding Residual Discard 0 ml Imaging Last Impressions Renal Ultrasound 10/03/17 0000 Signed Impressions: Service Date/Time: Tuesday, October 03, 2017 23:05 - CONCLUSION: No evidence of mass or hydronephrosis. Jose Sin MD Head CT 10/02/17 0039 Signed Impressions: Service Date/Time: Monday, October 02, 2017 01:45 - CONCLUSION: 1. No gross intracranial abnormality on this scan which is degraded by patient motion. Jose Sin MD Chest X-Ray 10/01/17 1518 Signed Impressions: Service Date/Time: Sunday, October 01, 2017 15:30 - CONCLUSION: Elevation left hemidiaphragm. Lungs are clear Remberto Aguilera MD FACR Objective Remarks GENERAL: This is a well-nourished, well-developed patient, in no apparent distress. Neck; trach in place CARDIOVASCULAR: Regular rate and regular rhythm without murmurs, gallops, or rubs. RESPIRATORY: Clear to auscultation. Breath sounds equal bilaterally. No wheezes , rales, or rhonchi. GASTROINTESTINAL: Abdomen soft, non-tender, nondistended. PEG in place. MUSCULOSKELETAL: Extremities without clubbing, cyanosis, or edema. NEURO: Alert & Oriented x4 to person, place, time, situation. Moves all ext x4 Medications and IVs Current Medications Medications (Trade) Dose Ordered Sig/Damian Route Start Time Stop Time Status Last Admin (Narcan Inj) 0.4 mg UNSCH PRN IV PUSH 10/01/17 18:30 (Milk Of Magnesia Liq) 30 ml Q12H PRN PO 10/01/17 18:30 (Senokot) 17.2 mg Q12H PRN PO 10/01/17 18:30 (Dulcolax Supp) 10 mg DAILY PRN RECTAL 10/01/17 18:30 (Lactulose Liq) 30 ml DAILY PRN PO 10/01/17 18:30 (Lidoderm 5% Patch.12 Hr) 1 patch DAILY T-DERMAL 10/02/17 09:00 10/23/17 08:10 (Lyrica) 50 mg TID PEG 10/02/17 09:00 10/23/17 12:25 (Albuterol Neb) 0.63 mg Q6HR NEB PRN NEB 10/02/17 01:00 10/20/17 21:07 (Aspirin Chew) 81 mg DAILY PEG 10/02/17 09:00 10/23/17 08:09 (Lovenox Inj) 40 mg HS SQ 10/02/17 21:00 10/22/17 21:51 (Pepcid) 20 mg BID PEG 10/02/17 09:00 10/23/17 08:09 (Vitamin C) 250 mg BID PEG 10/02/17 09:00 10/23/17 08:09 (Levemir Inj) 10 units BID SQ 10/02/17 09:00 Future Hold (D50w (Vial) Inj) 50 ml UNSCH PRN IV PUSH 10/02/17 01:00 (Glucagon Inj) 1 mg UNSCH PRN OTHER 10/02/17 01:00 (NovoLOG SUPPLEMENTAL SCALE) 1 ACHS SLIDING SCALE SQ 10/02/17 08:00 10/23/17 12:25 Non-Formulary Medication ZINC SULFATE 22... Q24H PEG 10/02/17 11:00 10/23/17 10:56 (Lactinex) 1 tab TID PEG 10/02/17 18:00 10/23/17 12:25 (Flomax) 0.8 mg HS PO 10/02/17 21:00 10/22/17 21:50 (Tylenol) 650 mg Q4H PRN PO 10/03/17 05:00 10/03/17 13:30 (Santyl Oint) 1 applic DAILY TOPICAL 10/03/17 11:30 10/23/17 08:11 (SEROquel) 12.5 mg BID PEG 10/03/17 21:00 10/23/17 08:08 (Elavil) 50 mg HS PEG 10/03/17 21:00 10/22/17 21:50 (Pill Splitter) 1 ea UNSCH PRN OTHER 10/03/17 18:00 (Dakin'S 0.125% Soln) 500 ml DAILY TOPICAL 10/06/17 09:00 10/23/17 08:10 ([place] 5-325 Mg) 1 tab Q4HR PRN PEG 10/14/17 09:15 10/23/17 08:08 (Robitussin Liq) 200 mg Q4H PRN PO 10/17/17 12:00 10/19/17 16:49 (Xanax) 0.25 mg Q6HR PRN PO 10/18/17 11:45 10/23/17 02:46 (Levsin) 0.125 mg Q4H PRN PO 10/21/17 12:00 10/23/17 02:46 (VANCOMYCIN for oral use only) 250 mg QID PEG 10/22/17 09:00 10/25/17 09:00 10/23/17 12:25 (KlonoPIN) 0.5 mg DAILY PO 10/23/17 09:00 10/23/17 08:08 Date of Insertion: Oct 02, 2017 A/P Assessment and Plan C diff colitis Improving. - treated with po vanco; will continue for one week after the course of Cipro has been completed-per ID. Pseudomonas/Awa UTI Canas associated. - Canas catheter changed- finished the course of antibiotics. Hx cervical spine abscess/ paralysis History of IV drug use. - Rehab efforts. Hypernatremia Resolved. - continue with tube feeding. Sacral decubitus Right hip ulcer - wound care team nurse recommendation appreciated- Santyl ointment to area, wound care following. Acute respiratory failure With transient hypoxemia- likely from sepsis, on tracheostomy. - Continue pulmonary toilet. Chronic pain On Dilaudid as an outpt. - resume Dilaudid as needed. Encephalopathy Resolved, minimize [employer] depressing meds. - Wean Klonopin, Seroquel and Xanax. - Resume citalopram 20 mg daily when off of Seroquel. - continue with pain control. DM type 2 -sliding scale insulin Insomnia -start Ambien. Lovenox for DVT prophylaxis Johan Bentley DO Oct 23, 2017 15:52
[2017-10-23] MEDS ORDERED: METHOCARBAMOL 500 MG TAB PO PRN (16:15)
[2017-10-23] MEDS: HYDROmorphone HCL 4 MG TAB PO PRN ×2 (17:57→22:18)
[2017-10-23] MEDS: ENALAPRIL MALEATE 5 MG TAB PO SCH (17:57)
[2017-10-23] MEDS: AMITRIPTYLINE HCL 50 MG TAB PEG SCH (22:17)
[2017-10-23] MEDS: ENOXAPARIN SODIUM 40 MG/0.4 ML SYRINGE SQ SCH (22:18)
[2017-10-23] MEDS: TAMSULOSIN HCL 0.4 MG CAP PO SCH (22:38)
[2017-10-24] VITALS (8 sets, daily range): BP systolic 91–127; BP diastolic 56–91; PULSE 101–117; RESP 16–22; TEMP 97.3–98.7; O2SAT 94–99
[2017-10-24] MEDS: HYDROmorphone HCL 4 MG TAB PO PRN ×2 (02:34→22:14)
[2017-10-24] MEDS: RESP: ALBUTEROL 0.63 MG/3 ML NEB (PRN) NEB (03:39)
[2017-10-24] MEDS: LACTOBACILLUS ACIDOPHILUS TAB PEG SCH ×3 (08:52→17:21)
[2017-10-24] MEDS: ENALAPRIL MALEATE 5 MG TAB PO SCH (08:52)
[2017-10-24] MEDS: ASCORBIC ACID 500 MG TAB PEG SCH ×2 (08:53→22:13)
[2017-10-24] MEDS: FAMOTIDINE 20 MG TAB PEG SCH ×2 (08:53→22:13)
[2017-10-24] MEDS: PREGABALIN 25 MG CAP PEG SCH ×3 (08:54→17:21)
[2017-10-24] MEDS: clonazePAM 0.5 MG TAB PO SCH (08:54)
[2017-10-24] MEDS: VANCOMYCIN 500 MG VIAL (FOR ORAL USE ONLY) PEG SCH ×4 (08:55→22:13)
[2017-10-24] MEDS: ASPIRIN 81 MG CHEW TAB PEG SCH (08:55)
[2017-10-24] MEDS: QUEtiapine FUMARATE 25 MG TAB PEG SCH (08:55)
[2017-10-24] MEDS: LIDOCAINE HCL 5% PATCH T-DERMAL SCH (08:56)
[2017-10-24] MEDS: SODIUM HYPOCHLORITE 0.125% 500 ML BTL TOPICAL SCH (08:56)
[2017-10-24] MEDS: COLLAGENASE OINT 30 GM TUBE TOPICAL SCH (08:57)
[2017-10-24] MEDS: INSULIN ASPART SUPPLEMENTAL SCALE SQ SCH ×4 (09:08→21:00)
[2017-10-24 11:07] LABS: BICARBONATE 28.5 MEQ/L (21.0-32.0); CALCIUM 9.6 MG/DL (8.5-10.1); CREATININE 0.32 MG/DL (0.60-1.30); MAGNESIUM 1.8 MG/DL (1.5-2.5)
[2017-10-24 11:22] LABS: HEMATOCRIT 32.4 % (39.0-51.0); HEMOGLOBIN 10.7 GM/DL (13.0-17.0); MEAN CELL VOLUME 84.8 FL (80.0-100.0); MEAN PLATELET VOLUME 7.5 FL (7.0-11.0); PLATELET COUNT 259 TH/MM3 (150-450); RED BLOOD COUNT 3.82 MIL/MM3 (4.50-5.90); RED CELL DISTRIBUTION WIDTH 18.1 % (11.6-17.2); WHITE BLOOD COUNT 9.7 TH/MM3 (4.0-11.0)
[2017-10-24] MEDS: ZINC SULFATE 220 MG PEG SCH (12:29)
--- NOTE | 2017-10-24 14:21 | HHI.PR ---
Subjective Remarks The patient was resting in bed. He said yesterday he was swallowing fine but today was different. He requested ice chips. He says he does not have a lung doctor. Has been having a lot of secretions. Discussed with nursing. Objective Vitals Vital Signs Date Time Temp Pulse Resp B/P (MAP) Pulse Ox O2 Delivery O2 Flow Rate FiO2 10/24/17 12:00 97.3 110 16 91/56 (68) 94 10/24/17 11:47 96 T-piece 6.00 40 10/24/17 08:25 Trach Collar 9.00 40 10/24/17 08:00 97.7 101 16 115/68 (84) 97 10/24/17 03:40 96 Trach Collar 6.00 40 10/24/17 00:00 97.5 116 22 110/68 (82) 96 10/23/17 21:40 95 Trach Collar 6.00 40 10/23/17 20:00 97.7 117 22 120/82 (95) 99 10/23/17 17:49 94 Face Tent 6.00 40 10/23/17 16:00 97.7 113 18 136/81 (99) 98 I/O 10/23/17 10/23/17 10/23/17 10/24/17 10/24/17 10/24/17 07:00 15:00 23:00 07:00 15:00 23:00 Intake Total 1147 ml 300 ml 240 ml 0 ml Output Total 350 ml 850 ml 600 ml 3.0 ml Balance 797 ml 300 ml -610 ml -600 ml -3.0 ml Intake Oral 120 ml 240 ml 0 ml Tube Feeding 1027 ml 300 ml Output Urine Total 350 ml 650 ml 600 ml Stool Total 200 ml Tube Feeding Residual Discard 0 ml 3.0 ml # Bowel Movements 1 0 Result Diagram: 10/24/17 1020 10/24/17 1020 Imaging Last Impressions Renal Ultrasound 10/03/17 0000 Signed Impressions: Service Date/Time: Tuesday, October 03, 2017 23:05 - CONCLUSION: No evidence of mass or hydronephrosis. Jose Sin MD Head CT 10/02/17 0039 Signed Impressions: Service Date/Time: Monday, October 02, 2017 01:45 - CONCLUSION: 1. No gross intracranial abnormality on this scan which is degraded by patient motion. Jose Sin MD Chest X-Ray 10/01/17 1518 Signed Impressions: Service Date/Time: Sunday, October 01, 2017 15:30 - CONCLUSION: Elevation left hemidiaphragm. Lungs are clear Remberto Aguilera MD FACR Objective Remarks GENERAL: This is a well-nourished, well-developed patient, in no apparent distress. Neck; trach in place CARDIOVASCULAR: Regular rate and regular rhythm without murmurs, gallops, or rubs. RESPIRATORY: Clear to auscultation. Breath sounds equal bilaterally. No wheezes , rales, or rhonchi. GASTROINTESTINAL: Abdomen soft, non-tender, nondistended. PEG in place. MUSCULOSKELETAL: Extremities without clubbing, cyanosis, or edema. NEURO: Alert & Oriented x4 to person, place, time, situation. Moves all ext x4 Medications and IVs Current Medications Medications (Trade) Dose Ordered Sig/Damian Route Start Time Stop Time Status Last Admin (Narcan Inj) 0.4 mg UNSCH PRN IV PUSH 10/01/17 18:30 (Milk Of Magnesia Liq) 30 ml Q12H PRN PO 10/01/17 18:30 (Senokot) 17.2 mg Q12H PRN PO 10/01/17 18:30 (Dulcolax Supp) 10 mg DAILY PRN RECTAL 10/01/17 18:30 (Lactulose Liq) 30 ml DAILY PRN PO 10/01/17 18:30 (Lidoderm 5% Patch.12 Hr) 1 patch DAILY T-DERMAL 10/02/17 09:00 10/24/17 08:56 (Lyrica) 50 mg TID PEG 10/02/17 09:00 10/24/17 12:29 (Albuterol Neb) 0.63 mg Q6HR NEB PRN NEB 10/02/17 01:00 10/24/17 03:39 (Aspirin Chew) 81 mg DAILY PEG 10/02/17 09:00 10/24/17 08:55 (Lovenox Inj) 40 mg HS SQ 10/02/17 21:00 10/23/17 22:18 (Pepcid) 20 mg BID PEG 10/02/17 09:00 10/24/17 08:53 (Vitamin C) 250 mg BID PEG 10/02/17 09:00 10/24/17 08:53 (Levemir Inj) 10 units BID SQ 10/02/17 09:00 Future Hold (D50w (Vial) Inj) 50 ml UNSCH PRN IV PUSH 10/02/17 01:00 (Glucagon Inj) 1 mg UNSCH PRN OTHER 10/02/17 01:00 (NovoLOG SUPPLEMENTAL SCALE) 1 ACHS SLIDING SCALE SQ 10/02/17 08:00 10/24/17 12:30 Non-Formulary Medication ZINC SULFATE 22... Q24H PEG 10/02/17 11:00 10/24/17 12:29 (Lactinex) 1 tab TID PEG 10/02/17 18:00 10/24/17 12:28 (Flomax) 0.8 mg HS PO 10/02/17 21:00 10/23/17 22:38 (Tylenol) 650 mg Q4H PRN PO 10/03/17 05:00 10/03/17 13:30 (Santyl Oint) 1 applic DAILY TOPICAL 10/03/17 11:30 10/24/17 08:57 (Elavil) 50 mg HS PEG 10/03/17 21:00 10/23/17 22:17 (Pill Splitter) 1 ea UNSCH PRN OTHER 10/03/17 18:00 (Dakin'S 0.125% Soln) 500 ml DAILY TOPICAL 10/06/17 09:00 10/24/17 08:56 (Robitussin Liq) 200 mg Q4H PRN PO 10/17/17 12:00 10/19/17 16:49 (Xanax) 0.25 mg Q6HR PRN PO 10/18/17 11:45 10/23/17 22:17 (Levsin) 0.125 mg Q4H PRN PO 10/21/17 12:00 10/23/17 02:46 (VANCOMYCIN for oral use only) 250 mg QID PEG 10/22/17 09:00 10/25/17 09:00 10/24/17 12:29 (KlonoPIN) 0.5 mg DAILY PO 10/23/17 09:00 10/24/17 08:54 (SEROquel) 12.5 mg DAILY PEG 10/24/17 09:00 10/24/17 08:55 (Vasotec) 5 mg DAILY PO 10/23/17 17:30 10/24/17 08:52 (Robaxin) 500 mg Q8HR PRN PO 10/23/17 16:15 (Dilaudid) 4 mg Q4H PRN PO 10/23/17 16:15 10/24/17 02:34 Date of Insertion: Oct 02, 2017 A/P Assessment and Plan C diff colitis Improving. - treated with po vanco; will continue for one week after the course of Cipro has been completed-per ID. D/c vanco 10/25. Pseudomonas/Awa UTI Canas associated. - Canas catheter changed- finished the course of antibiotics. Hx cervical spine abscess/ paralysis History of IV drug use. - Rehab efforts. Hypernatremia Resolved. - continue with tube feeding. Sacral decubitus Right hip ulcer - wound care team nurse recommendation appreciated- Santyl ointment to area, wound care following. Acute respiratory failure With transient hypoxemia- likely from sepsis, on tracheostomy. Now with concern for aspiration pneumonia. - Continue pulmonary toilet. - tube feeds only. Follow up with speech therapy. - pulmonology consult requested. - CXR pending. Chronic pain On Dilaudid as an outpt. - resume Dilaudid as needed. 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 - Wean Klonopin, Seroquel and Xanax. - Resume citalopram 20 mg daily when off of Seroquel. - continue with pain control. DM type 2 Relatively well controlled. - sliding scale insulin. Lovenox for DVT prophylaxis Johan Bentley DO Oct 24, 2017 14:21
--- NOTE | 2017-10-24 16:30 | RADRPT ---
EXAM DATE/TIME: 10/24/2017 14:58 [facility] COMPARISON: CHEST SINGLE AP, October 01, 2017, 15:30. INDICATIONS : Pneumonia. MEDICAL HISTORY : Hypertension. atrial fibrillation, diabetes, quadraplegic c-diff SURGICAL HISTORY : peg tube ENCOUNTER: Initial ACUITY: 3 weeks PAIN SCORE: Non-responsive. LOCATION: Bilateral chest FINDINGS: Trach tube in good position. Cardiomegaly with mild interstitial edema and minimal bibasilar parench ymal changes. No pneumothorax.. CONCLUSION: Increased interstitial changes without consolidation. Remberto Aguilera MD FACR on October 24, 2017 at 16:26 Board Certified Radiologist. This report was verified electronically.
[2017-10-24] MEDS: RESP: ALBUTEROL 2.5 MG/IPRATROPIUM 0.5 MG NEB (SCH) INH (20:23)
[2017-10-24] MEDS: AMITRIPTYLINE HCL 50 MG TAB PEG SCH (22:13)
[2017-10-24] MEDS: ALPRAZolam 0.25 MG TAB PO PRN (22:13)
[2017-10-24] MEDS: TAMSULOSIN HCL 0.4 MG CAP PO SCH (22:13)
[2017-10-24] MEDS: ENOXAPARIN SODIUM 40 MG/0.4 ML SYRINGE SQ SCH (22:14)
[2017-10-25] VITALS (9 sets, daily range): BP systolic 104–129; BP diastolic 67–87; PULSE 102–116; RESP 16–19; TEMP 97.4–98; O2SAT 92–98
[2017-10-25] MEDS: HYDROmorphone HCL 4 MG TAB PO PRN ×4 (02:20→22:52)
[2017-10-25 04:08] LABS: HEMOGLOBIN 11.1 GM/DL (13.0-17.0); MEAN CELL VOLUME 85.2 FL (80.0-100.0); MEAN CORPUSCULAR HEMOGLOBIN 28.5 PG (27.0-34.0); MEAN CORPUSCULAR HGB CONC 33.5 % (32.0-36.0); MEAN PLATELET VOLUME 7.4 FL (7.0-11.0); PLATELET COUNT 268 TH/MM3 (150-450); RED BLOOD COUNT 3.87 MIL/MM3 (4.50-5.90); RED CELL DISTRIBUTION WIDTH 18.5 % (11.6-17.2); WHITE BLOOD COUNT 10.6 TH/MM3 (4.0-11.0)
[2017-10-25 04:35] LABS: BICARBONATE 28.3 MEQ/L (21.0-32.0); CALCIUM 9.8 MG/DL (8.5-10.1); CREATININE 0.29 MG/DL (0.60-1.30); MAGNESIUM 1.8 MG/DL (1.5-2.5)
[2017-10-25] MEDS: INSULIN ASPART SUPPLEMENTAL SCALE SQ SCH ×4 (08:28→21:00)
[2017-10-25] MEDS: LACTOBACILLUS ACIDOPHILUS TAB PEG SCH ×3 (08:29→18:15)
[2017-10-25] MEDS: clonazePAM 0.5 MG TAB PO SCH (08:29)
[2017-10-25] MEDS: ASCORBIC ACID 500 MG TAB PEG SCH ×2 (08:29→21:55)
[2017-10-25] MEDS: QUEtiapine FUMARATE 25 MG TAB PEG SCH (08:30)
[2017-10-25] MEDS: FAMOTIDINE 20 MG TAB PEG SCH ×2 (08:30→21:55)
[2017-10-25] MEDS: ASPIRIN 81 MG CHEW TAB PEG SCH (08:30)
[2017-10-25] MEDS: VANCOMYCIN 500 MG VIAL (FOR ORAL USE ONLY) PEG SCH (08:30)
[2017-10-25] MEDS: PREGABALIN 25 MG CAP PEG SCH ×3 (08:30→18:15)
[2017-10-25] MEDS: COLLAGENASE OINT 30 GM TUBE TOPICAL SCH (08:31)
[2017-10-25] MEDS: LIDOCAINE HCL 5% PATCH T-DERMAL SCH (08:31)
[2017-10-25] MEDS: SODIUM HYPOCHLORITE 0.125% 500 ML BTL TOPICAL SCH (08:31)
[2017-10-25] MEDS: RESP: ALBUTEROL 2.5 MG/IPRATROPIUM 0.5 MG NEB (SCH) INH ×3 (08:51→21:12)
--- NOTE | 2017-10-25 08:54 | MB ---
cc: Hang Munguia MD DATE: 10/25/2017 HISTORY OF PRESENT ILLNESS: Mr. Little is a 67-year-old white male whose pulmonary problems seem to have developed after surgery in July on his cervical spine. He had an abscess in that area which left him paretic, both in the upper and lower extremities and postoperatively his course was complicated. At some point, he had a tracheostomy. He was in the hospital for a prolonged period of time, actually had a Staph septicemia with multiple abscesses in the neck and in the abdomen and flank. He was subsequently transferred to a rehabilitation center and then a nursing facility and the tracheostomy was left in place. He presented back to the hospital with fever, shortness of breath, a marked elevation in white count to nearly 30,000 and Pseudomonas and Awa urinary tract infections. Since admission, pulmonary status has been basically stable, but within the last 24-48 hours, he has had some episodes of desaturation and more congestion. Chest x-ray on admission revealed elevation of the left hemidiaphragm and the lungs were clear. On 10/24/2017, there was some increased consolidation at the right base. A sputum has been sent, but results are pending. White count has improved to 10,000. Infectious disease has been following him and treating the urinary infection. He also developed Clostridium difficile colitis and is on vancomycin. He has been on prophylactic Lovenox and is quite immobile due to weakness of the upper and lower extremities. At the time of this interview yesterday, he was congested, but not complaining of particular shortness of breath. PAST MEDICAL HISTORY: History of drug abuse in the past he had quit for many years and then resumed both oral and some intravenous drug use apparently a year ago. This is probably what resulted in the Staph infection. 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 He had a trach and PEG during his July admission. SOCIAL HISTORY: Prior smoker but probably quit smoking cigarettes about 30 years ago. No alcohol abuse history. Drug use noted above. He is , living with his . She is at the bedside. ALLERGIES: NONE KNOWN. MEDICATIONS: Currently reviewed in the EMR. REVIEW OF SYSTEMS: Currently increasing congestion. No blood has been noted and the secretions. He had been trying to eat, but now is n.p.o. because of failing a swallow evaluation. No significant chronic edema in his legs. PHYSICAL EXAMINATION: GENERAL: A frail-appearing gentleman in no acute distress. VITAL SIGNS: Afebrile, 104/70, pulse 100, respirations 18-22. NECK: Trach site is mildly erythematous. CHEST: Scattered congestion, but no wheezing. HEART: Regular rhythm. Soft systolic murmur. No audible S3. ABDOMEN: Soft. EXTREMITIES: He has no peripheral edema. No obvious tenderness in the calves. Both upper and lower extremities are paretic, but he does move them. DISCUSSION: Mr. Little has been quite ill over the course of the last 3 or 4 months after a cervical spine surgery and Staph septicemia with multiple abscesses. He currently presented with severe urinary infection and infectious disease has been following that. I suspect he has had some intermittent aspiration, but at present, his chest x-ray is minimally changed and I think if we intensify his pulmonary regimen and clear his secretions, we can hopefully avoid further deterioration. In light of the C. difficile colitis, I do not think adding additional antibiotics at present is necessary unless his condition were to deteriorate. It will be important to try to identify what is in his sputum. I will also confer with infectious disease if we need to adjust antibiotics based on those results. I have increased his aerosol therapy to routine. If congestion continues, we will add chest physical therapy. Further diagnostic and/or therapeutic intervention will depend on his ongoing clinical course and response to therapy. R. MD TRIXIE Christian/MARILU , 08:32 AM , 08:53 AM
[2017-10-25] MEDS: ENALAPRIL MALEATE 5 MG TAB PO SCH ×2 (09:00→12:35)
[2017-10-25] MEDS: ZINC SULFATE 220 MG PEG SCH (12:32)
[2017-10-25] MEDS ORDERED: RESP: ACETYLCYSTEINE 10% 10 ML NEB NEB PRN (16:00)
--- NOTE | 2017-10-25 16:59 | HHI.PR ---
Subjective Remarks The patient said that he had difficulty breathing earlier this morning but that has improved. He has still been having secretions. He said he has been seen by the sales advisor. His family was at the bedside and her questions were answered. Discussed with nursing. Objective Vitals Vital Signs Date Time Temp Pulse Resp B/P (MAP) Pulse Ox O2 Delivery O2 Flow Rate FiO2 10/25/17 12:00 97.4 108 19 129/84 (99) 95 10/25/17 09:00 T-Piece 6.00 35 10/25/17 08:51 96 T-piece 6.00 28 10/25/17 08:00 98.0 103 17 104/70 (81) 96 10/25/17 04:00 97.6 110 19 107/67 (80) 94 10/25/17 00:00 97.8 114 19 121/87 (98) 98 10/24/17 20:24 96 T-piece 35 10/24/17 20:00 97.8 117 19 127/91 (103) 98 I/O 10/24/17 10/24/17 10/24/17 10/25/17 10/25/17 10/25/17 07:00 15:00 23:00 07:00 15:00 23:00 Intake Total 0 ml 694 ml 0 ml Output Total 600 ml 3.0 ml 750 ml Balance -600 ml -3.0 ml 694 ml -750 ml Intake Oral 0 ml 0 ml Tube Feeding 694 ml Output Urine Total 600 ml 750 ml Tube Feeding Residual Discard 3.0 ml # Voids 6 # Bowel Movements 0 Result Diagram: 10/25/17 0342 10/25/17 0342 Imaging Last Impressions Chest X-Ray 10/24/17 0000 Signed Impressions: Service Date/Time: Tuesday, October 24, 2017 14:58 - CONCLUSION: Increased interstitial changes without consolidation. Remberto Aguilera MD FACR Renal Ultrasound 10/03/17 0000 Signed Impressions: Service Date/Time: Tuesday, October 03, 2017 23:05 - CONCLUSION: No evidence of mass or hydronephrosis. Jose Sin MD Head CT 10/02/17 0039 Signed Impressions: Service Date/Time: Monday, October 02, 2017 01:45 - CONCLUSION: 1. No gross intracranial abnormality on this scan which is degraded by patient motion. Jose Sin MD Objective Remarks GENERAL: This is a well-nourished, well-developed patient, in no apparent distress. Neck; trach in place CARDIOVASCULAR: Regular rate and regular rhythm without murmurs, gallops, or rubs. RESPIRATORY: Clear to auscultation. Breath sounds equal bilaterally. No wheezes , rales, or rhonchi. GASTROINTESTINAL: Abdomen soft, non-tender, nondistended. PEG in place. MUSCULOSKELETAL: Extremities without clubbing, cyanosis, or edema. NEURO: Alert & Oriented x4 to person, place, time, situation. Moves all ext x4. PSYCH: Mood and affect appropriate. Medications and IVs Current Medications Medications (Trade) Dose Ordered Sig/Damian Route Start Time Stop Time Status Last Admin (Narcan Inj) 0.4 mg UNSCH PRN IV PUSH 10/01/17 18:30 (Milk Of Magnesia Liq) 30 ml Q12H PRN PO 10/01/17 18:30 (Senokot) 17.2 mg Q12H PRN PO 10/01/17 18:30 (Dulcolax Supp) 10 mg DAILY PRN RECTAL 10/01/17 18:30 (Lactulose Liq) 30 ml DAILY PRN PO 10/01/17 18:30 (Lidoderm 5% Patch.12 Hr) 1 patch DAILY T-DERMAL 10/02/17 09:00 10/25/17 08:31 (Lyrica) 50 mg TID PEG 10/02/17 09:00 10/25/17 12:33 (Albuterol Neb) 0.63 mg Q6HR NEB PRN NEB 10/02/17 01:00 10/24/17 03:39 (Aspirin Chew) 81 mg DAILY PEG 10/02/17 09:00 10/25/17 08:30 (Lovenox Inj) 40 mg HS SQ 10/02/17 21:00 10/24/17 22:14 (Pepcid) 20 mg BID PEG 10/02/17 09:00 10/25/17 08:30 (Vitamin C) 250 mg BID PEG 10/02/17 09:00 10/25/17 08:29 (Levemir Inj) 10 units BID SQ 10/02/17 09:00 Future Hold (D50w (Vial) Inj) 50 ml UNSCH PRN IV PUSH 10/02/17 01:00 (Glucagon Inj) 1 mg UNSCH PRN OTHER 10/02/17 01:00 (NovoLOG SUPPLEMENTAL SCALE) 1 ACHS SLIDING SCALE SQ 10/02/17 08:00 10/25/17 12:33 Non-Formulary Medication ZINC SULFATE 22... Q24H PEG 10/02/17 11:00 10/25/17 12:32 (Lactinex) 1 tab TID PEG 10/02/17 18:00 10/25/17 12:33 (Flomax) 0.8 mg HS PO 10/02/17 21:00 10/24/17 22:13 (Tylenol) 650 mg Q4H PRN PO 10/03/17 05:00 10/03/17 13:30 (Santyl Oint) 1 applic DAILY TOPICAL 10/03/17 11:30 10/25/17 08:31 (Elavil) 50 mg HS PEG 10/03/17 21:00 10/24/17 22:13 (Pill Splitter) 1 ea UNSCH PRN OTHER 10/03/17 18:00 (Dakin'S 0.125% Soln) 500 ml DAILY TOPICAL 10/06/17 09:00 10/25/17 08:31 (Robitussin Liq) 200 mg Q4H PRN PO 10/17/17 12:00 10/19/17 16:49 (Xanax) 0.25 mg Q6HR PRN PO 10/18/17 11:45 10/24/17 22:13 (Levsin) 0.125 mg Q4H PRN PO 10/21/17 12:00 10/23/17 02:46 (KlonoPIN) 0.5 mg DAILY PO 10/23/17 09:00 10/25/17 08:29 (SEROquel) 12.5 mg DAILY PEG 10/24/17 09:00 10/25/17 08:30 (Vasotec) 5 mg DAILY PO 10/23/17 17:30 10/25/17 12:35 (Robaxin) 500 mg Q8HR PRN PO 10/23/17 16:15 Future Hold (Dilaudid) 4 mg Q4H PRN PO 10/23/17 16:15 10/25/17 12:33 (Duoneb Neb) 1 ampule TID NEB INH 10/24/17 20:00 10/25/17 12:18 (Mucomyst 10% Neb) 2 ml Q4HR NEB PRN NEB 10/25/17 16:00 Date of Insertion: Oct 02, 2017 A/P Assessment and Plan C diff colitis Improving. - treated with po vanco; will continue for one week after the course of Cipro has been completed-per ID. D/c vanco 10/25. Pseudomonas/Awa UTI Canas associated. - Canas catheter changed- finished the course of antibiotics. Hx cervical spine abscess/ paralysis History of IV drug use. - Rehab efforts. Hypernatremia Resolved. - continue with tube feeding. Sacral decubitus Right hip ulcer - wound care team nurse recommendation appreciated- Santyl ointment to area, wound care following. Acute respiratory failure With transient hypoxemia- likely from sepsis, on tracheostomy. Now with concern for aspiration pneumonia. CXR 10/24 with increased interstitial changes. Pulmonology consult appreciated. - Continue pulmonary toilet. - tube feeds only. Follow up with speech therapy. - pulmonology following. - Mucomyst nebs added for secretions. Chronic pain On Dilaudid as an outpt. - resume Dilaudid as needed. 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 - Wean Klonopin, Seroquel and Xanax. - Resume citalopram 20 mg daily when off of Seroquel. - continue with pain control. DM type 2 Relatively well controlled. - sliding scale insulin. Holding Levemir. Lovenox for DVT prophylaxis Johan Bentley DO Oct 25, 2017 16:59
[2017-10-25] MEDS: TAMSULOSIN HCL 0.4 MG CAP PO SCH (21:55)
[2017-10-25] MEDS: AMITRIPTYLINE HCL 50 MG TAB PEG SCH (21:56)
[2017-10-25] MEDS: ENOXAPARIN SODIUM 40 MG/0.4 ML SYRINGE SQ SCH (21:56)
[2017-10-26] VITALS (8 sets, daily range): BP systolic 94–135; BP diastolic 63–80; PULSE 95–122; RESP 16–20; TEMP 97.4–98.4; O2SAT 95–100
[2017-10-26] MEDS: HYDROmorphone HCL 4 MG TAB PO PRN ×4 (04:55→21:17)
[2017-10-26] MEDS: INSULIN ASPART SUPPLEMENTAL SCALE SQ SCH ×4 (08:00→21:00)
[2017-10-26] MEDS: RESP: ALBUTEROL 2.5 MG/IPRATROPIUM 0.5 MG NEB (SCH) INH ×3 (08:10→19:53)
[2017-10-26] MEDS: ENALAPRIL MALEATE 5 MG TAB PO SCH (09:11)
[2017-10-26] MEDS: ASPIRIN 81 MG CHEW TAB PEG SCH (09:21)
[2017-10-26] MEDS: FAMOTIDINE 20 MG TAB PEG SCH ×2 (09:22→21:17)
[2017-10-26] MEDS: LACTOBACILLUS ACIDOPHILUS TAB PEG SCH ×3 (09:22→18:07)
[2017-10-26] MEDS: QUEtiapine FUMARATE 25 MG TAB PEG SCH (09:22)
[2017-10-26] MEDS: PREGABALIN 25 MG CAP PEG SCH ×3 (09:22→18:07)
[2017-10-26] MEDS: LIDOCAINE HCL 5% PATCH T-DERMAL SCH (09:22)
[2017-10-26] MEDS: ASCORBIC ACID 500 MG TAB PEG SCH ×2 (09:22→21:17)
[2017-10-26] MEDS: SODIUM HYPOCHLORITE 0.125% 500 ML BTL TOPICAL SCH (09:23)
[2017-10-26] MEDS: COLLAGENASE OINT 30 GM TUBE TOPICAL SCH (09:23)
[2017-10-26] MEDS: ZINC SULFATE 220 MG PEG SCH (11:00)
[2017-10-26] MEDS: HYOSCYAMINE 0.125 MG TAB PO PRN (12:44)
--- NOTE | 2017-10-26 13:00 | HHI.PR ---
Subjective Remarks The patient said that he had a lot of mucus production. He requested a popsicle and ice chips. He wanted to know how somebody gets C. difficile. Family at the bedside. Their questions were answered. Discussed with nursing. Objective Vitals Vital Signs Date Time Temp Pulse Resp B/P (MAP) Pulse Ox O2 Delivery O2 Flow Rate FiO2 10/26/17 12:00 97.4 95 16 102/65 (77) 96 10/26/17 08:14 T-piece 28.00 10/26/17 08:00 97.8 102 17 135/77 (96) 100 10/26/17 04:00 97.6 101 16 117/73 (88) 97 10/26/17 00:00 98.0 106 16 129/80 (96) 96 10/25/17 21:30 Trach Collar 6.00 35 10/25/17 21:30 102 10/25/17 21:12 94 T-piece 6.00 28 10/25/17 20:00 97.8 108 16 121/67 (85) 92 10/25/17 16:00 97.6 116 16 109/68 (82) 94 I/O 10/25/17 10/25/17 10/25/17 10/26/17 10/26/17 10/26/17 07:00 15:00 23:00 07:00 15:00 23:00 Intake Total 0 ml 705 ml 0 ml Output Total 750 ml Balance -750 ml 705 ml 0 ml Intake Oral 0 ml 0 ml 0 ml Tube Feeding 705 ml Output Urine Total 750 ml # Voids 4 4 Result Diagram: 10/25/17 0342 10/25/17 0342 Imaging Last Impressions Chest X-Ray 10/24/17 0000 Signed Impressions: Service Date/Time: Tuesday, October 24, 2017 14:58 - CONCLUSION: Increased interstitial changes without consolidation. Remberto Aguilera MD FACR Renal Ultrasound 10/03/17 0000 Signed Impressions: Service Date/Time: Tuesday, October 03, 2017 23:05 - CONCLUSION: No evidence of mass or hydronephrosis. Jose Sin MD Head CT 10/02/17 0039 Signed Impressions: Service Date/Time: Monday, October 02, 2017 01:45 - CONCLUSION: 1. No gross intracranial abnormality on this scan which is degraded by patient motion. Jose Sin MD Objective Remarks GENERAL: This is a well-nourished, well-developed patient, in no apparent distress. Neck; trach in place CARDIOVASCULAR: Regular rate and regular rhythm without murmurs, gallops, or rubs. RESPIRATORY: Clear to auscultation. Breath sounds equal bilaterally. No wheezes , rales, or rhonchi. GASTROINTESTINAL: Abdomen soft, non-tender, nondistended. PEG in place. MUSCULOSKELETAL: Extremities without clubbing, cyanosis, or edema. NEURO: Alert & Oriented x4 to person, place, time, situation. Moves all ext x4. PSYCH: Mood and affect appropriate. Medications and IVs Current Medications Medications (Trade) Dose Ordered Sig/Admian Route Start Time Stop Time Status Last Admin (Narcan Inj) 0.4 mg UNSCH PRN IV PUSH 10/01/17 18:30 (Milk Of Magnesia Liq) 30 ml Q12H PRN PO 10/01/17 18:30 (Senokot) 17.2 mg Q12H PRN PO 10/01/17 18:30 (Dulcolax Supp) 10 mg DAILY PRN RECTAL 10/01/17 18:30 (Lactulose Liq) 30 ml DAILY PRN PO 10/01/17 18:30 (Lidoderm 5% Patch.12 Hr) 1 patch DAILY T-DERMAL 10/02/17 09:00 10/26/17 09:22 (Lyrica) 50 mg TID PEG 10/02/17 09:00 10/26/17 12:44 (Albuterol Neb) 0.63 mg Q6HR NEB PRN NEB 10/02/17 01:00 10/24/17 03:39 (Aspirin Chew) 81 mg DAILY PEG 10/02/17 09:00 10/26/17 09:21 (Lovenox Inj) 40 mg HS SQ 10/02/17 21:00 10/25/17 21:56 (Pepcid) 20 mg BID PEG 10/02/17 09:00 10/26/17 09:22 (Vitamin C) 250 mg BID PEG 10/02/17 09:00 10/26/17 09:22 (Levemir Inj) 10 units BID SQ 10/02/17 09:00 Future Hold (D50w (Vial) Inj) 50 ml UNSCH PRN IV PUSH 10/02/17 01:00 (Glucagon Inj) 1 mg UNSCH PRN OTHER 10/02/17 01:00 (NovoLOG SUPPLEMENTAL SCALE) 1 ACHS SLIDING SCALE SQ 10/02/17 08:00 10/26/17 12:52 Non-Formulary Medication ZINC SULFATE 22... Q24H PEG 10/02/17 11:00 10/25/17 12:32 (Lactinex) 1 tab TID PEG 10/02/17 18:00 10/26/17 12:44 (Flomax) 0.8 mg HS PO 10/02/17 21:00 10/25/17 21:55 (Tylenol) 650 mg Q4H PRN PO 10/03/17 05:00 10/03/17 13:30 (Santyl Oint) 1 applic DAILY TOPICAL 10/03/17 11:30 10/26/17 09:23 (Elavil) 50 mg HS PEG 10/03/17 21:00 10/25/17 21:56 (Pill Splitter) 1 ea UNSCH PRN OTHER 10/03/17 18:00 (Dakin'S 0.125% Soln) 500 ml DAILY TOPICAL 10/06/17 09:00 10/26/17 09:23 (Robitussin Liq) 200 mg Q4H PRN PO 10/17/17 12:00 10/19/17 16:49 (Xanax) 0.25 mg Q6HR PRN PO 10/18/17 11:45 10/24/17 22:13 (SEROquel) 12.5 mg DAILY PEG 10/24/17 09:00 10/26/17 09:22 (Vasotec) 5 mg DAILY PO 10/23/17 17:30 10/26/17 09:11 (Robaxin) 500 mg Q8HR PRN PO 10/23/17 16:15 Future Hold (Dilaudid) 4 mg Q4H PRN PO 10/23/17 16:15 10/26/17 15:29 (Duoneb Neb) 1 ampule TID NEB INH 10/24/17 20:00 10/26/17 12:25 (KlonoPIN) 0.5 mg EVERY OTHER DAY PO 10/27/17 09:00 Date of Insertion: Oct 02, 2017 A/P Assessment and Plan Acute respiratory failure With transient hypoxemia- likely from sepsis, on tracheostomy. Now with concern for aspiration pneumonia. CXR 10/24 with increased interstitial changes. Pulmonology consult appreciated. Sputum culture growing staph aureus. - Continue pulmonary toilet. - tube feeds only. Follow up with speech therapy. - pulmonology following. - aspiration precautions. - Mucomyst nebs added for secretions. - follow sputum culture. Hold off on treating as afebrile and without leukocytosis. C diff colitis The pt completed a course of antibiotics and his diarrhea has resolved. - resolved. Pseudomonas/Awa UTI Canas associated. - Canas catheter changed- finished the course of antibiotics. Hx cervical spine abscess/ paralysis History of IV drug use. - Rehab efforts. Hypernatremia Resolved. - continue with tube feeding. Sacral decubitus Right hip ulcer - wound care team nurse recommendation appreciated- Santyl ointment to area, wound care following. Chronic pain On Dilaudid as an outpt. - resume Dilaudid as needed. 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 - Wean Klonopin, Seroquel and Xanax. - Resume citalopram 20 mg daily when off of Seroquel. - continue with pain control. DM type 2 Relatively well controlled. - sliding scale insulin. Holding Levemir. Lovenox for DVT prophylaxis Discharge Planning D/c to SNF when cleared by pulmonology Johan Bentley DO Oct 26, 2017 13:00
[2017-10-26] MEDS: ENOXAPARIN SODIUM 40 MG/0.4 ML SYRINGE SQ SCH (21:00)
[2017-10-26] MEDS: AMITRIPTYLINE HCL 50 MG TAB PEG SCH (21:17)
[2017-10-26] MEDS: TAMSULOSIN HCL 0.4 MG CAP PO SCH (21:17)
[2017-10-27] VITALS (9 sets, daily range): BP systolic 94–135; BP diastolic 63–84; PULSE 101–123; RESP 17–20; TEMP 97.3–98.9; O2SAT 94–100
[2017-10-27] MEDS: ALPRAZolam 0.25 MG TAB PO PRN ×3 (01:34→22:02)
[2017-10-27] MEDS: HYDROmorphone HCL 4 MG TAB PO PRN ×5 (05:08→23:17)
[2017-10-27 05:31] LABS: AUTOMATED NEUTROPHIL # 8.2 TH/MM3 (1.8-7.7); BASOPHIL % 0.3 % (0.0-2.0); EOSINOPHIL # 0.3 TH/MM3 (0-0.4); EOSINOPHIL % 1.9 % (0.0-4.0); HEMATOCRIT 32.1 % (39.0-51.0); HEMOGLOBIN 10.6 GM/DL (13.0-17.0); LYMPHOCYTE # 3.5 TH/MM3 (1.0-4.8); MEAN CELL VOLUME 85.3 FL (80.0-100.0); MEAN CORPUSCULAR HEMOGLOBIN 28.1 PG (27.0-34.0); MEAN PLATELET VOLUME 7.5 FL (7.0-11.0); MONO % 10.9 % (0.0-8.0); MONOCYTE # 1.5 TH/MM3 (0-0.9); NEUT % 60.9 % (16.0-70.0); PLATELET COUNT 293 TH/MM3 (150-450); RED BLOOD COUNT 3.76 MIL/MM3 (4.50-5.90); RED CELL DISTRIBUTION WIDTH 17.9 % (11.6-17.2); WHITE BLOOD COUNT 13.5 TH/MM3 (4.0-11.0)
[2017-10-27] MEDS: INSULIN ASPART SUPPLEMENTAL SCALE SQ SCH ×4 (08:00→21:00)
[2017-10-27] MEDS: RESP: ALBUTEROL 2.5 MG/IPRATROPIUM 0.5 MG NEB (SCH) INH ×3 (08:16→20:16)
[2017-10-27] MEDS ORDERED: clonazePAM 0.5 MG TAB PO SCH (09:00)
[2017-10-27] MEDS: QUEtiapine FUMARATE 25 MG TAB PEG SCH (09:15)
[2017-10-27] MEDS: FAMOTIDINE 20 MG TAB PEG SCH ×2 (09:15→22:01)
[2017-10-27] MEDS: PREGABALIN 25 MG CAP PEG SCH ×3 (09:15→17:39)
[2017-10-27] MEDS: ASPIRIN 81 MG CHEW TAB PEG SCH (09:15)
[2017-10-27] MEDS: ASCORBIC ACID 500 MG TAB PEG SCH ×2 (09:15→22:01)
[2017-10-27] MEDS: LACTOBACILLUS ACIDOPHILUS TAB PEG SCH ×3 (09:15→17:39)
[2017-10-27] MEDS: ENALAPRIL MALEATE 5 MG TAB PO SCH (09:15)
[2017-10-27] MEDS: LIDOCAINE HCL 5% PATCH T-DERMAL SCH (09:16)
[2017-10-27] MEDS: COLLAGENASE OINT 30 GM TUBE TOPICAL SCH (09:22)
[2017-10-27] MEDS: SODIUM HYPOCHLORITE 0.125% 500 ML BTL TOPICAL SCH (09:22)
[2017-10-27] MEDS: ZINC SULFATE 220 MG PEG SCH (11:51)
[2017-10-27] MEDS: BACITRACIN TOP OINT 15 GM TUBE TOPICAL SCH ×3 (12:00→22:02)
[2017-10-27] MEDS ORDERED: GLYCOPYRROLATE 1 MG/5 ML VIAL IV PUSH ONE (12:45)
--- NOTE | 2017-10-27 13:16 | RADRPT ---
EXAM DATE/TIME: 10/27/2017 12:48 [facility] COMPARISON: CHEST SINGLE AP, October 24, 2017, 14:58. INDICATIONS : Evaluate for pneumonia. Shortness of breath. MEDICAL HISTORY : Hypertension. AFIB. Diabetes. SURGICAL HISTORY : None. ENCOUNTER: Initial ACUITY: 2 days PAIN SCORE: Non-responsive. LOCATION: Bilateral chest FINDINGS: Tracheostomy is stable. Mild hazy bibasilar and perihilar parenchymal opacity which is similar to yvette or. Accounting for rotation, the cardiac contours are grossly stable. CONCLUSION: No significant change Parish Marinelli MD on October 27, 2017 at 13:14 Board Certified Radiologist. This report was verified electronically.
[2017-10-27] MEDS ORDERED: GLYCOPYRROLATE 0.2 MG/ML VIAL IV PUSH ONE ×2 (13:30→14:45)
--- NOTE | 2017-10-27 14:05 | HHI.PR ---
Subjective Remarks The patient had a lot of secretions. He was hoping to try to eat something a little later. He wanted his pillow readjusted. Discussed with nursing. Objective Vitals Vital Signs Date Time Temp Pulse Resp B/P (MAP) Pulse Ox O2 Delivery O2 Flow Rate FiO2 10/27/17 12:00 97.3 105 18 102/66 (78) 96 10/27/17 08:00 98.9 113 19 102/68 (79) 96 10/27/17 04:00 98.0 116 18 121/63 (82) 94 10/27/17 00:00 97.9 123 18 94/69 (77) 97 10/26/17 21:14 122 10/26/17 21:14 Trach Collar 6.00 35 10/26/17 20:00 98.4 116 20 94/67 (76) 96 10/26/17 19:53 95 T-piece 6.00 28 10/26/17 17:00 97.5 109 16 117/63 (81) 97 I/O 10/26/17 10/26/17 10/26/17 10/27/17 10/27/17 10/27/17 07:00 15:00 23:00 07:00 15:00 23:00 Intake Total 0 ml 840 ml 433 ml Balance 0 ml 840 ml 433 ml Intake Oral 0 ml 0 ml 0 ml Tube Feeding 720 ml 433 ml Tube Irrigant 120 ml # Voids 4 6 2 # Bowel Movements 0 Result Diagram: 10/27/17 0456 10/25/17 0342 Imaging Last Impressions Chest X-Ray 10/27/17 0000 Signed Impressions: Service Date/Time: Friday, October 27, 2017 12:48 - CONCLUSION: No significant change Parish Marinelli MD Renal Ultrasound 10/03/17 0000 Signed Impressions: Service Date/Time: Tuesday, October 03, 2017 23:05 - CONCLUSION: No evidence of mass or hydronephrosis. Jose Sin MD Head CT 10/02/17 0039 Signed Impressions: Service Date/Time: Monday, October 02, 2017 01:45 - CONCLUSION: 1. No gross intracranial abnormality on this scan which is degraded by patient motion. Jose Sin MD Objective Remarks GENERAL: This is a well-nourished, well-developed patient, in no apparent distress. HEENT: Trach in place with copious secretions. CARDIOVASCULAR: Regular rate and regular rhythm without murmurs, gallops, or rubs. RESPIRATORY: Clear to auscultation. Breath sounds equal bilaterally. No wheezes , rales, or rhonchi. GASTROINTESTINAL: Abdomen soft, non-tender, nondistended. PEG in place. MUSCULOSKELETAL: Extremities without clubbing, cyanosis, or edema. NEURO: Alert & Oriented x4 to person, place, time, situation. Moves all ext x4. Difficult speech s/t trach. PSYCH: Mood and affect appropriate. Medications and IVs Current Medications Medications (Trade) Dose Ordered Sig/Damian Route Start Time Stop Time Status Last Admin (Narcan Inj) 0.4 mg UNSCH PRN IV PUSH 10/01/17 18:30 (Milk Of Magnesia Liq) 30 ml Q12H PRN PO 10/01/17 18:30 (Senokot) 17.2 mg Q12H PRN PO 10/01/17 18:30 (Dulcolax Supp) 10 mg DAILY PRN RECTAL 10/01/17 18:30 (Lactulose Liq) 30 ml DAILY PRN PO 10/01/17 18:30 (Lidoderm 5% Patch.12 Hr) 1 patch DAILY T-DERMAL 10/02/17 09:00 10/27/17 09:16 (Lyrica) 50 mg TID PEG 10/02/17 09:00 10/27/17 11:51 (Albuterol Neb) 0.63 mg Q6HR NEB PRN NEB 10/02/17 01:00 10/24/17 03:39 (Aspirin Chew) 81 mg DAILY PEG 10/02/17 09:00 10/27/17 09:15 (Lovenox Inj) 40 mg HS SQ 10/02/17 21:00 10/26/17 21:00 (Pepcid) 20 mg BID PEG 10/02/17 09:00 10/27/17 09:15 (Vitamin C) 250 mg BID PEG 10/02/17 09:00 10/27/17 09:15 (Levemir Inj) 10 units BID SQ 10/02/17 09:00 Future Hold (D50w (Vial) Inj) 50 ml UNSCH PRN IV PUSH 10/02/17 01:00 (Glucagon Inj) 1 mg UNSCH PRN OTHER 10/02/17 01:00 (NovoLOG SUPPLEMENTAL SCALE) 1 ACHS SLIDING SCALE SQ 10/02/17 08:00 10/27/17 08:00 Non-Formulary Medication ZINC SULFATE 22... Q24H PEG 10/02/17 11:00 10/27/17 11:51 (Lactinex) 1 tab TID PEG 10/02/17 18:00 10/27/17 11:51 (Flomax) 0.8 mg HS PO 10/02/17 21:00 10/26/17 21:17 (Tylenol) 650 mg Q4H PRN PO 10/03/17 05:00 10/03/17 13:30 (Santyl Oint) 1 applic DAILY TOPICAL 10/03/17 11:30 10/27/17 09:22 (Elavil) 50 mg HS PEG 10/03/17 21:00 10/26/17 21:17 (Pill Splitter) 1 ea UNSCH PRN OTHER 10/03/17 18:00 (Dakin'S 0.125% Soln) 500 ml DAILY TOPICAL 10/06/17 09:00 10/27/17 09:22 (Robitussin Liq) 200 mg Q4H PRN PO 10/17/17 12:00 10/19/17 16:49 (Xanax) 0.25 mg Q6HR PRN PO 10/18/17 11:45 10/27/17 11:51 (SEROquel) 12.5 mg DAILY PEG 10/24/17 09:00 10/27/17 09:15 (Vasotec) 5 mg DAILY PO 10/23/17 17:30 10/27/17 09:15 (Robaxin) 500 mg Q8HR PRN PO 10/23/17 16:15 Future Hold (Dilaudid) 4 mg Q4H PRN PO 10/23/17 16:15 10/27/17 09:19 (Duoneb Neb) 1 ampule TID NEB INH 10/24/17 20:00 10/27/17 08:16 (KlonoPIN) 0.5 mg EVERY OTHER DAY PO 10/27/17 09:00 10/27/17 09:15 (Baciguent Oint) 1 applic Q12HR TOPICAL 10/27/17 12:00 11/02/17 11:59 Date of Insertion: Oct 02, 2017 A/P Assessment and Plan Acute respiratory failure With transient hypoxemia- likely from sepsis, on tracheostomy. Now with concern for aspiration pneumonia. CXR 10/24 with increased interstitial changes. Pulmonology consult appreciated. Sputum culture growing staph aureus. CXR 10/27 unchanged. - Continue pulmonary toilet. - tube feeds only. Follow up with speech therapy. - pulmonology following. - aspiration precautions. - Mucomyst nebs added for secretions. Trial of glycopyrrolate. - Hold off on treating staph aureus in sputum as currently afebrile and without obvious consolidation on x-ray. C diff colitis The pt completed a course of antibiotics and his diarrhea has resolved. - resolved. Pseudomonas/Awa UTI Canas associated. - Canas catheter changed- finished the course of antibiotics. Hx cervical spine abscess/ paralysis History of IV drug use. - Rehab efforts. Hypernatremia Resolved. - continue with tube feeding. Sacral decubitus Right hip ulcer - wound care team nurse recommendation appreciated- Santyl ointment to area, wound care following. Chronic pain On Dilaudid as an outpt. - resume Dilaudid as needed. 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 - Wean Klonopin, Seroquel and Xanax. - Resume citalopram 20 mg daily when off of Seroquel. - continue with pain control. DM type 2 Relatively well controlled. - sliding scale insulin. Holding Levemir. Lovenox for DVT prophylaxis Discharge Planning D/c to SNF when cleared by pulmonology Johan Bentley DO Oct 27, 2017 14:05
[2017-10-27] MEDS: TAMSULOSIN HCL 0.4 MG CAP PO SCH (22:01)
[2017-10-27] MEDS: AMITRIPTYLINE HCL 50 MG TAB PEG SCH (22:02)
[2017-10-27] MEDS: ENOXAPARIN SODIUM 40 MG/0.4 ML SYRINGE SQ SCH (22:02)
[2017-10-28] VITALS (10 sets, daily range): BP systolic 103–126; BP diastolic 57–82; PULSE 62–116; RESP 16–20; TEMP 97.5–98.8; O2SAT 93–99
[2017-10-28 05:58] LABS: AUTOMATED NEUTROPHIL # 7.8 TH/MM3 (1.8-7.7); BASOPHIL % 0.3 % (0.0-2.0); EOSINOPHIL # 0.4 TH/MM3 (0-0.4); HEMATOCRIT 32.4 % (39.0-51.0); HEMOGLOBIN 10.6 GM/DL (13.0-17.0); LYMPH % 27.7 % (9.0-44.0); LYMPHOCYTE # 3.8 TH/MM3 (1.0-4.8); MEAN CELL VOLUME 85.9 FL (80.0-100.0); MEAN CORPUSCULAR HEMOGLOBIN 28.1 PG (27.0-34.0); MEAN CORPUSCULAR HGB CONC 32.8 % (32.0-36.0); MEAN PLATELET VOLUME 7.3 FL (7.0-11.0); MONO % 11.2 % (0.0-8.0); MONOCYTE # 1.5 TH/MM3 (0-0.9); NEUT % 57.8 % (16.0-70.0); PLATELET COUNT 292 TH/MM3 (150-450); RED BLOOD COUNT 3.77 MIL/MM3 (4.50-5.90); RED CELL DISTRIBUTION WIDTH 18.3 % (11.6-17.2); WHITE BLOOD COUNT 13.6 TH/MM3 (4.0-11.0)
[2017-10-28] MEDS: LIDOCAINE HCL 5% PATCH T-DERMAL SCH (08:49)
[2017-10-28] MEDS: PREGABALIN 25 MG CAP PEG SCH ×3 (08:49→17:52)
[2017-10-28] MEDS: ENALAPRIL MALEATE 5 MG TAB PO SCH (08:50)
[2017-10-28] MEDS: HYDROmorphone HCL 4 MG TAB PO PRN ×4 (08:50→23:27)
[2017-10-28] MEDS: INSULIN ASPART SUPPLEMENTAL SCALE SQ SCH ×4 (08:50→23:29)
[2017-10-28] MEDS: FAMOTIDINE 20 MG TAB PEG SCH ×2 (08:51→23:26)
[2017-10-28] MEDS: LACTOBACILLUS ACIDOPHILUS TAB PEG SCH ×3 (08:51→17:52)
[2017-10-28] MEDS: ASPIRIN 81 MG CHEW TAB PEG SCH (08:51)
[2017-10-28] MEDS: COLLAGENASE OINT 30 GM TUBE TOPICAL SCH (08:52)
[2017-10-28] MEDS: SODIUM HYPOCHLORITE 0.125% 500 ML BTL TOPICAL SCH (08:52)
[2017-10-28] MEDS: BACITRACIN TOP OINT 15 GM TUBE TOPICAL SCH ×2 (08:52→23:27)
[2017-10-28] MEDS: ASCORBIC ACID 500 MG TAB PEG SCH ×2 (08:52→23:26)
[2017-10-28] MEDS: RESP: ALBUTEROL 2.5 MG/IPRATROPIUM 0.5 MG NEB (SCH) INH ×2 (09:05→13:14)
[2017-10-28] MEDS: ZINC SULFATE 220 MG PEG SCH (10:54)
[2017-10-28] MEDS: GLYCOPYRROLATE 0.2 MG/ML VIAL IV PUSH PRN ×2 (11:37→23:26)
--- NOTE | 2017-10-28 13:48 | HHI.PR ---
Subjective Remarks The patient was resting in bed. He was eager to try to eat something soon. He said that he still has been producing a lot of "junk". Discussed with nursing. Objective Vitals Vital Signs Date Time Temp Pulse Resp B/P (MAP) Pulse Ox O2 Delivery O2 Flow Rate FiO2 10/28/17 09:08 99 T-piece 28 10/28/17 08:47 97 Trach Collar 6.00 35 T-Piece 10/28/17 08:05 107 10/28/17 08:05 107 10/28/17 08:00 97.8 113 17 126/82 (97) 97 10/28/17 04:00 Trach Collar 6.00 35 T-Piece 10/28/17 04:00 98.7 115 20 110/62 (78) 99 10/28/17 04:00 110 10/28/17 00:00 98.8 115 20 103/64 (77) 93 10/28/17 00:00 Trach Collar 6.00 35 T-Piece 10/28/17 00:00 116 10/27/17 20:18 97 T-piece 28 10/27/17 20:00 Trach Collar 6.00 35 T-Piece 10/27/17 20:00 98.9 115 20 135/84 (101) 100 10/27/17 20:00 115 10/27/17 16:00 98.2 101 17 108/67 (81) 97 I/O 10/27/17 10/27/17 10/27/17 10/28/17 10/28/17 10/28/17 06:59 14:59 22:59 06:59 14:59 22:59 Intake Total 433 ml 100 ml 0 ml Output Total 500 ml 400 ml 700 ml Balance 433 ml -500 ml -300 ml -700 ml Intake Oral 0 ml 100 ml 0 ml Tube Feeding 433 ml Output Urine Total 400 ml 700 ml Stool Total 500 ml # Voids 2 2 # Bowel Movements 1 0 Result Diagram: 10/28/17 0544 10/25/17 0342 Imaging Last Impressions Chest X-Ray 10/27/17 0000 Signed Impressions: Service Date/Time: Friday, October 27, 2017 12:48 - CONCLUSION: No significant change Parish Marinelli MD Renal Ultrasound 10/03/17 0000 Signed Impressions: Service Date/Time: Tuesday, October 03, 2017 23:05 - CONCLUSION: No evidence of mass or hydronephrosis. Jose Sin MD Head CT 10/02/17 0039 Signed Impressions: Service Date/Time: Monday, October 02, 2017 01:45 - CONCLUSION: 1. No gross intracranial abnormality on this scan which is degraded by patient motion. Jose Sin MD Objective Remarks GENERAL: This is a well-nourished, well-developed patient, in no apparent distress. HEENT: Trach in place with less secretions. CARDIOVASCULAR: Regular rate and regular rhythm without murmurs, gallops, or rubs. RESPIRATORY: Clear to auscultation. Breath sounds equal bilaterally. No wheezes , rales, or rhonchi. GASTROINTESTINAL: Abdomen soft, non-tender, nondistended. PEG in place. MUSCULOSKELETAL: Extremities without clubbing, cyanosis, or edema. NEURO: Alert & Oriented x4 to person, place, time, situation. Moves all ext x4. Difficult speech s/t trach. PSYCH: Mood and affect appropriate. Medications and IVs Current Medications Medications (Trade) Dose Ordered Sig/Damian Route Start Time Stop Time Status Last Admin (Narcan Inj) 0.4 mg UNSCH PRN IV PUSH 10/01/17 18:30 (Milk Of Magnesia Liq) 30 ml Q12H PRN PO 10/01/17 18:30 (Senokot) 17.2 mg Q12H PRN PO 10/01/17 18:30 (Dulcolax Supp) 10 mg DAILY PRN RECTAL 10/01/17 18:30 (Lactulose Liq) 30 ml DAILY PRN PO 10/01/17 18:30 (Lidoderm 5% Patch.12 Hr) 1 patch DAILY T-DERMAL 10/02/17 09:00 10/28/17 08:49 (Lyrica) 50 mg TID PEG 10/02/17 09:00 10/28/17 13:29 (Albuterol Neb) 0.63 mg Q6HR NEB PRN NEB 10/02/17 01:00 10/24/17 03:39 (Aspirin Chew) 81 mg DAILY PEG 10/02/17 09:00 10/28/17 08:51 (Lovenox Inj) 40 mg HS SQ 10/02/17 21:00 10/27/17 22:02 (Pepcid) 20 mg BID PEG 10/02/17 09:00 10/28/17 08:51 (Vitamin C) 250 mg BID PEG 10/02/17 09:00 10/28/17 08:52 (Levemir Inj) 10 units BID SQ 10/02/17 09:00 Future Hold (D50w (Vial) Inj) 50 ml UNSCH PRN IV PUSH 10/02/17 01:00 (Glucagon Inj) 1 mg UNSCH PRN OTHER 10/02/17 01:00 (NovoLOG SUPPLEMENTAL SCALE) 1 ACHS SLIDING SCALE SQ 10/02/17 08:00 10/28/17 08:50 Non-Formulary Medication ZINC SULFATE 22... Q24H PEG 10/02/17 11:00 10/28/17 10:54 (Lactinex) 1 tab TID PEG 10/02/17 18:00 10/28/17 13:29 (Flomax) 0.8 mg HS PO 10/02/17 21:00 10/27/17 22:01 (Tylenol) 650 mg Q4H PRN PO 10/03/17 05:00 10/03/17 13:30 (Santyl Oint) 1 applic DAILY TOPICAL 10/03/17 11:30 10/28/17 08:52 (Elavil) 50 mg HS PEG 10/03/17 21:00 10/27/17 22:02 (Pill Splitter) 1 ea UNSCH PRN OTHER 10/03/17 18:00 (Dakin'S 0.125% Soln) 500 ml DAILY TOPICAL 10/06/17 09:00 10/28/17 08:52 (Robitussin Liq) 200 mg Q4H PRN PO 10/17/17 12:00 10/19/17 16:49 (Xanax) 0.25 mg Q6HR PRN PO 10/18/17 11:45 10/27/17 22:02 (Vasotec) 5 mg DAILY PO 10/23/17 17:30 10/28/17 08:50 (Robaxin) 500 mg Q8HR PRN PO 10/23/17 16:15 Future Hold (Dilaudid) 4 mg Q4H PRN PO 10/23/17 16:15 10/28/17 13:29 (Duoneb Neb) 1 ampule TID NEB INH 10/24/17 20:00 10/28/17 13:14 (Baciguent Oint) 1 applic Q12HR TOPICAL 10/27/17 12:00 11/02/17 11:59 10/28/17 08:52 (SEROquel) 12.5 mg EVERY OTHER DAY PEG 10/29/17 09:00 (Robinul Inj) 0.2 mg Q8H PRN IV PUSH 10/28/17 10:30 10/28/17 11:37 Date of Insertion: Oct 02, 2017 A/P Assessment and Plan Acute respiratory failure With transient hypoxemia- likely from sepsis, on tracheostomy. Now with concern for aspiration pneumonia. CXR 10/24 with increased interstitial changes. Pulmonology consult appreciated. Sputum culture growing staph aureus. CXR 10/27 unchanged. - Continue pulmonary toilet. - tube feeds only. Follow up with speech therapy. - pulmonology following. - aspiration precautions. - Mucomyst nebs added for secretions. Trial of glycopyrrolate. Improving. - Hold off on treating staph aureus in sputum as currently afebrile and without obvious consolidation on x-ray. C diff colitis The pt completed a course of antibiotics and his diarrhea has resolved. - resolved. Pseudomonas/Awa UTI Canas associated. - Canas catheter changed- finished the course of antibiotics. Hx cervical spine abscess/ paralysis History of IV drug use. - Rehab efforts. Hypernatremia Resolved. - continue with tube feeding. Sacral decubitus Right hip ulcer - wound care team nurse recommendation appreciated- Santyl ointment to area, wound care following. Chronic pain On Dilaudid as an outpt. - resume Dilaudid as needed. 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 - D/c Klonopin. Weaning Seroquel. Low dose Xanax as needed. - Resume citalopram 20 mg daily when off of Seroquel. - continue with pain control. DM type 2 Relatively well controlled. - sliding scale insulin. Holding Levemir. Lovenox for DVT prophylaxis Discharge Planning Possible d/c to SNF in Johan Gomez DO Oct 28, 2017 13:48
[2017-10-28] MEDS: ALPRAZolam 0.25 MG TAB PO PRN (17:52)
[2017-10-28] MEDS: TAMSULOSIN HCL 0.4 MG CAP PO SCH (23:26)
[2017-10-28] MEDS: ENOXAPARIN SODIUM 40 MG/0.4 ML SYRINGE SQ SCH (23:26)
[2017-10-28] MEDS: AMITRIPTYLINE HCL 50 MG TAB PEG SCH (23:26)
[2017-10-29] VITALS (8 sets, daily range): BP systolic 104–130; BP diastolic 62–76; PULSE 62–115; RESP 16–20; TEMP 97.2–98.1; O2SAT 92–98
[2017-10-29 07:50] LABS: BASOPHIL % 0.4 % (0.0-2.0); EOSINOPHIL # 0.7 TH/MM3 (0-0.4); EOSINOPHIL % 5.5 % (0.0-4.0); HEMATOCRIT 31.9 % (39.0-51.0); HEMOGLOBIN 10.5 GM/DL (13.0-17.0); LYMPH % 25.8 % (9.0-44.0); LYMPHOCYTE # 3.2 TH/MM3 (1.0-4.8); MEAN CORPUSCULAR HEMOGLOBIN 28.3 PG (27.0-34.0); MEAN CORPUSCULAR HGB CONC 32.9 % (32.0-36.0); MEAN PLATELET VOLUME 7.5 FL (7.0-11.0); MONO % 11.5 % (0.0-8.0); MONOCYTE # 1.4 TH/MM3 (0-0.9); NEUT % 56.8 % (16.0-70.0); PLATELET COUNT 318 TH/MM3 (150-450); RED BLOOD COUNT 3.72 MIL/MM3 (4.50-5.90); WHITE BLOOD COUNT 12.3 TH/MM3 (4.0-11.0)
[2017-10-29] MEDS: RESP: ALBUTEROL 2.5 MG/IPRATROPIUM 0.5 MG NEB (SCH) INH ×3 (08:11→20:08)
[2017-10-29 08:31] LABS: BICARBONATE 28.6 MEQ/L (21.0-32.0); CALCIUM 9.8 MG/DL (8.5-10.1); CREATININE 0.31 MG/DL (0.60-1.30)
[2017-10-29] MEDS: INSULIN ASPART SUPPLEMENTAL SCALE SQ SCH ×4 (08:55→21:38)
[2017-10-29] MEDS: ENALAPRIL MALEATE 5 MG TAB PO SCH (08:56)
[2017-10-29] MEDS: FAMOTIDINE 20 MG TAB PEG SCH ×2 (08:56→21:33)
[2017-10-29] MEDS: ASCORBIC ACID 500 MG TAB PEG SCH ×2 (08:56→21:33)
[2017-10-29] MEDS: PREGABALIN 25 MG CAP PEG SCH ×3 (08:56→16:37)
[2017-10-29] MEDS: QUEtiapine FUMARATE 25 MG TAB PEG SCH (08:56)
[2017-10-29] MEDS: LACTOBACILLUS ACIDOPHILUS TAB PEG SCH ×3 (08:56→16:36)
[2017-10-29] MEDS: ASPIRIN 81 MG CHEW TAB PEG SCH (08:57)
[2017-10-29] MEDS: COLLAGENASE OINT 30 GM TUBE TOPICAL SCH (09:00)
[2017-10-29] MEDS: BACITRACIN TOP OINT 15 GM TUBE TOPICAL SCH ×2 (09:00→21:00)
[2017-10-29] MEDS: LIDOCAINE HCL 5% PATCH T-DERMAL SCH (09:00)
[2017-10-29] MEDS: SODIUM HYPOCHLORITE 0.125% 500 ML BTL TOPICAL SCH (09:01)
[2017-10-29] MEDS: ZINC SULFATE 220 MG PEG SCH (11:25)
[2017-10-29] MEDS: HYDROmorphone HCL 4 MG TAB PO PRN ×3 (11:26→21:33)
[2017-10-29] MEDS ORDERED: ENAL5TAB PO (11:26)
[2017-10-29] MEDS ORDERED: COLL30T TOPICAL (11:26)
[2017-10-29] MEDS ORDERED: DILA4TAB10 PO (11:26)
[2017-10-29] MEDS ORDERED: QC B500O TOPICAL (11:26)
[2017-10-29] MEDS ORDERED: Albuterol-Ipratropium Neb INH (11:26)
[2017-10-29] MEDS ORDERED: GLYCOPYRROLATE IV PUSH (11:26)
[2017-10-29] MEDS ORDERED: NOVOLOGSS SQ (11:26)
--- NOTE | 2017-10-29 11:27 | HHI.DS ---
Discharge Summary Admission Date Oct 01, 2017 at 17:39 Discharge Date: Oct 29, 2017 Admitting Diagnosis severe sepsis,dehydration,sacral osteomyelitis (1) C. difficile colitis ICD Code: A04.72 - Enterocolitis due to Clostridium difficile, not specified as recurrent Diagnosis: Principal (2) Encephalopathy ICD Code: G93.40 - Encephalopathy, unspecified Diagnosis: Principal (3) Acute respiratory failure ICD Code: J96.00 - Acute respiratory failure, unspecified whether with hypoxia or hypercapnia Diagnosis: Principal (4) Sacral decubitus ulcer, stage IV ICD Code: L89.154 - Pressure ulcer of sacral region, stage 4 (5) Sepsis ICD Code: A41.9 - Sepsis, unspecified organism Procedures None Brief History - From Admission History from patient, ER physician notes, patient's daughter and at the bedside, interview of medical records. Patient has been a resident of [facility] for the past 2 weeks. Prior to that, patient was at [facility] for about 6 weeks. He was hospitalized in [place] at [facility] prior to that for about 4 weeks. He was admitted on August 03, 2017. According to the family, patient had abscess drainage from his cervical spine at that time and staph aureus was found and cultures. He also had abscesses in his left lower abdomen and flank area and was growing MRSA. He was treated with antibiotics there and family believes that he completed by the time he was discharged to [facility]. Today at [facility], patient was having low blood pressure with high heart and low- grade fever for which she was sent to the hospital. Family reported that the were also suctioning him frequently in the past 2-3 days. Patient was coughing a lot as well. At one point, patient had a choking episode with ice chips. However family's complaint being that this never happened when he was at [facility]. He was eating regular type of food at that time in his trach was capped. As [facility], he was always on oxygen and triglyceride capped. Family believes that patient is getting more and more drowsy at [facility] because of medications. Patient also have indwelling Canas catheter. They are not sure when it was last changed. He also complained of bed sores which developed a few days after arriving [facility] in July. They stated that he has had debridements done there. He also reported diarrhea but they were told that it was because of his feeding formula. Diarrhea has been going on for a while. Family is mostly concerned about his medications changes. They do not want him to get too much pain medications in the form of narcotics. Reports the patient was on lorcets at the [facility] At baseline, patient is only able to move his fingers and hands and arms slightly anteflexed and slightly. He is bedbound. He is not able to lift his legs against gravity. He is only able to move sideways a bit and pressed down lightly. All this is that his baseline after this cervical spine abscess surgery. Patient has history of IV drug abuse which he has quit for many years and restarted back within the past 1 year or so. CBC/BMP: 10/29/17 0705 10/29/17 0705 Significant Findings Laboratory Tests Test 10/27/17 04:56 10/28/17 05:44 10/29/17 07:05 White Blood Count 13.5 TH/MM3 (4.0-11.0) 13.6 TH/MM3 (4.0-11.0) 12.3 TH/MM3 (4.0-11.0) Red Blood Count 3.76 MIL/MM3 (4.50-5.90) 3.77 MIL/MM3 (4.50-5.90) 3.72 MIL/MM3 (4.50-5.90) Hemoglobin 10.6 GM/DL (13.0-17.0) 10.6 GM/DL (13.0-17.0) 10.5 GM/DL (13.0-17.0) Hematocrit 32.1 % (39.0-51.0) 32.4 % (39.0-51.0) 31.9 % (39.0-51.0) Red Cell Distribution Width 17.9 % (11.6-17.2) 18.3 % (11.6-17.2) 18.0 % (11.6-17.2) Monocytes (%) (Auto) 10.9 % (0.0-8.0) 11.2 % (0.0-8.0) 11.5 % (0.0-8.0) Neutrophils # (Auto) 8.2 TH/MM3 (1.8-7.7) 7.8 TH/MM3 (1.8-7.7) Monocytes # (Auto) 1.5 TH/MM3 (0-0.9) 1.5 TH/MM3 (0-0.9) 1.4 TH/MM3 (0-0.9) Eosinophils (%) (Auto) 5.5 % (0.0-4.0) Eosinophils # (Auto) 0.7 TH/MM3 (0-0.4) Blood Urea Nitrogen 29 MG/DL (7-18) Creatinine 0.31 MG/DL (0.60-1.30) Random Glucose 137 MG/DL (74-106) Imaging Last Impressions Chest X-Ray 10/27/17 0000 Signed Impressions: Service Date/Time: Friday, October 27, 2017 12:48 - CONCLUSION: No significant change Parish Marinelli MD Renal Ultrasound 10/03/17 0000 Signed Impressions: Service Date/Time: Tuesday, October 03, 2017 23:05 - CONCLUSION: No evidence of mass or hydronephrosis. Jose Sin MD Head CT 10/02/17 0039 Signed Impressions: Service Date/Time: Monday, October 02, 2017 01:45 - CONCLUSION: 1. No gross intracranial abnormality on this scan which is degraded by patient motion. Jose Sin MD PE at Discharge GENERAL: This is a well-nourished, well-developed patient, in no apparent distress. HEENT: Trach in place with less secretions. CARDIOVASCULAR: Regular rate and regular rhythm without murmurs, gallops, or rubs. RESPIRATORY: Clear to auscultation. Breath sounds equal bilaterally. No wheezes , rales, or rhonchi. GASTROINTESTINAL: Abdomen soft, non-tender, nondistended. PEG in place. MUSCULOSKELETAL: Extremities without clubbing, cyanosis, or edema. NEURO: Alert & Oriented x4 to person, place, time, situation. Moves all ext x4. Difficult speech s/t trach. PSYCH: Mood and affect appropriate. Pt update on day of discharge The patient was resting in bed. He said that he had some coughing earlier that has resolved. He was agreeable with going to rehab. He talked about his feeding tube. Discussed with nursing. Hospital Course Acute respiratory failure On tracheostomy. Concern for aspiration pneumonia. CXR 10/24 with increased interstitial changes. Pulmonology was consulted. Sputum culture growing staph aureus. CXR 10/27 unchanged. The pt's pulmonary treatments were adjusted by pulmonology. He was placed on tube feeds only per speech therapy. He was placed on aspiration precautions. We added Mucomyst nebs for secretions. He was also started on glycopyrrolate as needed. He remained afebrile and his leukocytosis improved. He will follow up with pulmonology as an outpt. C diff colitis Infectious disease was consulted. The pt completed a course of antibiotics and his diarrhea has resolved. He will follow up with his PCP. Pseudomonas/Awa UTI Canas associated. Canas catheter was changed. He completed a course of antibiotics and Diflucan per infectious disease. Hx cervical spine abscess/ paralysis The pt worked with PT/ OT. The pt's family refuses to have the pt discharge to the accepting SNF because of bad experiences at the SNFs [facility] facility. The pt will need to remain in house until further arrangements can be made. Discharge has been canceled for now. Sacral decubitus/ Right hip ulcer Wound care nurse was consulted. The pt was continued on Santyl. Chronic pain On Dilaudid as an outpt. We resumed PO Dilaudid as needed. Encephalopathy We tried to minimize sedating meds. We gradually d/c Klonopin and Seroquel. Low dose Xanax as needed was given. We resumed citalopram 20 mg daily upon discharge. His mental status improved. DM type 2 The pt will resume metformin upon discharge. He will continue a sliding scale. Long acting insulin will be held. He will follow up with his PCP. Pt Condition on Discharge: Stable Discharge Disposition: Discharge to SNF Discharge Time: > 30 minutes Discharge Instructions DIET: Follow Instructions for: On Tube Feeding Additional Diet Instructions: Glucerna 1.5 at 60 ml/hr Activities you can perform: Continue Bedrest Follow up Referrals: PCP Follow-up - 1 Week Pulmonology - 1 Week with Hang Munguia MD New Medications: Bacitracin (Topical) (Qc Bacitracin) 500 Unit/Gram Oin 1 APPLIC TOPICAL Q12HR for trach, #1 TUBE Collagenase (Santyl) 250 Unit/Gram Oin 1 APPLIC TOPICAL DAILY for wound, #1 TUBE Enalapril (Enalapril) 5 Mg Tab 5 MG PO DAILY for Blood Pressure Management, #30 TAB Hydromorphone (Dilaudid) 4 Mg Tab 4 MG PO Q4H PRN for pain > 5, #12 TAB Insulin Aspart Inj (Novolog Inj) 100 Unit/Ml Inj 1 UNIT SQ ACHS SLIDING SCALE for Blood Sugar Management, #30 INJECTION [Albuterol-Ipratropium Neb] () 1 AMPULE NEBU 1 AMPULE INH TID NEB for Breathing Treatment [Glycopyrrolate Inj] () 0.2 MG/ML INJ 0.2 MG IV PUSH Q8H PRN for Secretions Continued Medications: Acetaminophen (Tylenol) 325 Mg Tab 650 MG PEG Q4HR PRN for PAIN SCALE 1 TO 10, TAB 0 Refills Albuterol Neb (Albuterol Neb) 0.63 Mg/3 Ml Neb 0.63 MG NEB Q6HR NEB PRN for SHORTNESS OF BREATH, #25 NEBULE 0 Refills Alprazolam (Xanax) 0.5 Mg Tab 0.5 MG PO Q6H PRN for ANXIETY, #10 TAB 0 Refills (This prescription has been renewed) Amitriptyline (Amitriptyline) 50 Mg Tab 50 MG PEG HS for Control Depression, #30 TAB 0 Refills Ascorbic Acid (Vitamin C) 250 Mg Chew 250 MG PEG BID for Nutritional Supplement, #60 TAB 0 Refills Aspirin (Aspirin) 81 Mg Chew 81 MG PEG DAILY, TAB 0 Refills Citalopram (Celexa) 20 Mg Tab 20 MG PEG DAILY for Control Depression, #30 TAB 0 Refills Enoxaparin Inj (Enoxaparin Inj) 40 Mg/0.4 Ml Syr 40 MG SQ HS for Blood Clot Prevention, SYRINGE 0 Refills Famotidine (Pepcid) 20 Mg Tab 20 MG PEG BID, #60 TAB 0 Refills Hydrocodone-Acetaminophen (Hydrocodone-Acetaminophen) 10-325 mg Tab 1 TAB PEG Q6H PRN for PAIN, #14 TAB 0 Refills (This prescription has been renewed) Lidocaine Patch 12 HR (Lidocaine Patch 12 HR) 5 % Patch 1 PATCH TOPICAL DAILY for Pain Management, #1 BOX 0 Refills Remove patch after 12 hours Metformin (Metformin) 500 Mg Tab 500 MG PO BIDPC for Blood Sugar Management, #60 TAB 0 Refills Methocarbamol (Methocarbamol) 500 Mg Tab 500 MG PEG Q8HR for Muscle Spasm, #90 TAB 0 Refills Pregabalin (Lyrica) 50 Mg Cap 50 MG PEG TID, #90 CAP 0 Refills Tamsulosin (Tamsulosin) 0.4 Mg Cap 0.8 MG PEG HS for Manage Prostate Problems, #60 CAP 0 Refills Zinc Sulfate (Zinc Sulfate) 220 Mg (50 Mg Zinc) Cap 220 MG PEG DAILY for Nutritional Supplement, CAP 0 Refills Zolpidem (Zolpidem) 5 Mg Tab 5 MG PEG HS PRN for INSOMNIA, TAB 0 Refills [Cream For Coccyx] () Discontinued Medications: Insulin Detemir Inj (Levemir Flextouch Pen Inj) 300 unit/3 ML Pen 10 UNITS SQ BID for Blood Sugar Management, PEN 0 Refills Lisinopril (Lisinopril) 10 Mg Tab 10 MG PEG DAILY, #30 TAB 0 Refills Quetiapine (Quetiapine) 25 Mg Tab 25 MG PEG BID, #60 TAB 0 Refills Spironolactone (Spironolactone) 25 Mg Tab 25 MG PEG DAILY, #30 TAB 0 Refills Johan Bentley DO Oct 29, 2017 11:27
--- NOTE | 2017-10-29 11:50 | HHI.DCPOC ---
Discharge Care Plan Diagnosis: (1) C. difficile colitis (2) Encephalopathy (3) Acute respiratory failure (4) Sacral decubitus ulcer, stage IV (5) Sepsis Goals to Promote Your Health * To prevent worsening of your condition and complications * To maintain your health at the optimal level Directions to Meet Your Goals Take your medications as prescribed Follow your dietary instruction Follow activity as directed Keep your appointments as scheduled Take your immunizations and boosters as scheduled If your symptoms worsen call your PCP, if no PCP go to Urgent Care Center or Emergency Room Smoking is Dangerous to Your Health. Avoid second hand smoke Call the 24-hour hour crisis hotline for domestic abuse at Johan Bentley DO Oct 29, 2017 11:49
--- NOTE | 2017-10-29 14:17 | HHI.PR ---
Subjective Remarks The patient was resting in bed. He said that he had some coughing earlier that has resolved. He was agreeable with going to rehab. He talked about his feeding tube. Discussed with nursing. Objective Vitals Vital Signs Date Time Temp Pulse Resp B/P (MAP) Pulse Ox O2 Delivery O2 Flow Rate FiO2 10/29/17 12:00 97.9 101 20 104/71 (82) 97 10/29/17 08:11 96 T-piece 5.00 28 10/29/17 08:00 98.0 107 16 111/68 (82) 94 10/29/17 04:00 103 10/29/17 04:00 98.1 62 18 130/65 (86) 95 10/29/17 00:00 98.0 65 18 120/62 (81) 92 10/28/17 23:48 111 10/28/17 20:00 Trach Collar 6.00 35 T-Piece 10/28/17 20:00 96 T-piece 28 10/28/17 20:00 98.1 62 18 125/69 (87) 95 10/28/17 19:53 108 10/28/17 16:00 97.5 67 18 124/73 (90) 96 I/O 10/28/17 10/28/17 10/28/17 10/29/17 10/29/17 10/29/17 07:00 15:00 23:00 07:00 15:00 23:00 Intake Total 0 ml 50 ml 2968 ml 0 ml Output Total 700 ml 200 ml Balance -700 ml 50 ml 2968 ml -200 ml Intake Oral 0 ml 50 ml 0 ml 0 ml Tube Feeding 2368 ml Other 600 ml Output Urine Total 700 ml 200 ml # Voids 5 2 # Bowel Movements 0 0 1 1 Result Diagram: 10/29/17 0705 10/29/17 0705 Imaging Last Impressions Chest X-Ray 10/27/17 0000 Signed Impressions: Service Date/Time: Friday, October 27, 2017 12:48 - CONCLUSION: No significant change Parish Marinelli MD Renal Ultrasound 10/03/17 0000 Signed Impressions: Service Date/Time: Tuesday, October 03, 2017 23:05 - CONCLUSION: No evidence of mass or hydronephrosis. Jose Sin MD Head CT 10/02/17 0039 Signed Impressions: Service Date/Time: Monday, October 02, 2017 01:45 - CONCLUSION: 1. No gross intracranial abnormality on this scan which is degraded by patient motion. Jose Sin MD Objective Remarks GENERAL: This is a well-nourished, well-developed patient, in no apparent distress. HEENT: Trach in place with less secretions. CARDIOVASCULAR: Regular rate and regular rhythm without murmurs, gallops, or rubs. RESPIRATORY: Clear to auscultation. Breath sounds equal bilaterally. No wheezes , rales, or rhonchi. GASTROINTESTINAL: Abdomen soft, non-tender, nondistended. PEG in place. MUSCULOSKELETAL: Extremities without clubbing, cyanosis, or edema. NEURO: Alert & Oriented x4 to person, place, time, situation. Moves all ext x4. Difficult speech s/t trach. PSYCH: Mood and affect appropriate. Procedures None Medications and IVs Current Medications Medications (Trade) Dose Ordered Sig/Damian Route Start Time Stop Time Status Last Admin (Narcan Inj) 0.4 mg UNSCH PRN IV PUSH 10/01/17 18:30 (Milk Of Magnesia Liq) 30 ml Q12H PRN PO 10/01/17 18:30 (Senokot) 17.2 mg Q12H PRN PO 10/01/17 18:30 (Dulcolax Supp) 10 mg DAILY PRN RECTAL 10/01/17 18:30 (Lactulose Liq) 30 ml DAILY PRN PO 10/01/17 18:30 (Lidoderm 5% Patch.12 Hr) 1 patch DAILY T-DERMAL 10/02/17 09:00 10/29/17 09:00 (Lyrica) 50 mg TID PEG 10/02/17 09:00 10/29/17 11:54 (Albuterol Neb) 0.63 mg Q6HR NEB PRN NEB 10/02/17 01:00 10/24/17 03:39 (Aspirin Chew) 81 mg DAILY PEG 10/02/17 09:00 10/29/17 08:57 (Lovenox Inj) 40 mg HS SQ 10/02/17 21:00 10/28/17 23:26 (Pepcid) 20 mg BID PEG 10/02/17 09:00 10/29/17 08:56 (Vitamin C) 250 mg BID PEG 10/02/17 09:00 10/29/17 08:56 (Levemir Inj) 10 units BID SQ 10/02/17 09:00 Future Hold (D50w (Vial) Inj) 50 ml UNSCH PRN IV PUSH 10/02/17 01:00 (Glucagon Inj) 1 mg UNSCH PRN OTHER 10/02/17 01:00 (NovoLOG SUPPLEMENTAL SCALE) 1 ACHS SLIDING SCALE SQ 10/02/17 08:00 10/29/17 11:54 Non-Formulary Medication ZINC SULFATE 22... Q24H PEG 10/02/17 11:00 10/29/17 11:25 (Lactinex) 1 tab TID PEG 10/02/17 18:00 10/29/17 11:26 (Flomax) 0.8 mg HS PO 10/02/17 21:00 10/28/17 23:26 (Tylenol) 650 mg Q4H PRN PO 10/03/17 05:00 10/03/17 13:30 (Santyl Oint) 1 applic DAILY TOPICAL 10/03/17 11:30 10/29/17 09:00 (Elavil) 50 mg HS PEG 10/03/17 21:00 10/28/17 23:26 (Pill Splitter) 1 ea UNSCH PRN OTHER 10/03/17 18:00 (Dakin'S 0.125% Soln) 500 ml DAILY TOPICAL 10/06/17 09:00 10/29/17 09:01 (Robitussin Liq) 200 mg Q4H PRN PO 10/17/17 12:00 10/19/17 16:49 (Xanax) 0.25 mg Q6HR PRN PO 10/18/17 11:45 10/28/17 17:52 (Vasotec) 5 mg DAILY PO 10/23/17 17:30 10/29/17 08:56 (Robaxin) 500 mg Q8HR PRN PO 10/23/17 16:15 Future Hold (Dilaudid) 4 mg Q4H PRN PO 10/23/17 16:15 10/29/17 11:26 (Baciguent Oint) 1 applic Q12HR TOPICAL 10/27/17 12:00 11/02/17 11:59 10/29/17 09:00 (SEROquel) 12.5 mg EVERY OTHER DAY PEG 10/29/17 09:00 10/29/17 08:56 (Robinul Inj) 0.2 mg Q8H PRN IV PUSH 10/28/17 10:30 10/28/17 23:26 (Duoneb Neb) 1 ampule TID NEB INH 10/29/17 08:00 10/29/17 12:26 Date of Insertion: Oct 02, 2017 A/P Problem List: (1) C. difficile colitis ICD Code: A04.72 - Enterocolitis due to Clostridium difficile, not specified as recurrent (2) Encephalopathy ICD Code: G93.40 - Encephalopathy, unspecified (3) Acute respiratory failure ICD Code: J96.00 - Acute respiratory failure, unspecified whether with hypoxia or hypercapnia (4) Sacral decubitus ulcer, stage IV ICD Code: L89.154 - Pressure ulcer of sacral region, stage 4 (5) Sepsis ICD Code: A41.9 - Sepsis, unspecified organism Assessment and Plan Acute respiratory failure With transient hypoxemia- likely from sepsis, on tracheostomy. Now with concern for aspiration pneumonia. CXR 10/24 with increased interstitial changes. Pulmonology consult appreciated. Sputum culture growing staph aureus. CXR 10/27 unchanged. - Continue pulmonary toilet. - tube feeds only. Follow up with speech therapy. - pulmonology following. - aspiration precautions. - Mucomyst nebs added for secretions. Trial of glycopyrrolate. Improving. - Hold off on treating staph aureus in sputum as currently afebrile and without obvious consolidation on x-ray. C diff colitis The pt completed a course of antibiotics and his diarrhea has resolved. - resolved. Pseudomonas/Awa UTI Canas associated. - Canas catheter changed- finished the course of antibiotics. Hx cervical spine abscess/ paralysis History of IV drug use. - Rehab efforts. The pt's family refuses the SNF that has accepted the pt. Hypernatremia Resolved. - continue with tube feeding. Sacral decubitus/ Right hip ulcer Wound care nurse recommendation appreciated. - Santyl ointment to area. Chronic pain On Dilaudid as an outpt. - resume Dilaudid as needed. 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 - D/c Klonopin. Wean off Seroquel. Low dose Xanax as needed. - Resume citalopram 20 mg daily. - continue with pain control. DM type 2 Relatively well controlled. - sliding scale insulin. Holding Levemir. Lovenox for DVT prophylaxis Discharge Planning The pt's family refuses to have the pt discharge to the accepting SNF because of bad experiences at the SNFs [facility] facility. The pt will need to remain in house until further arrangements can be made. Johan Bentley DO Oct 29, 2017 14:17
[2017-10-29] MEDS: TAMSULOSIN HCL 0.4 MG CAP PO SCH (21:32)
[2017-10-29] MEDS: ENOXAPARIN SODIUM 40 MG/0.4 ML SYRINGE SQ SCH (21:33)
[2017-10-29] MEDS: AMITRIPTYLINE HCL 50 MG TAB PEG SCH (21:33)
[2017-10-29] MEDS: ALPRAZolam 0.25 MG TAB PO PRN (23:17)
[2017-10-30] VITALS (10 sets, daily range): BP systolic 93–119; BP diastolic 59–74; PULSE 72–116; RESP 19–20; TEMP 97.3–98.7; O2SAT 95–98
[2017-10-30] MEDS: HYDROmorphone HCL 4 MG TAB PO PRN ×3 (01:36→20:21)
[2017-10-30] MEDS: RESP: ALBUTEROL 2.5 MG/IPRATROPIUM 0.5 MG NEB (SCH) INH ×3 (07:26→21:00)
[2017-10-30] MEDS: LIDOCAINE HCL 5% PATCH T-DERMAL SCH (08:24)
[2017-10-30] MEDS: LACTOBACILLUS ACIDOPHILUS TAB PEG SCH ×3 (08:24→16:13)
[2017-10-30] MEDS: ASPIRIN 81 MG CHEW TAB PEG SCH (08:24)
[2017-10-30] MEDS: PREGABALIN 25 MG CAP PEG SCH ×3 (08:24→16:13)
[2017-10-30] MEDS: ASCORBIC ACID 500 MG TAB PEG SCH ×2 (08:24→20:19)
[2017-10-30] MEDS: FAMOTIDINE 20 MG TAB PEG SCH ×2 (08:24→20:19)
[2017-10-30] MEDS: ENALAPRIL MALEATE 5 MG TAB PO SCH (08:24)
[2017-10-30] MEDS: INSULIN ASPART SUPPLEMENTAL SCALE SQ SCH ×4 (08:25→20:14)
[2017-10-30] MEDS: COLLAGENASE OINT 30 GM TUBE TOPICAL SCH (08:27)
[2017-10-30] MEDS: SODIUM HYPOCHLORITE 0.125% 500 ML BTL TOPICAL SCH (08:27)
[2017-10-30] MEDS: BACITRACIN TOP OINT 15 GM TUBE TOPICAL SCH ×2 (08:27→20:30)
[2017-10-30] MEDS: ZINC SULFATE 220 MG PEG SCH (11:00)
--- NOTE | 2017-10-30 11:16 | HHI.PR ---
Subjective Remarks Follow-up respiratory failure, diarrhea. Patient still having loose stools, likely from tube feeds. No specific complaints at this time. States that he is ready to go to rehab. Objective Vitals Vital Signs Date Time Temp Pulse Resp B/P (MAP) Pulse Ox O2 Delivery O2 Flow Rate FiO2 10/30/17 07:30 96 T-piece 5.00 28 10/30/17 04:00 97.3 114 20 100/68 (79) 96 10/30/17 02:31 72 10/30/17 00:00 98.3 116 20 93/60 (71) 95 10/29/17 20:16 98 T-piece 28 10/29/17 20:00 97.8 115 20 107/70 (82) 94 10/29/17 16:00 97.2 103 19 108/76 (87) 97 10/29/17 12:00 97.9 101 20 104/71 (82) 97 I/O 10/29/17 10/29/17 10/29/17 10/30/17 10/30/17 10/30/17 07:00 15:00 23:00 07:00 15:00 23:00 Intake Total 2968 ml 0 ml 0 ml 1756 ml Output Total 200 ml 500 ml Balance 2968 ml -200 ml -500 ml 1756 ml Intake Oral 0 ml 0 ml 0 ml Tube Feeding 2368 ml 1256 ml Other 600 ml 500 ml Output Urine Total 200 ml 500 ml # Voids 2 2 # Bowel Movements 1 1 5 1 Result Diagram: 10/29/17 0710/29/17 0705 Imaging Last Impressions Chest X-Ray 10/27/17 0000 Signed Impressions: Service Date/Time: Friday, October 27, 2017 12:48 - CONCLUSION: No significant change Parish Marinelli MD Renal Ultrasound 10/03/17 0000 Signed Impressions: Service Date/Time: Tuesday, October 03, 2017 23:05 - CONCLUSION: No evidence of mass or hydronephrosis. Jose Sin MD Head CT 10/02/17 0039 Signed Impressions: Service Date/Time: Monday, October 02, 2017 01:45 - CONCLUSION: 1. No gross intracranial abnormality on this scan which is degraded by patient motion. Jose Sin MD Objective Remarks General: No acute distress. HEENT: Trach in place. Heart: Regular rate and rhythm. No murmur. Lungs: Clear to auscultation bilaterally. No wheezes, rales, or rhonchi. Breathing is nonlabored. Abdomen: Soft, nontender, nondistended. Extremities: No lower extremity edema. Psych: Alert and oriented. Neuro: Speech is difficult secondary to trach. Procedures None Urinary Catheter: No Vascular Central Line Catheter: No A/P Problem List: (1) C. difficile colitis ICD Code: A04.72 - Enterocolitis due to Clostridium difficile, not specified as recurrent (2) Encephalopathy ICD Code: G93.40 - Encephalopathy, unspecified (3) Acute respiratory failure ICD Code: J96.00 - Acute respiratory failure, unspecified whether with hypoxia or hypercapnia (4) Sacral decubitus ulcer, stage IV ICD Code: L89.154 - Pressure ulcer of sacral region, stage 4 (5) Sepsis ICD Code: A41.9 - Sepsis, unspecified organism Assessment and Plan 1. Acute respiratory failure with transient hypoxemia: Likely secondary to sepsis. Mentation's. Continue glycopyrrolate, Mucomyst. Currently afebrile. No antibiotics at this time. 2. C. difficile colitis: Improved. Completed course of antibiotics. Still having loose stools, but these are likely secondary to tube feeds. 3. UTI with Pseudomonas, Awa: Canas catheter associated. Catheter has been removed. Completed course of antibiotics. 4. History of cervical spine abscess, paralysis: Continue rehab. 5. Hypernatremia: Resolved. 6. Sacral decubitus ulcer, right hip ulcer: Continue wound care. Santyl ointment. 7. Chronic pain: Continue Dilaudid as needed. 8. Encephalopathy: Resolved. Continue citalopram. Low-dose Xanax as needed. 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 9. Diabetes mellitus type 2: Levemir on hold. Monitor Accu-Cheks and cover with sliding scale insulin. 10. DVT prophylaxis: Lovenox. Discharge Planning Discharge to SNF when arrangements are made. Patient had an accepting facility yesterday, however his family refused to allow discharge to that facility. Case management assisting with discharge planning. Sebastián Donnelly MD Oct 30, 2017 11:16
[2017-10-30] MEDS: ALPRAZolam 0.25 MG TAB PO PRN (16:13)
[2017-10-30] MEDS: ENOXAPARIN SODIUM 40 MG/0.4 ML SYRINGE SQ SCH (20:14)
[2017-10-30] MEDS: AMITRIPTYLINE HCL 50 MG TAB PEG SCH (20:19)
[2017-10-30] MEDS: TAMSULOSIN HCL 0.4 MG CAP PO SCH (20:20)
[2017-10-31] VITALS: BP 104/70; PULSE 117; RESP 20; TEMP 97.8; O2SAT 93
[2017-10-31] MEDS: guaiFENesin SOLUTION 200 MG/10 ML CUP PO PRN (02:02)
[2017-10-31] MEDS: HYDROmorphone HCL 4 MG TAB PO PRN (02:02)
[2017-10-31 04:00] VITALS: BP 106/75; PULSE 121; RESP 20; TEMP 98.7; O2SAT 96
[2017-10-31 08:00] VITALS: BP 110/73; PULSE 122; RESP 17; TEMP 98; O2SAT 95
[2017-10-31] MEDS: RESP: ALBUTEROL 2.5 MG/IPRATROPIUM 0.5 MG NEB (SCH) INH (08:42)
[2017-10-31 08:51] VITALS: O2SAT 100
[2017-10-31] MEDS: BACITRACIN TOP OINT 15 GM TUBE TOPICAL SCH (09:00)
[2017-10-31] MEDS: COLLAGENASE OINT 30 GM TUBE TOPICAL SCH (09:00)
[2017-10-31] MEDS: INSULIN ASPART SUPPLEMENTAL SCALE SQ SCH (10:57)
[2017-10-31] MEDS: LACTOBACILLUS ACIDOPHILUS TAB PEG SCH (10:58)
[2017-10-31] MEDS: ASPIRIN 81 MG CHEW TAB PEG SCH (10:58)
[2017-10-31] MEDS: ENALAPRIL MALEATE 5 MG TAB PO SCH (10:59)
[2017-10-31] MEDS: PREGABALIN 25 MG CAP PEG SCH (10:59)
[2017-10-31] MEDS: QUEtiapine FUMARATE 25 MG TAB PEG SCH (10:59)
[2017-10-31] MEDS: FAMOTIDINE 20 MG TAB PEG SCH (10:59)
[2017-10-31] MEDS: ASCORBIC ACID 500 MG TAB PEG SCH (10:59)
[2017-10-31] MEDS: LIDOCAINE HCL 5% PATCH T-DERMAL SCH (11:09)
[2017-10-31] MEDS: SODIUM HYPOCHLORITE 0.125% 500 ML BTL TOPICAL SCH (11:12)
== END 2017-10-31 12:09 | DRG 673 ==
LOC: NEPC 13:41 → NEDA 17:39 → NEDH 22:05 → N03B 10-02 15:55 → HOCA 10-03 13:55 → N07A 10-13 20:30
PROVIDERS: ADMIT Family Medicine; ATTEND Family Medicine
PROC: 0T2BX0Z Change Drainage Device in Bladder, External Approach (ICD-10-PCS; 2017-10-01)
PROC: 0JD73ZZ Extraction of Back Subcutaneous Tissue and Fascia, Percutaneous Approach (ICD-10-PCS; 2017-10-05)
PROC: 0T2BX0Z Change Drainage Device in Bladder, External Approach (ICD-10-PCS; 2017-10-09)
PROC: 0JB70ZZ Excision of Back Subcutaneous Tissue and Fascia, Open Approach (ICD-10-PCS; principal; 2017-10-18)
DX: T83.511A Infection and inflammatory reaction due to indwelling urethral catheter, initial encounter (principal); A41.9 Sepsis, unspecified organism; J96.21 Acute and chronic respiratory failure with hypoxia; R65.20 Severe sepsis without septic shock; G82.50 Quadriplegia, unspecified; G92 Toxic encephalopathy; L89.154 Pressure ulcer of sacral region, stage 4; N17.9 Acute kidney failure, unspecified; A04.72 Enterocolitis due to Clostridium difficile, not specified as recurrent; E87.0 Hyperosmolality and hypernatremia; M46.28 Osteomyelitis of vertebra, sacral and sacrococcygeal region; B37.49 Other urogenital candidiasis; L89.521 Pressure ulcer of left ankle, stage 1; L89.511 Pressure ulcer of right ankle, stage 1; N39.0 Urinary tract infection, site not specified; E86.0 Dehydration; Z93.0 Tracheostomy status; E11.69 Type 2 diabetes mellitus with other specified complication; Z87.891 Personal history of nicotine dependence; Z87.01 Personal history of pneumonia (recurrent); Z86.14 Personal history of Methicillin resistant Staphylococcus aureus infection; Z85.820 Personal history of malignant melanoma of skin; Z82.49 Family history of ischemic heart disease and other diseases of the circulatory system; Z74.01 Bed confinement status; R00.0 Tachycardia, unspecified; F19.10 Other psychoactive substance abuse, uncomplicated; I10 Essential (primary) hypertension; E11.9 Type 2 diabetes mellitus without complications; E78.5 Hyperlipidemia, unspecified; N40.0 Benign prostatic hyperplasia without lower urinary tract symptoms; G89.4 Chronic pain syndrome; R47.81 Slurred speech; M47.9 Spondylosis, unspecified; Z93.1 Gastrostomy status; T50.905A Adverse effect of unspecified drugs, medicaments and biological substances, initial encounter; Y84.6 Urinary catheterization as the cause of abnormal reaction of the patient, or of later complication, without mention of misadventure at the time of the procedure; B96.89 Other specified bacterial agents as the cause of diseases classified elsewhere; B96.5 Pseudomonas (aeruginosa) (mallei) (pseudomallei) as the cause of diseases classified elsewhere; E87.6 Hypokalemia; E87.5 Hyperkalemia; G47.00 Insomnia, unspecified; Z78.9 Other specified health status; Z79.84 Long term (current) use of oral hypoglycemic drugs
CPT/HCPCS: 70450; 71045; 76775; 76937; 80048; 80053; 81001; 82948; 83605; 83735; 83880; 84132; 85007; 85025; 85027; 85610; 85730; 86403; 87040; 87070; 87077; 87086; 87147; 87186; 87205; 87493; 94640; 94664; 96365; 96368; 99292; A7520; A7521; J0692; J1644; J1650; J1815; J2060; J2543; J3370; J3480; J7030; J7040; J7050; J7060; J7070; J7613